=== PATIENT | female | born 1950 | race Caucasian/White ===

== ENCOUNTER → 2018-03-20 08:27 | Outpatient (CLI) | payer MEDICARE, MEDICAID, SELFPAY ==
[2018-03-21 07:36] LABS: Hemoglobin A1C 6.6 % (4.5-6.2)
== END ==
PROVIDERS: PCP Family Medicine; Visit Provider Family Medicine
DX: E11.21 Type 2 diabetes mellitus with diabetic nephropathy (principal)
CPT/HCPCS: 36415; 83036

== ENCOUNTER 2018-04-06 12:31 | Emergency (ER) | payer MEDICARE, MEDICAID, SELFPAY ==
[2018-04-06 12:36] VITALS: PULSE 76; RESP 16; TEMP 37.1; O2SAT 95
--- NOTE | 2018-04-06 12:47 | W.ED.GENAD ---
Discharge Plan Disposition Patient Disposition: HOME Condition: Fair Discharge Details Chief Complaint: Nk/Back Pain Clinical Impression: Sciatica, Low back pain Primary Care Provider: Letty Whittington ED Provider: Yanelis Live Home Meds and New Rx's Prescriptions: Continue blood-glucose meter 1 EACH misc 1 ea Miscellaneous AC Qty: 1 RF: 0 omeprazole 20 MG capsule,delayed release(DR/EC) 40 mg PO DAILY PRNRF: 0 blood sugar diagnostic [FreeStyle Lite Strips] 1 EACH strip 1 ea Miscellaneous DAILY Qty: 90 RF: 12 lancets 1 EACH misc 1 ea Miscellaneous DAILY Qty: 100 RF: 12 rosuvastatin [Crestor] 20 MG tablet 20 mg PO DAILY Qty: 90 RF: 4 Melaleuca 4 cap PO BID RF: 0 losartan 50 MG tablet 1 tab PO DAILY Qty: 90 RF: 12 furosemide [Lasix] 40 MG tablet 2 tab PO DAILY Qty: 180 RF: 4 potassium chloride 20 MEQ tablet,ER particles/crystals 20 meq PO BID Qty: 180 RF: 12 glipizide 2.5 MG tablet extended release 24hr 2.5 mg PO DAILY Qty: 90 RF: 12 metformin 1,000 MG tablet 1,000 mg PO BID Qty: 180 RF: 4 allopurinol 300 MG tablet 300 mg PO DAILY Qty: 90 RF: 4 levothyroxine 112 MCG tablet 112 mcg PO DAILY Qty: 90 RF: 12 Discharge Instructions Instructions: Sciatica (ED), Lower Back Exercises (ED) Additional Instructions: Encourage frequent ambulation and gentle stretching. You may try topical such as Salonpas or Lidoderm patches to the area of maximal discomfort. Aleve once in the morning, once at night. You may take Tylenol 1000 mg every 6 hours as needed for discomfort. If you develop fever/chills, increased pain, sensation changes, change in bladder or bowel habits or other new/worsening symptoms please seek care urgently once again. Please follow-up with primary care in the next 1-2 weeks. Please contact physical therapy to schedule appointment as referred. Stand Alone Forms: Physical Therapy Referral Referrals: Letty Whittington MD, [place] [Primary Care Provider] - Discharge Data Discharge Date/Time-TO BE ENTERED AT DEPARTURE: 04/06/18 13:51 Medical Decision Making MDM Narrative Medical decision making narrative: Patient presents today with chief complaint of acute on chronic lower back pain. Pain is radiating down the right side of the buttock. It spares the leg. No saddle paresthesias or other sensory deficits noted on lower extremity exam. No weakness. She is 5 out of 5 strength of bilateral lower extremities. She denies any incontinence or change in bladder/bowel habits. Denies any recent trauma. Patient does have good range of motion although when the patient goes to sit or stand from the stretcher this does cause increased pain on the right side. Pain is reproducible to palpation on exam. Midline tenderness is negligible, the pain seems to be primarily over the right SI joint. Vital signs are within normal limits. Patient responded well to anti-inflammatories before. Advised to begin her Aleve twice daily once again as this has worked well for her in the past. Advised that she may augment throughout the day with Tylenol. This patient is a diabetic and did not feel that treatment with steroids is appropriate at this time. Referral for physical therapy will be given. Encouraged frequent mobilization and gentle stretching. I advised follow-up with primary care. We discussed topical options that she may use to help with discomfort. We discussed new/worsening symptoms and when to seek care urgently once again. All of her questions and concerns were addressed and she is in agreement with this plan [facility] - General Adult General Date/Time Provider Initiated Documentation: 04/06/18 12:46. Limitations to Documentation: no limitations. Information obtained by: patient and family. HPI Narrative: Patient is a 67-year-old female presenting today with chief complaint of back pain. Patient has chronic lower back pain. 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 Reports that she has had intermittent flares of lower back pain with radiating pain down the right buttock. Reports that she had once this flare approximately 2 weeks ago. Since that time she has had discomfort particularly with walking and when going from sitting to standing position. She denies any fevers or chills. Denies any recent trauma. Denies any change in bowel or bladder habits. No incontinence. Describes pain as radiating across the entirety of the lower back but much worse in the right side than the left. He has not noted rash. States she took Advil today but not taking medication prior to this. Reports that typically Aleve works well for her during her flares. Did contact her primary care but reports that primary care is unable to get her in this week for evaluation. Related Data Home Medications Medication Instructions Recorded Confirmed omeprazole 40 mg PO DAILY PRN tab-cap 11/02/17 04/06/18 Melaleuca 4 cap PO BID 03/22/18 04/06/18 Allergies Allergy/AdvReac Type Severity Reaction Status Date / Time lisinopril AdvReac Intermediate COUGH Unverified 04/06/18 12:40 General Stated Complaint: Nk/Back Pain NOLVIA: 4 Review of Systems Constitutional Reports as per HPI, Denies chills, Denies fatigue, Denies fever(s) and Denies headache(s) ENT Denies headache(s) Cardiovascular Denies chest pain and Denies dyspnea Respiratory Denies cough and Denies dyspnea Gastrointestinal Denies abdominal pain, Denies change in bowel habits, Denies fecal incontinence, Denies diarrhea, Denies nausea and Denies vomiting Genitourinary Denies urinary incontinence Musculoskeletal Reports as per HPI Integumentary/Breasts Reports as per HPI Neurologic Reports as per HPI and Denies headache(s) Endocrine Denies fatigue PFSH Family History Mother Personal history of malignant neoplasm Father Personal history of malignant neoplasm Heart disease Grandfather Cirrhosis of liver Grandfather Narcolepsy Diabetes Grandmother Diabetes Personal history of malignant neoplasm Heart disease Grandmother Personal history of malignant neoplasm Sister No problems noted. Sister Alcohol abuse Personal history of malignant neoplasm Sister Personal history of malignant neoplasm Brother No problems noted. Brother No problems noted. Brother No problems noted. Brother No problems noted. Brother No problems noted. Brother Personal history of malignant neoplasm Son Essential hypertension Son Narcolepsy Diabetes Essential hypertension Hyperlipidemia Medical History Bronchiectasis Chronic insomnia Depression Diabetes Diverticulosis large intestine w/o perforation or abscess w/o bleeding GERD (gastroesophageal reflux disease) Gout Hyperlipidemia Hypertension Hypothyroidism Morbid obesity with BMI of 50.0-59.9, adult Organic sleep apnea Osteoarthritis Vitamin D deficiency Social History Smoking/Tobacco Use Status: Never Surgical History Arthroplasty of knee (02/25/16) Cholecystectomy Colonoscopy - IV Sedation Endometrial Biopsy Ligation of fallopian tube PELVIC U/S Exam Const General: cooperative, healthy appearing, comfortable, no acute distress and well developed Nutritional Appearance: obese and overweight Orientation: alert and awake Eyes General: appearance normal, both eyes and all related structures Neck Neck: normal visual inspection, full ROM and nontender Resp Effort & Inspection: normal respiratory effort, able to speak in complete sentences and no respiratory distress Auscultation: clear to auscultation bilaterally Cardio Rate: regular rate Rhythm: regular rhythm Heart Sounds: S1 normal and S2 normal GI Inspection: normal to inspection and non-distended Palpation: soft, not firm, no guarding, not rigid and nontender Back/Spine/Pelvis Back: no CVA tenderness Thoracic/Lumbar Spine: No thoracic and lumbar spine normal to inspection (patient has discomfort across the entire lower section of her abdomen, worse on the right than the left. Pain worse over the SI joint and gluteus. ), surgical scar(s) present (well healed over area over lumbar spine consistent with history), bend over test abnormal (exacerbates pain on the right), pain with thoraco-lumbar ROM (rotational movements intact, worse wth bending forward or sitting to standing position), paraspinal tenderness and thoraco-lumbar ROM limited Pelvis: no pain with anterior-posterior compression and no pain with lateral compression Sacroiliac joints: on the right Sacrum: no ecchymosis, no erythema, no swelling and tenderness Skin General skin exam: no rashes or lesions noted Lesions: no lesions Rashes: no rashes Trauma: no lacerations or abrasions Wounds: no wounds Neuro General: alert and awake Cognition: normal cognition Speech: speech normal Gait: normal gait (patient ambulating slowly but no change in gait is noted), not shuffling and gait not assisted Motor: muscle tone normal throughout, strength 5/5 throughout (5/5 in lower extremities.), no movement abnormalities noted and normal tone Sensory Exam: no sensory deficits noted (no saddle paresthesias noted) DTR's: Rt Patellar: 1+, Lt Patellar: 1+, Rt Ankle: 1+ and Lt Ankle: 1+ Psych Appearance: grossly normal Mental Status: mental status grossly normal Speech and Movement: speech and movement normal Mood: congruent mood Affect: normal affect Attitude: cooperative Course Vital Signs Temperature 37.1 C 04/06/18 12:36 Pulse 76 04/06/18 12:36 Respiratory Rate 16 04/06/18 12:36 Pulse Oximetry 95 04/06/18 12:36 Temperature 37.1 C 04/06/18 12:36 Pulse 76 04/06/18 12:36 Respiratory Rate 16 04/06/18 12:36 Pulse Oximetry 95 04/06/18 12:36
[2018-04-06] MEDS: Lidocaine 5% Patch 1 PATCH TP (13:40)
[2018-04-06] MEDS: Acetaminophen 500 MG TAB 1000 MG PO (13:45)
== END 2018-04-06 13:51 | disposition home or self-care (01) ==
PROVIDERS: Emergency Provider Physician Assistant; PCP Family Medicine
DX: M54.41 Lumbago with sciatica, right side (principal); M54.5 Low back pain; G89.29 Other chronic pain; E11.9 Type 2 diabetes mellitus without complications; I10 Essential (primary) hypertension; Z79.84 Long term (current) use of oral hypoglycemic drugs
CPT/HCPCS: 99282

== ENCOUNTER 2018-06-21 02:03 | Outpatient (CLI) | payer MEDICARE, MEDICAID, SELFPAY ==
[2018-06-21 11:02] LABS: Mean Corp. HGB Concentration 32.5 g/dL (32.0-36.0); Mean Corpuscular Hemoglobin 29.8 pg (27.0-33.0); Mean Corpuscular Volume 91.7 fL (80-95); Mean Platelet Volume 11.7 fL (8.0-11.0); Platelet Count 137 x1000/uL (130-400); RBC 4.36 m/cumm (4.00-5.20); RBC Distribution Width 13.9 % (11.7-14.6); White Blood Cell Count 8.29 k/cumm (4.4-10.8)
[2018-06-21 12:16] LABS: COMMENT (LAB VIEW ONLY) 224.51 mg/dL; Microalb ug/mg Crea 8.6 ug/mg Cr
[2018-06-21 12:20] LABS: ALT 22 U/L (12-78); AST 15 U/L (15-37); Albumin 3.8 g/dL (3.4-5.0); Alkaline Phosphatase 73 U/L (46-116); Anion Gap 6.1 mmol/L (3-11); BUN 16 mg/dL (7-18); Bilirubin, Total 0.5 mg/dL (0.2-1.0); CO2 32.9 mmol/L (21.0-32.0); Calcium 9.6 mg/dL (8.5-10.1); Chloride 101 mmol/L (98-107); Cholesterol 148 mg/dL (50-200); Glucose 115 mg/dL (70-100); HDL Cholesterol 44 mg/dL (40-60); LDL CHOLESTEROL 79 mg/dL (<100); Potassium 4.2 mmol/L (3.5-5.1); Sodium 140 mmol/L (136-145); TSH (W/Ref FT4) 0.11 uIU/mL (0.358-3.74); Total Protein 6.8 g/dL (6.4-8.2); Triglyceride 170 mg/dL (30-150)
[2018-06-21 13:15] LABS: FREE T4 1.21 ng/dL (0.76-1.46)
[2018-06-21 14:10] LABS: Hemoglobin A1C 6.1 % (4.5-6.2)
== END 2018-06-21 02:23 ==
PROVIDERS: PCP Family Medicine; Visit Provider Family Medicine
DX: E11.9 Type 2 diabetes mellitus without complications (principal); E03.9 Hypothyroidism, unspecified; I10 Essential (primary) hypertension; E11.21 Type 2 diabetes mellitus with diabetic nephropathy; M10.9 Gout, unspecified; E78.5 Hyperlipidemia, unspecified
CPT/HCPCS: 36415; 80053; 80061; 83721; 85027; 82043; 82570; 83036; 84439; 84443

== ENCOUNTER 2018-09-09 13:13 | Emergency (ER) | payer MEDICARE, MEDICAID, SELFPAY ==
[2018-09-09] VITALS (41 sets, daily range): BP systolic 69–148; BP diastolic 48–91; PULSE 66–92; RESP 12–25; TEMP 36.6–36.9; O2SAT 95–100
--- NOTE | 2018-09-09 13:58 | DI.RAD_ITS ---
SYMPTOMS/DIAGNOSIS: REPRODUCIBLE CENTRAL CP PA AND LATERAL CHEST: The heart is normal in size. The lungs are clear. The mediastinal structures and pleura appear intact. CONCLUSION: Normal chest.
[2018-09-09] MEDS: Acetaminophen 500 MG TAB 1000 MG PO (14:12)
[2018-09-09] MEDS: Ketorolac 30 MG/ML VIAL 15 MG IVP (14:13)
[2018-09-09 14:17] LABS: Abs Immature Grans 0.04 k/cumm (0.0-0.09); Absolute Basophil Count 0.02 k/cumm (0.0-0.2); Absolute Eosinophil Count 0.08 k/cumm (0.0-0.7); Absolute Lymphocyte Count 2.72 k/cumm (1.2-3.4); Absolute Monocyte Count 1.04 k/cumm (0.11-0.7); Basophils % 0.2; Eosinophils % 0.8; HCT 44.9 % (36.0-46.0); HGB 14.4 g/dL (12.0-15.5); Immature Grans % 0.4; Lymphocytes % 27.8; Mean Corp. HGB Concentration 32.1 g/dL (32.0-36.0); Mean Corpuscular Hemoglobin 29.4 pg (27.0-33.0); Mean Corpuscular Volume 91.6 fL (80-95); Mean Platelet Volume 11.6 fL (8.0-11.0); Monocytes % 10.6; Neutrophils % 60.2; Platelet Count 165 x1000/uL (130-400); RBC Distribution Width 13.9 % (11.7-14.6)
[2018-09-09 14:37] LABS: ALT 25 U/L (12-78); AST 18 U/L (15-37); Alkaline Phosphatase 95 U/L (46-116); Anion Gap 8.3 mmol/L (3-11); BUN 15 mg/dL (7-18); Bilirubin, Total 0.4 mg/dL (0.2-1.0); CO2 30.7 mmol/L (21.0-32.0); Calcium 9.8 mg/dL (8.5-10.1); Chloride 102 mmol/L (98-107); Estimated GFR 49.69 (mL/min/1.73m2); Glucose 102 mg/dL (70-100); Potassium 3.6 mmol/L (3.5-5.1); Sodium 141 mmol/L (136-145); Total Protein 8.3 g/dL (6.4-8.2)
[2018-09-09 14:45] LABS: Troponin I < 0.02 ng/mL (0.00-0.06)
[2018-09-09 17:16] LABS: Troponin I < 0.02 ng/mL (0.00-0.06)
--- NOTE | 2018-09-09 18:11 | W.ED.GENAD ---
Discharge Plan Disposition Patient Disposition: HOME Condition: Good Discharge Details Chief Complaint: Chest/Rib Clinical Impression: Chest pain, Muscle strain Primary Care Provider: Letty Whittington ED Provider: Jacek Nguyen Home Meds and New Rx's Prescriptions: No Action blood-glucose meter 1 EACH misc 1 ea Miscellaneous AC Qty: 1 RF: 0 omeprazole 20 MG capsule,delayed release(DR/EC) 40 mg PO DAILY PRNRF: 0 blood sugar diagnostic [FreeStyle Lite Strips] 1 EACH strip 1 ea Miscellaneous DAILY Qty: 90 RF: 12 lancets 1 EACH misc 1 ea Miscellaneous DAILY Qty: 100 RF: 12 rosuvastatin [Crestor] 20 MG tablet 20 mg PO DAILY Qty: 90 RF: 4 losartan 50 MG tablet 1 tab PO DAILY Qty: 90 RF: 12 potassium chloride 20 MEQ tablet,ER particles/crystals 20 meq PO BID Qty: 180 RF: 12 glipizide 2.5 MG tablet extended release 24hr 2.5 mg PO DAILY Qty: 90 RF: 12 metformin 1,000 MG tablet 1,000 mg PO BID Qty: 180 RF: 4 allopurinol 300 MG tablet 300 mg PO DAILY Qty: 90 RF: 4 levothyroxine 112 MCG tablet 112 mcg PO DAILY Qty: 90 RF: 12 furosemide [Lasix] 40 MG tablet 1 tab PO DAILY RF: 0 Discharge Instructions Instructions: Chest Pain (ED), Muscle Strain (ED) Additional Instructions: Please take Tylenol and Motrin as needed for pain. If you notice any worsening of your symptoms, or any new symptoms such as vomiting, diarrhea, fever, chills, shortness of breath, chest pain, numbness, weakness, or fainting , please return immediately to the emergency department for reevaluation. Please follow up with your primary care provider as soon as possible for reassessment and reevaluation. As always, it was a pleasure participating in your medical care today. Referrals: Letty Whittington MD, [place] [Primary Care Provider] - Medical Decision Making This is a very pleasant 68-year-old female with a past medical history of diabetes, hypertension, high cholesterol, who presents with 4 days of left axillary left arm pain. It is nonexertional and nonpleuritic. She did have a stress test that was -2 years ago. Physical exam demonstrates notable reproducible tenderness over the left axilla. No signs of deformity. Signs and symptoms appear consistent with musculoskeletal strain. Because of the patient's risk factors, a laboratory workup and a cardiac workup was performed. EKG demonstrates no significant abnormalities. Laboratory workup is benign, serial troponins are negative. Chest x-ray shows no acute process. The patient was given NSAIDs and had near complete resolution of her symptomatology. With negative serial troponins, negative cardiac workup, negative imaging, and pain that is reproducible and completely relieved with NSAIDs I feel she can be safely discharged home with diagnosis of musculoskeletal chest pain. Discussed red flags which return the patient understands. EKG 13: 32 Rate 87, intervals normal, sinus rhythm, no ST elevations or depressions, no significant Q waves except for a questionable Q wave in aVF. No other significant abnormalities Exam(s) a RAD:XR chest 2V PA & lateral SYMPTOMS/DIAGNOSIS: REPRODUCIBLE CENTRAL CP PA AND LATERAL CHEST: The heart is normal in size. The lungs are clear. The mediastinal structures and pleura appear intact. CONCLUSION: Normal chest. HPI General Date/Time Provider Initiated Documentation: 09/09/18 13:58. HPI Narrative: This is a 68-year-old female with past medical history of hypertension, high cholesterol, diabetes, thyroid disease, but no history of cardiac disease, who did have a stress test 2 years ago that was negative, who presents today for evaluation of chest pain. The patient states is been present for the last 3 days, it is not exertional, nonpleuritic. It is present over just past the left breast itself, with slight radiation to the shoulder. It is not worsened with movement but is definitely worsened with palpation. She denies any cough, hemoptysis, or other complaint. She denies any history of cardiac disease. She denies any concerning symptoms of fever, chills, nausea, vomiting, or diarrhea. Patient denies any recent surgeries, IV or illicit drug use or pertinent family history. Denies PE risk factors such as recent long car rides, immobilization, recent surgery, prior history of DVT or PE, family history of PE or DVT, morbid obesity, exogenous estrogen and smoking, hemoptysis, history of cancer. Related Data Home Medications Medication Instructions Recorded Confirmed blood-glucose meter #1 ea 03/04/17 06/30/18 omeprazole 40 mg PO DAILY PRN tab-cap 11/02/17 06/30/18 blood sugar diagnostic [FreeStyle #90 strip 12/28/17 06/30/18 Lite Strips] lancets #100 ea 12/28/17 06/30/18 rosuvastatin [Crestor] 20 mg PO DAILY #90 tab-cap 03/20/18 09/09/18 allopurinol 300 mg PO DAILY #90 tab-cap 03/22/18 09/09/18 glipizide 2.5 mg PO DAILY #90 tab 03/22/18 09/09/18 levothyroxine 112 mcg PO DAILY #90 tab-cap 03/22/18 09/09/18 losartan 1 tab PO DAILY #90 tab-cap 03/22/18 09/09/18 metformin 1,000 mg PO BID #180 tab-cap 03/22/18 09/09/18 potassium chloride 20 meq PO BID #180 tab-cap 03/22/18 09/09/18 furosemide [Lasix] 1 tab PO DAILY 09/09/18 09/09/18 Previous Rx's Medication Instructions Recorded blood sugar diagnostic [FreeStyle #90 strip 12/28/17 Lite Strips] lancets #100 ea 12/28/17 rosuvastatin [Crestor] 20 mg PO DAILY #90 tab-cap 03/20/18 allopurinol 300 mg PO DAILY #90 tab-cap 03/22/18 glipizide 2.5 mg PO DAILY #90 tab 03/22/18 levothyroxine 112 mcg PO DAILY #90 tab-cap 03/22/18 losartan 1 tab PO DAILY #90 tab-cap 03/22/18 metformin 1,000 mg PO BID #180 tab-cap 03/22/18 potassium chloride 20 meq PO BID #180 tab-cap 03/22/18 Allergies Allergy/AdvReac Type Severity Reaction Status Date / Time lisinopril AdvReac Intermediate COUGH Unverified 09/09/18 13:37 General Stated Complaint: Chest/Rib NOLVIA: 3 Review of Systems Review of Systems All systems reviewed & are unremarkable except as noted in HPI and below PFSH Medical History Vitamin D deficiency (Chronic 03/22/12) Pulmonary hypertension (Chronic 11/08/17) Organic sleep apnea, unspecified (Chronic) Left hip pain (Chronic 12/15/16) Knee pain (Chronic 03/12/15) Increased body mass index (Chronic) Hypothyroidism (Chronic 10/11/12) Hyperlipidemia (Chronic 10/11/12) Gout (Chronic 03/14/10) Gastroesophageal reflux disease (Chronic 10/11/12) Family history of colon cancer (Chronic 01/29/15) Essential hypertension (Chronic 05/04/13) Edema (Chronic) Diverticulosis of colon without diverticulitis (Chronic 05/21/09) 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) Depressive disorder (Chronic) Chronic right shoulder pain (Chronic 11/02/17) Bronchiectasis (Chronic) Arthritis of right knee (Chronic 06/07/15) Abdominal hernia (Chronic 07/23/14) Left knee DJD (Chronic) Bronchiectasis Chronic insomnia Depression Diabetes Diverticulosis large intestine w/o perforation or abscess w/o bleeding GERD (gastroesophageal reflux disease) Gout Hyperlipidemia Hypertension Hypothyroidism Morbid obesity with BMI of 50.0-59.9, adult Organic sleep apnea Osteoarthritis Vitamin D deficiency Surgical History Arthroplasty of knee (02/25/16) Cholecystectomy Colonoscopy - IV Sedation Endometrial Biopsy Ligation of fallopian tube PELVIC U/S Family History Mother Personal history of malignant neoplasm Father Personal history of malignant neoplasm Heart disease Grandfather Cirrhosis of liver Grandfather Narcolepsy Diabetes Grandmother Diabetes Personal history of malignant neoplasm Heart disease Grandmother Personal history of malignant neoplasm Sister No problems noted. Sister Alcohol abuse Personal history of malignant neoplasm Sister Personal history of malignant neoplasm Brother No problems noted. Brother No problems noted. Brother No problems noted. Brother No problems noted. Brother No problems noted. Brother Personal history of malignant neoplasm Son Essential hypertension Son Narcolepsy Diabetes Essential hypertension Hyperlipidemia Other Family history of colon cancer Social History household members: spouse highest education level completed: high school graduate current occupational status: retired pets and animals: No frequency: does not exercise Smoking and Tabacco status: Never alcohol intake: current substance use type: does not use shanda/episcopalian: Evangelical special shanda needs: No Exam Narrative Exam Narrative: 1.Const: Well-nourished, Well-developed, appearing stated age 2.Eyes: PERRL, no conjunctival injection, and symmetrical lids. 3.ENT: Atraumatic external nose and ears. Moist MM. Neck: Symmetric, trachea midline, No thyromegaly. 4.CVS: +S1/S2, No murmurs or gallops. Peripheral pulses 2+ and equal in all extremities. Brisk capillary refill in all extremities. 5.RESP: Unlabored respiratory effort. Clear to auscultation bilaterally. No wheezes rales or rhonchi 6.GI: Soft, Nontender/Nondistended, No hepatosplenomegaly. No guarding or rebound. 7.MSK: Normocephalic/Atraumatic, Extremities w/o deformity. No cyanosis or clubbing, Normal movement of all extremities. Patient does have reproducible tenderness over the left axillary region over the axillary component of the breast. No significant reproducible pain in the arm. The pain on palpation of the axillary region is the pain that the patient is complaining of per the patient. No signs of mass or deformity on breast exam. 8.Skin: Warm, Dry. No rashes or lesions. 9.Neuro: health care coordinator II-XII grossly intact. Sensation grossly intact, no focal neurologic deficits. 10.Psych: (AAO) x3. Appropriate mood and affect Course Vital Signs Temperature 36.6 C 09/09/18 13:21 Pulse 92 H 09/09/18 13:21 Respiratory Rate 18 09/09/18 13:21 Blood Pressure 148/81 H 09/09/18 13:21 Pulse Oximetry 95 09/09/18 13:21 Temperature 36.6 C 09/09/18 13:21 Pulse 75 09/09/18 16:31 Pulse 78 09/09/18 16:31 Respiratory Rate 16 09/09/18 16:31 Respiratory Effort 09/09/18 13:36 Respiratory Depth Normal 09/09/18 13:36 Respiratory Pattern Normal 09/09/18 13:36 Blood Pressure 69/58 L 09/09/18 16:31 Blood Pressure Mean 60 09/09/18 16:31 Pulse Oximetry 96 09/09/18 16:31 Oxygen Delivery Method Room Air 09/09/18 13:21 Oxygen Flow Rate 0 09/09/18 13:21 Pain Level 4 09/09/18 14:12 Lab/Test Results Lab/Test Results: Laboratory Tests Range/Units 09/09/18 09/09/18 09/09/18 14:00 14:00 16:50 WBC (4.4-10.8) k/cumm 9.80 RBC (4.00-5.20) m/cumm 4.90 Hgb (12.0-15.5) g/dL 14.4 Hct (36.0-46.0) % 44.9 MCV (80-95) fL 91.6 MCH (27.0-33.0) pg 29.4 MCHC (32.0-36.0) g/dL 32.1 RDW (11.7-14.6) % 13.9 Plt Count (130-400) x1000/uL 165 MPV (8.0-11.0) fL 11.6 H Immature Gran % 0.4 Neutrophils % 60.2 Lymphocytes % 27.8 Monocytes % 10.6 Eosinophils % 0.8 Basophils % 0.2 Absolute Neutrophils (1.2-6.7) k/cumm 5.90 Absolute Lymphocytes (1.2-3.4) k/cumm 2.72 Absolute Monocytes (0.11-0.7) k/cumm 1.04 H Absolute Eosinophils (0.0-0.7) k/cumm 0.08 Absolute Basophils (0.0-0.2) k/cumm 0.02 Sodium (136-145) mmol/L 141 Potassium (3.5-5.1) mmol/L 3.6 Chloride (98-107) mmol/L 102 Carbon Dioxide (21.0-32.0) mmol/L 30.7 Anion Gap (3-11) mmol/L 8.3 BUN (7-18) mg/dL 15 Creatinine (0.55-1.02) mg/dL 1.10 H Estimated GFR/1.73 m2 (mL/min/1.73m2) 49.69 Glucose (70-100) mg/dL 102 H Calcium (8.5-10.1) mg/dL 9.8 Total Bilirubin (0.2-1.0) mg/dL 0.4 AST (15-37) U/L 18 ALT (12-78) U/L 25 Alkaline Phosphatase (46-116) U/L 95 Troponin I (0.00-0.06) ng/mL < 0.02 < 0.02 Total Protein (6.4-8.2) g/dL 8.3 H Albumin (3.4-5.0) g/dL 4.0
== END 2018-09-09 18:35 | disposition home or self-care (01) ==
PROVIDERS: Emergency Provider Student in an Organized Health Care Education/Training Program; PCP Family Medicine
DX: M79.622 Pain in left upper arm (principal); R07.9 Chest pain, unspecified; S29.011A Strain of muscle and tendon of front wall of thorax, initial encounter; X58.XXXA Exposure to other specified factors, initial encounter; E11.9 Type 2 diabetes mellitus without complications; Z79.84 Long term (current) use of oral hypoglycemic drugs; I10 Essential (primary) hypertension
CPT/HCPCS: 36415; 80053; 93005; 96374; 99285; 71046; 84484; 85025; 93010; J1885

== ENCOUNTER 2018-09-17 00:47 | Outpatient (CLI) | payer MEDICARE, MEDICAID, SELFPAY ==
[2018-09-17 10:04] LABS: Hemoglobin A1C 6.3 % (4.5-6.2)
[2018-09-17 10:47] LABS: TSH (W/Ref FT4) 0.15 uIU/mL (0.358-3.74)
[2018-09-17 11:22] LABS: FREE T4 1.15 ng/dL (0.76-1.46)
[2018-09-19 05:59] LABS: Vitamin D 25 Total 17.9 ng/ml (30-100)
== END 2018-09-17 01:07 ==
PROVIDERS: PCP Family Medicine; Visit Provider Family Medicine
DX: E11.21 Type 2 diabetes mellitus with diabetic nephropathy (principal); E55.9 Vitamin D deficiency, unspecified; F32.9 Major depressive disorder, single episode, unspecified; E03.9 Hypothyroidism, unspecified
CPT/HCPCS: 36415; 82306; 83036; 84439; 84443

== ENCOUNTER 2018-11-10 00:25 | Outpatient (CLI) | payer MEDICARE, MEDICAID, SELFPAY ==
--- NOTE | 2018-11-10 11:00 | DI.MAMMO_ITS ---
SYMPTOMS/DIAGNOSIS: SCREENING, Z12.31 MAMMOGRAMS: Mammograms were interpreted according to the usual protocol including computer analysis with CAD system, tomosynthesis and C view imaging. The breasts are of moderate density with fairly symmetrical distribution of fibroglandular tissue. No dominant mass or clumped microcalcification is identified in either breast. Current examination is compared with previous examinations including September 2017 and there has been no gross interval change in appearance in comparison with the previous studies. CONCLUSION: No specific evidence of malignancy at this time. Routine screening examinations are suggested at yearly intervals due to the family history of breast carcinoma. Category 1, breast density category B. MQSA ASSESSMENT OF FINDINGS: Negative. Category 1. Patient will receive a letter notifying them of these results. BI-RADS category B. There are scattered areas of fibroglandular density.
== END 2018-11-10 00:45 ==
PROVIDERS: PCP Family Medicine; Visit Provider Family Medicine
DX: Z12.31 Encounter for screening mammogram for malignant neoplasm of breast (principal); Z80.3 Family history of malignant neoplasm of breast
CPT/HCPCS: 77063; 77067

== ENCOUNTER 2019-01-10 10:09 | Outpatient (CLI) | payer MEDICARE, MEDICAID, SELFPAY ==
[2019-01-10 13:05] LABS: Abs Immature Grans 0.05 k/cumm (0.0-0.09); Absolute Basophil Count 0.01 k/cumm (0.0-0.2); Absolute Eosinophil Count 0.14 k/cumm (0.0-0.7); Absolute Lymphocyte Count 2.22 k/cumm (1.2-3.4); Absolute Monocyte Count 0.67 k/cumm (0.11-0.7); Absolute Neutrophil Count 4.58 k/cumm (1.2-6.7); Basophils % 0.1; Eosinophils % 1.8; HCT 34.2 % (36.0-46.0); Immature Grans % 0.7; Lymphocytes % 28.9; Mean Corp. HGB Concentration 32.2 g/dL (32.0-36.0); Mean Corpuscular Hemoglobin 29.8 pg (27.0-33.0); Mean Corpuscular Volume 92.7 fL (80-95); Mean Platelet Volume 11.7 fL (8.0-11.0); Monocytes % 8.7; Neutrophils % 59.8; Platelet Count 159 x1000/uL (130-400); RBC 3.69 m/cumm (4.00-5.20); RBC Distribution Width 14.2 % (11.7-14.6); White Blood Cell Count 7.67 k/cumm (4.4-10.8)
== END 2019-01-10 10:29 ==
PROVIDERS: PCP Family Medicine; Visit Provider Family Medicine
DX: K92.1 Melena (principal)
CPT/HCPCS: 36415; 85025

== ENCOUNTER 2019-03-11 00:33 | Outpatient (CLI) | payer MEDICARE, MEDICAID, SELFPAY ==
[2019-03-11 10:49] LABS: TSH (W/Ref FT4) 0.11 uIU/mL (0.36-3.74)
[2019-03-12 13:06] LABS: Hemoglobin A1C 5.7 % (4.5-6.2)
== END 2019-03-11 00:53 ==
PROVIDERS: PCP Family Medicine; Visit Provider Family Medicine
DX: E03.9 Hypothyroidism, unspecified (principal); E11.21 Type 2 diabetes mellitus with diabetic nephropathy
CPT/HCPCS: 36415; 83036; 84439; 84443

== ENCOUNTER 2019-06-15 08:08 | Day surgery (SDC) | payer MEDICARE, MEDICAID, SELFPAY ==
[2019-06-15] VITALS (9 sets, daily range): BP systolic 100–156; BP diastolic 47–72; PULSE 62–80; RESP 16–27; TEMP 36.2–36.7; O2SAT 94–100
--- NOTE | 2019-06-15 08:20 | ED.GENADUL_ITS ---
Discharge Plan Disposition Patient Disposition: [facility] INPATIENT Condition: Stable Discharge Details Chief Complaint: Abd Prob Clinical Impression: Incarcerated umbilical hernia Attending Provider: Renetta Freeman Primary Care Provider: Letty Whittington ED Provider: Heide Rowley Medical Decision Making [id number] -- 68-year-old female with a history of obesity, diabetes, hypertension, hyperlipidemia, GERD, hypothyroidism, gout, diverticulosis, cholecystectomy and tubal ligation presents with constant periumbilical and lower abdominal pain and nausea since 2 AM. Afebrile. Patient appears nontoxic. Her abdomen is soft and nondistended. She has periumbilical and lower abdominal tenderness. Differential diagnosis includes appendicitis, diverticulitis, small bowel obstruction, gastroenteritis, UTI. Will place an IV, bolus IV fluids, screening labs and CT abdomen and pelvis. Patient is declining any nausea and pain medication at this time. 1020 --labs and imaging reviewed. Normal white blood cell count, electrolytes. No evidence of infection on urinalysis. CT abdomen and pelvis notes umbilical hernia with fat stranding and fluid with concern for incarcerated hernia. No bowel present. Case discussed with Dr. Freeman who will come to evaluate patient. Patient states her pain is 8/10 and persistent. She is agreeable to a dose of morphine. 1130 --Dr. Freeman evaluated patient at bedside -plan is to take patient to the OR. Medical Records Medical records reviewed: Yes I reviewed the patient's medical records. Imaging Data Radiologic Study: Radiologist's impression: CT ABDOMEN PELVIS W CLINICAL HISTORY: periumbilical/lower abd pain TECHNIQUE: Post IV contrast. COMPARISON: CHEST FOR PULMONARY EMBOLUS from 10/19/2016 FINDINGS: There is a small umbilical hernia containing fat and a small amount of fluid, measuring 2.8 cm transverse. There is a small amount of stranding in the surrounding fat. The bowel is unremarkable. No free air, free fluid or wall thickening is seen. The lung bases are clear. The patient is status post cholecystectomy. There is mild intra and and extrahepatic biliary dilatation. The spleen, pancreas, kidneys and adrenals as well as bladder, uterus and ovaries are unremarkable. IMPRESSION: Mid umbilical hernia containing fat and a small amount of fluid. Lab Data Lab results reviewed: Yes I reviewed the patient's lab results. Labs: Laboratory Tests Range/Units 06/15/19 06/15/19 06/15/19 08:25 08:30 08:30 WBC (4.4-10.8) k/cumm 9.61 RBC (4.00-5.20) m/cumm 4.52 Hgb (12.0-15.5) g/dL 13.2 Hct (36.0-46.0) % 40.9 MCV (80-95) fL 90.5 MCH (27.0-33.0) pg 29.2 MCHC (32.0-36.0) g/dL 32.3 RDW (11.7-14.6) % 15.1 H Plt Count (130-400) x1000/uL 146 MPV (8.0-11.0) fL 11.5 H Immature Gran % 0.4 Neutrophils % 60.5 Lymphocytes % 29.3 Monocytes % 7.9 Eosinophils % 1.7 Basophils % 0.2 Absolute Neutrophils (1.2-6.7) k/cumm 5.81 Absolute Lymphocytes (1.2-3.4) k/cumm 2.82 Absolute Monocytes (0.11-0.7) k/cumm 0.76 H Absolute Eosinophils (0.0-0.7) k/cumm 0.16 Absolute Basophils (0.0-0.2) k/cumm 0.02 Sodium (136-145) mmol/L 142 Potassium (3.5-5.1) mmol/L 4.0 Chloride (98-107) mmol/L 105 Carbon Dioxide (21.0-32.0) mmol/L 29.1 Anion Gap (3-11) mmol/L 7.9 BUN (7-18) mg/dL 18 Creatinine (0.55-1.02) mg/dL 0.90 Estimated GFR/1.73 m2 (mL/min/1.73m2) >= 60.00 Glucose (70-100) mg/dL 133 H Calcium (8.5-10.1) mg/dL 8.9 Magnesium (1.8-2.4) mg/dL 1.9 Total Bilirubin (0.2-1.0) mg/dL 0.4 AST (15-37) U/L 17 ALT (14-59) U/L 29 Alkaline Phosphatase (46-116) U/L 74 Troponin I (0.00-0.06) ng/mL < 0.05 Total Protein (6.4-8.2) g/dL 7.3 Albumin (3.4-5.0) g/dL 3.7 Urine Color (Yellow) Yellow Urine Clarity (Clear) Sl cloudy Urine pH (5-8) 6.0 Ur Specific Rudy (1.005-1.025) 1.025 Urine Protein (Negative) mg/dL 100 H Urine Ketones (Negative) mg/dL Trace H Urine Blood (Negative) Trace-intact H Urine Nitrite (Negative) Negative Urine Bilirubin (Negative) Negative Urine Urobilinogen (Up TO 0.2) EU/dL 1.0 H Ur Leukocyte Esterase (Negative) Negative Urine RBC (0-2) HPF 0-2 Urine WBC (0-5) HPF 0-2 Ur Epithelial Cells (Negative) HPF Many Urine Crystals (Negative) HPF Negative Urine Bacteria (Negative) HPF Moderate Urine Mucus (Negative) Moderate Urine Other (Negative) Ur Culture Indicated? No/sq. contamination Urine Glucose (Negative) mg/dL Negative HPI General Mode of arrival: ambulatory . Date/Time Provider Initiated Documentation: 06/15/19 08:10 . Limitations to Documentation: no limitations . Information obtained by: patient . History of Present Illness described as moderate, with intensity rated at 8. Quality is described as other (Unable to describe.), and is localized to the abdomen. Patient periumbillical. Patient started experiencing this hour(s) (6 hours) and it has been constant. No relieving factors improve symptom(s), Movement worsens symptoms (Walking) . Patient notes nausea/vomiting (Nausea, no vomiting). Patient did receive the following treatments prior to arrival, none HPI Narrative: Denies recent antibiotics, recent nuts or seeds, recent illness. Related Data Home Medications Medication Instructions Recorded Confirmed blood-glucose meter #1 ea 03/04/17 06/15/19 lancets #100 ea 12/28/17 06/15/19 ergocalciferol (vitamin D2) 50,000 50,000 unit PO QWEEK #14 cap 09/19/18 06/15/19 unit capsule furosemide 40 mg tablet 40 mg PO DAILY tab 11/01/18 06/15/19 omeprazole 20 mg capsule,delayed 40 mg PO DAILY PRN #90 tab-cap 11/01/18 06/15/19 release benzonatate 200 mg capsule 200 mg PO TID PRN #30 cap 12/19/18 06/15/19 tramadol 50 mg tablet 50 mg PO Q8H PRN #21 tab 12/19/18 06/15/19 blood sugar diagnostic #100 strip 02/27/19 06/15/19 allopurinol 300 mg tablet 150 mg PO DAILY #90 tab-cap 03/14/19 06/15/19 levothyroxine 100 mcg tablet 100 mcg PO DAILY #90 tab-cap 03/14/19 06/15/19 metformin 1,000 mg tablet 1,000 mg PO BID #180 tab-cap 05/16/19 06/15/19 potassium chloride 20 mEq 20 meq PO BID #180 tab-cap 05/16/19 06/15/19 tablet,extended release(part/cryst) rosuvastatin 20 mg tablet 20 mg PO DAILY #90 tab-cap 05/16/19 06/15/19 losartan 50 mg tablet 50 mg PO DAILY #90 tab 06/12/19 06/15/19 docusate sodium [Colace] 100 mg PO BID #60 cap 06/15/19 hydrocodone-acetaminophen [[place]] 1 tab PO Q6H PRN #20 tab 06/15/19 ibuprofen 600 mg PO Q6H PRN #60 tab 06/15/19 Previous Rx's Medication Instructions Recorded lancets #100 ea 12/28/17 ergocalciferol (vitamin D2) 50,000 50,000 unit PO QWEEK #14 cap 09/19/18 unit capsule omeprazole 20 mg capsule,delayed 40 mg PO DAILY PRN #90 tab-cap 11/01/18 release benzonatate 200 mg capsule 200 mg PO TID PRN #30 cap 12/19/18 tramadol 50 mg tablet 50 mg PO Q8H PRN #21 tab 12/19/18 blood sugar diagnostic #100 strip 02/27/19 allopurinol 300 mg tablet 150 mg PO DAILY #90 tab-cap 03/14/19 levothyroxine 100 mcg tablet 100 mcg PO DAILY #90 tab-cap 03/14/19 metformin 1,000 mg tablet 1,000 mg PO BID #180 tab-cap 05/16/19 potassium chloride 20 mEq 20 meq PO BID #180 tab-cap 05/16/19 tablet,extended release(part/cryst) rosuvastatin 20 mg tablet 20 mg PO DAILY #90 tab-cap 05/16/19 losartan 50 mg tablet 50 mg PO DAILY #90 tab 06/12/19 docusate sodium [Colace] 100 mg PO BID #60 cap 06/15/19 hydrocodone-acetaminophen [[place]] 1 tab PO Q6H PRN #20 tab 06/15/19 ibuprofen 600 mg PO Q6H PRN #60 tab 06/15/19 Allergies Allergy/AdvReac Type Severity Reaction Status Date / Time lisinopril AdvReac Intermediate COUGH Unverified 06/15/19 08:42 General Stated Complaint: Abd Prob NOLVIA: 3 Review of Systems All systems reviewed & are unremarkable except as noted in HPI and below Constitutional Constitutional: Reports as per HPI, Denies chills and Denies fever(s) Eyes Eyes: Denies blurry vision ENT Ears, Nose, Mouth, and Throat: Denies dizziness, Denies sore throat and Denies throat swelling Cardiovascular Cardiovascular: Denies chest pain and Denies dyspnea Respiratory Respiratory: Denies cough and Denies dyspnea Gastrointestinal Gastrointestinal: Reports abdominal pain, Denies diarrhea, Reports nausea and Denies vomiting Genitourinary Genitourinary: Denies hematuria and Denies dysuria Musculoskeletal Musculoskeletal: Denies back pain and Denies numbness Integumentary/Breasts Skin/Breast: Denies lesions and Denies rash Neurologic Neurologic: Denies dizziness, Denies focal weakness and Denies numbness Allergic/Immunologic Allergic/Immunologic: Denies throat swelling [facility] Medical History (Updated 06/15/19 @ 11:50 by Renetta Freeman DO) Abdominal hernia (Chronic 07/23/14) Arthritis of right knee (Chronic 06/07/15) Bronchiectasis Bronchiectasis (Chronic) chronic cough Chronic insomnia Chronic right shoulder pain (Chronic 11/02/17) Depression Depressive disorder (Chronic) Diabetes 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) Diverticulosis large intestine w/o perforation or abscess w/o bleeding Diverticulosis of colon without diverticulitis (Chronic 05/21/09) Edema (Chronic) Essential hypertension (Chronic 05/04/13) Family history of colon cancer (Chronic 01/29/15) Gastroesophageal reflux disease (Chronic 10/11/12) GERD (gastroesophageal reflux disease) Gout Gout (Chronic 03/14/10) Hyperlipidemia Hyperlipidemia (Chronic 10/11/12) Hypertension Hypothyroidism Hypothyroidism (Chronic 10/11/12) Incarcerated incisional hernia (Acute) Increased body mass index (Chronic) Knee pain (Chronic 03/12/15) Left hip pain (Chronic 12/15/16) Left knee DJD (Chronic) Morbid obesity with BMI of 50.0-59.9, adult Organic sleep apnea Organic sleep apnea, unspecified (Chronic) CPAP (NOT USING 11/17) Osteoarthritis Pulmonary hypertension (Chronic 11/08/17) Vitamin D deficiency Vitamin D deficiency (Chronic 03/22/12) Surgical History Arthroplasty of knee (02/25/16) LEFT TOTAL KNEE Cholecystectomy Colonoscopy - IV Sedation Endometrial Biopsy neg Ligation of fallopian tube PELVIC U/S NEG Family History Mother Liver cancer Father Heart disease Stomach cancer Maternal Grandfather Cirrhosis of liver Paternal Grandfather Narcolepsy Diabetes Maternal Grandmother Diabetes Heart disease Breast cancer Paternal Grandmother Breast cancer Sister Alcohol abuse Uterine cancer Sister Cancer Brother Liver cancer Lung cancer Son Essential hypertension Son Narcolepsy Diabetes Essential hypertension Hyperlipidemia Other Family history of colon cancer Social History Smoking/Tobacco Use Status: Never Alcohol Intake: current Alcohol Intake frequency: holidays/special occasions only Alcohol type: wine Drug use: Never Substance use type: does not use Caregiver/Support person: No Household members: spouse Housing: apartment Communication Needs: None Do you need help understanding health information?: Rarely Pets and animals: No Sexually active: No Do you think of yourself as: straight/heterosexual Current gender identity: female What is your relationship status?: How often do you talk on the phone with friends or family?: three or more times per week How often do you get together with friends or relatives?: once per week How often do you attend mormon or buddhist services?: 1-3 times per year Do you belong to any clubs or organized social groups?: yes Panel score (0-1 are the most socially isolated patients): 3 What type of physical activity do you participate in: walking Duration: 15-30 minutes/day Frequency: 5-6 times per week Sejal/Bahai: Congregational Special sejal needs: No Seatbelt use: always Helmet use: No Drive intox or ride w/intox van cdl driver: No Do you feel safe at home: Yes Do you feel safe in your relationship?: Yes Exam Const General: cooperative, healthy appearing and no acute distress HENMT Head: normal to inspection Face and sinus: normal facial exam Eyes General: appearance normal, both eyes and all related structures EOM: EOM intact bilaterally Neck Neck: normal visual inspection and No submandibular swelling Lymphatic: no lymphadenopathy noted Chest Chest: normal inspection of the chest and no tenderness Resp Effort & Inspection: normal respiratory effort and able to speak in complete sentences Auscultation: clear to auscultation bilaterally Cardio Rate: regular rate Rhythm: regular rhythm GI Inspection: normal to inspection Palpation: soft, not firm, not rigid and tender (periumbilical) in the LLQ and in the RLQ Auscultation: hypoactive bowel sounds Skin General skin exam: no rashes or lesions noted Neuro General: alert, awake and oriented x3 Cognition: normal cognition Speech: speech normal Motor: muscle tone normal throughout Sensory Exam: no sensory deficits noted Extrem General: normal to inspection, full ROM, normal capillary refill, no calf tenderness bilaterally and no edema Psych Appearance: grossly normal Mental Status: mental status grossly normal Speech and Movement: speech and movement normal Affect: normal affect Course Vital Signs Vital signs: Vital Signs Temperature 97.5 F L 06/15/19 08:15 Pulse 72 06/15/19 08:15 Respiratory Rate 20 06/15/19 08:15 Blood Pressure 156/66 H 06/15/19 08:15 Pulse Oximetry 100 06/15/19 08:15 Temperature 97.5 F L 06/15/19 08:15 Temperature Source Temporal Artery Scan 06/15/19 08:15 Pulse 72 06/15/19 08:15 Respiratory Rate 20 06/15/19 08:15 Blood Pressure 156/66 H 06/15/19 08:15 Blood Pressure Position Sitting 06/15/19 08:15 Pulse Oximetry 100 06/15/19 08:15 Oxygen Delivery Method Room Air 06/15/19 08:15 Oxygen Flow Rate 0 06/15/19 08:15 Pain Level 8 06/15/19 08:15
[2019-06-15 08:30] LABS: Bilirubin Negative (Negative); Blood Trace-intact (Negative); Clarity Sl Cloudy (Clear); Glucose Negative (Negative); Ketones Trace mg/dL (Negative); Leukocyte Esterase Negative (Negative); Nitrite Negative (Negative); Specific Gravity 1.025 (1.005-1.025)
--- NOTE | 2019-06-15 08:37 | DI.CT_ITS ---
EXAM: CT ABDOMEN PELVIS W CLINICAL HISTORY: periumbilical/lower abd pain TECHNIQUE: Post IV contrast. COMPARISON: CHEST FOR PULMONARY EMBOLUS from 10/19/2016 FINDINGS: There is a small umbilical hernia containing fat and a small amount of fluid, measuring 2.8 cm trans verse. There is a small amount of stranding in the surrounding fat. The bowel is unremarkable. No monty e air, free fluid or wall thickening is seen. The lung bases are clear. The patient is status post ch olecystectomy. There is mild intra and and extrahepatic biliary dilatation. The spleen, pancreas, kid neys and adrenals as well as bladder, uterus and ovaries are unremarkable. IMPRESSION: Mid umbilical hernia containing fat and a small amount of fluid.
[2019-06-15 08:41] LABS: Bacteria Moderate HPF (Negative); Crystals Negative HPF (Negative); Epithelial Cells Many HPF (Negative); Mucus Moderate (Negative); RBC 0-2 HPF (0-2); WBC 0-2 HPF (0-5)
[2019-06-15 08:42] LABS: C & S Indicated? No/Sq. Contamination
[2019-06-15] MEDS: Normal Saline Flush 10 ML SYR IVP (08:45)
[2019-06-15] MEDS: Normal Saline 500 ML IV (08:45)
[2019-06-15 08:58] LABS: Abs Immature Grans 0.04 k/cumm (0.0-0.09); Absolute Basophil Count 0.02 k/cumm (0.0-0.2); Absolute Eosinophil Count 0.16 k/cumm (0.0-0.7); Absolute Lymphocyte Count 2.82 k/cumm (1.2-3.4); Absolute Monocyte Count 0.76 k/cumm (0.11-0.7); Absolute Neutrophil Count 5.81 k/cumm (1.2-6.7); Basophils % 0.2; Eosinophils % 1.7; HCT 40.9 % (36.0-46.0); HGB 13.2 g/dL (12.0-15.5); Immature Grans % 0.4; Lymphocytes % 29.3; Mean Corp. HGB Concentration 32.3 g/dL (32.0-36.0); Mean Corpuscular Hemoglobin 29.2 pg (27.0-33.0); Mean Corpuscular Volume 90.5 fL (80-95); Mean Platelet Volume 11.5 fL (8.0-11.0); Monocytes % 7.9; Neutrophils % 60.5; Platelet Count 146 x1000/uL (130-400); RBC 4.52 m/cumm (4.00-5.20); RBC Distribution Width 15.1 % (11.7-14.6); White Blood Cell Count 9.61 k/cumm (4.4-10.8)
[2019-06-15 09:15] LABS: ALT 29 U/L (14-59); AST 17 U/L (15-37); Albumin 3.7 g/dL (3.4-5.0); Alkaline Phosphatase 74 U/L (46-116); Anion Gap 7.9 mmol/L (3-11); BUN 18 mg/dL (7-18); Bilirubin, Total 0.4 mg/dL (0.2-1.0); CO2 29.1 mmol/L (21.0-32.0); Calcium 8.9 mg/dL (8.5-10.1); Chloride 105 mmol/L (98-107); Glucose 133 mg/dL (70-100); Magnesium 1.9 mg/dL (1.8-2.4); Sodium 142 mmol/L (136-145); Total Protein 7.3 g/dL (6.4-8.2)
[2019-06-15 09:20] LABS: Troponin I < 0.05 ng/mL (0.00-0.06)
[2019-06-15] MEDS: Omnipaque 350 MG/ML 100 ML BTL IJ (09:56)
[2019-06-15] MEDS: Omnipaque 350 MG/ML 50 ML BTL IJ (09:57)
--- NOTE | 2019-06-15 10:50 | W.PM.HP.N ---
Date of service: 06/15/19 Time of Service: 10:50 Assessment and Plan Assessment and plan (1) Renal insufficiency: Status: Chronic (2) Organic sleep apnea, unspecified: Status: Chronic (3) Gastroesophageal reflux disease: Status: Chronic (4) Diabetes mellitus with nephropathy: Status: Chronic (5) Incarcerated incisional hernia: Status: Acute Assessment and plan: Informed consent is obtained for the procedural (explained in simple layman's terms that the pt and/or family could understand) explaining risks vs benefits and alternatives to the procedure and consequences if we do not do the procedure. Risks include but are not limited to:bleeding,infections, pneumonia, blood clots/DVT/PE, anesthesia(aspiration, damage to teeth/airway/[place]/CVA//prolonged mechanical ventilation/PTX/IV infections), damage to bowel, bladder,blood vessels. chronic pain or numbness. Wound infections requiring further surgery. Mesh reaction requiring removal. recurrent hernia. Scarring and disfigurement. History of Present Illness Consults Consult date: 06/15/19 Requesting physician: Heide Rowley Narrative: pt woke w/ abdom pain at 2am. 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 She is very active. She did not know she had a hernia. She has had a lap kim and tubal through the same incision. She continues to have pain and nausea. She did not know she had a hernia. She has not had a repair in the past/no prior mesh I did attempt to reduce in the ED- pt did not tolerate this. CT reviewed. Review of Systems All systems reviewed & are unremarkable except as noted in HPI and below Constitutional Constitutional: Reports as per HPI, Reports system reviewed and no additional complaints, except as docu, Denies anorexia, Denies chills, Denies difficulty sleeping, Denies fatigue, Denies headache(s), Denies lethargy, Denies malaise, Denies poor appetite, Denies weakness, Denies weight gain and Denies weight loss Eyes Eyes: Reports as per HPI, Reports system reviewed and no additional complaints, except as docu and Denies change in vision ENT Ears, Nose, Mouth, and Throat: Reports system reviewed and no additional complaints, except as docu, Reports as per HPI, Denies change in voice, Denies dental pain, Denies dysphagia, Denies dizziness, Denies facial pain, Denies headache(s) and Denies odynophagia Cardiovascular Cardiovascular: Reports as per HPI, Reports system reviewed and no additional complaints, except as docu, Denies chest pain, Denies chest pain with activity, Denies syncope, Denies leg edema and Denies dyspnea Respiratory Respiratory: Reports as per HPI, Reports system reviewed and no additional complaints, except as docu, Denies chest congestion, Denies cough, Denies pain with cough and Denies dyspnea Gastrointestinal Gastrointestinal: Reports as per HPI, Reports system reviewed and no additional complaints, except as docu, Denies abdominal pain, Denies bloating, Denies change in bowel habits, Denies change in stool character, Denies constipation, Denies cramping, Denies dysphagia, Denies early satiety, Denies heartburn, Denies diarrhea, Denies nausea, Denies odynophagia and Denies vomiting Musculoskeletal Musculoskeletal: Reports system reviewed and no additional complaints, except as docu, Reports as per HPI, Denies abnormal gait, Denies arthralgias and Denies muscle weakness Integumentary/Breasts Skin/Breast: Reports system reviewed and no additional complaints, except as docu, Reports as per HPI, Denies changing lesions, Denies new lesions and Denies jaundice Neurologic Neurologic: Reports system reviewed and no additional complaints, except as docu, Reports as per HPI, Denies abnormal speech, Denies abnormal gait, Denies dizziness, Denies syncope, Denies headache(s), Denies memory loss and Denies weakness Psychiatric Psychiatric: Reports system reviewed and no additional complaints, except as docu, Reports as per HPI, Denies change in appetite and Denies memory loss Endocrine Endocrine: Denies fatigue, Denies polydipsia and Denies polyuria Hematologic/Lymphatic Hematologic/Lymphatic: Reports system reviewed and no additional complaints, except as docu, Denies easy bleeding and Denies easy bruising Allergic/Immunologic Allergic/Immunologic: Denies system reviewed and no additional complaints, except as docu, Reports as per HPI and Denies urticaria [facility] Medical History (Updated 06/15/19 @ 11:50 by Renetta Freeman DO) Abdominal hernia (Chronic 07/23/14) Arthritis of right knee (Chronic 06/07/15) Bronchiectasis Bronchiectasis (Chronic) chronic cough Chronic insomnia Chronic right shoulder pain (Chronic 11/02/17) Depression Depressive disorder (Chronic) Diabetes 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) Diverticulosis large intestine w/o perforation or abscess w/o bleeding Diverticulosis of colon without diverticulitis (Chronic 05/21/09) Edema (Chronic) Essential hypertension (Chronic 05/04/13) Family history of colon cancer (Chronic 01/29/15) Gastroesophageal reflux disease (Chronic 10/11/12) GERD (gastroesophageal reflux disease) Gout Gout (Chronic 03/14/10) Hyperlipidemia Hyperlipidemia (Chronic 10/11/12) Hypertension Hypothyroidism Hypothyroidism (Chronic 10/11/12) Incarcerated incisional hernia (Acute) Increased body mass index (Chronic) Knee pain (Chronic 03/12/15) Left hip pain (Chronic 12/15/16) Left knee DJD (Chronic) Morbid obesity with BMI of 50.0-59.9, adult Organic sleep apnea Organic sleep apnea, unspecified (Chronic) CPAP (NOT USING 11/17) Osteoarthritis Pulmonary hypertension (Chronic 11/08/17) Vitamin D deficiency Vitamin D deficiency (Chronic 03/22/12) Surgical History Arthroplasty of knee (02/25/16) LEFT TOTAL KNEE Cholecystectomy Colonoscopy - IV Sedation Endometrial Biopsy neg Ligation of fallopian tube PELVIC U/S NEG Family History Mother Liver cancer Father Heart disease Stomach cancer Maternal Grandfather Cirrhosis of liver Paternal Grandfather Narcolepsy Diabetes Maternal Grandmother Diabetes Heart disease Breast cancer Paternal Grandmother Breast cancer Sister Alcohol abuse Uterine cancer Sister Cancer Brother Liver cancer Lung cancer Son Essential hypertension Son Narcolepsy Diabetes Essential hypertension Hyperlipidemia Other Family history of colon cancer Social History Smoking/Tobacco Use Status: Never Alcohol Intake: current Alcohol Intake frequency: holidays/special occasions only Alcohol type: wine Drug use: Never Substance use type: does not use Caregiver/Support person: No Household members: spouse Housing: apartment Communication Needs: None Do you need help understanding health information?: Rarely Pets and animals: No Sexually active: No Do you think of yourself as: straight/heterosexual Current gender identity: female What is your relationship status?: How often do you talk on the phone with friends or family?: three or more times per week How often do you get together with friends or relatives?: once per week How often do you attend gnosticism or adventism services?: 1-3 times per year Do you belong to any clubs or organized social groups?: yes Panel score (0-1 are the most socially isolated patients): 3 What type of physical activity do you participate in: walking Duration: 15-30 minutes/day Frequency: 5-6 times per week Sejal/Anglican: Caodaism Special sejal needs: No Seatbelt use: always Helmet use: No Drive intox or ride w/intox commercial front load driver: No Do you feel safe at home: Yes Do you feel safe in your relationship?: Yes Meds Home Medications and Allergies Home Medications Medication Instructions Recorded Confirmed Type blood-glucose meter #1 ea 03/04/17 06/15/19 History lancets #100 ea 12/28/17 06/15/19 Rx ergocalciferol (vitamin D2) 50,000 50,000 unit PO QWEEK #14 cap 09/19/18 06/15/19 Rx unit capsule furosemide 40 mg tablet 40 mg PO DAILY tab 11/01/18 06/15/19 History omeprazole 20 mg capsule,delayed 40 mg PO DAILY PRN #90 tab-cap 11/01/18 06/15/19 Rx release benzonatate 200 mg capsule 200 mg PO TID PRN #30 cap 12/19/18 06/15/19 Rx tramadol 50 mg tablet 50 mg PO Q8H PRN #21 tab 12/19/18 06/15/19 Rx blood sugar diagnostic #100 strip 02/27/19 06/15/19 Rx allopurinol 300 mg tablet 150 mg PO DAILY #90 tab-cap 03/14/19 06/15/19 Rx levothyroxine 100 mcg tablet 100 mcg PO DAILY #90 tab-cap 03/14/19 06/15/19 Rx metformin 1,000 mg tablet 1,000 mg PO BID #180 tab-cap 05/16/19 06/15/19 Rx potassium chloride 20 mEq 20 meq PO BID #180 tab-cap 05/16/19 06/15/19 Rx tablet,extended release(part/cryst) rosuvastatin 20 mg tablet 20 mg PO DAILY #90 tab-cap 05/16/19 06/15/19 Rx losartan 50 mg tablet 50 mg PO DAILY #90 tab 06/12/19 06/15/19 Rx Allergies Allergy/AdvReac Type Severity Reaction Status Date / Time lisinopril AdvReac Intermediate COUGH Unverified 06/15/19 08:42 Exam Const General: cooperative, healthy appearing, well developed and well groomed Nutritional Appearance: obese Orientation: alert, awake and oriented x3 Other: pain when she moves HENMT Head: normal to inspection, normocephalic and atraumatic Ears: hearing grossly normal bilaterally and external ears normal General nose exam: external nose normal Face and sinus: normal facial exam and sinuses nontender Mouth: oral mucosae normal, lip normal, tongue normal and moist mucous membranes Teeth and gingiva: dentition normal Eyes General: appearance normal, both eyes and all related structures Conjunctivae: conjunctivae normal Sclera: sclerae normal Pupils: PERRL Neck Neck: normal visual inspection and full ROM Chest Chest: normal inspection of the chest Resp Effort & Inspection: normal respiratory effort, able to speak in complete sentences, no cough, no nasal flaring, not tachypneic and no use of accessory muscles Auscultation: clear to auscultation bilaterally, no rales, no rhonchi and no wheezes Cardio Jugular venous pressure: no JVD Rate: regular rate Rhythm: regular rhythm GI Inspection: large pannus, obesity and scar Palpation: soft Auscultation: normal bowel sounds Other: pain under the old incision site. which is under the skin fold/pannus. pin point tenderness. no pain else where. + BS. not able to reduce. appears to be omentum on CT. Abdomen image: 1. old scar Skin General skin exam: no rashes or lesions noted Trauma: no lacerations or abrasions Neuro General: alert, oriented x3, oriented, gait normal, moves all extremities, no focal motor deficits and CN's II-XI intact bilaterally Cognition: normal cognition Speech: speech normal Extrem General: no clubbing, cyanosis or edema Other: chronic OA in lg joints and back. Psych Appearance: grossly normal and well kempt Mental Status: mental status grossly normal Speech and Movement: speech and movement normal Affect: normal affect Results Labs Result diagrams: 06/15/19 08:30 06/15/19 08:30 Labs: Laboratory Results - last 24 hr 06/15/19 06/15/19 06/15/19 08:25 08:30 08:30 WBC 9.61 RBC 4.52 Hgb 13.2 Hct 40.9 MCV 90.5 MCH 29.2 MCHC 32.3 RDW 15.1 H Plt Count 146 MPV 11.5 H Immature Gran % 0.4 Neutrophils % 60.5 Lymphocytes % 29.3 Monocytes % 7.9 Eosinophils % 1.7 Basophils % 0.2 Absolute Neutrophils 5.81 Absolute Lymphocytes 2.82 Absolute Monocytes 0.76 H Absolute Eosinophils 0.16 Absolute Basophils 0.02 Sodium 142 Potassium 4.0 Chloride 105 Carbon Dioxide 29.1 Anion Gap 7.9 BUN 18 Creatinine 0.90 Estimated GFR/1.73 m2 >= 60.00 Glucose 133 H Calcium 8.9 Magnesium 1.9 Total Bilirubin 0.4 AST 17 ALT 29 Alkaline Phosphatase 74 Troponin I < 0.05 Total Protein 7.3 Albumin 3.7 Urine Color Yellow Urine Clarity Sl cloudy Urine pH 6.0 Ur Specific [place] 1.025 Urine Protein 100 H Urine Ketones Trace H Urine Blood Trace-intact H Urine Nitrite Negative Urine Bilirubin Negative Urine Urobilinogen 1.0 H Ur Leukocyte Esterase Negative Urine RBC 0-2 Urine WBC 0-2 Ur Epithelial Cells Many Urine Crystals Negative Urine Bacteria Moderate Urine Mucus Moderate Urine Other Ur Culture Indicated? No/sq. contamination Urine Glucose Negative Last Vital Signs Temp 36.7 C 06/15/19 10:14 Pulse 70 06/15/19 10:14 Resp 18 06/15/19 10:14 BP 136/67 06/15/19 10:14 Pulse Ox 100 06/15/19 10:14
[2019-06-15] MEDS: Lactated Ringers 1,000 ML 150 ML IV (12:10)
[2019-06-15] MEDS: ceFAZolin 2 GM/50 ML BAG IVPB (12:40)
--- NOTE | 2019-06-15 13:32 | W.PM.OP ---
Date of service: 06/15/19 Time of Service: 13:32 Operative Note Operative Note DATE OF PROCEDURE: 06/15/19 PRE-OP DIAGNOSIS: incarcerated incisional hernia POST-OP DIAGNOSIS: same PROCEDURE: open repair w/ mesh SURGEON: Renetta Freeman ANESTHESIA: GETA and regional ESTIMATED BLOOD LOSS: 5 PATHOLOGY: none sent COMPLICATIONS: None Patient was transported to: PACU
--- NOTE | 2019-06-15 13:36 | W.PM.DSUDISC ---
Discharge Plan Disposition Patient Disposition: HOME Condition: Stable Discharge Details Chief Complaint: Abd Prob Clinical Impression: Incarcerated umbilical hernia Reason For Visit: INCARCERATED HERNIA Attending Provider: Renetta Freeman Primary Care Provider: Letty Whittington ED Provider: Heide Rowley Home Meds and New Rx's Prescriptions: New ibuprofen 600 mg tablet 600 mg PO Q6H PRN (Reason: pain) Qty: 60 RF: 0 docusate sodium [Colace] 100 mg capsule 100 mg PO BID Qty: 60 RF: 0 hydrocodone-acetaminophen [[place]] 5-325 mg tablet 1 tab PO Q6H PRN (Reason: pain (scale score 7-10)) Qty: 20 RF: 0 Continued levothyroxine 100 mcg tablet 100 mcg PO DAILY Qty: 90 RF: 12 allopurinol 300 mg tablet 150 mg PO DAILY Qty: 90 RF: 4 omeprazole 20 mg capsule,delayed release(DR/EC) 40 mg PO DAILY PRN (Reason: GERD) Qty: 90 RF: 4 benzonatate 200 mg capsule 200 mg PO TID PRN (Reason: cough) Qty: 30 RF: 0 tramadol 50 mg tablet 50 mg PO Q8H PRN (Reason: pain) Qty: 21 RF: 0 (DME) blood-glucose meter 1 EACH misc 1 ea Miscellaneous AC Qty: 1 RF: 0 (DME) lancets 1 EACH misc 1 ea Miscellaneous DAILY Qty: 100 RF: 12 ergocalciferol (vitamin D2) 50,000 unit capsule 50,000 unit PO QWEEK Qty: 14 RF: 5 (DME) FreeStyle Lite Strips Strip 1 ea Miscellaneous DAILY Qty: 100 RF: 12 metformin 1,000 mg tablet 1,000 mg PO BID Qty: 180 RF: 4 potassium chloride 20 mEq tablet,ER particles/crystals 20 meq PO BID Qty: 180 RF: 12 rosuvastatin [Crestor] 20 mg tablet 20 mg PO DAILY Qty: 90 RF: 4 losartan 50 mg tablet 50 mg PO DAILY Qty: 90 RF: 4 furosemide [Lasix] 40 mg tablet 40 mg PO DAILY RF: 0 Discharge Instructions Additional Instructions: HERNIA REPAIR ? POSTOPERATIVE INSTRUCTIONS ? The MESH PLUG surgery for hernia repair allows the patient to return to normal activities at an early date. Patients who have this type of surgery can usually be expected to return to work within two weeks and have minimal amounts of discomfort. ? ACTIVITY: The day of surgery should be spent resting. However, you can be up for short periods of time, I.E., going to the bathroom or kitchen. Avoid lifting or straining. On the day following surgery, you can be up and about as desired. ? LIFTING: Restrict your lifting to no more than five (5) pounds for the first week following surgery. ? DIET: There are no dietary restrictions following surgery. However, you may want to start with small amounts of liquids to avoid nausea the day of surgery. ? INCISION CARE: A dressing covers your incision. After 24 hours you may shower and apply a clean dressing over the strips of tape. The dressing may be replaced as necessary. An ice bag may be applied to the incision for 72 hours following surgery. ? SIGNS OF INFECTION: It is not unusual to have some black and blue discoloration of the skin around the incision. It will slowly disappear. If you have any increased redness, drainage, fever (above 100 degrees), please contact your doctor for an examination. ? DISCOMFORT: You may expect to have some mild discomfort at the incision sight. If severe pain develops you should contact your doctor for further instructions. ? URINATION: Patients who have surgery occasionally have problems urinating. If you experience problems and are not able to urinate within 6 hours following your surgery, please call your doctor immediately or go to your nearest Emergency Room for evaluation. ? DRIVING: NO driving for five (5) days after surgery ? MEDICATIONS: You have been given a prescription for pain. If you are taking pain medication, follow the instructions on the label and do not drive. Pain medications can make you very constipated. Make sure you are moving your bowels daily. If not, take Miralax, milk of magnesia or magnesium citrate. ? REPORT: Unusual swelling, severe pain, unresolved nausea, signs of infection, or difficulty in urination to your surgeon. Follow up in clinic with Dr. Freeman in 1-2 weeks. Please call for appointment: [phone] Activity:: see above Remove Dressings/Wound Care:: 24 hours Shower/Bathe:: 24 hours Diet:: Carb Counting Discharge Orders Discharge Orders: Discharge Order (Routine); Ordered 06/15/19 Ordered By: Renetta Freeman DS: Diagnosis Discharge Diagnosis (1) Renal insufficiency: Status: Chronic (2) Organic sleep apnea, unspecified: Status: Chronic (3) Gastroesophageal reflux disease: Status: Chronic (4) Diabetes mellitus with nephropathy: Status: Chronic (5) Incarcerated incisional hernia: Status: Acute
--- NOTE | 2019-06-16 15:32 | ROE_ITS ---
DATE OF PROCEDURE: June 15, 2019 PREOPERATIVE DIAGNOSIS: Incarcerated incisional hernia. POSTOPERATIVE DIAGNOSIS: Same. PROCEDURE: Open herniorrhaphy with mesh. SURGEON: Renetta Freeman D.O. ANESTHESIA: General and block. ESTIMATED BLOOD LOSS: < 5 cc's CONDITION: The patient tolerated the procedure well without complication. INDICATION FOR PROCEDURE: Ms. Wolfe is a 68-year-old female who presented to the Emergency Department today with severe abdominal pain since [address] shows an incarcerated ventral hernia with just omentum. She's had a previous tubal ligation and lap/kim through the same supraumbilical vertical midline incision. The patient did not tolerate attempts at reduction in the Emergency Department. She has no fever, no white count and is not on any blood thinners and is an acceptable candidate for anesthesia. Informed consent was obtained explaining risks and benefits of the procedure including but not limited to bleeding, infection, pneumonia, blood clots, chronic pain, chronic numbness, reaction to mess necessitating removal, recurrence of the hernia, complications of anesthesia and other unforetold complications. The patient was marked in preop. PROCEDURE: She was brought to the operative room suite and placed in the supine position. Anesthesia is then administered per the Department of Anesthesia. Local block was performed with Exparel per the Department of Anesthesia. The patient is prepped and draped in usual sterile fashion using a ChloraPrep scrub solution. A time-out is performed. She did receive Ancef preoperatively. A transverse incision is made over top of the hernia defect. Electrocautery was used to provide hemostasis and dissect down to the fascia. Once the fascia is encountered, the hernia is noted. She does have a small hernia sac and this is excised. It is omentum that is within the hernia. This is taken down and returned to the abdominal cavity. There is no bleeding noted. A large Ventralex hernia patch is then placed into the defect and the defect is then closed with #2-0 Vicryl, including the tab for the Ventralex patch. This is then cut. The wound is irrigated. Deep tissue is approximated with #2-0 Vicryl and the umbilicus is tacked back down to the fascia. The wound is then irrigated and deep tissue is approximated with #2-0 Monocryl and the skin is approximated with christina. Sterile compression dressings are applied. The patient tolerated the procedure well without complication and transferred to the recovery room in stable condition. She will be discharged home later today and will follow-up in the office in two weeks. cc: Letty Whittington M.D.
== END 2019-06-15 15:45 | disposition home or self-care (01) ==
LOC: ER 11:51 → DSU 12:13
PROVIDERS: Emergency Provider Physician Assistant; PCP Family Medicine; Visit Provider Surgery
PROC: (CPT 49568; principal; 2019-06-15 13:30)
DX: K43.0 Incisional hernia with obstruction, without gangrene (principal); E11.22 Type 2 diabetes mellitus with diabetic chronic kidney disease; N18.9 Chronic kidney disease, unspecified; G47.30 Sleep apnea, unspecified; I12.9 Hypertensive chronic kidney disease with stage 1 through stage 4 chronic kidney disease, or unspecified chronic kidney disease; Z79.84 Long term (current) use of oral hypoglycemic drugs; Z90.49 Acquired absence of other specified parts of digestive tract
CPT/HCPCS: 49568; 49561; 36415; 76942; 80053; 96360; 99222; 99285; 74177; 81003; 81015; 83735; 84484; 85025; 99284; C1781; J0690; J1100; J1885; J2250; J2370; J2405; J3490; Q9967

== ENCOUNTER → 2019-06-16 10:52 | Outpatient (BNVA) | payer MEDICARE, MEDICAID, SELFPAY | PROVIDERS: PCP Family Medicine; Referring Provider Family Medicine; Visit Provider Surgery | DX: R69 Illness, unspecified (principal) ==

== ENCOUNTER → 2019-06-23 10:26 | Outpatient (BNVA) | payer MEDICARE, MEDICAID, SELFPAY | PROVIDERS: PCP Family Medicine; Referring Provider Family Medicine; Visit Provider Surgery | DX: Z48.815 Encounter for surgical aftercare following surgery on the digestive system (principal); K43.0 Incisional hernia with obstruction, without gangrene ==

== ENCOUNTER → 2019-06-28 08:53 | Outpatient (BNVA) | payer MEDICARE, MEDICAID, SELFPAY | PROVIDERS: PCP Family Medicine; Referring Provider Family Medicine; Visit Provider Surgery | DX: K43.0 Incisional hernia with obstruction, without gangrene (principal); Z48.815 Encounter for surgical aftercare following surgery on the digestive system; E11.21 Type 2 diabetes mellitus with diabetic nephropathy; I10 Essential (primary) hypertension; Z79.84 Long term (current) use of oral hypoglycemic drugs ==

== ENCOUNTER 2019-07-03 01:11 | Outpatient (CLI) | payer MEDICARE, MEDICAID, SELFPAY ==
[2019-07-03 08:53] LABS: Hemoglobin A1C 6.6 % (4.5-6.2)
[2019-07-03 09:04] LABS: ALT 26 U/L (14-59); AST 18 U/L (15-37); Albumin 3.6 g/dL (3.4-5.0); Alkaline Phosphatase 82 U/L (46-116); Anion Gap 9.3 mmol/L (3-11); BUN 20 mg/dL (7-18); Bilirubin, Total 0.3 mg/dL (0.2-1.0); CO2 28.7 mmol/L (21.0-32.0); CREATININE 0.97 mg/dL (0.55-1.02); Calcium 9.1 mg/dL (8.5-10.1); Chloride 105 mmol/L (98-107); Estimated GFR 57.28 (mL/min/1.73m2); Glucose 147 mg/dL (74-106); Potassium 4.1 mmol/L (3.5-5.1); Sodium 143 mmol/L (136-145); TSH (W/Ref FT4) 0.55 uIU/mL (0.36-3.74); Total Protein 6.7 g/dL (6.4-8.2)
== END 2019-07-03 01:31 ==
PROVIDERS: PCP Family Medicine; Visit Provider Family Medicine
DX: E11.9 Type 2 diabetes mellitus without complications (principal); E03.9 Hypothyroidism, unspecified; I10 Essential (primary) hypertension
CPT/HCPCS: 36415; 80053; 83036; 84443

== ENCOUNTER 2019-10-31 10:55 | Outpatient (CLI) | payer MEDICARE, MEDICAID, SELFPAY ==
[2019-10-31 12:32] LABS: Mean Corp. HGB Concentration 30.9 g/dL (32.0-36.0); Mean Corpuscular Hemoglobin 30.1 pg (27.0-33.0); Mean Corpuscular Volume 97.3 fL (80-95); Mean Platelet Volume 9.5 fL (8.0-11.0); Platelet Count 269 x1000/uL (130-400); RBC 1.83 m/cumm (4.00-5.20); RBC Distribution Width 15.2 % (11.7-14.6); White Blood Cell Count 17.91 k/cumm (4.4-10.8)
[2019-10-31 12:45] LABS: ALT 17 U/L (14-59); AST 13 U/L (15-37); Albumin 3.1 g/dL (3.4-5.0); Alkaline Phosphatase 46 U/L (46-116); Anion Gap 14.8 mmol/L (3-11); BUN 22 mg/dL (7-18); Bilirubin, Total 0.4 mg/dL (0.2-1.0); CO2 22.2 mmol/L (21.0-32.0); Calcium 8.2 mg/dL (8.5-10.1); Chloride 99 mmol/L (98-107); Estimated GFR 49.54 (mL/min/1.73m2); Glucose 162 mg/dL (74-106); HGB 5.5 g/dL (12.0-15.5); Potassium 3.3 mmol/L (3.5-5.1); Sodium 136 mmol/L (136-145); Total Protein 6.1 g/dL (6.4-8.2)
[2019-10-31 12:48] LABS: HCT 17.8 % (36.0-46.0)
[2019-10-31 13:13] LABS: COMMENT (LAB VIEW ONLY) 18.66 mg/dL; Microalb ug/mg Crea 47.7 ug/mg Cr
== END 2019-10-31 11:15 ==
PROVIDERS: PCP Family Medicine; Visit Provider Family Medicine
DX: E11.9 Type 2 diabetes mellitus without complications (principal); K29.70 Gastritis, unspecified, without bleeding; K92.1 Melena; J47.9 Bronchiectasis, uncomplicated
CPT/HCPCS: 36415; 80053; 85027; 82043; 82570; 83036

== ENCOUNTER 2019-10-31 13:15 | Inpatient (IN) | payer MEDICARE, MEDICAID, SELFPAY ==
[2019-10-31] VITALS (33 sets, daily range): BP systolic 92–136; BP diastolic 49–89; PULSE 70–103; RESP 13–43; TEMP 36.2–37.3; O2SAT 95–100
--- NOTE | 2019-10-31 13:43 | W.ED.GENAD ---
Discharge Plan Disposition Patient Disposition: [facility] INPATIENT Condition: Stable Discharge Details Chief Complaint: GI Bleed Clinical Impression: GI (gastrointestinal bleed) Admit Date/Time: 10/31/19 14:33 Admit Provider: Jacque Mcallister Attending Provider: Jacque Mcallister Primary Care Provider: Letty Whittington ED Provider: Mandy Paniagua Discharge Data Discharge Date/Time-TO BE ENTERED AT DEPARTURE: 10/31/19 15:59 Medical Decision Making 69-year-old female presents to the ER after having blood drawn today and having a critically low hemoglobin and hematocrit. Patient was instructed to come to the ER. She states that she has been having dark tarry stools for approximately 7 to 10 days. This is been associated with dizziness. She denies any abdominal pain or vomiting no fever or chills. She states that she has had 3 at home stool test which were all positive for occult blood. She does have a history of a incarcerated hernia repair, gastritis, pulmonary hypertension, hypothyroidism, gout, GERD, diverticulosis, and diabetes. Patient s PCP (Dr. Shrestha) had placed a referral for general surgery for endoscopy and colonoscopy. 1411: Dr. Mcallister with surgery paged. 1425: Spoke with Dr. Mcallister who agrees to admit patient for GI bleed requiring blood transfusion. HPI General Mode of arrival: ambulatory. Date/Time Provider Initiated Documentation: 10/31/19 13:17. Limitations to Documentation: no limitations. Information obtained by: patient. HPI Narrative: 69-year-old female presents to the ER after having blood drawn today and having a critically low hemoglobin and hematocrit. Patient was instructed to come to the ER. She states that she has been having dark tarry stools for approximately 7 to 10 days. This is been associated with dizziness. She denies any abdominal pain or vomiting no fever or chills. She states that she has had 3 at home stool test which were all positive for occult blood. She does have a history of a incarcerated hernia repair, gastritis, pulmonary hypertension, hypothyroidism, gout, GERD, diverticulosis, and diabetes. Related Data Home Medications Medication Instructions Recorded Confirmed blood-glucose meter #1 ea 03/04/17 07/06/19 lancets #100 ea 12/28/17 07/06/19 furosemide 40 mg tablet 40 mg PO DAILY tab 11/01/18 10/31/19 blood sugar diagnostic #100 strip 02/27/19 07/06/19 allopurinol 300 mg tablet 150 mg PO DAILY #90 tab-cap 03/14/19 10/31/19 levothyroxine 100 mcg tablet 100 mcg PO DAILY #90 tab-cap 03/14/19 10/31/19 metformin 1,000 mg tablet 1,000 mg PO BID #180 tab-cap 05/16/19 10/31/19 potassium chloride 20 mEq 20 meq PO BID #180 tab-cap 05/16/19 10/31/19 tablet,extended release(part/cryst) rosuvastatin 20 mg tablet 20 mg PO DAILY #90 tab-cap 05/16/19 10/31/19 losartan 50 mg tablet 50 mg PO DAILY #90 tab 06/12/19 10/31/19 docusate sodium [Colace] 100 mg PO BID #60 cap 06/15/19 10/31/19 ergocalciferol (vitamin D2) 1,250 50,000 unit PO QWEEK #14 cap 10/16/19 10/31/19 mcg (50,000 unit) capsule omeprazole 40 mg capsule,delayed 40 mg PO BID PRN #180 tab-cap 10/30/19 10/31/19 release Previous Rx's Medication Instructions Recorded lancets #100 ea 12/28/17 blood sugar diagnostic #100 strip 02/27/19 allopurinol 300 mg tablet 150 mg PO DAILY #90 tab-cap 03/14/19 levothyroxine 100 mcg tablet 100 mcg PO DAILY #90 tab-cap 03/14/19 metformin 1,000 mg tablet 1,000 mg PO BID #180 tab-cap 05/16/19 potassium chloride 20 mEq 20 meq PO BID #180 tab-cap 05/16/19 tablet,extended release(part/cryst) rosuvastatin 20 mg tablet 20 mg PO DAILY #90 tab-cap 05/16/19 losartan 50 mg tablet 50 mg PO DAILY #90 tab 06/12/19 docusate sodium [Colace] 100 mg PO BID #60 cap 06/15/19 ergocalciferol (vitamin D2) 1,250 50,000 unit PO QWEEK #14 cap 10/16/19 mcg (50,000 unit) capsule omeprazole 40 mg capsule,delayed 40 mg PO BID PRN #180 tab-cap 10/30/19 release Allergies Allergy/AdvReac Type Severity Reaction Status Date / Time lisinopril AdvReac Intermediate COUGH Unverified 10/31/19 15:36 General Stated Complaint: GI Bleed NOLVIA: 2 Review of Systems Narrative: Constitutional: Negative for weight loss, alert and oriented, well groomed, normal body habitus, appears comfortable. HEENT: Denies trauma, headaches, blurry vision, nasal discharge, sore throat, trouble swallowing. Chest: Denies chest pain, palpitations, irregular rhythm, hypertension. Respiratory: Denies Shortness of breath, cough, hemoptysis. GI: Denies abdominal pain, nausea or vomiting. Positive hematochezia and dark tarry stools x7 to 10 days.. : Denies dysuria, hematuria, flank pain, rectal bleeding. Neuro: Denies blurry vision, weakness, syncope, headache or facial numbness. Positive dizziness. Hematologic: Denies easy bruising, intolerance to heat or cold, hair loss. 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) Diverticulosis large intestine w/o perforation or abscess w/o bleeding Diverticulosis of colon without diverticulitis (Chronic 05/21/09) Edema (Chronic) Essential hypertension (Chronic 05/04/13) Family history of colon cancer (Chronic 01/29/15) Gastroesophageal reflux disease (Chronic 10/11/12) GERD (gastroesophageal reflux disease) Gout Gout (Chronic 03/14/10) History of pelvic ultrasound (Inactive) Hyperkalemia (Inactive 10/20/12) Hyperlipidemia Hyperlipidemia (Chronic 10/11/12) Hypertension Hypokalemia (Inactive 05/09/15) Hypothyroidism Hypothyroidism (Chronic 10/11/12) Incarcerated incisional hernia (Acute) Increased body mass index (Chronic) Knee pain (Resolved 03/12/15) Left hip pain (Resolved 12/15/16) Lipoma (Inactive 07/01/05) Morbid obesity with BMI of 50.0-59.9, adult Organic sleep apnea Organic sleep apnea, unspecified (Chronic) CPAP (NOT USING 11/17) Osteoarthritis Pulmonary hypertension (Chronic 11/08/17) Skin tag (Inactive 08/03/17) Sprain of costal cartilage (Inactive 10/22/16) Strain of flexor muscle of left hip (Inactive 09/23/16) Vitamin D deficiency Vitamin D deficiency (Chronic 03/22/12) Surgical History Arthroplasty of knee (02/25/16) LEFT TOTAL KNEE Cholecystectomy Colonoscopy - IV Sedation Endometrial Biopsy neg History of bilateral ligation of fallopian tubes (Inactive) Ligation of fallopian tube PELVIC U/S NEG Status post cholecystectomy (Inactive) Status post total knee replacement (Inactive 02/25/16) Family History Mother Liver cancer Father Heart disease Stomach cancer Maternal Grandfather Cirrhosis of liver Paternal Grandfather Narcolepsy Diabetes Maternal Grandmother Diabetes Heart disease Breast cancer Paternal Grandmother Breast cancer Sister Alcohol abuse Uterine cancer Sister Cancer Brother Liver cancer Lung cancer Son Essential hypertension Son Narcolepsy Diabetes Essential hypertension Hyperlipidemia Other Family history of colon cancer Social History Smoking/Tobacco Use Status: Never Alcohol Intake: current Alcohol Intake frequency: holidays/special occasions only Alcohol type: wine Drug use: Never Substance use type: does not use Caregiver/Support person: No Household members: spouse Housing: apartment Communication Needs: None Do you need help understanding health information?: Rarely Pets and animals: No Sexually active: No Do you think of yourself as: straight/heterosexual Current gender identity: female What is your relationship status?: How often do you talk on the phone with friends or family?: three or more times per week How often do you get together with friends or relatives?: once per week How often do you attend methodist or rastafarian services?: 1-3 times per year Do you belong to any clubs or organized social groups?: yes Panel score (0-1 are the most socially isolated patients): 3 What type of physical activity do you participate in: walking Duration: 15-30 minutes/day Frequency: 5-6 times per week Sejal/Mosque: Presybeterian Special sejal needs: No Seatbelt use: always Helmet use: No Drive intox or ride w/intox local company refrigerated truck driver: No Do you feel safe at home: Yes Do you feel safe in your relationship?: Yes Exam Narrative Exam Narrative: Constitutional: Allert and oriented x3. Appears stated age. Obese body habitus. Head: Normocephalic, no trauma. Eyes: Pupils PERRLA, Red reflex noted, EOM's intact. Eyelids symmetrical withour lesions, discharge, or swelling. ENT: Bilateral TM's WNL, External ear normal to inspection, no mastoid TTP, swelling, or erythema, Nasal turbinates WNL, no nasal discharge. Normal dentition, Posterior pharynx WNL, no exudate. Chest: RRR, Normal S1, S2, distal pulses intact. Resp: Lungs clear to auscultation bilaterally, no wheezes, rales, or rhonchi. Abdomen: Soft, nontender to palpation. Musculoskeletal: Normal gait, 5/5 strength to all four extremities. Skin: No suspicious rashes or lesions. Capillary refill less than 2 sec. Neurologic: Cranial nerves II-XII intact. Alert and oriented x 3. DTR's intact. Hematologic/Lymphatic: No ecchymosis, no lymphadenopathy. Course Vital Signs Vital signs: Vital Signs Temperature 37.0 C 10/31/19 13:29 Pulse 70 10/31/19 13:29 Blood Pressure 114/57 L 10/31/19 13:29 Pulse Oximetry 100 10/31/19 13:29 Temperature 37.0 C 10/31/19 13:29 Temperature Source Oral 10/31/19 13:29 Pulse 70 10/31/19 13:29 Blood Pressure 114/57 L 10/31/19 13:29 Blood Pressure Position Sitting 10/31/19 13:29 Pulse Oximetry 100 10/31/19 13:29 Oxygen Delivery Method Room Air 10/31/19 13:29 Oxygen Flow Rate 0 10/31/19 13:29
[2019-10-31 13:55] LABS: Abs Immature Grans 0.27 k/cumm (0.0-0.09); Absolute Basophil Count 0.02 k/cumm (0.0-0.2); Absolute Eosinophil Count 0.03 k/cumm (0.0-0.7); Basophils % 0.1; Eosinophils % 0.2; Immature Grans % 1.7 %; Lymphocytes % 17.4; Mean Corp. HGB Concentration 31.1 g/dL (32.0-36.0); Mean Corpuscular Hemoglobin 29.9 pg (27.0-33.0); Mean Corpuscular Volume 96.3 fL (80-95); Mean Platelet Volume 9.5 fL (8.0-11.0); Neutrophils % 73.6; Platelet Count 267 x1000/uL (130-400); RBC 1.87 m/cumm (4.00-5.20); White Blood Cell Count 15.77 k/cumm (4.4-10.8)
[2019-10-31 13:58] LABS: Absolute Lymphocyte Count 2.74 k/cumm (1.2-3.4); Absolute Neutrophil Count 11.61 k/cumm (1.2-6.7)
[2019-10-31] MEDS: Ondansetron 4 MG/2 ML VIAL IVP (13:58)
[2019-10-31] MEDS: Pantoprazole 40 MG VIAL 80 MG IVP (14:01)
[2019-10-31 14:05] LABS: HGB 5.6 g/dL (12.0-15.5)
[2019-10-31 14:11] LABS: ALT 17 U/L (14-59); AST 14 U/L (15-37); Albumin 3.2 g/dL (3.4-5.0); Alkaline Phosphatase 47 U/L (46-116); Anion Gap 13.8 mmol/L (3-11); BUN 23 mg/dL (7-18); Bilirubin, Total 0.4 mg/dL (0.2-1.0); CO2 23.2 mmol/L (21.0-32.0); CREATININE 1.09 mg/dL (0.55-1.02); Calcium 8.3 mg/dL (8.5-10.1); Chloride 99 mmol/L (98-107); Estimated GFR 50.07 (mL/min/1.73m2); Glucose 147 mg/dL (74-106); Magnesium 1.8 mg/dL (1.8-2.4); Potassium 3.5 mmol/L (3.5-5.1); Sodium 136 mmol/L (136-145); Total Protein 6.3 g/dL (6.4-8.2)
[2019-10-31 14:19] LABS: Prothrombin Time 10.4 sec (9.3-11.0)
[2019-10-31] MEDS: PANTOPRAZOLE 80 MG in Normal Saline 100 ML 10 MG IV (14:23)
--- NOTE | 2019-10-31 15:09 | NUR.NOTE ---
Nursing Note: transfusion increased to 150ml/hr
--- NOTE | 2019-10-31 20:18 | HPE_ITS ---
Date of service: 10/31/19 Time of Service: 20:18 Assessment and Plan Assessment and plan (1) GI (gastrointestinal bleed): Status: Chronic Assessment and plan: The patient has been given 2 units of PRBC. Labs ordered for the am. Her BUN is not very high but by history the source is likely UGI. She has only been taking an antacid for one day. IV Protonix ordered here. We discussed the pros and cons of an EGD at this time. Currently we are only doing urgent/emergency cases. An EGD will be helpful for diagnosis but will probably not change the plan, which would be antacid therapy with a PPI and carafate. Will check stool for H pylori. We agreed to revisit the issue in the morning and proceed based on labs/symptoms/discussion with anesthesia. (2) Tarry stools: Status: Acute History of Present Illness Narrative: This patient was seen yesterday by her primary care physician for complaints of black tarry stools and some weakness over the past 10 days. She also notes some dizziness with walking. Yesterday she did not have any black stools but today had 3 in the morning. She presented for scheduled labs and was found to have a hemoglobin of 5.5. The patient denies abdominal pain. She has noted some early satiety. She has no reflux or dysphasia. She does report a remote history of an upper endoscopy but has not been previously diagnosed with an ulcer. She has not been using any ibuprofen. She was just started on omeprazole yesterday and had not been taking any antacids previously. The patient's bowel habits have otherwise been normal. She does use a stool softener on a regular basis. Her last colonoscopy was at the end of 2014 and showed diverticulosis. She reports her father of stomach cancer at age 29. Her mother was diagnosed with liver cancer at age 59 which sounds like it may have been metastatic disease from an unknown primary. Review of Systems Constitutional Constitutional: Denies headache(s) Eyes Eyes: Denies change in vision ENT Ears, Nose, Mouth, and Throat: Denies headache(s) and Denies neck mass Cardiovascular Cardiovascular: Denies chest pain, Denies edema, Denies palpitations and Denies dyspnea Respiratory Respiratory: Denies cough, Denies dyspnea and Denies wheezing Gastrointestinal Gastrointestinal: Denies abdominal pain Genitourinary Genitourinary: Denies abnormal vaginal bleeding and Denies dysuria Musculoskeletal Musculoskeletal: Denies joint swelling Integumentary/Breasts Skin/Breast: Denies new lesions and Denies rash Neurologic Neurologic: Denies confusion, Denies headache(s) and Denies localized weakness Psychiatric Psychiatric: Reports system reviewed and no additional complaints, except as documented and Denies confusion Endocrine Endocrine: Denies palpitations Hematologic/Lymphatic Hematologic/Lymphatic: Denies easy bleeding and Denies lymphadenopathy Allergic/Immunologic Allergic/Immunologic: Denies wheezing [facility] Medical History Abdominal pain (Inactive 07/12/12) Abnormal mammography (Inactive 07/01/06) Arthritis of right knee (Inactive 06/07/15) Bronchiectasis Bronchiectasis (Chronic) chronic cough Chest pain (Inactive) Chronic insomnia Chronic right shoulder pain (Chronic 11/02/17) Depression Depressive disorder (Chronic) Diabetes 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) Diverticulosis large intestine w/o perforation or abscess w/o bleeding Diverticulosis of colon without diverticulitis (Chronic 05/21/09) Edema (Chronic) Essential hypertension (Chronic 05/04/13) Family history of colon cancer (Chronic 01/29/15) Gastroesophageal reflux disease (Chronic 10/11/12) GERD (gastroesophageal reflux disease) Gout Gout (Chronic 03/14/10) History of pelvic ultrasound (Inactive) Hyperkalemia (Inactive 10/20/12) Hyperlipidemia Hyperlipidemia (Chronic 10/11/12) Hypertension Hypokalemia (Inactive 05/09/15) Hypothyroidism Hypothyroidism (Chronic 10/11/12) Incarcerated incisional hernia (Acute) Increased body mass index (Chronic) Knee pain (Resolved 03/12/15) Left hip pain (Resolved 12/15/16) Lipoma (Inactive 07/01/05) Morbid obesity with BMI of 50.0-59.9, adult Organic sleep apnea Organic sleep apnea, unspecified (Chronic) CPAP (NOT USING 11/17) Osteoarthritis Pulmonary hypertension (Chronic 11/08/17) Skin tag (Inactive 08/03/17) Sprain of costal cartilage (Inactive 10/22/16) Strain of flexor muscle of left hip (Inactive 09/23/16) Vitamin D deficiency Vitamin D deficiency (Chronic 03/22/12) Surgical History Arthroplasty of knee (02/25/16) LEFT TOTAL KNEE Cholecystectomy Colonoscopy - IV Sedation Endometrial Biopsy neg History of bilateral ligation of fallopian tubes (Inactive) Ligation of fallopian tube PELVIC U/S NEG Status post cholecystectomy (Inactive) Status post total knee replacement (Inactive 02/25/16) Family History Mother Liver cancer Father Heart disease Stomach cancer Maternal Grandfather Cirrhosis of liver Paternal Grandfather Narcolepsy Diabetes Maternal Grandmother Diabetes Heart disease Breast cancer Paternal Grandmother Breast cancer Sister Alcohol abuse Uterine cancer Sister Cancer Brother Liver cancer Lung cancer Son Essential hypertension Son Narcolepsy Diabetes Essential hypertension Hyperlipidemia Other Family history of colon cancer Social History Smoking/Tobacco Use Status: Never Alcohol Intake: current Alcohol Intake frequency: holidays/special occasions only Alcohol type: wine Drug use: Never Substance use type: does not use Caregiver/Support person: No Household members: spouse Housing: apartment Communication Needs: None Do you need help understanding health information?: Rarely Pets and animals: No Sexually active: No Do you think of yourself as: straight/heterosexual Current gender identity: female What is your relationship status?: How often do you talk on the phone with friends or family?: three or more times per week How often do you get together with friends or relatives?: once per week How often do you attend scientologist or methodist services?: 1-3 times per year Do you belong to any clubs or organized social groups?: yes Panel score (0-1 are the most socially isolated patients): 3 What type of physical activity do you participate in: walking Duration: 15-30 minutes/day Frequency: 5-6 times per week Sejal/Alevism: Jainism Special sejal needs: No Seatbelt use: always Helmet use: No Drive intox or 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 Do you feel safe at home: Yes Do you feel safe in your relationship?: Yes Meds Home Medications and Allergies Home Medications Medication Instructions Recorded Confirmed Type blood-glucose meter #1 ea 03/04/17 07/06/19 History lancets #100 ea 12/28/17 07/06/19 Rx furosemide 40 mg tablet 40 mg PO DAILY tab 11/01/18 10/31/19 History blood sugar diagnostic #100 strip 02/27/19 07/06/19 Rx allopurinol 300 mg tablet 150 mg PO DAILY #90 tab-cap 03/14/19 10/31/19 Rx levothyroxine 100 mcg tablet 100 mcg PO DAILY #90 tab-cap 03/14/19 10/31/19 Rx metformin 1,000 mg tablet 1,000 mg PO BID #180 tab-cap 05/16/19 10/31/19 Rx potassium chloride 20 mEq 20 meq PO BID #180 tab-cap 05/16/19 10/31/19 Rx tablet,extended release(part/cryst) rosuvastatin 20 mg tablet 20 mg PO DAILY #90 tab-cap 05/16/19 10/31/19 Rx losartan 50 mg tablet 50 mg PO DAILY #90 tab 06/12/19 10/31/19 Rx docusate sodium [Colace] 100 mg PO BID #60 cap 06/15/19 10/31/19 Rx ergocalciferol (vitamin D2) 1,250 50,000 unit PO QWEEK #14 cap 10/16/19 10/31/19 Rx mcg (50,000 unit) capsule omeprazole 40 mg capsule,delayed 40 mg PO BID PRN #180 tab-cap 10/30/19 10/31/19 Rx release Allergies Allergy/AdvReac Type Severity Reaction Status Date / Time lisinopril AdvReac Intermediate COUGH Unverified 10/31/19 15:36 Exam Const General: not in acute distress Nutritional Appearance: well nourished Orientation: oriented x3 HENMT Head: normal to inspection Eyes Sclera: sclerae normal Pupils: PERRL Neck Neck: no lymphadenopathy Carotids: no bruits Resp Effort & Inspection: normal respiratory effort Auscultation: clear to auscultation bilaterally and no wheezes Cardio Rate: regular rate Rhythm: regular rhythm GI Inspection: non-distended Palpation: soft, no hepatosplenomegaly, no hernias and nontender Skin General skin exam: no rashes or lesions noted Neuro General: patient alert Cognition: normal cognition Extrem General: normal to inspection Psych Affect: normal affect Attitude: cooperative Results Labs Result diagrams: 10/31/19 13:40 10/31/19 13:40 Labs: Laboratory Results - last 24 hr 0310/31/19 10/31/19 13:40 13:40 13:40 WBC 15.77 H RBC 1.87 L Hgb 5.6 L* Hct 18.0 L* MCV 96.3 H MCH 29.9 MCHC 31.1 L RDW 15.0 H Plt Count 267 MPV 9.5 Immature Gran % 1.7 Neutrophils % 73.6 Lymphocytes % 17.4 Monocytes % 7.0 Eosinophils % 0.2 Basophils % 0.1 Absolute Neutrophils 11.61 H Absolute Lymphocytes 2.74 Absolute Monocytes 1.10 H Absolute Eosinophils 0.03 Absolute Basophils 0.02 PT 10.4 INR 1.0 Sodium 136 Potassium 3.5 Chloride 99 Carbon Dioxide 23.2 Anion Gap 13.8 H BUN 23 H Creatinine 1.09 H Estimated GFR/1.73 m2 50.07 Glucose 147 H Calcium 8.3 L Magnesium 1.8 Total Bilirubin 0.4 AST 14 L ALT 17 Alkaline Phosphatase 47 Total Protein 6.3 L Albumin 3.2 L Patient ABO/Rh Antibody Screen Crossmatch 10/31/19 13:40 WBC RBC Hgb Hct MCV MCH MCHC RDW Plt Count MPV Immature Gran % Neutrophils % Lymphocytes % Monocytes % Eosinophils % Basophils % Absolute Neutrophils Absolute Lymphocytes Absolute Monocytes Absolute Eosinophils Absolute Basophils PT INR Sodium Potassium Chloride Carbon Dioxide Anion Gap BUN Creatinine Estimated GFR/1.73 m2 Glucose Calcium Magnesium Total Bilirubin AST ALT Alkaline Phosphatase Total Protein Albumin Patient ABO/Rh O Positive Antibody Screen Negative Crossmatch See Detail Last Vital Signs Temp 97.2 F L 10/31/19 19:40 Pulse 78 10/31/19 19:40 Resp 19 10/31/19 19:40 BP 106/70 10/31/19 19:40 Pulse Ox 100 10/31/19 19:40 COVID-19 Screening Traveled to [place] from one of the affected countries or regions?: No Recent travel in the [place] within the last 8 weeks?: No Recent out of the country travel within the last 8 weeks?: No Exposure or possible exposure to illness during travel?: No Had IN PERSON contact w/suspected or confirmed C-19 person: No Have you had the following symptoms in the past few days?: No Symptoms noted since travel?: No Symptoms
[2019-11-01] VITALS (16 sets, daily range): BP systolic 101–132; BP diastolic 57–78; PULSE 68–98; RESP 16–22; TEMP 35.9–37; O2SAT 94–100
[2019-11-01] MEDS: PANTOPRAZOLE 80 MG in Normal Saline 100 ML 10 MG IV ×3 (00:40→21:39)
[2019-11-01 07:02] LABS: Abs Immature Grans 0.23 k/cumm (0.0-0.09); Absolute Basophil Count 0.01 k/cumm (0.0-0.2); Absolute Eosinophil Count 0.06 k/cumm (0.0-0.7); Absolute Lymphocyte Count 2.47 k/cumm (1.2-3.4); Absolute Monocyte Count 0.91 k/cumm (0.11-0.7); Absolute Neutrophil Count 6.14 k/cumm (1.2-6.7); Basophils % 0.1; Eosinophils % 0.6; Immature Grans % 2.3 %; Lymphocytes % 25.2; Mean Corp. HGB Concentration 33.2 g/dL (32.0-36.0); Mean Corpuscular Hemoglobin 30.4 pg (27.0-33.0); Mean Corpuscular Volume 91.6 fL (80-95); Mean Platelet Volume 10.2 fL (8.0-11.0); Monocytes % 9.3; Neutrophils % 62.5; Platelet Count 156 x1000/uL (130-400); RBC 2.14 m/cumm (4.00-5.20); RBC Distribution Width 14.5 % (11.7-14.6); White Blood Cell Count 9.82 k/cumm (4.4-10.8)
[2019-11-01 07:08] LABS: HGB 6.5 g/dL (12.0-15.5)
[2019-11-01 07:09] LABS: HCT 19.6 % (36.0-46.0)
[2019-11-01 07:13] LABS: Anion Gap 7.3 mmol/L (3-11); BUN 23 mg/dL (7-18); CO2 26.7 mmol/L (21.0-32.0); CREATININE 0.95 mg/dL (0.55-1.02); Calcium 8.2 mg/dL (8.5-10.1); Chloride 102 mmol/L (98-107); Estimated GFR 58.68 (mL/min/1.73m2); Glucose 104 mg/dL (74-106); Potassium 3.7 mmol/L (3.5-5.1); Sodium 136 mmol/L (136-145)
[2019-11-01 07:23] LABS: Anisocytosis 1+; Diff Comment RBC Morph Reviewed; Polychromasia Present
[2019-11-01 07:24] LABS: Poikilocytes 1+
[2019-11-01] MEDS: Normal Saline Flush 10 ML SYR IVP ×2 (08:53→15:17)
[2019-11-01] MEDS: IRON SUCROSE COMPLEX 200 MG in Normal Saline 100 ML 400 MG IVPB (09:08)
--- NOTE | 2019-11-01 09:41 | PDOC.CMIN ---
- If Service Date Differs Date of service: 11/01/19 Time of Service: 09:41 Care Management Initial Assess REASON FOR HOSPITALIZATION:: Acute blood loss anemia PAST MEDICAL HISTORY/PAST SURGICAL HISTORY:: Medical History . Abdominal pain (Inactive 07/12/12). Abnormal mammography (Inactive 07/01/06). Arthritis of right knee (Inactive 06/07/15). Bronchiectasis. Bronchiectasis (Chronic). chronic cough. Chest pain (Inactive). Chronic insomnia. Chronic right shoulder pain (Chronic 11/02/17). Depression. Depressive disorder (Chronic). Diabetes. 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 Diverticulosis large intestine w/o perforation or abscess w/o bleeding. Diverticulosis of colon without diverticulitis (Chronic 05/21/09). Edema (Chronic). Essential hypertension (Chronic 05/04/13). Family history of colon cancer (Chronic 01/29/15). Gastroesophageal reflux disease (Chronic 10/11/12). GERD (gastroesophageal reflux disease). Gout. Gout (Chronic 03/14/10). History of pelvic ultrasound (Inactive). Hyperkalemia (Inactive 10/20/12). Hyperlipidemia. Hyperlipidemia (Chronic 10/11/12). Hypertension. Hypokalemia (Inactive 05/09/15). Hypothyroidism. Hypothyroidism (Chronic 10/11/12). Incarcerated incisional hernia (Acute). Increased body mass index (Chronic). Knee pain (Resolved 03/12/15). Left hip pain (Resolved 12/15/16). Lipoma (Inactive 07/01/05). Morbid obesity with BMI of 50.0-59.9, adult. Organic sleep apnea. Organic sleep apnea, unspecified (Chronic). CPAP (NOT USING 11/17). Osteoarthritis. Pulmonary hypertension (Chronic 11/08/17). Skin tag (Inactive 08/03/17). Sprain of costal cartilage (Inactive 10/22/16). Strain of flexor muscle of left hip (Inactive 09/23/16). Vitamin D deficiency. Vitamin D deficiency (Chronic 03/22/12). Surgical History . Arthroplasty of knee (02/25/16). LEFT TOTAL KNEE. Cholecystectomy. Colonoscopy - IV Sedation. Endometrial Biopsy. neg. History of bilateral ligation of fallopian tubes (Inactive). Ligation of fallopian tube. PELVIC U/S. NEG. Status post cholecystectomy (Inactive). Status post total knee replacement (Inactive 02/25/16) PREVIOUS FUNCTIONAL STATUS/SOCIAL/FAMILY SUPPORTS:: Alejandra lives with her , Julian, in an apartment in [place]. She works at the [employer] in [facility]. She is independent at baseline. CURRENT FUNCTIONAL STATUS:: Alejandra was lying in bed when CM met with her. She stated that she was feeling ok, but was still requiring blood at this time. She continues to be NPO, post surgically. She reported that per MD, she will be here tonight for observation. She is hoping to return home soon, as she prefers to be home. CM will continue to follow. ADVANCE DIRECTIVES:: On file, Julian, , listed as agent. Has patient been provided with information about the portal?: Yes Did the patient sign up for the portal?: Yes (previously ) CODE STATUS:: Full Code INSURANCE COVERAGE / FINANCIAL ISSUES:: [facility] CURRENT HOME/COMMUNITY SERVICES/EQUIPMENT:: Alejandra has a FWW from a previous surgery. PRIMARY CARE PHYSICIAN:: Dr. Whittington POTENTIAL DISCHARGE NEEDS:: Evaluations for further needs, follow up appointments PATIENT/FAMILY EDUCATION NEEDS:: Review discharge instructions regarding activity levels and medications, discussion of self care needs including ask me three ANTICIPATED BARRIERS TO DISCHARGE:: None identified at this time. TRANSPORTATION:: Anticipate Alejandra will be driven home via private vehicle by her . PLAN:: Anticipate Alejandra will return home when medically cleared. She was taken to surgery this morning for an EGD. No anticipated services upon discharge. Her will drive her home when ready. CM will continue to follow.
[2019-11-01] MEDS: Lactated Ringers 1,000 ML 75 ML IV ×2 (09:55→17:51)
--- NOTE | 2019-11-01 10:25 | BOWEL_PTH ---
PATIENT: Alejandra Wolfe LOC: [place] Arce#:[id number] AGE/SX: 69/F ROOM: RE10/31/[address]: Jacque Mcallister MD : [id number] BED: A DIS: 11/03/2019 SPEC #: [id number] RECD: 11/01/19 12:45 STATUS: ESTEPHANIA RERose Marie #: [id number] JAE: 11/01/19 10:[address]: Jacque Mcallister DEPT: Surgical Specimen RECD BY: Tammy Goodrich ENTERED: 11/01/19 12:47 SP TYPE: Bowel OTHR DR: Letty Whittington MD, DC Tissues: 1 - BIOPSY BOWEL Procedures: GROSS AND MICRO LEVEL 4 Comments: [id number]
--- NOTE | 2019-11-01 10:41 | ROE_ITS ---
Date of service: 11/01/19 Time of Service: 10:41 Operative Note Operative Note DATE OF PROCEDURE: 11/01/19 PRE-OP DIAGNOSIS: acute GI blood loss POST-OP DIAGNOSIS: other (posterior duodenal ulcer/swelling vs mass in duodenum. some clot/area oozy/ but no definate site of bleeding found) PROCEDURE: egd and bx SURGEON: Renetta Freeman ANESTHESIA: GETA ESTIMATED BLOOD LOSS: 2 PATHOLOGY: other COMPLICATIONS: None Patient was transported to: PACU Patient's condition: stable Procedure Description: After informed consent was obtained the patient was take to the procedure room and placed in a supine position. Monitors were applied and a time out was done. The patients name, date of , procedure type, allergies to medications and metal in their body was reviewed. A bite block was placed and the patient was sedated. Once sedated and comfortable the gastroscope was advanced through the oropharynx which was grossly normal into the esophagus. The proximal and mid-esophagus were nl. In the distal esophagus there was nl. The scope was advanced into the stomach and through the pylorus into the 3rd portion of the duodenum. The duodenum was noted to be : The duodenal bulb was normal. Papilla, and the posterior duodenal wall, there is an area of diffuse edema versus a mass. There is not discrete mass per se, but it there is definitely loss of domain. But it did not look like normal edema. The whole area was friable there was blood distal to this area. It was just seemed friable and oozy. But no definitive ulcer bed or site of bleeding is noted. There is no visible vessel. There is no active arterial hemorrhage. Biopsy of this area is taken. Did not have the features of the typical cancer. In the second portion of the duodenum just proximal to the biopsies were done. The stomach itself is grossly normal. The scope was retroflexed. The cardia and fundus were noted to be normal. There no a hiatal hernia noted. The scope was retracted back into the esophagus and biopsies were done of the GE junction to rule out Walker's. The Z line was regular. The GE junction was at 38 cm. The scope was removed and the patient was woken up and taken back to [facility] in stable condition. She will be transfused 2 units and kept on PPI drip.
--- NOTE | 2019-11-01 14:01 | CHAPLAIN ---
Alejandra was resting in bed when I visited. She is a member of the [facility] and gave me permission to contact the back gray cloth washer there.She said she is waiting to have a blood infusion and expects to feel better after that. No visitors are allowed in the hospital at this time, so Alejandra is keeping in touch with family by phone. I will continue to visit.
--- NOTE | 2019-11-01 15:03 | PHA.ADMREV ---
Pharmacy Clinical Review - Admission Clinical Review (Last Reviewed 10/31/19 @ 20:21 by Jacque Mcallister MD) Tarry stools (Acute) Acute blood loss; anemia lisinopril Adverse Reaction (Intermediate, Unverified 10/31/19 15:36) COUGH Height 5 ft 1.81 in Weight 116.483 kg - Renal Dosing Renal Dosing: BUN 23 mg/dL (7-18) H 11/01/19 06:35 Creatinine 0.95 mg/dL (0.55-1.02) 11/01/19 06:35 Medications needing adjustments: Reviewed (Crcl ~69.3 mL/min using adjusted body weight. Current meds okay.) - Anticoagulation Anticoagulation: Hgb Cancelled 11/01/19 11:00 Hct Cancelled 11/01/19 11:00 Plt Count 156 x1000/uL (130-400) D 11/01/19 06:35 INR 1.0 (0.9-1.1) 10/31/19 13:40 Creatinine 0.95 mg/dL (0.55-1.02) 11/01/19 06:35 DVT Prohphylaxis: N/A Therapeutic Anticoagulation: N/A - Opiate Usage Evaluate Pain Scale/Pains Meds: N/A - Relevant Labs Sodium 136 mmol/L (136-145) 11/01/19 06:35 Potassium 3.7 mmol/L (3.5-5.1) 11/01/19 06:35 Chloride 102 mmol/L (98-107) 11/01/19 06:35 Magnesium 1.8 mg/dL (1.8-2.4) 10/31/19 13:40 Electrolytes, C-Reactive P, ESR: Reviewed - Antimicrobial Stewardship Antibiotic appropriateness: N/A Surgical Abx d/c within 24 hr: N/A Culture review/Resistance: N/A - DM Control DM Control: Glucose 104 mg/dL (74-106) 11/01/19 06:35 Finger Stick Blood Glucose 135 Finger Stick Blood Glucose 135 Finger Stick Blood Glucose 131 Finger Stick Blood Glucose 131 Insulin Dosing: Reviewed (sliding scale aspart ordered) - Heart Failure/TN EF%, ROSE's, B-Blockers, Diuretics: N/A - BP Control BP Control: Blood Pressure 119/78 Blood Pressure 117/68 Blood Pressure 122/78 Blood Pressure 132/78 Blood Pressure 120/68 If elevated: Reviewed (Home meds not ordered.) - QTc Review If Elevated: Reviewed (QTc 440) - IV to PO Switch IV Medications: N/A - Home Meds Home Med List reviewed: Reviewed Relevent Home Meds Not ordered & why?: allopurinol, docusate, ergocalciferol, furosemide, losartan, metformin, omeprazole(has pantoprazole ordered), potassium chloride, rosuvastatin - Current meds Current Medication Order Review: Intervened (discontinued duplicate orderes) - Comments Comments/Follow Ups: EGD and transfusion today. Iron sucrose given. Pantoprazole drip. Watch H/H, BP, BG
--- NOTE | 2019-11-01 15:04 | PGE_ITS ---
Date of Service Date of service: 11/01/19 Time of Service: 15:04 Assessment and Plan Assessment and plan (1) Duodenal ulcer: Status: Acute Assessment and plan: cont PPI drip carafate transfuse 2 units PRBC d/w pt findings on scope- unsual appearing duodenal ulcer. cont to monitor addendum: I did review her CT from june w/ Dr. Vides there is some mild thickening of the medial/post wall of the duodenum back in june. Her CBD is prominent secondary to remote hx of cholecystectomy. There are no signs of pancreatic masses or anything extrinsic pushing on the du odenum. Bx was taken. I feel this is an atypical presentation of ulcer at this time and will continue to treat as such Subjective Subjective Interval history since last seen: denies any abdominal pain. no n/v. no chest pain or sob. not feel week dizzy. She has received one unit PRBC. She has a hx of H/I and was on PPI for long period of time. She felt better and stopped taking- she says she been under lots of stress lately. She denies ETOH. She denies asa/NSAID use. Exam GI Other: no peritonitis. soft and no pain. no nausea. no distention. good BS Objective Objective Clinical Data: Abnormal lab results 10/31/19 11/01/19 11/01/19 Range/Units 13:40 06:35 06:35 RBC 2.14 L (4.00-5.20) m/cumm Hgb 6.5 L* (12.0-15.5) g/dL Hct 19.6 L* (36.0-46.0) % Absolute Monocytes 0.91 H (0.11-0.7) k/cumm BUN 23 H (7-18) mg/dL Calcium 8.2 L (8.5-10.1) mg/dL Crossmatch See Detail Vital Signs Temperature 35.9 C L 11/01/19 14:24 Temperature Source Tympanic 11/01/19 07:30 Pulse 72 11/01/19 14:24 Pulse Rhythm Regular 11/01/19 12:50 Pulse 85 10/31/19 15:40 Respiratory Rate 18 11/01/19 14:24 Respiratory Effort Non-Labored 11/01/19 12:50 Respiratory Depth Normal 11/01/19 12:50 Respiratory Pattern Normal 11/01/19 12:50 Blood Pressure 119/78 11/01/19 14:24 Blood Pressure Mean 63 10/31/19 15:30 Blood Pressure Position Sitting 10/31/19 13:29 Pulse Oximetry 96 11/01/19 14:24 Oxygen Delivery Method Room Air 11/01/19 14:24 Oxygen Flow Rate 0 11/01/19 14:24 Pain Level 0 11/01/19 11:14 Intake & Output 10/31/19 11/01/19 11/01/19 23:59 11:59 23:59 Intake Total 500 / 500 960 / 1735 775 / 1735 Output Total 500 / 500 1000 / 1000 Balance 0 / 0 -40 / 735 775 / 735 Weight 116.483 kg Intake: IV 960 / 960 Oral 0 / 0 Blood Product 500 / 500 525 / 525 Rbc Leuko Reduced Unit 525 / 525 [id number] Rbc Leuko Reduced Unit 250 / 250 [id number] Rbc Leuko Reduced Unit 250 / 250 [id number] Other 0 / 0 250 / 250 Rbc Leuko Reduced Unit 250 / 250 [id number] Rbc Leuko Reduced Unit 0 / 0 [id number] Output: Urine 500 / 500 1000 / 1000 Other: Urine Color Yellow Yellow Urine Appearance Clear Clear Clear Urine Odor Normal Strong Emesis Description None None Voiding Methods Bedside Commode Toilet Laboratory Results WBC 9.82 k/cumm (4.4-10.8) D 11/01/19 06:35 RBC 2.14 m/cumm (4.00-5.20) L 11/01/19 06:35 Hgb Cancelled 11/01/19 11:00 Hct Cancelled 11/01/19 11:00 MCV 91.6 fL (80-95) D 11/01/19 06:35 MCH 30.4 pg (27.0-33.0) 11/01/19 06:35 MCHC 33.2 g/dL (32.0-36.0) 11/01/19 06:35 RDW 14.5 % (11.7-14.6) 11/01/19 06:35 Plt Count 156 x1000/uL (130-400) D 11/01/19 06:35 MPV 10.2 fL (8.0-11.0) 11/01/19 06:35 Immature Gran % 2.3 % 11/01/19 06:35 Neutrophils % 62.5 11/01/19 06:35 Lymphocytes % 25.2 11/01/19 06:35 Monocytes % 9.3 11/01/19 06:35 Eosinophils % 0.6 11/01/19 06:35 Basophils % 0.1 11/01/19 06:35 Absolute Neutrophils 6.14 k/cumm (1.2-6.7) 11/01/19 06:35 Absolute Lymphocytes 2.47 k/cumm (1.2-3.4) 11/01/19 06:35 Absolute Monocytes 0.91 k/cumm (0.11-0.7) H 11/01/19 06:35 Absolute Eosinophils 0.06 k/cumm (0.0-0.7) 11/01/19 06:35 Absolute Basophils 0.01 k/cumm (0.0-0.2) 11/01/19 06:35 Differential Comment Rbc morph reviewed 11/01/19 06:35 RBC Morphology See below 11/01/19 06:35 Polychromasia Present 11/01/19 06:35 Poikilocytosis 1+ 11/01/19 06:35 Anisocytosis 1+ 11/01/19 06:35 PT 10.4 sec (9.3-11.0) 10/31/19 13:40 INR 1.0 (0.9-1.1) 10/31/19 13:40 Sodium 136 mmol/L (136-145) 11/01/19 06:35 Potassium 3.7 mmol/L (3.5-5.1) 11/01/19 06:35 Chloride 102 mmol/L (98-107) 11/01/19 06:35 Carbon Dioxide 26.7 mmol/L (21.0-32.0) 11/01/19 06:35 Anion Gap 7.3 mmol/L (3-11) 11/01/19 06:35 BUN 23 mg/dL (7-18) H 11/01/19 06:35 Creatinine 0.95 mg/dL (0.55-1.02) 11/01/19 06:35 Estimated GFR/1.73 m2 58.68 (mL/min/1.73m2) 11/01/19 06:35 Glucose 104 mg/dL (74-106) 11/01/19 06:35 Calcium 8.2 mg/dL (8.5-10.1) L 11/01/19 06:35 Magnesium 1.8 mg/dL (1.8-2.4) 10/31/19 13:40 Total Bilirubin 0.4 mg/dL (0.2-1.0) 10/31/19 13:40 AST 14 U/L (15-37) L 10/31/19 13:40 ALT 17 U/L (14-59) 10/31/19 13:40 Alkaline Phosphatase 47 U/L (46-116) 10/31/19 13:40 Total Protein 6.3 g/dL (6.4-8.2) L 10/31/19 13:40 Albumin 3.2 g/dL (3.4-5.0) L 10/31/19 13:40 Patient ABO/Rh O Positive 10/31/19 13:40 Antibody Screen Negative 10/31/19 13:40 Crossmatch See Detail 10/31/19 13:40
[2019-11-01] MEDS: diphenhydrAMINE 50 MG/ML VIAL 25 MG IVP (15:17)
[2019-11-01] MEDS: ACETAMINOPHEN 1,000 MG/100 ML BTL 400 MG IVPB (15:17)
[2019-11-01] MEDS: Sucralfate 1 GM TAB PO ×2 (21:11→22:10)
[2019-11-01 21:19] LABS: HCT 30.5 % (36.0-46.0); HGB 10.5 g/dL (12.0-15.5)
[2019-11-02 00:06] VITALS: BP 102/69; PULSE 68; RESP 16; TEMP 36; O2SAT 95
[2019-11-02 04:00] VITALS: BP 107/68; PULSE 71; RESP 18; TEMP 35.7; O2SAT 97
[2019-11-02 06:57] LABS: Abs Immature Grans 0.23 k/cumm (0.0-0.09); Absolute Basophil Count 0.01 k/cumm (0.0-0.2); Absolute Eosinophil Count 0.11 k/cumm (0.0-0.7); Absolute Lymphocyte Count 2.14 k/cumm (1.2-3.4); Absolute Monocyte Count 0.95 k/cumm (0.11-0.7); Absolute Neutrophil Count 7.24 k/cumm (1.2-6.7); Basophils % 0.1; HGB 8.7 g/dL (12.0-15.5); Immature Grans % 2.2 %; Mean Corp. HGB Concentration 33.5 g/dL (32.0-36.0); Mean Corpuscular Volume 89.7 fL (80-95); Mean Platelet Volume 9.7 fL (8.0-11.0); Monocytes % 8.9; Neutrophils % 67.8; Platelet Count 204 x1000/uL (130-400); RBC Distribution Width 15.5 % (11.7-14.6); White Blood Cell Count 10.68 k/cumm (4.4-10.8)
[2019-11-02] MEDS: Lactated Ringers 1,000 ML 75 ML IV ×2 (07:04→20:49)
[2019-11-02] MEDS: PANTOPRAZOLE 80 MG in Normal Saline 100 ML 10 MG IV ×2 (07:04→16:27)
[2019-11-02] MEDS: Levothyroxine 100 MCG TAB PO (07:05)
[2019-11-02 07:26] VITALS: BP 114/77; PULSE 71; RESP 18; TEMP 37.2; O2SAT 96
[2019-11-02] MEDS: Sucralfate 1 GM TAB PO ×4 (07:46→22:28)
--- NOTE | 2019-11-02 11:06 | CMPROGNOTE_ITS ---
- If Service Date Differs Date of service: 11/02/19 Time of Service: 11:06 Care Management Progress Note S/O: Alejandra is sitting in a chair when CM comes to meet with her. She is pleasant and easily engages in conversation. She remains NPO and talks about the restricted diet she will have to follow when she returns home. She is hoping to be able to return home by Wednesday. CM will continue to follow. A: Alejandra is a 69 year old female admitted to [facility] on 10/31/2019 for acute blood loss anemia. P: Anticipate Alejandra will be discharged home with no new services when medically cleared by provider. Her will drive her home via private vehicle when ready. CM will continue to follow.
--- NOTE | 2019-11-02 13:07 | W.PM.PROGNOT ---
Date of Service Date of service: 11/02/19 Time of Service: 13:07 Assessment and Plan Assessment and plan (1) Duodenal ulcer: Status: Acute Assessment and plan: She has no evidence of ongoing bleeding HgB this am 8.7 after two more units (for a total of 4). Will check labs in am and consider discharge if stable. Subjective Subjective Interval history since last seen: Feeling well. No abdominal pain. Tolerating clear liquids No BM since admission. Exam Narrative Exam Narrative: Appears well Abdomen soft, nontender Objective Objective Clinical Data: Abnormal lab results 10/31/19 11/01/19 11/02/19 Range/Units 13:40 21:10 06:45 RBC 2.90 L (4.00-5.20) m/cumm Hgb 10.5 L D 8.7 L (12.0-15.5) g/dL Hct 30.5 L D 26.0 L (36.0-46.0) % RDW 15.5 H (11.7-14.6) % Absolute Neutrophils 7.24 H (1.2-6.7) k/cumm Absolute Monocytes 0.95 H (0.11-0.7) k/cumm Crossmatch See Detail Vital Signs Temperature 99.0 F 11/02/19 07:26 Temperature Source Temporal Artery Scan 11/02/19 07:26 Pulse 71 11/02/19 07:26 Pulse Rhythm Regular 11/02/19 07:45 Pulse 85 10/31/19 15:40 Respiratory Rate 18 11/02/19 07:26 Respiratory Effort Non-Labored 11/02/19 07:45 Respiratory Depth Normal 11/02/19 07:45 Respiratory Pattern Normal 11/02/19 07:45 Blood Pressure 114/77 11/02/19 07:26 Blood Pressure Mean 63 10/31/19 15:30 Blood Pressure Position Sitting 10/31/19 13:29 Pulse Oximetry 96 11/02/19 07:26 Oxygen Delivery Method Room Air 11/02/19 07:26 Oxygen Flow Rate 0 11/02/19 07:26 Pain Level 0 11/02/19 07:26 Intake & Output 11/01/19 11/02/19 11/02/19 23:59 11:59 23:59 Intake Total 1579 / 2539 1915.417 / 1915.417 Output Total 600 / 1600 500 / 500 Balance 979 / 939 1415.417 / 1415.417 Intake: IV 524 / 1484 1085.417 / 1085.417 Oral 830 / 830 Blood Product 805 / 805 Rbc Leuko Reduced Unit 280 / 280 [id number] Rbc Leuko Reduced Unit 525 / 525 [id number] Other 250 / 250 Rbc Leuko Reduced Unit 250 / 250 [id number] Output: Urine 600 / 1600 500 / 500 Other: Urine Color Yellow Light Prabha Urine Appearance Clear Cloudy Urine Odor Normal Voiding Methods Toilet Toilet Laboratory Results WBC 10.68 k/cumm (4.4-10.8) 11/02/19 06:45 RBC 2.90 m/cumm (4.00-5.20) L 11/02/19 06:45 Hgb 8.7 g/dL (12.0-15.5) L 11/02/19 06:45 Hct 26.0 % (36.0-46.0) L 11/02/19 06:45 MCV 89.7 fL (80-95) 11/02/19 06:45 MCH 30.0 pg (27.0-33.0) 11/02/19 06:45 MCHC 33.5 g/dL (32.0-36.0) 11/02/19 06:45 RDW 15.5 % (11.7-14.6) H 11/02/19 06:45 Plt Count 204 x1000/uL (130-400) 11/02/19 06:45 MPV 9.7 fL (8.0-11.0) 11/02/19 06:45 Immature Gran % 2.2 % 11/02/19 06:45 Neutrophils % 67.8 11/02/19 06:45 Lymphocytes % 20.0 11/02/19 06:45 Monocytes % 8.9 11/02/19 06:45 Eosinophils % 1.0 11/02/19 06:45 Basophils % 0.1 11/02/19 06:45 Absolute Neutrophils 7.24 k/cumm (1.2-6.7) H 11/02/19 06:45 Absolute Lymphocytes 2.14 k/cumm (1.2-3.4) 11/02/19 06:45 Absolute Monocytes 0.95 k/cumm (0.11-0.7) H 11/02/19 06:45 Absolute Eosinophils 0.11 k/cumm (0.0-0.7) 11/02/19 06:45 Absolute Basophils 0.01 k/cumm (0.0-0.2) 11/02/19 06:45 Differential Comment Rbc morph reviewed 11/01/19 06:35 RBC Morphology See below 11/01/19 06:35 Polychromasia Present 11/01/19 06:35 Poikilocytosis 1+ 11/01/19 06:35 Anisocytosis 1+ 11/01/19 06:35 PT 10.4 sec (9.3-11.0) 10/31/19 13:40 INR 1.0 (0.9-1.1) 10/31/19 13:40 Sodium 136 mmol/L (136-145) 11/01/19 06:35 Potassium 3.7 mmol/L (3.5-5.1) 11/01/19 06:35 Chloride 102 mmol/L (98-107) 11/01/19 06:35 Carbon Dioxide 26.7 mmol/L (21.0-32.0) 11/01/19 06:35 Anion Gap 7.3 mmol/L (3-11) 11/01/19 06:35 BUN 23 mg/dL (7-18) H 11/01/19 06:35 Creatinine 0.95 mg/dL (0.55-1.02) 11/01/19 06:35 Estimated GFR/1.73 m2 58.68 (mL/min/1.73m2) 11/01/19 06:35 Glucose 104 mg/dL (74-106) 11/01/19 06:35 Calcium 8.2 mg/dL (8.5-10.1) L 11/01/19 06:35 Magnesium 1.8 mg/dL (1.8-2.4) 10/31/19 13:40 Total Bilirubin 0.4 mg/dL (0.2-1.0) 10/31/19 13:40 AST 14 U/L (15-37) L 10/31/19 13:40 ALT 17 U/L (14-59) 10/31/19 13:40 Alkaline Phosphatase 47 U/L (46-116) 10/31/19 13:40 Total Protein 6.3 g/dL (6.4-8.2) L 10/31/19 13:40 Albumin 3.2 g/dL (3.4-5.0) L 10/31/19 13:40 Patient ABO/Rh O Positive 10/31/19 13:40 Antibody Screen Negative 10/31/19 13:40 Crossmatch See Detail 10/31/19 13:40
--- NOTE | 2019-11-02 14:38 | W.INDIABCONS ---
Date of service: 11/02/19 Time of Service: 13:39 Diabetes Inpatient Consult DESCRIPTION/ASSESSMENT: 69 y/o female with dx DM2, duodenal ulcer, Edema, anemia, HTN, HLD, Gout, Vit D Def. On clear lx diet r/t to ulcer and hx GI bleed. She is tolerating the liquid diet w ~ 100 % intake at meals and reports dislikes of certain acidic lx. These are noted on meal ticket and kitchen is aware. Patient currently has BMI 47 indicating morbid obesity. May be at risk for fluid imbalance r/t edema. INTERVENTION: Reviewed CHO counting, risks and benefits of diet and medication regimen, portion control and monitoring weight. Explained consequences of untreated DM. Provided NCM DM2 education handout with meal tips, label reading, serving sizes, and sample menus for home use. REC: Ensure Clear 237ml TID w/ meals to increase PO intake and facilitate nutrient density. PLAN: Monitor BG, A1c and weight. Refer to CDE prior to discharge. Time Spent in Nutritional Counseling and Treatment: 10 minutes
[2019-11-02 15:15] VITALS: BP 120/76; PULSE 72; RESP 21; TEMP 36.5; O2SAT 97
[2019-11-02] MEDS: Insulin Aspart 300 UNITS/3 ML PEN SC (18:26)
[2019-11-02 19:05] VITALS: BP 155/79; PULSE 68; RESP 20; TEMP 36.3; O2SAT 99
[2019-11-03] MEDS: PANTOPRAZOLE 80 MG in Normal Saline 100 ML 10 MG IV (02:31)
[2019-11-03] MEDS: Levothyroxine 100 MCG TAB PO (06:21)
[2019-11-03 06:51] LABS: Absolute Basophil Count 0.01 k/cumm (0.0-0.2); Absolute Eosinophil Count 0.17 k/cumm (0.0-0.7); Absolute Lymphocyte Count 2.31 k/cumm (1.2-3.4); Absolute Monocyte Count 0.77 k/cumm (0.11-0.7); Absolute Neutrophil Count 5.87 k/cumm (1.2-6.7); Basophils % 0.1; Eosinophils % 1.8; HCT 25.2 % (36.0-46.0); HGB 8.2 g/dL (12.0-15.5); Immature Grans % 2.1 %; Lymphocytes % 24.8; Mean Corp. HGB Concentration 32.5 g/dL (32.0-36.0); Mean Corpuscular Hemoglobin 29.8 pg (27.0-33.0); Mean Corpuscular Volume 91.6 fL (80-95); Mean Platelet Volume 9.8 fL (8.0-11.0); Monocytes % 8.3; Neutrophils % 62.9; Platelet Count 207 x1000/uL (130-400); RBC 2.75 m/cumm (4.00-5.20); RBC Distribution Width 15.7 % (11.7-14.6); White Blood Cell Count 9.33 k/cumm (4.4-10.8)
[2019-11-03 07:21] VITALS: BP 154/64; PULSE 69; RESP 18; TEMP 37.3; O2SAT 98
[2019-11-03] MEDS: Sucralfate 1 GM TAB PO ×2 (07:48→12:19)
[2019-11-03] MEDS: Acetaminophen 325 MG TAB 650 MG PO (07:58)
--- NOTE | 2019-11-03 09:14 | W.PM.PROGNOT ---
Date of Service Date of service: 11/03/19 Time of Service: 09:14 Assessment and Plan Assessment and plan (1) Duodenal ulcer: Status: Acute Assessment and plan: switch to oral meds reg diet HLIV check h/h @ 2pm hopefully d/c home today (2) GI (gastrointestinal bleed): Status: Chronic Subjective Subjective Patient reports: no new complaints Interval history since last seen: Pt is doing well. no headaches. No CP or SOB. no productive cough. no dysuria. no leg pain or swelling. no abdominal. She had a BM that was not bloody or black/tarry. She is tolerating a regular diet. Exam Resp Effort & Inspection: normal respiratory effort and able to speak in complete sentences Auscultation: clear to auscultation bilaterally GI Inspection: normal to inspection Palpation: soft and nontender Auscultation: normal bowel sounds Extrem General: normal to inspection, no clubbing, cyanosis or edema and no calf tenderness Objective Objective Clinical Data: Abnormal lab results 11/03/19 Range/Units 06:10 RBC 2.75 L (4.00-5.20) m/cumm Hgb 8.2 L (12.0-15.5) g/dL Hct 25.2 L (36.0-46.0) % RDW 15.7 H (11.7-14.6) % Absolute Monocytes 0.77 H (0.11-0.7) k/cumm Vital Signs Temperature 37.3 C 11/03/19 07:21 Temperature Source Temporal Artery Scan 11/03/19 07:21 Pulse 69 11/03/19 07:21 Pulse Rhythm Regular 11/02/19 20:30 Pulse 85 10/31/19 15:40 Respiratory Rate 18 11/03/19 07:21 Respiratory Effort Non-Labored 11/02/19 20:30 Respiratory Depth Normal 11/02/19 20:30 Respiratory Pattern Normal 11/02/19 20:30 Blood Pressure 154/64 H 11/03/19 07:21 Blood Pressure Mean 63 10/31/19 15:30 Blood Pressure Position Sitting 10/31/19 13:29 Pulse Oximetry 98 11/03/19 07:21 Oxygen Delivery Method Room Air 11/03/19 07:21 Oxygen Flow Rate 0 11/03/19 07:21 Pain Level 1 11/03/19 07:58 Intake & Output 11/02/19 11/02/19 11/03/19 11:59 23:59 11:59 Intake Total 1915.417 / 3729.250 1813.833 / 3729.250 100 / 100 Output Total 500 / 1300 800 / 1300 Balance 1415.417 / 2429.250 1013.833 / 2429.250 100 / 100 Intake: IV 1085.417 / 2179.250 1093.833 / 2179.250 100 / 100 Oral 830 / 1550 720 / 1550 Output: Urine 500 / 1300 800 / 1300 Other: Urine Color Light Prabha Yellow Urine Appearance Cloudy Clear Urine Odor Normal Stool Size Moderate Stool Characteristics Formed Black Voiding Methods Toilet Laboratory Results WBC 9.33 k/cumm (4.4-10.8) 11/03/19 06:10 RBC 2.75 m/cumm (4.00-5.20) L 11/03/19 06:10 Hgb 8.2 g/dL (12.0-15.5) L 11/03/19 06:10 Hct 25.2 % (36.0-46.0) L 11/03/19 06:10 MCV 91.6 fL (80-95) 11/03/19 06:10 MCH 29.8 pg (27.0-33.0) 11/03/19 06:10 MCHC 32.5 g/dL (32.0-36.0) 11/03/19 06:10 RDW 15.7 % (11.7-14.6) H 11/03/19 06:10 Plt Count 207 x1000/uL (130-400) 11/03/19 06:10 MPV 9.8 fL (8.0-11.0) 11/03/19 06:10 Immature Gran % 2.1 % 11/03/19 06:10 Neutrophils % 62.9 11/03/19 06:10 Lymphocytes % 24.8 11/03/19 06:10 Monocytes % 8.3 11/03/19 06:10 Eosinophils % 1.8 11/03/19 06:10 Basophils % 0.1 11/03/19 06:10 Absolute Neutrophils 5.87 k/cumm (1.2-6.7) 11/03/19 06:10 Absolute Lymphocytes 2.31 k/cumm (1.2-3.4) 11/03/19 06:10 Absolute Monocytes 0.77 k/cumm (0.11-0.7) H 11/03/19 06:10 Absolute Eosinophils 0.17 k/cumm (0.0-0.7) 11/03/19 06:10 Absolute Basophils 0.01 k/cumm (0.0-0.2) 11/03/19 06:10 Differential Comment Rbc morph reviewed 11/01/19 06:35 RBC Morphology See below 11/01/19 06:35 Polychromasia Present 11/01/19 06:35 Poikilocytosis 1+ 11/01/19 06:35 Anisocytosis 1+ 11/01/19 06:35 PT 10.4 sec (9.3-11.0) 10/31/19 13:40 INR 1.0 (0.9-1.1) 10/31/19 13:40 Sodium 136 mmol/L (136-145) 11/01/19 06:35 Potassium 3.7 mmol/L (3.5-5.1) 11/01/19 06:35 Chloride 102 mmol/L (98-107) 11/01/19 06:35 Carbon Dioxide 26.7 mmol/L (21.0-32.0) 11/01/19 06:35 Anion Gap 7.3 mmol/L (3-11) 11/01/19 06:35 BUN 23 mg/dL (7-18) H 11/01/19 06:35 Creatinine 0.95 mg/dL (0.55-1.02) 11/01/19 06:35 Estimated GFR/1.73 m2 58.68 (mL/min/1.73m2) 11/01/19 06:35 Glucose 104 mg/dL (74-106) 11/01/19 06:35 Calcium 8.2 mg/dL (8.5-10.1) L 11/01/19 06:35 Magnesium 1.8 mg/dL (1.8-2.4) 10/31/19 13:40 Total Bilirubin 0.4 mg/dL (0.2-1.0) 10/31/19 13:40 AST 14 U/L (15-37) L 10/31/19 13:40 ALT 17 U/L (14-59) 10/31/19 13:40 Alkaline Phosphatase 47 U/L (46-116) 10/31/19 13:40 Total Protein 6.3 g/dL (6.4-8.2) L 10/31/19 13:40 Albumin 3.2 g/dL (3.4-5.0) L 10/31/19 13:40 Stool H. pylori Ag Cancelled 10/31/19 Unknown Patient ABO/Rh O Positive 10/31/19 13:40 Antibody Screen Negative 10/31/19 13:40 Crossmatch See Detail 10/31/19 13:40
[2019-11-03] MEDS: Losartan 50 MG TAB PO (09:53)
[2019-11-03] MEDS: metFORMIN 500 MG TAB 1000 MG PO (09:53)
[2019-11-03] MEDS: Furosemide 40 MG TAB PO (09:57)
[2019-11-03] MEDS: Normal Saline Flush 10 ML SYR IVP (10:06)
[2019-11-03 11:41] LABS: Helicobacter pylori Ag, Feces Negative (Negative)
[2019-11-03] MEDS: Pantoprazole 40 MG TABCR PO (12:14)
--- NOTE | 2019-11-03 13:10 | W.NUTCONSULT ---
Date of service: 11/03/19 Time of Service: 13:11 Nutritional Consult ASSESSMENT: 69 year old female admitted with duodenal ulcer, GI bleed. Diet advanced to regular diet and tolerating- completed 100% at lunch. BMI indicates morbid obesity. PMH: DM, HTN, hyperlipidemia. Labs indicate adequately controlled blood sugars. Met contreras Roberts today and discussed ideal meal plan for weight and diabetes management, she did not want education materials or additional diet educaiton, stated she was all set. Not at risk for nutritional decline at this time. Will be availabe prn. MONITORING AND EVALUATION: weight, po intake, labs Time Spent in Nutritional Counseling and Treatment: 10 min spent face to face
[2019-11-03 14:38] LABS: HCT 29.2 % (36.0-46.0); HGB 9.4 g/dL (12.0-15.5)
--- NOTE | 2019-11-03 14:47 | W.PM.DS.N ---
Date of service: 11/03/19 Time of Service: 14:47 DS: Diagnosis Discharge Diagnosis (1) Duodenal ulcer: Status: Acute (2) GI (gastrointestinal bleed): Status: Chronic Discharge Plan Disposition Patient Disposition: HOME Condition: Stable Discharge Details Chief Complaint: GI Bleed Clinical Impression: GI (gastrointestinal bleed) Reason For Visit: ACUTE BLOOD LOSS ANEMIA/duodenal ulcer Admit Date/Time: 10/31/19 14:33 Admit Provider: Jacque Mcallister Attending Provider: Jacque Mcallister Primary Care Provider: Letty Whittington ED Provider: Mandy Paniagua Home Meds and New Rx's Prescriptions: New pantoprazole [Protonix] 40 mg tablet,delayed release (DR/EC) 40 mg PO BID Qty: 60 RF: 0 sucralfate [Carafate] 1 gram tablet 1 gm PO QACHS Qty: 120 RF: 12 Discontinued omeprazole 40 mg capsule,delayed release(DR/EC) 40 mg PO BID PRN (Reason: GERD) Qty: 180 RF: 4 No Action levothyroxine 100 mcg tablet 100 mcg PO DAILY Qty: 90 RF: 12 allopurinol 300 mg tablet 150 mg PO DAILY Qty: 90 RF: 4 (DME) blood-glucose meter 1 EACH misc 1 ea Miscellaneous AC Qty: 1 RF: 0 (DME) lancets 1 EACH misc 1 ea Miscellaneous DAILY Qty: 100 RF: 12 (DME) FreeStyle Lite Strips Strip 1 ea Miscellaneous DAILY Qty: 100 RF: 12 metformin 1,000 mg tablet 1,000 mg PO BID Qty: 180 RF: 4 potassium chloride 20 mEq tablet,ER particles/crystals 20 meq PO BID Qty: 180 RF: 12 rosuvastatin [Crestor] 20 mg tablet 20 mg PO DAILY Qty: 90 RF: 4 losartan 50 mg tablet 50 mg PO DAILY Qty: 90 RF: 4 ergocalciferol (vitamin D2) 1,250 mcg (50,000 unit) capsule 50,000 unit PO QWEEK Qty: 14 RF: 5 furosemide [Lasix] 40 mg tablet 40 mg PO DAILY RF: 0 docusate sodium [Colace] 100 mg capsule 100 mg PO BID Qty: 60 RF: 0 Discharge Instructions Instructions: Diet for Stomach Ulcers and Gastritis (GEN) Additional Instructions: Continue with lifestyle modifications: no alcohol, tobacco products, Aspirin or NSAID's (ibuprofen, Motrin, Naprosyn, aleve, etc). Try to avoid: soda pop, any carbonated beverages, caffeine (including tea & chocolate), and acidic foods, (tomatoes, citrus, onions, garlic, peppermints, hot peppers, green peppers) spicy foods- see diet for ulcers handout Do not lie down for 30 minutes after eating, and do not eat 2 hours prior to bedtime. Avoid wearing tight fitting clothing/ belts take protonix BID on an empty stomach 60 mins prior to eating. dont take at the same time as the carafate. take carafate 30 mins to just prior to eating and at bedtime -hgb check on wednesday and F/u w/ Dr. Mcallister in clinic at: Stand Alone Forms: Nursing Discharge Form Referrals: Jacque Mcallister MD [ [facility] STAFF PHYSICIAN] - (Surgical office will call Wednesday with an appointment. ) Activity:: Activity as Tolerated Equipment/Supplies:: No Equipment Needed Diet:: Carb Counting Discharge Orders Discharge Orders: Discharge Order (Routine); Ordered 11/03/19 Ordered By: Renetta Freeman DS: Summary Status at Discharge Functional status at discharge: independent ambulation Overall status at discharge: patient is back to baseline Mental Status: mental status grossly normal Speech and Movement: speech and movement normal Mood: congruent mood Affect: normal affect Exam Psych Mental Status: mental status grossly normal Speech and Movement: speech and movement normal Mood: congruent mood Affect: normal affect DS: Data Vitals/I&O Vitals and I&O: Vital Signs Temperature 37.3 C 11/03/19 07:21 Temperature Source Temporal Artery Scan 11/03/19 07:21 Pulse 69 11/03/19 07:21 Pulse Rhythm Regular 11/03/19 07:40 Pulse 85 10/31/19 15:40 Respiratory Rate 18 11/03/19 07:21 Respiratory Effort 11/03/19 07:40 Respiratory Depth Normal 11/03/19 07:40 Respiratory Pattern Normal 11/03/19 07:40 Blood Pressure 154/64 H 11/03/19 07:21 Blood Pressure Mean 63 10/31/19 15:30 Blood Pressure Position Sitting 10/31/19 13:29 Pulse Oximetry 98 11/03/19 07:21 Oxygen Delivery Method Room Air 11/03/19 07:21 Oxygen Flow Rate 0 11/03/19 07:21 Pain Level 1 11/03/19 07:58 Intake & Output 11/02/19 11/03/19 11/03/19 23:59 11:59 23:59 Intake Total 1813.833 / 3729.250 150 / 150 Output Total 800 / 1300 Balance 1013.833 / 2429.250 150 / 150 Intake: IV 1093.833 / 2179.250 100 / 100 Oral 720 / 1550 50 / 50 Output: Urine 800 / 1300 Other: Urine Color Yellow Yellow Urine Appearance Clear Clear Urine Odor None Stool Size Moderate Stool Characteristics Formed Black Voiding Methods Toilet Data Completed and Pending Labs on day of discharge: Labs from last 24 hours 11/03/19 11/03/19 11/02/19 14:15 06:10 13:40 WBC 9.33 RBC 2.75 L Hgb 9.4 L 8.2 L Hct 29.2 L 25.2 L MCV 91.6 MCH 29.8 MCHC 32.5 RDW 15.7 H Plt Count 207 MPV 9.8 Immature Gran % 2.1 Neutrophils % 62.9 Lymphocytes % 24.8 Monocytes % 8.3 Eosinophils % 1.8 Basophils % 0.1 Absolute Neutrophils 5.87 Absolute Lymphocytes 2.31 Absolute Monocytes 0.77 H Absolute Eosinophils 0.17 Absolute Basophils 0.01 Stool H. 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) Diverticulosis large intestine w/o perforation or abscess w/o bleeding Diverticulosis of colon without diverticulitis (Chronic 05/21/09) Duodenal ulcer (Acute) Edema (Chronic) Essential hypertension (Chronic 05/04/13) Family history of colon cancer (Chronic 01/29/15) Gastroesophageal reflux disease (Chronic 10/11/12) GERD (gastroesophageal reflux disease) Gout Gout (Chronic 03/14/10) History of pelvic ultrasound (Inactive) Hyperkalemia (Inactive 10/20/12) Hyperlipidemia Hyperlipidemia (Chronic 10/11/12) Hypertension Hypokalemia (Inactive 05/09/15) Hypothyroidism Hypothyroidism (Chronic 10/11/12) Incarcerated incisional hernia (Acute) Increased body mass index (Chronic) Knee pain (Resolved 03/12/15) Left hip pain (Resolved 12/15/16) Lipoma (Inactive 07/01/05) Morbid obesity with BMI of 50.0-59.9, adult Organic sleep apnea Organic sleep apnea, unspecified (Chronic) CPAP (NOT USING 11/17) Osteoarthritis Pulmonary hypertension (Chronic 11/08/17) Skin tag (Inactive 08/03/17) Sprain of costal cartilage (Inactive 10/22/16) Strain of flexor muscle of left hip (Inactive 09/23/16) Vitamin D deficiency Vitamin D deficiency (Chronic 03/22/12) Surgical History Arthroplasty of knee (02/25/16) LEFT TOTAL KNEE Cholecystectomy Colonoscopy - IV Sedation Endometrial Biopsy neg History of bilateral ligation of fallopian tubes (Inactive) Ligation of fallopian tube PELVIC U/S NEG Status post cholecystectomy (Inactive) Status post total knee replacement (Inactive 02/25/16) Family History Mother Liver cancer Father Heart disease Stomach cancer Maternal Grandfather Cirrhosis of liver Paternal Grandfather Narcolepsy Diabetes Maternal Grandmother Diabetes Heart disease Breast cancer Paternal Grandmother Breast cancer Sister Alcohol abuse Uterine cancer Sister Cancer Brother Liver cancer Lung cancer Son Essential hypertension Son Narcolepsy Diabetes Essential hypertension Hyperlipidemia Other Family history of colon cancer Social History Smoking/Tobacco Use Status: Never Alcohol Intake: current Alcohol Intake frequency: holidays/special occasions only Alcohol type: wine Drug use: Never Substance use type: does not use Caregiver/Support person: No Household members: spouse Housing: apartment Communication Needs: None Do you need help understanding health information?: Rarely Pets and animals: No Sexually active: No Do you think of yourself as: straight/heterosexual Current gender identity: female What is your relationship status?: How often do you talk on the phone with friends or family?: three or more times per week How often do you get together with friends or relatives?: once per week How often do you attend methodist or quaker services?: 1-3 times per year Do you belong to any clubs or organized social groups?: yes Panel score (0-1 are the most socially isolated patients): 3 What type of physical activity do you participate in: walking Duration: 15-30 minutes/day Frequency: 5-6 times per week Sejal/Yazidism: Rastafarian Special sejal needs: No Seatbelt use: always Helmet use: No Drive intox or ride w/intox yard truck driver: No Do you feel safe at home: Yes Do you feel safe in your relationship?: Yes
--- NOTE | 2019-11-03 14:55 | PDOC.CMDIS ---
- If Service Date Differs Date of service: 11/03/19 Time of Service: 14:58 LACE Index Scoring Tool - Questions: Length of Stay (in days): 4 - 6 Acuity (Admit via E.D.?): Yes Comorbidities: Diabetes w/o Complication E.D. Visits: 2 - Answers: Total Score: 10 Risk of Readmission: High Risk Care Management Discharge Reason for Hospitalization: Acute blood loss anemia Discharge Plan: Alejandra will return home with no additional services at this time. She will follow up with her PCP and post surgically, as recommended. Her will drive her home via private vehicle. She is agreeable to returning home and resting. Patient/Family Education Needs: Review discharge instructions regarding activity levels and medications, discussion of self care needs including ask me three
--- NOTE | 2019-11-03 15:27 | CHAPLAIN ---
Alejandra was dressed in her own clothes when I visited and said she is hoping to be discharged later today. She is feeling better and looking forward to be going home, she said.
== END 2019-11-03 16:46 | disposition home or self-care (01) | DRG 811 ==
LOC: ER 16:03 → MS 16:18
PROVIDERS: Surgery; Admitting Provider Surgery; Emergency Provider Registered Nurse Emergency; PCP Family Medicine; Visit Provider Surgery
PROC: 0DJ68ZZ Inspection of Stomach, Via Natural or Artificial Opening Endoscopic (ICD-10-PCS; CPT 43235; principal; 2019-11-01 09:30)
DX: D62 Acute posthemorrhagic anemia (principal); K26.0 Acute duodenal ulcer with hemorrhage; D13.2 Benign neoplasm of duodenum; E11.21 Type 2 diabetes mellitus with diabetic nephropathy; Z79.84 Long term (current) use of oral hypoglycemic drugs; I10 Essential (primary) hypertension; K21.9 Gastro-esophageal reflux disease without esophagitis
CPT/HCPCS: 36415; 43239; 80048; 80053; 85027; 86850; 86900; 86901; 86920; 87338; 88305; 99222; 99231; 99232; 99233; 99239; 82043; 82570; 83036; 83735; 85014; 85018; 85025; 85610; J0131; J1200; J1756; J2405; P9016

== ENCOUNTER 2019-11-06 02:19 | Outpatient (CLI) | payer MEDICARE, MEDICAID, SELFPAY ==
[2019-11-06 11:50] LABS: HCT 30.2 % (36.0-46.0); HGB 9.7 g/dL (12.0-15.5)
== END 2019-11-06 02:39 ==
PROVIDERS: PCP Family Medicine; Visit Provider Surgery
DX: D62 Acute posthemorrhagic anemia (principal); K92.2 Gastrointestinal hemorrhage, unspecified; E11.9 Type 2 diabetes mellitus without complications; I10 Essential (primary) hypertension
CPT/HCPCS: 36415; 99212; 99213; 85014; 85018

== ENCOUNTER 2019-11-14 01:45 | Outpatient (CLI) | payer MEDICARE, MEDICAID, SELFPAY ==
[2019-11-14 08:28] LABS: HCT 33.5 % (36.0-46.0); HGB 10.9 g/dL (12.0-15.5); Mean Corp. HGB Concentration 32.5 g/dL (32.0-36.0); Mean Corpuscular Hemoglobin 28.3 pg (27.0-33.0); Mean Platelet Volume 10.4 fL (8.0-11.0); Platelet Count 245 x1000/uL (130-400); RBC 3.85 m/cumm (4.00-5.20); RBC Distribution Width 14.8 % (11.7-14.6)
[2019-11-14 08:31] LABS: Hemoglobin A1C 5.6 % (3.8-5.6)
[2019-11-14 09:17] LABS: ALT 21 U/L (14-59); AST 17 U/L (15-37); Albumin 3.2 g/dL (3.4-5.0); Alkaline Phosphatase 71 U/L (46-116); Anion Gap 14.3 mmol/L (3-11); BUN 23 mg/dL (7-18); Bilirubin, Total 0.5 mg/dL (0.2-1.0); CO2 21.7 mmol/L (21.0-32.0); CREATININE 2.11 mg/dL (0.55-1.02); Chloride 102 mmol/L (98-107); Estimated GFR 23.36 (mL/min/1.73m2); Glucose 143 mg/dL (74-106); Potassium 3.5 mmol/L (3.5-5.1); Sodium 138 mmol/L (136-145); TSH (W/Ref FT4) 5.12 uIU/mL (0.36-3.74); Total Protein 6.2 g/dL (6.4-8.2); Uric Acid 7.8 mg/dL (2.6-6.0)
[2019-11-14 09:35] LABS: FREE T4 1.16 ng/dL (0.76-1.46)
== END 2019-11-14 02:05 ==
PROVIDERS: PCP Family Medicine; Visit Provider Surgery
DX: E11.9 Type 2 diabetes mellitus without complications (principal); E03.9 Hypothyroidism, unspecified; E78.5 Hyperlipidemia, unspecified; I10 Essential (primary) hypertension; D62 Acute posthemorrhagic anemia
CPT/HCPCS: 36415; 80053; 85027; 83036; 84439; 84443; 84550; 85018

== ENCOUNTER 2019-11-22 12:13 | Outpatient (REF) | payer MEDICARE, MEDICAID, SELFPAY ==
[2019-11-22 13:35] LABS: HCT 31.3 % (36.0-46.0); HGB 9.8 g/dL (12.0-15.5); Mean Corp. HGB Concentration 31.3 g/dL (32.0-36.0); Mean Corpuscular Hemoglobin 28.2 pg (27.0-33.0); Mean Corpuscular Volume 89.9 fL (80-95); Mean Platelet Volume 11.1 fL (8.0-11.0); Platelet Count 173 x1000/uL (130-400); RBC 3.48 m/cumm (4.00-5.20); RBC Distribution Width 15.3 % (11.7-14.6); White Blood Cell Count 8.24 k/cumm (4.4-10.8)
[2019-11-22 14:17] LABS: ALT 39 U/L (14-59); AST 21 U/L (15-37); Albumin 2.9 g/dL (3.4-5.0); Alkaline Phosphatase 71 U/L (46-116); Anion Gap 6.9 mmol/L (3-11); BUN 10 mg/dL (7-18); Bilirubin, Total 0.3 mg/dL (0.2-1.0); CO2 29.1 mmol/L (21.0-32.0); CREATININE 0.97 mg/dL (0.55-1.02); Calcium 8.7 mg/dL (8.5-10.1); Chloride 105 mmol/L (98-107); Estimated GFR 57.28 (mL/min/1.73m2); Glucose 217 mg/dL (74-106); Potassium 4.4 mmol/L (3.5-5.1); Sodium 141 mmol/L (136-145); Total Protein 5.9 g/dL (6.4-8.2); Uric Acid 3.9 mg/dL (2.6-6.0)
[2019-11-22 14:28] LABS: Hemoglobin A1C 5.8 % (3.8-5.6)
== END 2019-11-22 12:33 ==
LOC: LBN 12:13
PROVIDERS: PCP Family Medicine; Visit Provider Family Medicine
DX: I10 Essential (primary) hypertension (principal); E11.9 Type 2 diabetes mellitus without complications; M10.9 Gout, unspecified; D62 Acute posthemorrhagic anemia; N19 Unspecified kidney failure
CPT/HCPCS: 80053; 85027; 83036; 84550

== ENCOUNTER 2020-02-12 13:09 | Outpatient (REF) | payer MEDICARE, MEDICAID, SELFPAY ==
[2020-02-12 13:27] LABS: HCT 33.5 % (36.0-46.0); HGB 10.1 g/dL (12.0-15.5); Mean Corp. HGB Concentration 30.1 g/dL (32.0-36.0); Mean Corpuscular Hemoglobin 23.5 pg (27.0-33.0); Mean Corpuscular Volume 77.9 fL (80-95); Mean Platelet Volume 11.2 fL (8.0-11.0); Platelet Count 306 x1000/uL (130-400); RBC Distribution Width 18.1 % (11.7-14.6); White Blood Cell Count 13.16 k/cumm (4.4-10.8)
[2020-02-12 13:43] LABS: Hemoglobin A1C 6.4 % (3.8-5.6)
[2020-02-12 13:52] LABS: ALT 16 U/L (14-59); AST 14 U/L (15-37); Albumin 3.3 g/dL (3.4-5.0); Alkaline Phosphatase 79 U/L (46-116); Anion Gap 12.1 mmol/L (3-11); BUN 22 mg/dL (7-18); Bilirubin, Total 0.7 mg/dL (0.2-1.0); CO2 28.9 mmol/L (21.0-32.0); CREATININE 2.57 mg/dL (0.55-1.02); Calcium 8.9 mg/dL (8.5-10.1); Chloride 85 mmol/L (98-107); Estimated GFR 18.61 (mL/min/1.73m2); Glucose 202 mg/dL (74-106); Sodium 126 mmol/L (136-145); TSH (W/Ref FT4) 1.49 uIU/mL (0.36-3.74); Total Protein 6.7 g/dL (6.4-8.2)
[2020-02-12 14:02] LABS: Potassium 2.2 mmol/L (3.5-5.1)
== END 2020-02-12 13:29 ==
LOC: LBN 13:09
PROVIDERS: PCP Family Medicine; Visit Provider Family Medicine
DX: E11.21 Type 2 diabetes mellitus with diabetic nephropathy (principal); I10 Essential (primary) hypertension; K31.84 Gastroparesis; C17.0 Malignant neoplasm of duodenum; N19 Unspecified kidney failure; D62 Acute posthemorrhagic anemia
CPT/HCPCS: 80053; 85027; 83036; 84443

== ENCOUNTER 2020-02-12 16:25 | Emergency (ER) | payer MEDICARE, MEDICAID, SELFPAY ==
[2020-02-12] VITALS (60 sets, daily range): BP systolic 91–131; BP diastolic 30–72; PULSE 50–113; RESP 12–33; TEMP 36.6; O2SAT 95–100
--- NOTE | 2020-02-12 16:30 | RT.EKG_ITS ---
APPROVED REPORT Exam: Resting ECG Patient Location: E HR:75 bpm ECG Measurements Heart Rate 75 AXIS FL 189 P -2 QRSd 109 QRS -18 QT 478 T -25 QTc 534 <Conclusion> Sinus rhythm...normal P axis, V-rate 60- 99 LVH with secondary repolarization abnormality...multi-LVH criteria, abnrm ST-T Inferior infarct, old...Q >35mS, II III aVF Prolonged QT interval...QTc >500mS Less than 1mm ST depression in I and aVL. No acute ST elevation.
--- NOTE | 2020-02-12 16:40 | W.ED.GENAD ---
Discharge Plan Disposition Patient Disposition: HOME Condition: Improving Discharge Details Chief Complaint: GenMedical Clinical Impression: Acute kidney injury, Hypotension, Hypokalemia Primary Care Provider: Letty Whittington ED Provider: Ashlyn Gonzales Home Meds and New Rx's Prescriptions: Continued levothyroxine 100 mcg tablet 100 mcg PO DAILY Qty: 90 RF: 12 allopurinol 300 mg tablet 150 mg PO DAILY Qty: 90 RF: 4 rosuvastatin [Crestor] 20 mg tablet 20 mg PO DAILY Qty: 90 RF: 4 ergocalciferol (vitamin D2) 1,250 mcg (50,000 unit) capsule 50,000 unit PO QWEEK Qty: 14 RF: 5 pantoprazole [Protonix] 40 mg tablet,delayed release (DR/EC) 40 mg PO DAILY Qty: 60 RF: 0 potassium chloride 10 mEq capsule, extended release 10 meq PO BID Qty: 180 RF: 4 (DME) blood sugar diagnostic [FreeStyle Lite Strips] Strip 1 ea Miscellaneous DAILY Qty: 200 RF: 12 (DME) blood-glucose meter Misc 1 ea Miscellaneous AC Qty: 1 RF: 0 (DME) lancets 28 gauge misc 1 ea Miscellaneous DAILY Qty: 200 RF: 12 docusate sodium [Colace] 100 mg capsule 100 mg PO BID Qty: 60 RF: 0 Discontinued metoprolol tartrate 50 mg tablet 50 mg PO DAILY Qty: 90 RF: 5 furosemide 40 mg tablet 40 mg PO DAILY Qty: 90 RF: 4 Discharge Instructions Instructions: Acute Kidney Injury (DC), Hypokalemia (ED), Hypotension (ED) Additional Instructions: Hold Lasix and Metoprolol until instructed by your primary care provider. Drink at least 6 to 8 glasses of water daily to stay well-hydrated You will need blood work in the next day or 2 to recheck your kidney functions and your potassium level. Please call the hospital tomorrow morning at [phone] to schedule your lab appointment. Take 40 meq of potassium tomorrow morning. Referrals: Letty Whittington MD, [place] [Primary Care Provider] - Discharge Orders Other Ambulatory Orders: Basic Metabolic Panel (Routine) Timeframe: 1 Day Location: None Selected Ordered By: Ashlyn Gonzales Medical Decision Making Medical Records Medical records narrative: This is a 69-year-old female who is been in her usual state of health states yesterday did have some hypotension and lightheadedness but no chest pain shortness of breath syncopal episode. She is followed by home health services who evaluated her again today and found her systolic to be 70. She reports she has been eating and drinking and not having any diarrhea or loose stools. They did draw blood today and her potassium was noted to be 2.2 and her creatinine 2.57. She presented to the emergency department essentially asymptomatic she states she feels at her baseline but was referred due to her critical lab values. I will add a magnesium onto her previous draw was which was just a few hours ago. Sample does not appear hemolyzed. I suspect that her creatinine is elevated secondary to her hypotension as her p.o. intake has been good and she has had no GI losses. She reports that she is voiding per her usual but I will check a UA. Her hopes are to have her electrolytes repleted and to be discharged home as she has a follow-up appointment at [facility] tomorrow with oncology. She received 2 L of normal saline and 40 mEq of potassium orally and 40 IV. Her magnesium level was checked and was normal at 2.1. Repeat basic metabolic panel shows potassium improvement to 2.9 and creatinine improvement to 1.74. I did discuss observation admission overnight for ongoing hydration and electrolyte replacement/monitoring but her preference is to be discharged to home. she is taking good oral intake her blood pressures have been improved with IV hydration she will be instructed to hold her Lasix and metoprolol until discussed with her primary care provider. I did ask her to take 40 mEq of potassium tomorrow morning and to have her lab drawn tomorrow afternoon or Wednesday. Home health services will be evaluating her on Wednesday and she will be evaluated by her provider at [facility] tomorrow at her scheduled appointment. I will contact her primary care provider Dr. Letty Whittington tomorrow to update her on discharge plan so she can have close follow-up. Lab Data Lab results reviewed: Yes I reviewed the patient's lab results. Labs: Laboratory Tests Range/Units 02/12/20 02/12/20 02/12/20 16:00 16:38 18:15 Sodium Cancelled Potassium Cancelled Chloride Cancelled Carbon Dioxide Cancelled Anion Gap Cancelled BUN Cancelled Creatinine Cancelled Estimated GFR/1.73 m2 Cancelled Glucose Cancelled Calcium Cancelled Magnesium (1.8-2.4) mg/dL 2.1 Urine Color (Yellow) Yellow Urine Clarity (Clear) Clear Urine pH (5-8) 6.0 Ur Specific Tolstoy (1.005-1.025) <= 1.005 Urine Protein (Negative) mg/dL 30 H Urine Ketones (Negative) mg/dL Negative Urine Blood (Negative) Moderate H Urine Nitrite (Negative) Negative Urine Bilirubin (Negative) Negative Urine Urobilinogen (Up TO 0.2) EU/dL 0.2 Ur Leukocyte Esterase (Negative) Negative Urine RBC (0-2) HPF 3-5 H Urine WBC (0-5) HPF 3-5 Ur Epithelial Cells (Negative) HPF Many Urine Crystals (Negative) HPF Negative Urine Bacteria (Negative) HPF Moderate Urine Mucus (Negative) Negative Urine Other (Negative) Many transitional Ur Culture Indicated? No/sq. contamination Urine Glucose (Negative) mg/dL Negative Range/Units 02/12/20 21:34 Sodium 130 L Potassium 2.9 L* Chloride 93 L Carbon Dioxide 28.5 Anion Gap 8.5 BUN 19 H Creatinine 1.74 H D Estimated GFR/1.73 m2 29.18 Glucose 127 H D Calcium 8.3 L Magnesium (1.8-2.4) mg/dL Urine Color (Yellow) Urine Clarity (Clear) Urine pH (5-8) Ur Specific Tolstoy (1.005-1.025) Urine Protein (Negative) mg/dL Urine Ketones (Negative) mg/dL Urine Blood (Negative) Urine Nitrite (Negative) Urine Bilirubin (Negative) Urine Urobilinogen (Up TO 0.2) EU/dL Ur Leukocyte Esterase (Negative) Urine RBC (0-2) HPF Urine WBC (0-5) HPF Ur Epithelial Cells (Negative) HPF Urine Crystals (Negative) HPF Urine Bacteria (Negative) HPF Urine Mucus (Negative) Urine Other (Negative) Ur Culture Indicated? Urine Glucose (Negative) mg/dL ECG Data Interpretation: EKG was reviewed by Dr. Rowley please see her documentation for interpretation. She has no acute changes and has been in sinus rhythm HPI General Date/Time Provider Initiated Documentation: 02/12/20 16:37. Limitations to Documentation: no limitations. Information obtained by: patient. HPI Narrative: This is a 69-year-old female patient with a past medical history significant for adenomatous polyp of the duodenum followed at [facility] who states she was in her usual health yesterday did feel little weak and dizzy. She denies any chest pain shortness of breath increased edema her blood pressure she states was low yesterday so she was advised to hold her metoprolol. Home health came to assess her again today and they noted that her systolic blood pressure today was 70 so she received blood work which demonstrated a potassium of 2.2 and a creatinine of 2.57 so she was referred to the emergency department for evaluation. Again currently she denies any complaints of dizziness shortness of breath chest pain increased edema. She states she has been eating and drinking and voiding per her baseline with no decreases noted. Related Data Home Medications Medication Instructions Recorded Confirmed allopurinol 300 mg tablet 150 mg PO DAILY #90 tab-cap 03/14/19 02/12/20 levothyroxine 100 mcg tablet 100 mcg PO DAILY #90 tab-cap 03/14/19 02/12/20 rosuvastatin 20 mg tablet 20 mg PO DAILY #90 tab-cap 05/16/19 02/12/20 docusate sodium [Colace] 100 mg PO BID #60 cap 06/15/19 02/12/20 ergocalciferol (vitamin D2) 1,250 50,000 unit PO QWEEK #14 cap 10/16/19 02/12/20 mcg (50,000 unit) capsule pantoprazole 40 mg tablet,delayed 40 mg PO DAILY #60 tab 11/14/19 02/12/20 release potassium chloride 10 mEq 10 meq PO BID #180 cap 01/21/20 02/12/20 capsule,extended release blood sugar diagnostic #200 strip 01/29/20 blood-glucose meter #1 ea 01/29/20 lancets 28 gauge #200 each 01/29/20 Previous Rx's Medication Instructions Recorded allopurinol 300 mg tablet 150 mg PO DAILY #90 tab-cap 03/14/19 levothyroxine 100 mcg tablet 100 mcg PO DAILY #90 tab-cap 03/14/19 rosuvastatin 20 mg tablet 20 mg PO DAILY #90 tab-cap 05/16/19 docusate sodium [Colace] 100 mg PO BID #60 cap 06/15/19 ergocalciferol (vitamin D2) 1,250 50,000 unit PO QWEEK #14 cap 10/16/19 mcg (50,000 unit) capsule pantoprazole 40 mg tablet,delayed 40 mg PO DAILY #60 tab 11/14/19 release potassium chloride 10 mEq 10 meq PO BID #180 cap 01/21/20 capsule,extended release blood sugar diagnostic #200 strip 01/29/20 blood-glucose meter #1 ea 01/29/20 lancets 28 gauge #200 each 01/29/20 Allergies Allergy/AdvReac Type Severity Reaction Status Date / Time lisinopril AdvReac Intermediate COUGH Unverified 02/12/20 16:37 General Stated Complaint: GenMedical NOLVIA: 3 Review of Systems Constitutional Constitutional: Reports fatigue, Denies fever(s), Reports malaise and Denies poor appetite Eyes Eyes: Denies change in vision ENT Ears, Nose, Mouth, and Throat: Denies sore throat Cardiovascular Cardiovascular: Denies chest pain, Denies syncope, Denies leg edema, Reports lightheadedness (Reported brief episode yesterday but that has since resolved) and Denies dyspnea Respiratory Respiratory: Denies cough and Denies dyspnea Gastrointestinal Gastrointestinal: Denies diarrhea, Denies nausea and Denies vomiting Genitourinary Genitourinary: Denies difficulty voiding Musculoskeletal Musculoskeletal: Denies back pain Integumentary/Breasts Skin/Breast: Denies lesions and Denies rash Neurologic Neurologic: Denies syncope Psychiatric Psychiatric: Denies change in appetite Endocrine Endocrine: Reports fatigue Hematologic/Lymphatic Hematologic/Lymphatic: Denies easy bleeding and Denies easy bruising FOR[facility]LY [facility], [facility] Medical History (Updated 02/12/20 @ 21:59 by Ashlyn Gonzales NP) Abdominal pain (Inactive 07/12/12) Abnormal mammography (Inactive 07/01/06) Anemia due to blood loss, acute (Acute) Arthritis of right knee (Inactive 06/07/15) Bronchiectasis Bronchiectasis (Chronic) chronic cough Chest pain (Inactive) Chronic insomnia Chronic right shoulder pain (Chronic 11/02/17) Depression Depressive disorder (Chronic) Diabetes 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) Diverticulosis large intestine w/o perforation or abscess w/o bleeding Diverticulosis of colon without diverticulitis (Chronic 05/21/09) Duodenal ulcer (Acute) Edema (Chronic) Essential hypertension (Chronic 05/04/13) Family history of colon cancer (Chronic 01/29/15) Gastroesophageal reflux disease (Chronic 10/11/12) GERD (gastroesophageal reflux disease) Gout Gout (Chronic 03/14/10) History of pelvic ultrasound (Inactive) Hyperkalemia (Inactive 10/20/12) Hyperlipidemia Hyperlipidemia (Chronic 10/11/12) Hypertension Hypokalemia (Acute 05/09/15) Hypothyroidism Hypothyroidism (Chronic 10/11/12) Incarcerated incisional hernia (Acute) Increased body mass index (Chronic) Knee pain (Resolved 03/12/15) Left hip pain (Resolved 12/15/16) Lipoma (Inactive 07/01/05) Morbid obesity with BMI of 50.0-59.9, adult Organic sleep apnea Organic sleep apnea, unspecified (Chronic) CPAP (NOT USING 11/17) Osteoarthritis Pulmonary hypertension (Chronic 11/08/17) Skin tag (Inactive 08/03/17) Sprain of costal cartilage (Inactive 10/22/16) Strain of flexor muscle of left hip (Inactive 09/23/16) Vitamin D deficiency Vitamin D deficiency (Chronic 03/22/12) Surgical History Arthroplasty of knee (02/25/16) LEFT TOTAL KNEE Cholecystectomy Colonoscopy - IV Sedation Endometrial Biopsy neg History of bilateral ligation of fallopian tubes (Inactive) Ligation of fallopian tube PELVIC U/S NEG Status post cholecystectomy (Inactive) Status post total knee replacement (Inactive 02/25/16) Social History Smoking/Tobacco Use Status: Never Alcohol Intake: current Alcohol Intake frequency: holidays/special occasions only Alcohol type: wine Drug use: Never Substance use type: does not use Caregiver/Support person: No Household members: spouse Housing: apartment Communication Needs: None Do you need help understanding health information?: Rarely Pets and animals: No Sexually active: No Do you think of yourself as: straight/heterosexual Current gender identity: female What is your relationship status?: How often do you talk on the phone with friends or family?: three or more times per week How often do you get together with friends or relatives?: once per week How often do you attend yarsani or presybeterian services?: 1-3 times per year Do you belong to any clubs or organized social groups?: yes Panel score (0-1 are the most socially isolated patients): 3 What type of physical activity do you participate in: walking Duration: 15-30 minutes/day Frequency: 5-6 times per week Sejal/Anabaptism: Caodaism Special sejal needs: No Seatbelt use: always Helmet use: No Drive intox or ride w/intox sales driver: No Do you feel safe at home: Yes Do you feel safe in your relationship?: Yes Exam Const General: cooperative and healthy appearing Nutritional Appearance: overweight Orientation: alert, awake and oriented x3 HENMT Head: normal to inspection, normocephalic and atraumatic Mouth: moist mucous membranes abnormal (slightly dry) Resp Effort & Inspection: normal respiratory effort Auscultation: clear to auscultation bilaterally Cardio Rate: regular rate Rhythm: other (sinus rhythm with frequent PVC,some bigeminy) GI Inspection: normal to inspection and obesity Palpation: soft Auscultation: normal bowel sounds Skin General skin exam: no rashes or lesions noted Neuro General: patient alert, patient awake and patient oriented x3 Extrem General: normal to inspection, full ROM and no pedal edema Course Vital Signs Vital signs: Vital Signs Temperature 36.6 C 02/12/20 16:30 Pulse 79 02/12/20 16:30 Respiratory Rate 18 02/12/20 16:30 Blood Pressure 124/54 L 02/12/20 16:30 Pulse Oximetry 95 02/12/20 16:30 Temperature 36.6 C 02/12/20 16:30 Temperature Source Temporal Artery Scan 02/12/20 16:30 Pulse 79 02/12/20 16:30 Respiratory Rate 18 02/12/20 16:30 Blood Pressure 124/54 L 02/12/20 16:30 Blood Pressure Position Sitting 02/12/20 16:30 Pulse Oximetry 95 02/12/20 16:30 Oxygen Delivery Method Room Air 02/12/20 16:30 Oxygen Flow Rate 0 02/12/20 16:30 Pain Level 0 02/12/20 16:30
[2020-02-12 16:56] LABS: Magnesium 2.1 mg/dL (1.8-2.4)
[2020-02-12] MEDS: Normal Saline 1,000 ML 1000 ML IV (16:57)
[2020-02-12] MEDS: Potassium Chloride 20 MEQ TABCR 40 MEQ PO (16:57)
[2020-02-12] MEDS: POTASSIUM CHLORIDE 20 MEQ/100 ML BAG 50 MEQ IVPB ×2 (16:57→19:04)
[2020-02-12 18:20] LABS: Bilirubin Negative (Negative); Blood Moderate (Negative); Clarity Clear (Clear); Glucose Negative (Negative); Ketones Negative (Negative); Leukocyte Esterase Negative (Negative); Nitrite Negative (Negative); Specific Gravity <= 1.005 (1.005-1.025); Urobilinogen 0.2 EU/dL (Up TO 0.2)
[2020-02-12 18:34] LABS: Bacteria Moderate HPF (Negative); C & S Indicated? No/Sq. Contamination; Crystals Negative HPF (Negative); Epithelial Cells Many HPF (Negative); Mucus Negative (Negative)
--- NOTE | 2020-02-12 19:18 | NUR.NOTE ---
Nursing Note: Standing x 2 minutes
--- NOTE | 2020-02-12 19:19 | NUR.NOTE ---
Nursing Note: Standing Immediately
--- NOTE | 2020-02-12 19:20 | NUR.NOTE ---
Nursing Note: Laying down
[2020-02-12] MEDS: Normal Saline 500 ML IV (20:03)
[2020-02-12 22:01] LABS: Anion Gap 8.5 mmol/L (3-11); BUN 19 mg/dL (7-18); CO2 28.5 mmol/L (21.0-32.0); CREATININE 1.74 mg/dL (0.55-1.02); Calcium 8.3 mg/dL (8.5-10.1); Chloride 93 mmol/L (98-107); Estimated GFR 29.18 (mL/min/1.73m2); Glucose 127 mg/dL (74-106); Sodium 130 mmol/L (136-145)
[2020-02-12 22:15] LABS: Potassium 2.9 mmol/L (3.5-5.1)
== END 2020-02-12 22:40 | disposition home or self-care (01) ==
PROVIDERS: Emergency Provider Nurse Practitioner Acute Care; PCP Family Medicine
DX: I95.89 Other hypotension; N17.8 Other acute kidney failure; E11.21 Type 2 diabetes mellitus with diabetic nephropathy; I10 Essential (primary) hypertension; E87.6 Hypokalemia
CPT/HCPCS: 80048; 93005; 96361; 96365; 96366; 99285; 81003; 81015; 83735; 93010; 99284; J3480

== ENCOUNTER 2020-02-14 13:08 | Outpatient (REF) | payer MEDICARE, MEDICAID, SELFPAY ==
[2020-02-14 15:10] LABS: Anion Gap 8.3 mmol/L (3-11); BUN 15 mg/dL (7-18); CO2 28.7 mmol/L (21.0-32.0); CREATININE 1.24 mg/dL (0.55-1.02); Chloride 96 mmol/L (98-107); Estimated GFR 43.15 (mL/min/1.73m2); Glucose 152 mg/dL (74-106); Potassium 3.4 mmol/L (3.5-5.1); Sodium 133 mmol/L (136-145)
== END 2020-02-14 13:28 ==
LOC: LBN 13:08
PROVIDERS: PCP Family Medicine; Visit Provider Family Medicine
DX: E78.5 Hyperlipidemia, unspecified (principal); K31.84 Gastroparesis; C17.0 Malignant neoplasm of duodenum
CPT/HCPCS: 80048

== ENCOUNTER 2020-03-20 03:04 | Outpatient (CLI) | payer MEDICARE, MEDICAID, SELFPAY ==
[2020-03-20 12:32] LABS: COMMENT (LAB VIEW ONLY) 115.64 mg/dL; Microalb ug/mg Crea 17.1 ug/mg Cr
[2020-03-20 12:39] LABS: ALT 23 U/L (14-59); AST 21 U/L (15-37); Albumin 3.1 g/dL (3.4-5.0); Alkaline Phosphatase 92 U/L (46-116); Anion Gap 10.4 mmol/L (3-11); BUN 12 mg/dL (7-18); Bilirubin, Total 0.2 mg/dL (0.2-1.0); CO2 25.6 mmol/L (21.0-32.0); CREATININE 0.85 mg/dL (0.55-1.02); Calcium 8.7 mg/dL (8.5-10.1); Calculated LDL 64 mg/dL (<100); Chloride 105 mmol/L (98-107); Cholesterol 132 mg/dL (<200); Glucose 145 mg/dL (74-106); HDL Cholesterol 33 mg/dL (40-60); Potassium 4.1 mmol/L (3.5-5.1); Sodium 141 mmol/L (136-145); Total Protein 6.3 g/dL (6.4-8.2); Triglyceride 176 mg/dL (<150)
[2020-03-20 13:06] LABS: Uric Acid 3.5 mg/dL (2.6-6.0)
== END 2020-03-20 03:24 ==
PROVIDERS: PCP Family Medicine; Visit Provider Family Medicine
DX: E03.9 Hypothyroidism, unspecified (principal); I10 Essential (primary) hypertension; E78.5 Hyperlipidemia, unspecified; E11.21 Type 2 diabetes mellitus with diabetic nephropathy; M10.9 Gout, unspecified; D62 Acute posthemorrhagic anemia
CPT/HCPCS: 36415; 80053; 80061; 82043; 82570; 84550

== ENCOUNTER 2020-05-06 00:47 | Outpatient (CLI) | payer MEDICARE, MEDICAID, SELFPAY ==
--- NOTE | 2020-05-06 | DI.CT_ITS ---
EXAM: CT CHEST/ABD/PEL W CLINICAL HISTORY: DUODENAL CA,C17.0,S/P WHIPPLE PROCEDURE,RESTAGING EXAM TECHNIQUE: COMPARISON: CT CT ABDOMEN PELVIS W from 06/15/[address] CHEST ABDOMEN PELVIS W CONTRAST (GENERIC) from 12/08/2019 FINDINGS: CT examination of the chest, abdomen, and pelvis was performed bolus infusion of 100 cc Omnipaque 350 . The lungs are generally clear. No mediastinal or hilar adenopathy. No evidence of pulmonary embolic disease. Thoracic aorta and major branches appear intact. No pleural effusion seen. No axillary o r supraclavicular adenopathy. Prior Whipple procedure noted. No hepatic or splenic abnormality seen. Pancreatic remnant is unrema rkable. No bowel obstruction. No adenopathy in the abdomen or pelvis except for a couple of 1 cm in diameter nodes in the root of the mesentery, nonspecific. Adrenals and kidneys appear normal. No abnormality of abdominal aorta or major branch vessels. [place] n is unremarkable except for presumed mild constipation. Postsurgical changes noted in the abdominal wall at the level of the umbilicus, unchanged from prior study. No bony lesion identified on scanning of the chest abdomen or pelvis. IMPRESSION: Prior Whipple procedure. No evidence of remote metastatic disease. Indeterminate 1 cm lymph nodes i n the root of the mesentery, follow-up scan suggested in 6 months. RADIATION DOSE DELIVERED: 2,502.92mGy.cm Total DLP
[2020-05-06 09:01] LABS: Abs Immature Grans 0.06 10^3/uL (0.0-0.06); Absolute Basophil Count 0.02 10^3/uL (0.0-0.2); Absolute Eosinophil Count 0.09 10^3/uL (0.0-0.7); Absolute Lymphocyte Count 3.09 10^3/uL (1.2-3.4); Absolute Monocyte Count 0.75 10^3/uL (0.1-0.8); Absolute Neutrophil Count 4.28 10^3/uL (1.2-6.7); Basophils % 0.2; Eosinophils % 1.1; HCT 32.9 % (36.0-46.0); HGB 9.8 g/dL (11.2-15.7); Immature Grans % 0.7; Lymphocytes % 37.3; MCH 23.9 pg (27.0-33.0); MCHC 29.8 % (32.0-36.0); MCV 80.2 fL (80-95); MPV 11.5 fL (8.0-11.0); Neutrophils % 51.7; Nucleated RBC 0 %; Platelet Count 167 10^3/uL (130-400); RDW 17.3 % (11.7-14.6); RDW-SD 50.1 fL; WBC 8.29 10^3/uL (4.4-10.8)
[2020-05-06 09:20] LABS: ALT 56 U/L (14-59); AST 40 U/L (15-37); Albumin 3.4 g/dL (3.4-5.0); Alkaline Phosphatase 88 U/L (46-116); Anion Gap 8.3 mmol/L (3-11); BUN 15 mg/dL (7-18); Bilirubin, Total 0.3 mg/dL (0.2-1.0); CO2 27.7 mmol/L (21.0-32.0); CREATININE 0.92 mg/dL (0.55-1.02); Calcium 8.9 mg/dL (8.5-10.1); Chloride 107 mmol/L (98-107); Glucose 146 mg/dL (74-106); Potassium 4.1 mmol/L (3.5-5.1); Sodium 143 mmol/L (136-145); Total Protein 7.2 g/dL (6.4-8.2)
[2020-05-06] MEDS: Omnipaque 350 MG/ML 100 ML BTL IJ (10:13)
[2020-05-06] MEDS: Omnipaque 350 MG/ML 50 ML BTL PO (10:14)
[2020-05-06] MEDS: Normal Saline - Diluent 50 ML VIAL IV (10:15)
[2020-05-06 18:03] LABS: CEA 1.1 ng/mL (See Note)
== END 2020-05-06 01:07 ==
PROVIDERS: PCP Family Medicine; Visit Provider Internal Medicine Hematology & Oncology
DX: C17.0 Malignant neoplasm of duodenum (principal)
CPT/HCPCS: 74177; 80053; 71260; 82378; 85025; J3490; Q9967

== ENCOUNTER 2020-08-27 03:43 | Outpatient (CLI) | payer OTHER, MEDICAID, SELFPAY ==
[2020-08-27 09:44] LABS: Abs Immature Grans 0.04 10^3/uL (0.0-0.06); Absolute Basophil Count 0.02 10^3/uL (0.0-0.2); Absolute Eosinophil Count 0.05 10^3/uL (0.0-0.7); Absolute Monocyte Count 0.71 10^3/uL (0.1-0.8); Absolute Neutrophil Count 4.63 10^3/uL (1.2-6.7); Basophils % 0.3; Eosinophils % 0.6; HCT 32.7 % (36.0-46.0); HGB 9.8 g/dL (11.2-15.7); Immature Grans % 0.5; Lymphocytes % 31.4; MCH 23.1 pg (27.0-33.0); MCV 77.1 fL (80-95); MPV 11.1 fL (8.0-11.0); Monocytes % 8.9; Neutrophils % 58.3; Nucleated RBC 0 %; Platelet Count 161 10^3/uL (130-400); RBC 4.24 10^6/uL (3.93-5.22); RDW 17.4 % (11.7-14.6); RDW-SD 48.7 fL; WBC 7.95 10^3/uL (4.4-10.8)
[2020-08-27 10:01] LABS: Hemoglobin A1C 8.9 % (<5.7)
[2020-08-27 10:33] LABS: ALT 59 U/L (14-59); AST 47 U/L (15-37); Albumin 3.5 g/dL (3.4-5.0); Alkaline Phosphatase 100 U/L (46-116); Anion Gap 7.4 mmol/L (3-11); BUN 20 mg/dL (7-18); Bilirubin, Total 0.5 mg/dL (0.2-1.0); CO2 26.6 mmol/L (21.0-32.0); CREATININE 1.03 mg/dL (0.55-1.02); Calcium 8.9 mg/dL (8.5-10.1); Chloride 100 mmol/L (98-107); Estimated GFR 53.29 (mL/min/1.73m2); Glucose 174 mg/dL (74-106); Potassium 4.2 mmol/L (3.5-5.1); Sodium 134 mmol/L (136-145); Total Protein 6.9 g/dL (6.4-8.2)
[2020-08-27 17:20] LABS: CEA 1.5 ng/mL (See Note)
== END 2020-08-27 04:03 ==
PROVIDERS: Internal Medicine Hematology & Oncology; PCP Family Medicine; Visit Provider Family Medicine
DX: C17.0 Malignant neoplasm of duodenum (principal); D50.8 Other iron deficiency anemias; K86.89 Other specified diseases of pancreas; E03.9 Hypothyroidism, unspecified; E11.9 Type 2 diabetes mellitus without complications; E78.5 Hyperlipidemia, unspecified; I10 Essential (primary) hypertension
CPT/HCPCS: 36415; 80053; 82378; 83036; 85025

== ENCOUNTER 2020-09-05 01:22 | Outpatient (CLI) | payer OTHER, MEDICAID, SELFPAY ==
[2020-09-05] MEDS: Omnipaque 350 MG/ML 50 ML BTL IJ (08:54)
[2020-09-05] MEDS: Breeza Beverage 473 ML BTL PO ×2 (08:54→08:55)
[2020-09-05] MEDS: Normal Saline - Diluent 50 ML VIAL IV (10:04)
[2020-09-05] MEDS: Omnipaque 350 MG/ML 100 ML BTL IJ (10:07)
--- NOTE | 2020-09-05 10:13 | DI.CT_ITS ---
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 Pulmonary parenchyma: No consolidation or dominant measurable mass. Dependent atelectasis or scarring is noted. Visualized thyroid gland: Unremarkable. Mediastinum and Patricia: No dominant adenopathy or fluid collection. There are stable soft tissue masses to the left of the 8th and 9th thoracic vertebral bodies. The underlying bone appears unremarkable. These may reflect lymph nodes. The largest measures 2.5 x 1.7 cm. Pleura: No effusion or pneumothorax. Heart: Mild cardiomegaly. Mild coronary artery calcification. No pericardial effusion. Aorta: Thoracic aorta non-dilated. Mild atherosclerosis. Lymph nodes: Please see above. Soft tissues: Unremarkable. Bones:No suspicious lytic or sclerotic lesions are identified. ABDOMEN: Liver: Fatty infiltration. No measurable mass. Portal, Superior Mesenteric, and Splenic Veins: Unremarkable. Gallbladder and Biliary Tract: Status post cholecystectomy. No biliary ductal dilatation. Pancreas: The patient is status post Whipple procedure. The postsurgical changes are unchanged. The re is mild atrophy of the distal pancreas. No evidence of a pancreatic mass or inflammatory process. Spleen: Normal. Note is made of 2 accessory spleens. Adrenals: No masses seen. Kidneys: Normal size, contour and axis. No radiodense stones or obstructive uropathy. No masses seen. Abdominal Aorta: Abdominal portion non-dilated. Moderate atherosclerosis. Bowel: No obstruction or bowel wall thickening. Appendix is unremarkable. Peritoneal Cavity: No ascites, collection or mesenteric inflammatory response. No free air.Stable me senteric lymph nodes measuring not more than 1 cm. Lymph Nodes: Please see the peritoneal cavity discussion. Bones: There is L5 spondylolysis with grade 1 spondylolisthesis of L5 on S1. No suspicious lytic or sclerotic lesions are present. Soft Tissues: Stable soft tissue in the region of the umbilicus which may be postsurgical. PELVIS: Bladder: Symmetric distention, no gross wall thickening. Reproductive Organs: Unremarkable as visualized. Lymph Nodes: Within normal limits. Bones: No suspicious lytic or sclerotic lesions. IMPRESSION: 1. No evidence of abdominal or pelvic metastatic disease. 2. Stable postsurgical changes in the abdomen and pelvis. 3. Stable mesenteric lymph nodes measuring no more than 1 cm. 4. Stable paraspinal soft tissue masses on the CT scan of the chest which may represent enlarged lymp h nodes. RADIATION DOSE DELIVERED: 2,481.38mGy.cm Total DLP DATA REPOSITORY: All CT scans at this facility are submitted to the National Radiology Data Registry (NRDR) Dose Index Registry (DIR) with the [employer] (ACR). RADIATION OPTIMIZATION: All CT scans at this facility use at least one of these dose optimization te chniques: automated exposure control; mA and/or kV adjustment per patient size (includes targeted exa ms where dose is matched to clinical indication); or iterative reconstruction.
== END 2020-09-05 01:23 | disposition home or self-care (01) ==
LOC: DI 01:24
PROVIDERS: PCP Family Medicine; Visit Provider Internal Medicine Hematology & Oncology
DX: C17.0 Malignant neoplasm of duodenum (principal)
CPT/HCPCS: 74177; 71260; J3490; Q9967

== ENCOUNTER 2020-11-04 04:05 | Outpatient (CLI) | payer OTHER, MEDICAID, SELFPAY ==
[2020-11-04 10:00] LABS: Source Nasal/Nares
[2020-11-04 15:16] LABS: COVID-19 PCR Negative (Negative)
== END 2020-11-04 04:06 | disposition home or self-care (01) ==
LOC: LBO 04:05
PROVIDERS: PCP Family Medicine; Visit Provider Surgery
DX: Z20.822 Contact with and (suspected) exposure to COVID-19 (principal); Z01.818 Encounter for other preprocedural examination
CPT/HCPCS: 87635

== ENCOUNTER 2020-11-05 06:16 | Day surgery (SDC) | payer OTHER, MEDICAID, SELFPAY ==
[2020-11-05 06:43] VITALS: BP 150/71; PULSE 70; RESP 18; TEMP 36.4; O2SAT 100
[2020-11-05] MEDS: Lactated Ringers 1,000 ML 80 ML IV (07:00)
--- NOTE | 2020-11-05 07:56 | BOWEL_PTH ---
PATIENT: Alejandra Wolfe LOC: [facility] U#:[id number] AGE/SX: 70/F ROOM: RE11/05/[address]: Renetta Freeman : 1950 BED: DIS: 11/05/2020 SPEC #: [id number] RECD: 11/05/20 12:36 [facility] #: [id number] JAE: 11/05/20 07:[address]: Renetta Freeman DEPT: Surgical Specimen RECD BY: Tammy Goodrich ENTERED: 11/05/20 12:39 SP TYPE: Bowel OTHR DR: Letty Whittington MD, DC Tissues: 1 - BIOPSY BOWEL 2 - BIOPSY BOWEL 3 - STOMACH BIOPSY 4 - ESOPHAGUS BIOPSY 5 - ESOPHAGUS BIOPSY 6 - BIOPSY BOWEL 7 - BIOPSY BOWEL 8 - BIOPSY BOWEL Procedures: GROSS AND MICRO LEVEL 4 IMMUNOPEROXIDASE STAIN Comments: [id number]
--- NOTE | 2020-11-05 08:41 | ENDO_ITS ---
Date of service: 11/05/20 Time of Service: 08:42 Endoscopy Report DATE OF PROCEDURE: 11/05/20 PRE-OP DIAGNOSIS: refractory iron defn anemia/s/p whipple for doudenal adenoma w/ dysplasis/A POST-OP DIAGNOSIS: other (preOP: A polypc of colon) PROCEDURE: postOP: bile reflux gastritis/polyp in cecum SURGEON: Renetta Freeman ANESTHESIA TYPE: General:No Airway ESTIMATED BLOOD LOSS: 1 PATHOLOGY: other COMPLICATIONS: None DISPOSITION: same day PREP: Miralax/Dulcolax COLONOSCOPY RETRACTION TIME: 10 mins PROCEDURE DESCRIPTION: After informed consent was obtained the patient was take to the procedure room and placed in a supine position. Monitors were applied and a time out was done. The patients name, date of , procedure type, allergies to medications and metal in their body was reviewed. A bite block was placed and the patient was sedated. Once sedated and comfortable the gastroscope was advanced through the oropharynx which was grossly normal into the esophagus. The proximal and mid-esophagus were nl. In the distal esophagus: There are no esophageal erosions, varices, diverticula, or stricture. The patient has had a previous subtotal gastrectomy. The mucosa of the stomach has gastritis radiating from the jejunal anastomosis in a striped fashion throughout the remainder of the body. Multiple pharmaceutical sales representative biopsies are taken. All specimen is retrieved and no bleeding is noted. The anastomosis is widely patent. There is no signs of return recurrent tumor at the anastomosis. There is no marginal ulcer. The pancreatic limb is entered first and this chance ears pink and healthy. Biopsy of this limb is taken. This limb is referred to as A the pathology report. The scope was then retracted and than passed into the second limb of the jejunum. This is the limb that is connected to the bile ducts. Free-flowing bile was noted. Crusher Foreman biopsies taken. Bile is refluxing back into the stomach. This bx is referred to as B limb on the pathology. Both limbs appear pink and healthy. There is no signs of any active ulcers or bleeding. The scope was then withdrawn. Patient tolerated procedure well without complication.
--- NOTE | 2020-11-05 08:46 | W.COLOREPORT ---
Date of service: 11/05/20 Time of Service: 08:47 Colonoscopy Report Date of procedure: 11/05/20 Pre-op diagnosis general: A. polyps Post-op diagnosis procedure note: same Surgeon: Renetta Freeman Anesthesia Type: General LMA/ETT Estimated blood loss (mL): 1 Pathology: other Complications: None Disposition: same day Prep: Miralax/Dulcolax Retraction Time: 8mins Procedure Description: After informed consent was obtained the patient was taken to the procedure room and placed in a left decubitous position. Monitors were applied and a time out was done. The patients name, date of , procedure, allergies to medications and metal in their body was reviewed. The patient was then sedated. Once sedated and comfortable a rectal exam was done. External exam was normal. Internal exam revealed a normal sphincter tone and no palpable masses. The scope was then introduced and retrofelexed. No internal hemorrhoids were identified. The scope was then advanced to the cecum w/out difficulty. The TI and appendiceal orifice were identified. The prep was good. The scope was then slowly retracted over 8 minutes back into the rectum. There is a small flat polyp in the cecum that is less than 5 mm. This is removed with a cold biting forcep. The entirety of the polyp was removed and one bite. All specimen is retrieved and no bleeding is noted. The scope was removed and the patient was woken up and taken back to Same day surgery in stable condition. There are no AVMs or diverticula apparent on the exam today. The patient tolerated the procedure well and there were no immediate complications. Follow up: The patient does not require a repeat colonoscopy, unless they develop changes in bowel habits or other new gastrointestinal complaints.
--- NOTE | 2020-11-05 08:51 | W.PM.DSUDISC ---
Discharge Plan Disposition Patient Disposition: HOME Condition: Good Discharge Details Reason For Visit: EGD/colon scopes Attending Provider: Renetta Freeman Primary Care Provider: Letty Whittington Home Meds and New Rx's Prescriptions: New sucralfate [Carafate] 1 gram tablet 1 g PO QAC Qty: 60 RF: 12 Continued allopurinol 300 mg tablet 150 mg PO DAILY Qty: 90 RF: 4 levothyroxine 100 mcg tablet 100 mcg PO DAILY Qty: 90 RF: 12 rosuvastatin [Crestor] 20 mg tablet 20 mg PO DAILY Qty: 90 RF: 4 potassium chloride 10 mEq capsule, extended release 10 meq PO BID Qty: 180 RF: 4 Creon 24,000-76,000 -120,000 unit capsule,delayed release(DR/EC) 3 cap PO 6XD MDD 12 Qty: 300 RF: 6 metformin 1,000 mg tablet 1,000 mg PO BID Qty: 180 RF: 4 ergocalciferol (vitamin D2) 1,250 mcg (50,000 unit) capsule 50,000 unit PO QWEEK Qty: 14 RF: 5 pantoprazole [Protonix] 40 mg tablet,delayed release (DR/EC) 40 mg PO DAILY Qty: 60 RF: 0 (DME) FreeStyle Lite Strips Strip 1 ea Miscellaneous DAILY Qty: 200 RF: 12 (DME) blood-glucose meter Misc 1 ea Miscellaneous AC Qty: 1 RF: 0 (DME) lancets 28 gauge misc 1 ea Miscellaneous DAILY Qty: 200 RF: 12 acetaminophen 500 mg capsule 1,000 mg PO Q6H PRNRF: 0 ondansetron 4 mg tablet,disintegrating 4 mg PO Q8H RF: 0 losartan 100 mg tablet 100 mg PO DAILY Qty: 90 RF: 12 glipizide 5 mg tablet extended release 24hr 5 mg PO DAILY Qty: 90 RF: 12 sennosides [senna] 8.6 mg Tablet 8.6 mg PO BID PRNRF: 0 Discontinued bisacodyl [Dulcolax (bisacodyl)] 5 mg tablet,delayed release (DR/EC) 5 mg PO ONCE Qty: 4 RF: 0 polyethylene glycol 3350 17 gram powder in packet 255 g PO DAILY Qty: 15 RF: 0 Discharge Instructions Additional Instructions: Findings:bile reflux gastritis New Rx: carafate Follow up:1-2 weeks Please call if you develop: fevers >101.5 Nausea or Vomiting Abdominal pain that is not transient DAY SURGERY UNIT POST COLONOSCOPY INSTRUCTIONS 1. Because there will be medication in your system for the next 24 hours, you may feel a little sleepy. Your coordination will be affected. Therefore: a. Do not drive or operate dangerous equipment for 24 hours. b. Do not drink alcohol beverages for 24 hours (not even beer). c. Plan to go home and rest for the day. 2. Generally there are no restrictions on your activity after a day or so has gone by, but you may feel a bit fatigued for a few days. 3 After you arrive home you may have a light meal and return to a normal diet as you can tolerate it without feeling sick to your stomach. 4. After surgery, you may feel pain or discomfort. This should be only transient, but if it persists please contact your doctor. 5. If there are any questions regarding the findings of your procedure, please feel free to contact your doctor. 6. If you are unable to contact your doctor with a problem, contact the hospital at [phone]. 7. Continue all your regular medications unless directed otherwise. I understand the above instructions and have no questions. Signature of Patient or Responsible Adult Escort Date/Time Name of Responsible Adult Escort Signature of Nurse Date/Time Activity:: No lifting over 20 pounds or strenuous activity x24 hours. Diet:: Small light meals x24 hours. Discharge Orders Discharge Orders: Discharge Order (Routine); Ordered 11/05/20 Ordered By: Renetta Freeman
[2020-11-05] MEDS: IRON SUCROSE COMPLEX 200 MG in Normal Saline 100 ML 400 MG IVPB (08:56)
[2020-11-05 09:00] VITALS: BP 131/61; PULSE 56; RESP 18; TEMP 36.4; O2SAT 100
== END 2020-11-05 09:55 | disposition home or self-care (01) ==
PROVIDERS: PCP Family Medicine; Visit Provider Surgery
PROC: (CPT 45380; principal; 2020-11-05 07:30)
DX: D64.9 Anemia, unspecified (principal); Z85.068 Personal history of other malignant neoplasm of small intestine; Z80.0 Family history of malignant neoplasm of digestive organs; E11.22 Type 2 diabetes mellitus with diabetic chronic kidney disease; K29.50 Unspecified chronic gastritis without bleeding; D12.0 Benign neoplasm of cecum; K63.89 Other specified diseases of intestine
CPT/HCPCS: 45380; 43239; 45350; 88305; 96365; 88361; J1756; J2001; J2704

== ENCOUNTER 2020-11-08 03:03 | Outpatient (CLI) | payer OTHER, MEDICAID, SELFPAY ==
[2020-11-08 09:04] LABS: HGB 12.3 g/dL (11.2-15.7); MCH 27.6 pg (27.0-33.0); MCHC 31.5 % (32.0-36.0); MCV 87.4 fL (80-95); MPV 10.8 fL (8.0-11.0); Platelet Count 114 10^3/uL (130-400); RBC 4.46 10^6/uL (3.93-5.22); RDW 21.1 % (11.7-14.6); RDW-SD 66.5 fL; WBC 6.91 10^3/uL (4.4-10.8)
== END 2020-11-08 03:04 | disposition home or self-care (01) ==
LOC: LBO 03:03
PROVIDERS: PCP Family Medicine; Visit Provider Family Medicine
DX: I10 Essential (primary) hypertension (principal); E78.5 Hyperlipidemia, unspecified; E03.9 Hypothyroidism, unspecified; E11.9 Type 2 diabetes mellitus without complications
CPT/HCPCS: 36415; 85027; 83036

== ENCOUNTER 2020-11-13 17:59 | Day surgery (SDC) | payer OTHER, MEDICAID, SELFPAY | END 2020-11-13 18:00 | disposition home or self-care (01) | LOC: SUR 17:59 | PROVIDERS: PCP Family Medicine; Visit Provider Surgery | DX: Z53.9 Procedure and treatment not carried out, unspecified reason (principal) ==

== ENCOUNTER → 2020-11-21 09:27 | Outpatient (BNVA) | payer OTHER, MEDICAID, SELFPAY | PROVIDERS: PCP Family Medicine; Referring Provider Family Medicine; Visit Provider Surgery | DX: Z48.815 Encounter for surgical aftercare following surgery on the digestive system (principal); K59.09 Other constipation | CPT/HCPCS: 99212; 99213 ==

== ENCOUNTER 2020-12-31 02:59 | Outpatient (CLI) | payer OTHER, MEDICAID, SELFPAY ==
[2020-12-31 09:07] LABS: Abs Immature Grans 0.04 10^3/uL (0.0-0.06); Absolute Basophil Count 0.02 10^3/uL (0.0-0.2); Absolute Eosinophil Count 0.06 10^3/uL (0.0-0.7); Absolute Lymphocyte Count 2.07 10^3/uL (1.2-3.4); Absolute Monocyte Count 0.57 10^3/uL (0.1-0.8); Absolute Neutrophil Count 4.46 10^3/uL (1.2-6.7); Basophils % 0.3; Eosinophils % 0.8; HCT 40.1 % (36.0-46.0); Immature Grans % 0.6; Lymphocytes % 28.7; MCHC 32.4 % (32.0-36.0); MCV 89.5 fL (80-95); MPV 12.2 fL (8.0-11.0); Monocytes % 7.9; Neutrophils % 61.7; Nucleated RBC 0 %; Platelet Count 126 10^3/uL (130-400); RBC 4.48 10^6/uL (3.93-5.22); RDW 15.9 % (11.7-14.6); RDW-SD 52.4 fL; WBC 7.22 10^3/uL (4.4-10.8)
[2020-12-31 10:13] LABS: Iron 70 ug/dL (50-170); Total Iron Binding Capacity 344 ug/dL (250-450); Transferrin Sat 20 % (15-50)
[2020-12-31 10:16] LABS: ALT 33 U/L (14-59); AST 25 U/L (15-37); Albumin 3.8 g/dL (3.4-5.0); Alkaline Phosphatase 81 U/L (46-116); BUN 21 mg/dL (7-18); Bilirubin, Total 0.5 mg/dL (0.2-1.0); Calcium 9.2 mg/dL (8.5-10.1); Chloride 104 mmol/L (98-107); Estimated GFR 55.14 (mL/min/1.73m2); Glucose 148 mg/dL (74-106); Potassium 4.5 mmol/L (3.5-5.1); Sodium 142 mmol/L (136-145)
[2020-12-31 10:19] LABS: Hemoglobin A1C 6.8 % (<5.7)
[2020-12-31 10:26] LABS: Ferritin 130 ng/mL (8-252)
[2020-12-31 17:21] LABS: CEA <2.0 ng/mL (See Note)
[2021-01-02 04:58] LABS: Vitamin D 25 Total 26.6 ng/mL (30-100)
== END 2020-12-31 03:00 | disposition home or self-care (01) ==
LOC: LBO 02:59
PROVIDERS: PCP Family Medicine; Visit Provider Internal Medicine Hematology & Oncology
DX: C17.0 Malignant neoplasm of duodenum (principal); D50.8 Other iron deficiency anemias; E11.9 Type 2 diabetes mellitus without complications; K29.70 Gastritis, unspecified, without bleeding; K92.2 Gastrointestinal hemorrhage, unspecified; N19 Unspecified kidney failure; E55.9 Vitamin D deficiency, unspecified
CPT/HCPCS: 36415; 80053; 82306; 82378; 82728; 83036; 83540; 83550; 85025

== ENCOUNTER 2021-05-14 13:58 | Outpatient (CLI) | payer OTHER, MEDICAID, SELFPAY ==
--- NOTE | 2021-05-14 13:45 | RT.EKG_ITS ---
APPROVED REPORT Exam: Resting ECG Reason for Exam: Chest discomfort Patient Location: O HR:75 bpm ECG Measurements Heart Rate 75 AXIS NC 175 P -26 QRSd 104 QRS -6 QT 379 T 1 QTc 424 Conclusion Sinus rhythm...normal P axis, V-rate 60- 99 Normal Electrocardiogram
== END 2021-05-14 13:59 | disposition home or self-care (01) ==
LOC: DI.CM 13:59
PROVIDERS: PCP Family Medicine; Visit Provider Family Medicine
DX: R07.89 Other chest pain (principal)
CPT/HCPCS: 93010

== ENCOUNTER 2021-05-14 14:30 | Outpatient (REF) | payer MEDICARE, MEDICAID, SELFPAY ==
[2021-05-16 16:24] LABS: COVID-19 RT-PCR UVMMC Result Negative (Negative)
== END 2021-05-14 14:31 | disposition home or self-care (01) ==
LOC: LBN 14:30
PROVIDERS: PCP Family Medicine; Visit Provider Family Medicine
DX: I10 Essential (primary) hypertension (principal); R07.89 Other chest pain; R50.9 Fever, unspecified; Z20.822 Contact with and (suspected) exposure to COVID-19
CPT/HCPCS: U0003

== ENCOUNTER 2021-05-14 15:54 | Outpatient (CLI) | payer MEDICARE, MEDICAID, SELFPAY ==
[2021-05-14 16:39] LABS: Abs Immature Grans 0.11 10^3/uL (0.0-0.06); Absolute Basophil Count 0.01 10^3/uL (0.0-0.2); Absolute Lymphocyte Count 0.61 10^3/uL (1.2-3.4); Absolute Monocyte Count 0.78 10^3/uL (0.1-0.8); Basophils % 0.1; HCT 36.7 % (36.0-46.0); HGB 12.2 g/dL (11.2-15.7); Immature Grans % 0.8; Lymphocytes % 4.2; MCH 30.3 pg (27.0-33.0); MCHC 33.2 % (32.0-36.0); MCV 91.1 fL (80-95); MPV 11.6 fL (8.0-11.0); Monocytes % 5.4; Neutrophils % 89.5; Nucleated RBC 0 %; RBC 4.03 10^6/uL (3.93-5.22); RDW 13.4 % (11.7-14.6); RDW-SD 44.9 fL; WBC 14.51 10^3/uL (4.4-10.8)
[2021-05-14 16:45] LABS: Absolute Neutrophil Count 12.99 10^3/uL (1.2-6.7)
[2021-05-14 17:24] LABS: ALT 901 U/L (14-59); AST 578 U/L (15-37); Albumin 3.3 g/dL (3.4-5.0); Alkaline Phosphatase 245 U/L (46-116); Anion Gap 7.9 mmol/L (3-11); BUN 22 mg/dL (7-18); CO2 27.1 mmol/L (21.0-32.0); CREATININE 1.2 mg/dL (0.55-1.02); Calcium 8.6 mg/dL (8.5-10.1); Chloride 105 mmol/L (98-107); Estimated GFR 44.68 (mL/min/1.73m2); Glucose 161 mg/dL (74-106); Potassium 4.1 mmol/L (3.5-5.1); Sodium 140 mmol/L (136-145); TSH (W/Ref FT4) 0.71 uIU/mL (0.36-3.74); Total Protein 6.4 g/dL (6.4-8.2)
[2021-05-14 21:41] LABS: Platelet Count 98 10^3/uL (130-400)
== END 2021-05-14 15:55 | disposition home or self-care (01) ==
LOC: LBO 15:56
PROVIDERS: PCP Family Medicine; Visit Provider Family Medicine
DX: I10 Essential (primary) hypertension; R07.89 Other chest pain; R50.9 Fever, unspecified
CPT/HCPCS: 36415; 80053; 87040; 87077; 84443; 85025; 87186

== ENCOUNTER 2021-05-14 18:26 | Emergency (ER) | payer OTHER, MEDICAID, SELFPAY ==
[2021-05-14 19:09] VITALS: BP 119/67; PULSE 70; RESP 16; TEMP 36.5; O2SAT 95
--- NOTE | 2021-05-14 19:11 | W.ED.GENAD ---
Discharge Plan Disposition Patient Disposition: HOME Condition: Fair Discharge Details Clinical Impression: Transaminitis Primary Care Provider: Letty Whittington ED Provider: Yanelis Live Home Meds and New Rx's Prescriptions: Continued ondansetron 4 mg tablet,disintegrating 4 mg PO Q8H Qty: 90 RF: 7 Creon 24,000-76,000 -120,000 unit capsule,delayed release(DR/EC) 3 cap PO 6XD MDD 12 Qty: 300 RF: 6 pantoprazole [Protonix] 40 mg tablet,delayed release (DR/EC) 40 mg PO DAILY Qty: 90 RF: 5 potassium chloride 10 mEq capsule, extended release 10 meq PO BID Qty: 180 RF: 4 levothyroxine 100 mcg tablet 100 mcg PO DAILY Qty: 90 RF: 12 losartan 100 mg tablet 100 mg PO DAILY Qty: 90 RF: 12 glipizide 5 mg tablet extended release 24hr 5 mg PO DAILY Qty: 90 RF: 12 ergocalciferol (vitamin D2) 1,250 mcg (50,000 unit) capsule 50,000 unit PO .twice weekly Qty: 28 RF: 5 (DME) lancets 28 gauge misc 1 ea Miscellaneous DAILY Qty: 200 RF: 12 (DME) blood-glucose meter Misc 1 ea Miscellaneous AC Qty: 1 RF: 0 (DME) FreeStyle Lite Strips Strip 1 ea Miscellaneous DAILY Qty: 200 RF: 12 (DME) lancets [OneTouch Delica Lancets] 33 gauge misc See Rx Instructions .ROUTE DAILY Qty: 200 RF: 5 nystatin 100,000 unit/gram powder 1 applic topical BID Qty: 60 RF: 4 sennosides [senna] 8.6 mg Tablet 8.6 mg PO BID PRNRF: 0 sucralfate [Carafate] 1 gram tablet 1 g PO QAC Qty: 60 RF: 12 Discontinued allopurinol 300 mg tablet 150 mg PO DAILY Qty: 90 RF: 4 rosuvastatin [Crestor] 20 mg tablet 20 mg PO DAILY Qty: 90 RF: 4 acetaminophen 500 mg capsule 1,000 mg PO Q6H PRNRF: 0 No Action amoxicillin-pot clavulanate 875-125 mg tablet 1 tab PO BID Qty: 20 RF: 0 Discharge Instructions Additional Instructions: Your imaging is reassuring here today. No evidence of metastatic disease or recurrent cancer on your imaging. As we discussed, your hepatitis panel is pending. Will contact you with any positive results. The elevation in your liver enzymes may be associated with your recent illness. Please encourage hydration. Please avoid medications that will worsen your liver function including your Tylenol, allopurinol and rosuvastatin. Please call Dr. Jones tomorrow to schedule follow-up with him as possible for reevaluation. If you develop fever/chills, abdominal pain, inability stay hydrated, discoloration of your skin or other new/worsening symptoms please seek care urgently once again. Referrals: Letty Whittington MD, [place] [Primary Care Provider] - Discharge Data Discharge Date/Time-TO BE ENTERED AT DEPARTURE: 05/14/21 23:28 Medical Decision Making Patient is a pleasant 70 year old female presenting today with c/c of elevated liver enzymes. She states that she was sick yesterday. She reports that she has a history of cancer, is s/p Whipple. States she has been clear for one year. Reports that she is feeling improved today. States yesterday she had brief episode of CP. No CP today, denies exertional CP. Denies any abdominal pain. Had one episode of vomiting yesterday. Patient was seen by PCP today, labs were drawn and patient was found to have signficantly elevated liver enzymes. Was advised to come here for imaging. Her PCP was concerned for possible obstruction or recurrence of her cancer. On exam, patient appears nontoxic. She has no rash, normal skin color. Lungs are clear, normal cardiac auscultation. Abdomen is benign, no tenderness. No LE edema. Reviewed labs, will add coags and lipase. CBC signficant for WBC of 14. Creatinine is slightly elevated at 1.2 but this appears fairly baseline. AST 578, ALT 540, Alk phos 226. She has cultures pending. FINDINGS: Lungs: Lung bases are clear. Liver: Homogeneous liver parenchyma. Negative for liver mass or cyst. Portal and hepatic veins are patent. Gallbladder and bile ducts: Moderate pneumobilia. Absent gallbladder. Choledocho jejunostomy site is unremarkable. Pancreas: Severely atrophic pancreas. Dilated pancreatic duct. Resection of the pancreatic head and uncinate process noted. Pancreaticojejunostomy site is unremarkable. Negative for fluid collection around the pancreas. Spleen: Normal. No splenomegaly. Adrenal glands: Normal. No mass. Kidneys and ureters: Negative for hydronephrosis. Symmetric enhancement. Ureters are not dilated. No stones observed. Stomach and bowel: Collapsed stomach. Gastrojejunostomy is unremarkable. Small bowel is not dilated. Enteric contrast reaches the descending colon. Negative for inflammatory changes around the colon. Minimal stool. Appendix: Normal appendix. Intraperitoneal space: Unremarkable. No free air. No significant fluid collection. Vasculature: Negative for aneurysm. Moderate vascular calcifications. Lymph nodes: Unremarkable. No enlarged lymph nodes. Urinary bladder: Unremarkable as visualized. Reproductive: Unremarkable as visualized. Bones/joints: Negative for compression fracture. Bilateral pars defects noted at L5. Anterolisthesis noted L5 on S1, 4 mm. Lumbar lordosis is exaggerated. Soft tissues: Complex scar tissue noted in the suprapubic abdominal wall. Negative for hernia or fluid collection. IMPRESSION: Postoperative changes from Whipple. No complications observed. Atrophic pancreas. No evidence of metastatic diseas Discussed with the patient. She continues to be completely asymptomatic. We discussed disposition at length. She would prefer to be d/c to home. this may be associated with her illness yesterday. Will have her hold all medication that may worsen her current transaminitis. Advised that she call her oncology team tomorrow to discuss these findings. Strict return precautions discussed. All of her quesitons and concerns were addressed, she is in agreement with this plan. HPI General Mode of arrival: ambulatory. Date/Time Provider Initiated Documentation: 05/14/21 19:11. Limitations to Documentation: no limitations. Information obtained by: patient, RN/MD (contacted by his PCP prior to arrival) and RN notes reviewed. HPI Narrative: Patient is a 70 year old female presenting today with c/c elevated LFTs. Was sent him by her PCP. Has history of cancer and is s/p whipple x 1 year ago. Her prior obtained labs and was concerned that patient may have recurrence, recommended that she come to ED for imaging. Patient states that yesterday she had fever with t max 102*F. States that she vomited x 1 yesterday. Is feeling better today. States that she had a brief episode of nonexertion CP when she was feeling poorly, states her PCP has looked into this and has not had pain since. Denies abdminal pain. No rash. States that today she has been back to baseline and feeling well. Related Data Home Medications Medication Instructions Recorded Confirmed glipizide 5 mg tablet, extended 5 mg PO DAILY #90 tab 10/22/20 05/15/21 release 24 hr losartan 100 mg tablet 100 mg PO DAILY #90 tab-cap 10/22/20 05/15/21 sennosides [senna] 8.6 mg PO BID PRN 11/04/20 05/15/21 sucralfate [Carafate] 1 g PO QAC #60 tab 11/05/20 05/15/21 [id number] 3 cap PO 6XD #300 cap MDD 12 11/11/20 05/15/21 24,000-76,000-120,000 unit capsule,delayed rel ondansetron 4 mg disintegrating 4 mg PO Q8H #90 tab 11/11/20 05/15/21 tablet pantoprazole 40 mg tablet,delayed 40 mg PO DAILY #90 tab 11/11/20 05/15/21 release potassium chloride 10 mEq 10 meq PO BID #180 cap 11/11/20 05/15/21 capsule,extended release ergocalciferol (vitamin D2) 1,250 50,000 unit PO .twice weekly #28 01/02/21 05/15/21 mcg (50,000 unit) capsule cap lancets 28 gauge #200 each 01/07/21 05/14/21 blood sugar diagnostic #200 strip 01/13/21 05/14/21 blood-glucose meter #1 ea 01/13/21 05/14/21 lancets 33 gauge #200 ea 01/13/21 05/14/21 levothyroxine 100 mcg tablet 100 mcg PO DAILY #90 tab-cap 02/20/21 05/15/21 nystatin 100,000 unit/gram topical 1 applic TOPICAL BID #60 g 03/31/21 05/15/21 powder amoxicillin-pot clavulanate 1 tab PO BID #20 tab 05/17/21 Previous Rx's Medication Instructions Recorded glipizide 5 mg tablet, extended 5 mg PO DAILY #90 tab 10/22/20 release 24 hr losartan 100 mg tablet 100 mg PO DAILY #90 tab-cap 10/22/20 sucralfate [Carafate] 1 g PO QAC #60 tab 11/05/20 [id number] 3 cap PO 6XD #300 cap MDD 12 11/11/20 24,000-76,000-120,000 unit capsule,delayed rel ondansetron 4 mg disintegrating 4 mg PO Q8H #90 tab 11/11/20 tablet pantoprazole 40 mg tablet,delayed 40 mg PO DAILY #90 tab 11/11/20 release potassium chloride 10 mEq 10 meq PO BID #180 cap 11/11/20 capsule,extended release ergocalciferol (vitamin D2) 1,250 50,000 unit PO .twice weekly #28 01/02/21 mcg (50,000 unit) capsule cap lancets 28 gauge #200 each 01/07/21 blood sugar diagnostic #200 strip 01/13/21 blood-glucose meter #1 ea 01/13/21 lancets 33 gauge #200 ea 01/13/21 levothyroxine 100 mcg tablet 100 mcg PO DAILY #90 tab-cap 02/20/21 nystatin 100,000 unit/gram topical 1 applic TOPICAL BID #60 g 03/31/21 powder amoxicillin-pot clavulanate 1 tab PO BID #20 tab 05/17/21 Allergies Allergy/AdvReac Type Severity Reaction Status Date / Time lisinopril AdvReac Intermediate COUGH Unverified 05/15/21 14:37 General NOLVIA: 3 Review of Systems Constitutional Constitutional: Reports as per HPI, Denies chills, Denies fatigue, Reports fever(s) (yesterday) and Denies headache(s) ENT Ears, Nose, Mouth, and Throat: Denies headache(s) Cardiovascular Cardiovascular: Reports as per HPI, Denies chest pain and Denies dyspnea Respiratory Respiratory: Reports as per HPI, Denies cough and Denies dyspnea Gastrointestinal Gastrointestinal: Reports as per HPI, Denies abdominal pain, Denies hematochezia, Denies change in bowel habits, Denies nausea (denies nausea currently) and Reports vomiting (x1 yesterday) Musculoskeletal Musculoskeletal: Reports as per HPI and Denies back pain Integumentary/Breasts Skin/Breast: Reports as per HPI and Denies rash Neurologic Neurologic: Reports as per HPI and Denies headache(s) Endocrine Endocrine: Denies fatigue [facility] Medical History Abdominal pain (07/12/12) Abnormal mammography (07/01/06) Adenomatous polyp of duodenum Anemia due to blood loss, acute Arthritis of right knee (06/07/15) Bronchiectasis Bronchiectasis chronic cough Chest pain Chronic insomnia Chronic right shoulder pain (11/02/17) Depression Depressive disorder Diabetes Diabetes mellitus with nephropathy (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) Diverticulosis large intestine w/o perforation or abscess w/o bleeding Diverticulosis of colon without diverticulitis (05/21/09) Duodenal ulcer Edema Essential hypertension (05/04/13) Family history of colon cancer (01/29/15) Gastroesophageal reflux disease (10/11/12) GERD (gastroesophageal reflux disease) Gout Gout (03/14/10) History of pelvic ultrasound Hyperkalemia (10/20/12) Hyperlipidemia (10/11/12) Hypertension Hypokalemia (05/09/15) Hypothyroidism Hypothyroidism (10/11/12) Incarcerated incisional hernia Increased body mass index Knee pain (03/12/15) Left hip pain (12/15/16) Lipoma (07/01/05) Morbid obesity with BMI of 50.0-59.9, adult Organic sleep apnea Organic sleep apnea, unspecified CPAP (NOT USING 11/17) Osteoarthritis Pulmonary hypertension (11/08/17) Skin tag (08/03/17) Sprain of costal cartilage (10/22/16) Strain of flexor muscle of left hip (09/23/16) Vitamin D deficiency Vitamin D deficiency (03/22/12) Surgical History Arthroplasty of knee (02/25/16) LEFT TOTAL KNEE Cholecystectomy Colonoscopy - IV Sedation Endometrial Biopsy neg History of bilateral ligation of fallopian tubes History of colonoscopy (~11/05/20) History of esophagogastroduodenoscopy (EGD) (~11/05/20) Ligation of fallopian tube PELVIC U/S NEG Status post cholecystectomy Status post total knee replacement (02/25/16) Surgical procedure planned Whipple procedure 01/01/20 Family History Mother Liver cancer Father Heart disease Stomach cancer Maternal Grandfather Cirrhosis of liver Paternal Grandfather Narcolepsy Diabetes Maternal Grandmother Diabetes Heart disease Breast cancer Paternal Grandmother Breast cancer Sister Alcohol abuse Uterine cancer Sister Cancer Brother Liver cancer Lung cancer Son Essential hypertension Son Narcolepsy Diabetes Essential hypertension Hyperlipidemia Other Family history of colon cancer Social History Smoking/Tobacco Use Status: Never Smoking risk assessment performed?: Yes Alcohol Intake: current Alcohol Intake frequency: holidays/special occasions only Alcohol type: wine Drug use: Never Substance use type: does not use Caregiver/Support person: No Household members: spouse Housing: apartment Communication Needs: None Do you need help understanding health information?: Rarely Pets and animals: No Sexually active: No Do you think of yourself as: straight/heterosexual Current gender identity: female What is your relationship status?: How often do you talk on the phone with friends or family?: three or more times per week How often do you get together with friends or relatives?: once per week How often do you attend mosque or mu-ism services?: 1-3 times per year Do you belong to any clubs or organized social groups?: yes Panel score (0-1 are the most socially isolated patients): 3 What type of physical activity do you participate in: walking Duration: 15-30 minutes/day Frequency: 5-6 times per week Sejal/Anglican: Adventism Special sejal needs: No Seatbelt use: always Helmet use: No Drive intox or ride w/intox milk wagon driver: No Do you feel safe at home: Yes Do you feel safe in your relationship?: Yes Exam Const General: cooperative, healthy appearing, comfortable, no acute distress and well developed Nutritional Appearance: well nourished and obese Orientation: alert and awake [facility] Head: normal to inspection Mouth: moist mucous membranes Resp Effort & Inspection: normal respiratory effort, able to speak in complete sentences and no respiratory distress Auscultation: clear to auscultation bilaterally, no rales, no rhonchi and no wheezes Cardio Rate: regular rate Rhythm: regular rhythm Heart Sounds: S1 normal and S2 normal GI Inspection: normal to inspection Palpation: soft, no hepatosplenomegaly, not firm, no guarding, no masses and nontender Percussion: normal to percussion Auscultation: normal bowel sounds Back/Spine/Pelvis Back: no CVA tenderness Skin General skin exam: no rashes or lesions noted Trauma: no lacerations or abrasions Neuro General: patient alert and patient awake Cognition: normal cognition Speech: speech normal Gait: normal gait Psych Appearance: grossly normal and well kempt Mental Status: mental status grossly normal Speech and Movement: speech and movement normal
[2021-05-14 19:17] VITALS: RESP 16
--- NOTE | 2021-05-14 19:45 | DI.CT_ITS ---
Exam(s) CT ABDOMEN PELVIS W EXAM: CT ABDOMEN PELVIS W INDICATION: elevated LFT, hx of duodenal carcinoma. COMPARISON: CT CT CHEST/ABD/PEL W from 09/05/2020 TECHNIQUE: FINDINGS: CT examination of the abdomen and pelvis was performed with a bolus infusion of 100 cc of Omnipaque 3 50. Images obtained through the lung bases are unremarkable. There is reportedly a prior Whipple procedure. There is pneumobilia and cholecystectomy. Multiple v ascular clips in the region of resected pancreatic head. Slight pancreatic ductal dilatation, probab ly unchanged from prior study of September 2020. Slight interval increase in size of retropancreatic nodes,, maximal diameter now about 15 millimeters as compared to 10 millimeters on prior scan. No ad ditional new adenopathy. Spleen is unremarkable in appearance. Adrenals appear normal. The kidneys are unremarkable with no evidence of hydronephrosis, nephrolithiasis, or renal mass.. Ur inary bladder unremarkable. Abdominal aorta is of normal diameter and no major vascular abnormality is seen. No abdominal wall hernia.. Grossly unremarkable appearance of grades 1 through 6 teacher structures for age. Appendix is not specifically visualized but there is no evidence of appendicitis.. No evidence of di verticulitis or bowel obstruction. IMPRESSION: Question mild interval increase size retropancreatic lymph nodes in a patient with prior Whipple proc edure, possibility of early metastatic disease not excluded. Follow-up CT recommended in 6 months. Incidental RADIATION DOSE DELIVERED: 1,548.27mGy.cm Total DLP 1,548.27mGy.cm Total DLP 29.97mGy CTDIvol RADIATION OPTIMIZATION: All CT scans at this facility use at least one of these dose optimization te chniques: automated exposure control; mA and/or kV adjustment per patient size (includes targeted exa ms where dose is matched to clinical indication); or iterative reconstruction.
[2021-05-14 20:25] LABS: INR 1.3 (0.9-1.1); PTT Activated 26.6 sec (21.0-27.5); Prothrombin Time 12.6 sec (9.3-11.0)
[2021-05-14 20:43] LABS: Lipase 24 U/L (73-393)
[2021-05-14] MEDS: Omnipaque 350 MG/ML 100 ML BTL IJ (21:44)
[2021-05-14] MEDS: Normal Saline - Diluent 50 ML VIAL IV (21:44)
[2021-05-14] MEDS: Normal Saline Flush 10 ML SYR IVP (21:47)
--- NOTE | 2021-05-14 22:56 | DI.VRAD_ITS ---
PROCEDURE INFORMATION: Exam: CT Abdomen And Pelvis With Contrast Exam date and time: 05/14/2021 7:48 PM Age: 70 years old Clinical indication: Other: Elevated lft, HX of duodenal carcinoma, h/o whipple TECHNIQUE: Imaging protocol: Computed tomography of the abdomen and pelvis with contrast. COMPARISON: CT CHEST/ABD/PEL W 09/05/2020 9:59 AM FINDINGS: Lungs: Lung bases are clear. Liver: Homogeneous liver parenchyma. Negative for liver mass or cyst. Portal and hepatic veins are patent. Gallbladder and bile ducts: Moderate pneumobilia. Absent gallbladder. Choledocho jejunostomy site is unremarkable. Pancreas: Severely atrophic pancreas. Dilated pancreatic duct. Resection of the pancreatic head and uncinate process noted. Pancreaticojejunostomy site is unremarkable. Negative for fluid collection around the pancreas. Spleen: Normal. No splenomegaly. Adrenal glands: Normal. No mass. Kidneys and ureters: Negative for hydronephrosis. Symmetric enhancement. Ureters are not dilated. No stones observed. Stomach and bowel: Collapsed stomach. Gastrojejunostomy is unremarkable. Small bowel is not dilated. Enteric contrast reaches the descending colon. Negative for inflammatory changes around the colon. Minimal stool. Appendix: Normal appendix. Intraperitoneal space: Unremarkable. No free air. No significant fluid collection. Vasculature: Negative for aneurysm. Moderate vascular calcifications. Lymph nodes: Unremarkable. No enlarged lymph nodes. Urinary bladder: Unremarkable as visualized. Reproductive: Unremarkable as visualized. Bones/joints: Negative for compression fracture. Bilateral pars defects noted at L5. Anterolisthesis noted L5 on S1, 4 mm. Lumbar lordosis is exaggerated. Soft tissues: Complex scar tissue noted in the suprapubic abdominal wall. Negative for hernia or fluid collection. IMPRESSION: Postoperative changes from Whipple. No complications observed. Atrophic pancreas. No evidence of metastatic disease. Dictated and Authenticated by: Benito Law MD. Ordering:JAZIEL Hilario MD
[2021-05-14 23:16] LABS: Acetaminophen 6 ug/mL (10-30)
[2021-05-14 23:27] VITALS: BP 115/45; PULSE 70; RESP 16; TEMP 36.5; O2SAT 100
[2021-05-16 12:13] LABS: Hepatitis A Antibody IgM Negative (Negative); Hepatitis B Core Antibody Negative (Negative); Hepatitis B surface Ag Negative (Negative); Hepatitis C Ab w Rflx HCV PCR Negative (Negative)
== END 2021-05-14 23:28 | disposition home or self-care (01) ==
PROVIDERS: Emergency Provider Physician Assistant; PCP Family Medicine
DX: R74.01 Elevation of levels of liver transaminase levels (principal); R07.9 Chest pain, unspecified; R11.2 Nausea with vomiting, unspecified; E11.9 Type 2 diabetes mellitus without complications; Z79.84 Long term (current) use of oral hypoglycemic drugs; Z79.899 Other long term (current) drug therapy
CPT/HCPCS: 36415; 83690; 86704; 86709; 86803; 87340; 99285; 74177; 80329; 85610; 85730; J3490

== ENCOUNTER 2021-05-14 22:07 | Outpatient (CLI) | payer MEDICARE, MEDICAID, SELFPAY ==
--- NOTE | 2021-05-14 14:30 | DI.RAD_ITS ---
Exam(s) XR CHEST 2V PA LATERAL EXAM: XR CHEST 2V PA LATERAL CLINICAL HISTORY: fever unknown origen , mild congestion, PUI R50.9 FEVER R07.89 CHEST PAIN. TECHNIQUE: 2D digital imaging was performed. COMPARISON: CR XR CHEST 2V PA LATERAL from 09/09/2018 FINDINGS: Heart size is normal. The mediastinum is not widened. Lungs are clear. No infiltrates nor pleural effusions. IMPRESSION: No acute pulmonary findings. DATA REPOSITORY: RADIATION DOSE DELIVERED:
== END 2021-05-14 22:27 ==
PROVIDERS: PCP Family Medicine; Visit Provider Family Medicine
DX: R07.89 Other chest pain (principal); R50.9 Fever, unspecified
CPT/HCPCS: 71046

== ENCOUNTER 2021-05-15 14:27 | Observation (INO) | payer MEDICARE, OTHER, MEDICAID, SELFPAY ==
[2021-05-15] VITALS (26 sets, daily range): BP systolic 122–163; BP diastolic 30–99; PULSE 61–85; RESP 14–31; TEMP 35.6–38.3; O2SAT 96–100
--- NOTE | 2021-05-15 14:48 | W.ED.GENAD ---
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 She was seen in the urgent care yesterday for fatigue and chest pain and had reassuring EKG and referred for outpatient work-up including labs with Covid test pending and a negative chest x-ray. Lab work in the ED yesterday noted significant elevation of LFTs. Blood cultures grew gram-negative rods today. CT abdomen pelvis yesterday noted Question mild interval increase size retropancreatic lymph nodes in a patient with prior Whipple procedure, possibility of early metastatic disease not excluded. Follow-up CT recommended in 6 months. She has no complaints today. Her vitals are within normal limits. She appears nontoxic. Considering patient's history of cancer with complaint of recent fever and brief episode of chest pain yesterday, will repeat labs, repeat blood cultures and obtain a CT chest and repeat CT abdomen and pelvis. 1600 -- Labs reviewed. Patient has improvement in her LFTs. Normal white blood cell count. Downtrending of her platelets. Normal lactate. Case discussed with [facility] considering patient's transaminitis and recent history of Whipple procedure --he reviewed patient's CT from yesterday. As patient has improving LFTs with a normal bilirubin, presentation does not appear consistent with biliary stricture. If patient has elevation in her bilirubin or worsening of her LFTs, can consider possibility of biliary stricture and potential need for HIDA scan or MRCP. Presentation does not acutely appear consistent with cholangitis at this time as patient is nontoxic-appearing without jaundice or right upper quadrant pain, however consider if patient's clinical presentation acutely worsens. 1800 -- CT chest notes: IMPRESSION: 1. No pulmonary embolism identified. 2. Stable 1.9 x 1.4 cm focal region of soft tissue density in the left paraspinal region, could represent an enlarged lymph node versus extramedullary hematopoiesis. 3. Regions of mild basilar subsegmental atelectasis. No evidence for pneumonia. CT abdomen notes: IMPRESSION: 1. New small wedge-shaped region of decreased cortical enhancement of the right kidney can be seen in the setting of early pyelonephritis. Recommend clinical correlation. 2. Prominent subcentimeter abdominal lymph nodes which are stable since prior study. Cannot exclude early metastatic disease. Recommend follow-up CT in 6 months. 3. Possible mild diffuse bladder wall thickening which can be seen in the setting of cystitis. Recommend clinical correlation. 4. No evidence for bowel obstruction or inflammation. 5. Postoperative changes of prior Whipple procedure. 6. Stable focal region of fluid density involving the midline greater omentum, may represent focal fat necrosis. Case discussed with hospitalist who accepts patient for admission for IV antibiotics. Urinalysis pending. Considering CT findings, presentation may be secondary to urinary source. Will start IV Zosyn. 1900 -- Urinalysis reviewed and notes large blood but no obvious infection. Covid negative. Medical Records Medical records reviewed: Yes I reviewed the patient's medical records. Imaging Data Radiologic Study: Radiologist's impression: CTA Chest With Contrast Exam date and time: 05/15/2021 4:03 PM Age: 70 years old Clinical indication: Other: Chest pain, fever, R/O pe, pneumonia / retroperitoneal lymph nodes TECHNIQUE: Imaging protocol: Computed tomographic angiography of the chest with contrast. 3D rendering (Not supervised by radiologist): MIP and/or 3D reconstructed images were created by the technologist. Contrast material: OMNPAQUE 350; Contrast volume: 100 ml; Contrast route: INTRAVENOUS (IV); COMPARISON: CT CHEST/ABD/PEL W 09/05/2020 9:59 AM FINDINGS: Pulmonary arteries: No filling defects within the pulmonary arteries are identified to suggest pulmonary embolism. Aorta: The thoracic aorta is normal in caliber. There is scattered mild atherosclerotic calcification of the thoracic aorta. No thoracic aortic dissection is identified. Lungs: Again noted are regions of subsegmental atelectasis within the lung bases. No acute airspace opacities are identified. The central airways are patent. There is no bronchiectasis or bronchiolectasis. Pleural spaces: There are no pleural effusions present. Heart: Heart size is near the upper limits of normal. There is no pericardial effusion. Lymph nodes: There is no mediastinal, hilar or axillary adenopathy. There is a 1.4 x 1.9 cm focal region of soft tissue density in the left paraspinal region lateral to the lower thoracic spine on image 321, series 7, stable since 09/05/2020. Bones/joints: No suspicious osseous lesions are identified. There is multilevel mild degenerative change of the thoracic spine. No acute fractures are identified. Soft tissues: Unremarkable. IMPRESSION: 1. No pulmonary embolism identified. 2. Stable 1.9 x 1.4 cm focal region of soft tissue density in the left paraspinal region, could represent an enlarged lymph node versus extramedullary hematopoiesis. 3. Regions of mild basilar subsegmental atelectasis. No evidence for pneumonia. CT Angiography Abdomen With Contrast Exam date and time: 05/15/2021 4:03 PM Age: 70 years old Clinical indication: Other: Chest pain, fever, R/O pe, pneumonia / retroperitoneal lymph nodes TECHNIQUE: Imaging protocol: Computed tomographic angiography images of the abdomen with intravenous contrast material. 3D rendering (Not supervised by radiologist): MIP and/or 3D reconstructed images were created by the technologist. Contrast material: OMNPAQUE 350; Contrast volume: 100 ml; Contrast route: INTRAVENOUS (IV); COMPARISON: 05/14/2021. FINDINGS: Aorta: The aorta and iliac arteries demonstrate moderate atherosclerotic calcification without aneurysm formation. Celiac trunk and mesenteric arteries: No occlusion or significant stenosis. Renal arteries: No occlusion or significant stenosis. Liver: Normal. No mass. Gallbladder and bile ducts: There has been a cholecystectomy. Again noted is biliary air, without change from prior study, with mild biliary ductal dilatation to the level of the anastomosis. Pancreas: See Stomach and bowel finding. Spleen: Normal. No splenomegaly. Adrenals: There is diffuse bilateral nonspecific mild adrenal enlargement, suggesting hyperplasia. Kidneys and ureters: There is a focal wedge-shaped region of mildly decreased cortical enhancement involving the anterior aspect of the lower pole of the right kidney on image 445, series 14, which was not clearly present on prior study and can be seen in the setting pyelonephritis. Stomach and bowel: Again noted are postoperative changes of Whipple procedure. There is no evidence for inflammatory change of the pancreatic remnant. There is no evidence of small or large bowel inflammation. There is no evidence for bowel obstruction. Appendix: The appendix is well visualized and appears normal. Lymph nodes: Again noted are prominent subcentimeter periportal and precaval lymph nodes, stable. Intraperitoneal space: There is a tiny amount of free fluid in the pelvis, nonspecific. Bladder: There is contrast opacified urine within the bladder from the CT performed yesterday. There may be mild diffuse bladder wall thickening, as on prior study. Bones/joints: There is bilateral spondylolysis at L5-S1 with grade 1 anterolisthesis and moderate degenerative disc disease at this level. No acute fractures are identified. Soft tissues: Again noted is a small broad-based fat containing midline anterior abdominal wall hernia inferior to the umbilicus, likely postsurgical. There is a focal region of fluid density involving the omental fat at the anterior midline in the region just posterosuperior to the umbilicus, measuring up to 1.4 x 3.8 cm in axial dimensions, as seen on image 601, series 14, unchanged since prior study, which could represent a focal region of postoperative fat necrosis. Other findings: No focal fluid collection to suggest abscess. IMPRESSION: 1. New small wedge-shaped region of decreased cortical enhancement of the right kidney can be seen in the setting of early pyelonephritis. Recommend clinical correlation. 2. Prominent subcentimeter abdominal lymph nodes which are stable since prior study. Cannot exclude early metastatic disease. Recommend follow-up CT in 6 months. 3. Possible mild diffuse bladder wall thickening which can be seen in the setting of cystitis. Recommend clinical correlation. 4. No evidence for bowel obstruction or inflammation. 5. Postoperative changes of prior Whipple procedure. 6. Stable focal region of fluid density involving the midline greater omentum, may represent focal fat necrosis. Lab Data Lab results reviewed: Yes I reviewed the patient's lab results. ECG Data Attestation: I personally reviewed and interpreted this ECG (s) as follows: HPI General Mode of arrival: ambulatory. Date/Time Provider Initiated Documentation: 05/15/21 14:41. Limitations to Documentation: no limitations. Information obtained by: patient. HPI Narrative: Patient is a 70-year-old female with a history of obesity, hypertension, hyperlipidemia, hypothyroidism, gout, GERD, diabetes, sleep apnea, duodenal cancer with a history of Whipple procedure in January 2020 at [facility] who was sent to the ED after found to have bacteremia and blood cultures from the ED yesterday. Patient felt febrile with fatigue yesterday and went to the [facility] urgent care where she was evaluated and referred for labs and outpatient chest x-ray which was negative. She states she had a temperature of 102 in the office which improved with Tylenol. She then came to the emergency department yesterday for further evaluation where she was noted to have elevated liver enzymes and was discharged to home with plan for follow-up with her EP and [facility]. Patient states she was called at home today by Dr. Whittington due to a finding of gram-negative rods in her blood cultures from yesterday. Patient states she had a brief episode of chest pain yesterday but not since then. She does admit to some fatigue and headache but denies any neck pain, chest pain today, shortness of breath, abdominal pain, vomiting, diarrhea or urinary symptoms. Related Data Home Medications Medication Instructions Recorded Confirmed glipizide 5 mg tablet, extended 5 mg PO DAILY #90 tab 10/22/20 05/15/21 release 24 hr losartan 100 mg tablet 100 mg PO DAILY #90 tab-cap 10/22/20 05/15/21 sennosides [senna] 8.6 mg PO BID PRN 11/04/20 05/15/21 sucralfate [Carafate] 1 g PO QAC #60 tab 11/05/20 05/15/21 [id number] 3 cap PO 6XD #300 cap MDD 12 11/11/20 05/15/21 24,000-76,000-120,000 unit capsule,delayed rel ondansetron 4 mg disintegrating 4 mg PO Q8H #90 tab 11/11/20 05/15/21 tablet pantoprazole 40 mg tablet,delayed 40 mg PO DAILY #90 tab 11/11/20 05/15/21 release potassium chloride 10 mEq 10 meq PO BID #180 cap 11/11/20 05/15/21 capsule,extended release ergocalciferol (vitamin D2) 1,250 50,000 unit PO .twice weekly #28 01/02/21 05/15/21 mcg (50,000 unit) capsule cap lancets 28 gauge #200 each 01/07/21 05/14/21 blood sugar diagnostic #200 strip 01/13/21 05/14/21 blood-glucose meter #1 ea 01/13/21 05/14/21 lancets 33 gauge #200 ea 01/13/21 05/14/21 levothyroxine 100 mcg tablet 100 mcg PO DAILY #90 tab-cap 02/20/21 05/15/21 nystatin 100,000 unit/gram topical 1 applic TOPICAL BID #60 g 03/31/21 05/15/21 powder Previous Rx's Medication Instructions Recorded glipizide 5 mg tablet, extended 5 mg PO DAILY #90 tab 10/22/20 release 24 hr losartan 100 mg tablet 100 mg PO DAILY #90 tab-cap 10/22/20 sucralfate [Carafate] 1 g PO QAC #60 tab 11/05/20 [id number] 3 cap PO 6XD #300 cap MDD 12 11/11/20 24,000-76,000-120,000 unit capsule,delayed rel ondansetron 4 mg disintegrating 4 mg PO Q8H #90 tab 11/11/20 tablet pantoprazole 40 mg tablet,delayed 40 mg PO DAILY #90 tab 11/11/20 release potassium chloride 10 mEq 10 meq PO BID #180 cap 11/11/20 capsule,extended release ergocalciferol (vitamin D2) 1,250 50,000 unit PO .twice weekly #28 01/02/21 mcg (50,000 unit) capsule cap lancets 28 gauge #200 each 01/07/21 blood sugar diagnostic #200 strip 01/13/21 blood-glucose meter #1 ea 01/13/21 lancets 33 gauge #200 ea 01/13/21 levothyroxine 100 mcg tablet 100 mcg PO DAILY #90 tab-cap 02/20/21 nystatin 100,000 unit/gram topical 1 applic TOPICAL BID #60 g 03/31/21 powder Allergies Allergy/AdvReac Type Severity Reaction Status Date / Time lisinopril AdvReac Intermediate COUGH Unverified 05/15/21 14:37 General Stated Complaint: [facility] NOLVIA: 3 Review of Systems All systems reviewed & are unremarkable except as noted in HPI and below Constitutional Constitutional: Reports as per HPI, Denies chills, Reports fatigue, Denies fever(s) and Reports headache(s) Eyes Eyes: Denies blurry vision ENT Ears, Nose, Mouth, and Throat: Denies dizziness, Reports headache(s), Denies sore throat and Denies throat swelling Cardiovascular Cardiovascular: Denies chest pain and Denies dyspnea Respiratory Respiratory: Denies cough and Denies dyspnea Gastrointestinal Gastrointestinal: Denies abdominal pain, Denies diarrhea and Denies vomiting Genitourinary Genitourinary: Denies hematuria and Denies dysuria Musculoskeletal Musculoskeletal: Denies back pain and Denies numbness Integumentary/Breasts Skin/Breast: Denies lesions and Denies rash Neurologic Neurologic: Denies dizziness, Reports headache(s), Denies localized weakness and Denies numbness Endocrine Endocrine: Reports fatigue Allergic/Immunologic Allergic/Immunologic: Denies throat swelling [facility] Medical History Abdominal pain (07/12/12) Abnormal mammography (07/01/06) Adenomatous polyp of duodenum Anemia due to blood loss, acute Arthritis of right knee (06/07/15) Bronchiectasis Bronchiectasis chronic cough Chest pain Chronic insomnia Chronic right shoulder pain (11/02/17) Depression Depressive disorder Diabetes Diabetes mellitus with nephropathy (07/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) Diverticulosis large intestine w/o perforation or abscess w/o bleeding Diverticulosis of colon without diverticulitis (05/21/09) Duodenal ulcer Edema Essential hypertension (05/04/13) Family history of colon cancer (01/29/15) Gastroesophageal reflux disease (10/11/12) GERD (gastroesophageal reflux disease) Gout Gout (03/14/10) History of pelvic ultrasound Hyperkalemia (10/20/12) Hyperlipidemia (10/11/12) Hypertension Hypokalemia (05/09/15) Hypothyroidism Hypothyroidism (10/11/12) Incarcerated incisional hernia Increased body mass index Knee pain (03/12/15) Left hip pain (12/15/16) Lipoma (07/01/05) Morbid obesity with BMI of 50.0-59.9, adult Organic sleep apnea Organic sleep apnea, unspecified CPAP (NOT USING 11/17) Osteoarthritis Pulmonary hypertension (11/08/17) Skin tag (08/03/17) Sprain of costal cartilage (10/22/16) Strain of flexor muscle of left hip (09/23/16) Vitamin D deficiency Vitamin D deficiency (08/21/12) Surgical History Arthroplasty of knee (02/25/16) LEFT TOTAL KNEE Cholecystectomy Colonoscopy - IV Sedation Endometrial Biopsy neg History of bilateral ligation of fallopian tubes History of colonoscopy (~11/05/20) History of esophagogastroduodenoscopy (EGD) (~11/05/20) Ligation of fallopian tube PELVIC U/S NEG Status post cholecystectomy Status post total knee replacement (02/25/16) Surgical procedure planned Whipple procedure 01/01/20 Family History Mother Liver cancer Father Heart disease Stomach cancer Maternal Grandfather Cirrhosis of liver Paternal Grandfather Narcolepsy Diabetes Maternal Grandmother Diabetes Heart disease Breast cancer Paternal Grandmother Breast cancer Sister Alcohol abuse Uterine cancer Sister Cancer Brother Liver cancer Lung cancer Son Essential hypertension Son Narcolepsy Diabetes Essential hypertension Hyperlipidemia Other Family history of colon cancer Social History Smoking/Tobacco Use Status: Never Smoking risk assessment performed?: Yes Alcohol Intake: current Alcohol Intake frequency: holidays/special occasions only Alcohol type: wine Drug use: Never Substance use type: does not use Caregiver/Support person: No Household members: spouse Housing: apartment Communication Needs: None Do you need help understanding health information?: Rarely Pets and animals: No Sexually active: No Do you think of yourself as: straight/heterosexual Current gender identity: female What is your relationship status?: How often do you talk on the phone with friends or family?: three or more times per week How often do you get together with friends or relatives?: once per week How often do you attend hoahaoism or uatsdin services?: 1-3 times per year Do you belong to any clubs or organized social groups?: yes Panel score (0-1 are the most socially isolated patients): 3 What type of physical activity do you participate in: walking Duration: 15-30 minutes/day Frequency: 5-6 times per week Sejal/Gnosticism: Zoroastrian Special sejal needs: No Seatbelt use: always Helmet use: No Drive intox or ride w/intox warehouse driver: No Do you feel safe at home: Yes Do you feel safe in your relationship?: Yes Exam Const General: cooperative and no acute distress HENMT Head: normal to inspection Face and sinus: normal facial exam Eyes General: appearance normal, both eyes and all related structures EOM: EOM intact bilaterally Neck Neck: normal visual inspection and No submandibular swelling Lymphatic: no lymphadenopathy noted Chest Chest: normal inspection of the chest and no tenderness Resp Effort & Inspection: normal respiratory effort and able to speak in complete sentences Auscultation: clear to auscultation bilaterally Cardio Rate: regular rate Rhythm: regular rhythm GI Inspection: normal to inspection and obesity Palpation: soft, not firm, not rigid and nontender Auscultation: normal bowel sounds Skin General skin exam: no rashes or lesions noted Neuro General: patient alert, patient awake and patient oriented x3 Cognition: normal cognition Speech: speech normal Motor: muscle tone normal throughout Sensory Exam: no sensory deficits noted Extrem General: normal to inspection, full ROM, capillary refill normal, no calf tenderness bilaterally and no edema Psych Appearance: grossly normal Mental Status: mental status grossly normal Speech and Movement: speech and movement normal Affect: normal affect Course Vital Signs Vital signs: Vital Signs Temperature 98.1 F 05/15/21 14:34 Pulse 74 05/15/21 14:34 Respiratory Rate 14 05/15/21 14:34 Blood Pressure 163/99 H 05/15/21 14:34 Pulse Oximetry 97 05/15/21 14:34 Temperature 98.1 F 05/15/21 14:34 Temperature Source Skin 05/15/21 14:34 Pulse 74 05/15/21 14:34 Respiratory Rate 14 05/15/21 14:34 Respiratory Effort Non-Labored 05/15/21 14:38 Respiratory Depth Normal 05/15/21 14:38 Respiratory Pattern Normal 05/15/21 14:38 Blood Pressure 163/99 H 05/15/21 14:34 Blood Pressure Position Supine 05/15/21 14:34 Pulse Oximetry 97 05/15/21 14:34 Oxygen Delivery Method Room Air 05/15/21 14:34 Oxygen Flow Rate 0 05/15/21 14:34 Pain Level 0 05/15/21 14:34 Lab/Test Results Lab/Test Results: 05/15/21 14:47 Blood Blood Culture - Pending 05/15/21 14:47 Blood Blood Culture - Pending
[2021-05-15 15:09] LABS: Lactate 1.1 mmol/L (0.6-1.4)
[2021-05-15 15:12] LABS: Abs Immature Grans 0.04 10^3/uL (0.0-0.06); Absolute Basophil Count 0.01 10^3/uL (0.0-0.2); Absolute Eosinophil Count 0.02 10^3/uL (0.0-0.7); Absolute Lymphocyte Count 0.91 10^3/uL (1.2-3.4); Absolute Monocyte Count 0.64 10^3/uL (0.1-0.8); Absolute Neutrophil Count 7.02 10^3/uL (1.2-6.7); Basophils % 0.1; Eosinophils % 0.2; HCT 38.2 % (36.0-46.0); HGB 12.2 g/dL (11.2-15.7); Immature Grans % 0.5; Lymphocytes % 10.5; MCH 29.9 pg (27.0-33.0); MCHC 31.9 % (32.0-36.0); MCV 93.6 fL (80-95); MPV 10.7 fL (8.0-11.0); Monocytes % 7.4; Neutrophils % 81.3; Nucleated RBC 0 %; RBC 4.08 10^6/uL (3.93-5.22); RDW 13.2 % (11.7-14.6); RDW-SD 45.8 fL; WBC 8.64 10^3/uL (4.4-10.8)
[2021-05-15 15:14] LABS: Platelet Count 93 10^3/uL (130-400)
[2021-05-15 15:35] LABS: ALT 540 U/L (14-59); AST 166 U/L (15-37); Albumin 3.2 g/dL (3.4-5.0); Alkaline Phosphatase 226 U/L (46-116); BUN 19 mg/dL (7-18); Bilirubin, Total 0.9 mg/dL (0.2-1.0); CREATININE 1.1 mg/dL (0.55-1.02); Calcium 8.9 mg/dL (8.5-10.1); Chloride 103 mmol/L (98-107); Estimated GFR 49.39 (mL/min/1.73m2); Glucose 124 mg/dL (74-106); Potassium 3.9 mmol/L (3.5-5.1); Sodium 138 mmol/L (136-145); Total Protein 7.3 g/dL (6.4-8.2)
--- NOTE | 2021-05-15 16:00 | DI.CT_ITS ---
Exam(s) CT CHEST PE ABD PELVIS W EXAM: CT CHEST PE ABD PELVIS W CLINICAL HISTORY: chest pain, fever, r/o pe, pneumonia. TECHNIQUE: Imaging Protocol: Axial computed tomography images with coronal and sagittal reformatted images were created and reviewed CONTRAST MATERIAL: Intravenous: Omnipaque 350 Contrast volume:100 cc contrast route:IV - Oral:/yes COMPARISON: CT CT ABDOMEN PELVIS W from 05/14/2021 FINDINGS: CHEST: Tracheobronchial tree: Patent where visualized. Mediastinum and Patricia: No dominant adenopathy or fluid collection. Pulmonary parenchyma: No consolidation or dominant measurable mass. No architectural distortion. Min imal atelectasis. Pleura: No effusion or pneumothorax. Aorta: Thoracic portion non-dilated. Pulmonary arteries: No filling defects. ABDOMEN: Liver: Normal density. No measurable mass. Gallbladder and biliary tract: Status post Whipple procedure. Biliary air and mild biliary ductal di latation, stable.. Pancreas: Status post Whipple procedure. Normal density, no abnormal calcifications or inflammatory process. Spleen: Normal. Kidneys: Normal size, contour and axis. No radiodense stones or obstructive uropathy. No masses seen. Adrenal glands: No masses seen Aorta: Abdominal portion non-dilated. Atherosclerotic changes. PELVIS: Bladder: Contrast is now present within the urinary bladder. There is a question of mild bladder wal l thickening. Bowel: No obstruction or bowel wall thickening. Contrast within colon. No significant stool. Peritoneal cavity: No ascites, collection or mesenteric inflammatory response. Appendix normal. Bones: Degenerative changes. Reproductive organs: Within normal limits. Soft tissues: Postsurgical changes in the lower anterior midline abdominal wall. IMPRESSION: No evidence of pulmonary emboli or other acute abnormality in the chest. Status post Whipple procedure. No change in biliary air. Question of bladder wall thickening which could indicate cystitis. RADIATION DOSE DELIVERED: 1,853.03mGy.cm Total DLP DATA REPOSITORY: All CT scans at this facility are submitted to the National Radiology Data Registry (NRDR) Dose Index Registry (DIR) with the [employer] (A[employer]). RADIATION OPTIMIZATION: All CT scans at this facility use at least one of these dose optimization te chniques: automated exposure control; mA and/or kV adjustment per patient size (includes targeted exa ms where dose is matched to clinical indication); or iterative reconstruction.
[2021-05-15] MEDS: Normal Saline - Diluent 50 ML VIAL IV (16:26)
[2021-05-15] MEDS: Omnipaque 350 MG/ML 100 ML BTL IJ (16:29)
[2021-05-15] MEDS: Normal Saline Flush 10 ML SYR IVP (16:29)
[2021-05-15] MEDS: Normal Saline 500 ML IV ×2 (16:43→18:45)
--- NOTE | 2021-05-15 17:40 | DI.VRAD_ITS ---
PROCEDURE INFORMATION: Exam: CTA Chest With Contrast Exam date and time: 05/15/2021 4:03 PM Age: 70 years old Clinical indication: Other: Chest pain, fever, R/O pe, pneumonia / retroperitoneal lymph nodes TECHNIQUE: Imaging protocol: Computed tomographic angiography of the chest with contrast. 3D rendering (Not supervised by radiologist): MIP and/or 3D reconstructed images were created by the technologist. Contrast material: OMNPAQUE 350; Contrast volume: 100 ml; Contrast route: INTRAVENOUS (IV); COMPARISON: CT CHEST/ABD/PEL W 09/05/2020 9:59 AM FINDINGS: Pulmonary arteries: No filling defects within the pulmonary arteries are identified to suggest pulmonary embolism. Aorta: The thoracic aorta is normal in caliber. There is scattered mild atherosclerotic calcification of the thoracic aorta. No thoracic aortic dissection is identified. Lungs: Again noted are regions of subsegmental atelectasis within the lung bases. No acute airspace opacities are identified. The central airways are patent. There is no bronchiectasis or bronchiolectasis. Pleural spaces: There are no pleural effusions present. Heart: Heart size is near the upper limits of normal. There is no pericardial effusion. Lymph nodes: There is no mediastinal, hilar or axillary adenopathy. There is a 1.4 x 1.9 cm focal region of soft tissue density in the left paraspinal region lateral to the lower thoracic spine on image 321, series 7, stable since 09/05/2020. Bones/joints: No suspicious osseous lesions are identified. There is multilevel mild degenerative change of the thoracic spine. No acute fractures are identified. Soft tissues: Unremarkable. IMPRESSION: 1. No pulmonary embolism identified. 2. Stable 1.9 x 1.4 cm focal region of soft tissue density in the left paraspinal region, could represent an enlarged lymph node versus extramedullary hematopoiesis. 3. Regions of mild basilar subsegmental atelectasis. No evidence for pneumonia. PROCEDURE INFORMATION: Exam: CT Angiography Abdomen With Contrast Exam date and time: 05/15/2021 4:03 PM Age: 70 years old Clinical indication: Other: Chest pain, fever, R/O pe, pneumonia / retroperitoneal lymph nodes TECHNIQUE: Imaging protocol: Computed tomographic angiography images of the abdomen with intravenous contrast material. 3D rendering (Not supervised by radiologist): MIP and/or 3D reconstructed images were created by the technologist. Contrast material: OMNPAQUE 350; Contrast volume: 100 ml; Contrast route: INTRAVENOUS (IV); COMPARISON: 05/14/2021. FINDINGS: Aorta: The aorta and iliac arteries demonstrate moderate atherosclerotic calcification without aneurysm formation. Celiac trunk and mesenteric arteries: No occlusion or significant stenosis. Renal arteries: No occlusion or significant stenosis. Liver: Normal. No mass. Gallbladder and bile ducts: There has been a cholecystectomy. Again noted is biliary air, without change from prior study, with mild biliary ductal dilatation to the level of the anastomosis. Pancreas: See Stomach and bowel finding. Spleen: Normal. No splenomegaly. Adrenals: There is diffuse bilateral nonspecific mild adrenal enlargement, suggesting hyperplasia. Kidneys and ureters: There is a focal wedge-shaped region of mildly decreased cortical enhancement involving the anterior aspect of the lower pole of the right kidney on image 445, series 14, which was not clearly present on prior study and can be seen in the setting pyelonephritis. Stomach and bowel: Again noted are postoperative changes of Whipple procedure. There is no evidence for inflammatory change of the pancreatic remnant. There is no evidence of small or large bowel inflammation. There is no evidence for bowel obstruction. Appendix: The appendix is well visualized and appears normal. Lymph nodes: Again noted are prominent subcentimeter periportal and precaval lymph nodes, stable. Intraperitoneal space: There is a tiny amount of free fluid in the pelvis, nonspecific. Bladder: There is contrast opacified urine within the bladder from the CT performed yesterday. There may be mild diffuse bladder wall thickening, as on prior study. Bones/joints: There is bilateral spondylolysis at L5-S1 with grade 1 anterolisthesis and moderate degenerative disc disease at this level. No acute fractures are identified. Soft tissues: Again noted is a small broad-based fat containing midline anterior abdominal wall hernia inferior to the umbilicus, likely postsurgical. There is a focal region of fluid density involving the omental fat at the anterior midline in the region just posterosuperior to the umbilicus, measuring up to 1.4 x 3.8 cm in axial dimensions, as seen on image 601, series 14, unchanged since prior study, which could represent a focal region of postoperative fat necrosis. Other findings: No focal fluid collection to suggest abscess. IMPRESSION: 1. New small wedge-shaped region of decreased cortical enhancement of the right kidney can be seen in the setting of early pyelonephritis. Recommend clinical correlation. 2. Prominent subcentimeter abdominal lymph nodes which are stable since prior study. Cannot exclude early metastatic disease. Recommend follow-up CT in 6 months. 3. Possible mild diffuse bladder wall thickening which can be seen in the setting of cystitis. Recommend clinical correlation. 4. No evidence for bowel obstruction or inflammation. 5. Postoperative changes of prior Whipple procedure. 6. Stable focal region of fluid density involving the midline greater omentum, may represent focal fat necrosis. Dictated and Authenticated by: Anselmo Leigh MD. Ordering:TERELL Jaeger MD
[2021-05-15 18:02] LABS: Bilirubin Negative (Negative); Blood Large (Negative); Clarity Sl Cloudy (Clear); Glucose Negative (Negative); Ketones Negative (Negative); Leukocyte Esterase Negative (Negative); Nitrite Negative (Negative); Urobilinogen >=8.0 EU/dL (Up TO 0.2)
[2021-05-15 18:08] LABS: Bacteria Negative HPF (Negative); Crystals Negative HPF (Negative); Epithelial Cells Few HPF (Negative); Mucus Negative (Negative); RBC >50 HPF (0-2); WBC Negative HPF (0-5)
[2021-05-15] MEDS: PIPERACILLIN/TAZO 3.375 GM in Normal Saline 50 ML IVPB (18:08)
[2021-05-15 18:09] LABS: C & S Indicated? No
[2021-05-15 18:24] LABS: Source Nasal/Nares
[2021-05-15 19:31] LABS: COVID-19 PCR Negative (Negative)
--- NOTE | 2021-05-15 19:40 | HPE_ITS ---
Date of service: 05/15/21 Time of Service: 19:40 Assessment and Plan Assessment and plan (1) Transaminitis: Status: Acute Assessment and plan: Improving LFTs noted today as compared to yesterday. Likely d/t transient bacteremia. Monitor (2) Bacteremia: Status: Acute Assessment and plan: Blood culture from yesterday growing gram negative rods. Repeat blood cultures obtained. Zosyn initiated. Source is unknown. UA unremarkable. CT abd/pelvis did show a focal wedge- shaped region of mildly decreased cortical enhancement involving the anterior aspect of the lower pole of the right kidney on image 445, series 14, which was not clearly present on prior study and can be seen in the setting pyelonephritis. Also noted was bladder wall thickening. She denies any urinary symptoms. Normal WBC count. No GI symptoms; has had cholecystectomy. No respiratory symptoms; normal CXR. (3) Duodenal adenocarcinoma: Status: Acute Assessment and plan: S/P Whipple procedure. Cont pancreatic enzyme replacement, pantoprazole. 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 Cont home glipizide. Random glucose in ED was 124. (5) Hypothyroidism: Status: Chronic Assessment and plan: Cont replacement therapy. History of Present Illness History of Present Illness Chief Complaint: Gram negative bacteremia Narrative: This is a 70 yo female with a PMH of 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 She presented to the ED after blood cultures obtained the prior day at her PCP office grew gram neg bacteremia. She went to her PCP the prior day d/t feeling fatigued; found to have a fever. CXR was negative. Covid testing nega tive. She then presented later to the ED (yesterday evening). W/U showed elevated WBC count and LFTs. Normal bilirubin. D/C'd to home with plan to f/u with her [facility] physician. She again, describes fatigue and also a mild GARCIA. No cough/congestion, abd pain/n/v/diarrhea, dysuria/frequency/flank pain. No SOA/palpitations. She did endorse a brief episode of CP the day prior to this admission. Troponin neg and EKG reassuring. Admitted for treatment of gram neg bacteremia with Zosyn while waiting for final culture and sensitivity results. Review of Systems All systems reviewed & are unremarkable except as noted in HPI and below PFSH Medical History Abdominal pain (07/12/12) Abnormal mammography (07/01/06) Adenomatous polyp of duodenum Anemia due to blood loss, acute Arthritis of right knee (06/07/15) Bronchiectasis Bronchiectasis chronic cough Chest pain Chronic insomnia Chronic right shoulder pain (11/02/17) Depression Depressive disorder Diabetes Diabetes mellitus with nephropathy (07/23/14) Diverticulosis large intestine w/o perforation or abscess w/o bleeding Diverticulosis of colon without diverticulitis (05/21/09) Duodenal ulcer Edema Essential hypertension (05/04/13) Family history of colon cancer (01/29/15) Gastroesophageal reflux disease (10/11/12) GERD (gastroesophageal reflux disease) Gout Gout (03/14/10) History of pelvic ultrasound Hyperkalemia (10/20/12) Hyperlipidemia (10/11/12) Hypertension Hypokalemia (05/09/15) Hypothyroidism Hypothyroidism (10/11/12) Incarcerated incisional hernia Increased body mass index Knee pain (03/12/15) Left hip pain (12/15/16) Lipoma (07/01/05) Morbid obesity with BMI of 50.0-59.9, adult Organic sleep apnea Organic sleep apnea, unspecified CPAP (NOT USING 11/17) Osteoarthritis Pulmonary hypertension (11/08/17) Skin tag (08/03/17) Sprain of costal cartilage (10/22/16) Strain of flexor muscle of left hip (09/23/16) Vitamin D deficiency Vitamin D deficiency (03/22/12) Surgical History Arthroplasty of knee (02/25/16) LEFT TOTAL KNEE Cholecystectomy Colonoscopy - IV Sedation Endometrial Biopsy neg History of bilateral ligation of fallopian tubes History of colonoscopy (~11/05/20) History of esophagogastroduodenoscopy (EGD) (~11/05/20) Ligation of fallopian tube PELVIC U/S NEG Status post cholecystectomy Status post total knee replacement (02/25/16) Surgical procedure planned Whipple procedure 01/01/20 Family History Mother Liver cancer Father Heart disease Stomach cancer Maternal Grandfather Cirrhosis of liver Paternal Grandfather Narcolepsy Diabetes Maternal Grandmother Diabetes Heart disease Breast cancer Paternal Grandmother Breast cancer Sister Alcohol abuse Uterine cancer Sister Cancer Brother Liver cancer Lung cancer Son Essential hypertension Son Narcolepsy Diabetes Essential hypertension Hyperlipidemia Other Family history of colon cancer Social History Smoking/Tobacco Use Status: Never Smoking risk assessment performed?: Yes Alcohol Intake: current Alcohol Intake frequency: holidays/special occasions only Alcohol type: wine Drug use: Never Substance use type: does not use Caregiver/Support person: No Household members: spouse Housing: apartment Communication Needs: None Do you need help understanding health information?: Rarely Pets and animals: No Sexually active: No Do you think of yourself as: straight/heterosexual Current gender identity: female What is your relationship status?: How often do you talk on the phone with friends or family?: three or more times per week How often do you get together with friends or relatives?: once per week How often do you attend christianity or orthodox services?: 1-3 times per year Do you belong to any clubs or organized social groups?: yes Panel score (0-1 are the most socially isolated patients): 3 What type of physical activity do you participate in: walking Duration: 15-30 minutes/day Frequency: 5-6 times per week Sejal/Spiritism: Moravian Special sejal needs: No Seatbelt use: always Helmet use: No Drive intox or ride w/intox semi driver: No Do you feel safe at home: Yes Do you feel safe in your relationship?: Yes Meds Allergies and Home Medications Allergies Allergy/AdvReac Type Severity Reaction Status Date / Time lisinopril AdvReac Intermediate COUGH Unverified 05/15/21 14:37 Home Medications Medication Instructions Recorded Confirmed Type glipizide 5 mg tablet, extended 5 mg PO DAILY #90 tab 10/22/20 05/15/21 Rx release 24 hr losartan 100 mg tablet 100 mg PO DAILY #90 tab-cap 10/22/20 05/15/21 Rx sennosides [senna] 8.6 mg PO BID PRN 11/04/20 05/15/21 History sucralfate [Carafate] 1 g PO QAC #60 tab 11/05/20 05/15/21 Rx fuphtw-uxaohruw-aqkwmkg 3 cap PO 6XD #300 cap MDD 12 11/11/20 05/15/21 Rx 24,000-76,000-120,000 unit capsule,delayed rel ondansetron 4 mg disintegrating 4 mg PO Q8H #90 tab 11/11/20 05/15/21 Rx tablet pantoprazole 40 mg tablet,delayed 40 mg PO DAILY #90 tab 11/11/20 05/15/21 Rx release potassium chloride 10 mEq 10 meq PO BID #180 cap 11/11/20 05/15/21 Rx capsule,extended release ergocalciferol (vitamin D2) 1,250 50,000 unit PO .twice weekly #28 01/02/21 05/15/21 Rx mcg (50,000 unit) capsule cap lancets 28 gauge #200 each 01/07/21 05/14/21 Rx blood sugar diagnostic #200 strip 01/13/21 05/14/21 Rx blood-glucose meter #1 ea 01/13/21 05/14/21 Rx lancets 33 gauge #200 ea 01/13/21 05/14/21 Rx levothyroxine 100 mcg tablet 100 mcg PO DAILY #90 tab-cap 02/20/21 05/15/21 Rx nystatin 100,000 unit/gram topical 1 applic TOPICAL BID #60 g 03/31/21 05/15/21 Rx powder Exam Const General: cooperative and no acute distress Nutritional Appearance: obese Orientation: alert and oriented x3 [facility] Head: normocephalic and atraumatic Eyes General: appearance normal, both eyes and all related structures Sclera: sclerae normal Resp Effort & Inspection: normal respiratory effort Auscultation: clear to auscultation bilaterally Cardio Rate: regular rate Rhythm: regular rhythm Heart Sounds: S1 normal and S2 normal GI Inspection: non-distended and obesity Palpation: soft and nontender Auscultation: normal bowel sounds Skin General skin exam: no rashes or lesions noted Neuro General: moves all extremities Cranial Nerves: facial strength normal Cognition: normal cognition Speech: speech normal Extrem General: no pedal edema and no calf tenderness Psych Speech and Movement: speech and movement normal Mood: congruent mood Affect: normal affect Results Labs Result diagrams: 05/15/21 15:02 05/15/21 15:02 Labs: Laboratory Results - last 24 hr 05/15/21 05/15/21 05/15/21 15:02 15:02 15:02 WBC 8.64 D RBC 4.08 Hgb 12.2 Hct 38.2 MCV 93.6 MCH 29.9 MCHC 31.9 L RDW 13.2 Plt Count 93 L MPV 10.7 Immature Gran % 0.5 Neutrophils % 81.3 Lymphocytes % 10.5 Monocytes % 7.4 Eosinophils % 0.2 Basophils % 0.1 Nucleated RBC % 0 Absolute Neutrophils 7.02 H Absolute Lymphocytes 0.91 L Absolute Monocytes 0.64 Absolute Eosinophils 0.02 Absolute Basophils 0.01 VBG Lactate 1.1 Sodium 138 Potassium 3.9 Chloride 103 Carbon Dioxide 28.0 Anion Gap 7.0 BUN 19 H Creatinine 1.1 H Estimated GFR/1.73 m2 49.39 Glucose 124 H Calcium 8.9 Total Bilirubin 0.9 AST 166 H ALT 540 H Alkaline Phosphatase 226 H Total Protein 7.3 Albumin 3.2 L Urine Color Urine Clarity Urine pH Ur Specific Harold Urine Protein Urine Ketones Urine Blood Urine Nitrite Urine Bilirubin Urine Urobilinogen Ur Leukocyte Esterase Urine RBC Urine WBC Ur Epithelial Cells Urine Crystals Urine Bacteria Urine Mucus Ur Culture Indicated? Urine Glucose COVID-19 Source SARS-CoV-2 (PCR) 05/15/21 05/15/21 17:55 18:20 WBC RBC Hgb Hct MCV MCH MCHC RDW Plt Count MPV Immature Gran % Neutrophils % Lymphocytes % Monocytes % Eosinophils % Basophils % Nucleated RBC % Absolute Neutrophils Absolute Lymphocytes Absolute Monocytes Absolute Eosinophils Absolute Basophils VBG Lactate Sodium Potassium Chloride Carbon Dioxide Anion Gap BUN Creatinine Estimated GFR/1.73 m2 Glucose Calcium Total Bilirubin AST ALT Alkaline Phosphatase Total Protein Albumin Urine Color Yellow Urine Clarity Sl Cloudy Urine pH 6.0 Ur Specific Harold 1.010 Urine Protein 30 H Urine Ketones Negative Urine Blood Large H Urine Nitrite Negative Urine Bilirubin Negative Urine Urobilinogen >=8.0 Ur Leukocyte Esterase Negative Urine RBC >50 H Urine WBC Negative Ur Epithelial Cells Few Urine Crystals Negative Urine Bacteria Negative Urine Mucus Negative Ur Culture Indicated? No Urine Glucose Negative COVID-19 Source Nasal/Nares SARS-CoV-2 (PCR) Negative Last Vital Signs Temp 37.3 C 05/15/21 18:46 Pulse 67 05/15/21 18:46 Resp 22 05/15/21 18:46 BP 133/30 L 05/15/21 18:46 Pulse Ox 98 05/15/21 18:46
[2021-05-15] MEDS: Potassium Chloride 10 MEQ CAPCR PO (20:42)
[2021-05-15] MEDS: Acetaminophen 325 MG TAB 650 MG PO (22:26)
[2021-05-16] MEDS: PIPERACILLIN/TAZO 3.375 GM in Normal Saline 50 ML IVPB ×2 (01:36→06:20)
[2021-05-16] MEDS: Levothyroxine 100 MCG TAB PO (06:23)
[2021-05-16 07:26] VITALS: BP 131/80; PULSE 56; RESP 18; TEMP 37; O2SAT 96
[2021-05-16 07:44] LABS: Abs Immature Grans 0.03 10^3/uL (0.0-0.06); Absolute Basophil Count 0.02 10^3/uL (0.0-0.2); Absolute Eosinophil Count 0.05 10^3/uL (0.0-0.7); Absolute Lymphocyte Count 0.89 10^3/uL (1.2-3.4); Absolute Monocyte Count 0.75 10^3/uL (0.1-0.8); Absolute Neutrophil Count 4.76 10^3/uL (1.2-6.7); Basophils % 0.3; Eosinophils % 0.8; HCT 35.7 % (36.0-46.0); HGB 11.4 g/dL (11.2-15.7); Immature Grans % 0.5; Lymphocytes % 13.7; MCH 30.2 pg (27.0-33.0); MCHC 31.9 % (32.0-36.0); MCV 94.7 fL (80-95); MPV 11.1 fL (8.0-11.0); Monocytes % 11.5; Neutrophils % 73.2; Nucleated RBC 0 %; Platelet Count 79 10^3/uL (130-400); RBC 3.77 10^6/uL (3.93-5.22); RDW 13.3 % (11.7-14.6); RDW-SD 46.6 fL
[2021-05-16 07:58] LABS: Diff Comment Diff Reviewed; RBC Morphology Normal
[2021-05-16 08:04] LABS: ALT 339 U/L (14-59); AST 77 U/L (15-37); Albumin 2.6 g/dL (3.4-5.0); Alkaline Phosphatase 189 U/L (46-116); Anion Gap 6.7 mmol/L (3-11); BUN 15 mg/dL (7-18); Bilirubin, Total 0.6 mg/dL (0.2-1.0); CO2 27.3 mmol/L (21.0-32.0); CREATININE 1.1 mg/dL (0.55-1.02); Calcium 8.4 mg/dL (8.5-10.1); Chloride 107 mmol/L (98-107); Estimated GFR 49.39 (mL/min/1.73m2); Glucose 120 mg/dL (74-106); Magnesium 2.2 mg/dL (1.8-2.4); Potassium 3.6 mmol/L (3.5-5.1); Sodium 141 mmol/L (136-145); Total Protein 6.2 g/dL (6.4-8.2)
[2021-05-16 08:14] LABS: Prothrombin Time 10.1 sec (9.3-11.0)
[2021-05-16] MEDS: Pantoprazole 40 MG TABCR PO (08:38)
[2021-05-16] MEDS: glipiZIDE C.R. 5 MG TABCR PO (08:39)
[2021-05-16] MEDS: Potassium Chloride 10 MEQ CAPCR PO ×2 (08:39→19:39)
[2021-05-16] MEDS: Sucralfate 1 GM TAB PO ×3 (08:39→16:21)
[2021-05-16] MEDS: Losartan 50 MG TAB 100 MG PO (08:39)
[2021-05-16] MEDS: Normal Saline Flush 10 ML SYR IVP (08:40)
--- NOTE | 2021-05-16 10:35 | INITIAL_ITS ---
- If Service Date Differs Date of service: 05/16/21 Time of Service: 10:35 Care Management Initial Assess REASON FOR HOSPITALIZATION:: Bacteremia PAST MEDICAL HISTORY/PAST SURGICAL HISTORY:: Medical History . Abdominal pain (07/12/12). Abnormal mammography (07/01/06). Adenomatous polyp of duodenum. Anemia due to blood loss, acute. Arthritis of right knee (06/07/15). Bronchiectasis. Bronchiectasis. chronic cough. Chest pain. Chronic insomnia. Chronic right shoulder pain (11/02/17). Depression. Depressive disorder. Diabetes. Diabetes mellitus with nephropathy (07/23/14). Diverticulosis large intestine w/o perforation or abscess w/o bleeding. Diverticulosis of colon without diverticulitis (05/21/09). Duodenal ulcer. Edema. Essential hypertension (05/04/13). Family history of colon cancer (01/29/15). Gastroesophageal reflux disease (10/11/12). GERD (gastroesophageal reflux disease). Gout. Gout (03/14/10). History of pelvic ultrasound. Hyperkalemia (10/20/12). Hyperlipidemia (10/11/12). Hypertension. Hypokalemia (05/09/15). Hypothyroidism. Hypothyroidism (10/11/12). Incarcerated incisional hernia. Increased body mass index. Knee pain (03/12/15). Left hip pain (12/15/16). Lipoma (07/01/05). Morbid obesity with BMI of 50.0-59.9, adult. Organic sleep apnea. Organic sleep apnea, unspecified. CPAP (NOT USING 11/17). Osteoarthritis. Pulmonary hypertension (11/08/17). Skin tag (08/03/17). Sprain of costal cartilage (10/22/16). Strain of flexor muscle of left hip (09/23/16). Vitamin D deficiency. Vitamin D deficiency (03/22/12). Surgical History . Arthroplasty of knee (02/25/16). LEFT TOTAL KNEE. Cholecystectomy. Colonoscopy - IV Sedation. Endometrial Biopsy. neg. History of bilateral ligation of fallopian tubes. History of colonoscopy (~11/05/20). History of esophagogastroduodenoscopy (EGD) (~11/05/20). Ligation of fallopian tube. PELVIC U/S. NEG. Status post cholecystectomy. Status post total knee replacement (02/25/16). Surgical procedure planned. Whipple procedure 01/01/20 PREVIOUS FUNCTIONAL STATUS/SOCIAL/FAMILY SUPPORTS:: Alejandra lives in [place] with her Francesco. She has 2 sons, Johnson and Sean who live locally and are very supportive. She also has 5 grandchildren and 12 great granddaughter. Alejandra is retired but has worked at many jobs. 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 Alejandra is independent at baseline. CURRENT FUNCTIONAL STATUS:: Alejandra was sitting up in a chair when CM met with her. She was pleasant in interaction and readily engaged with CM. Alejandra shared that she has taken care of many family members over the years and that many have of cancer, including 2 younger brothers and her mother. Her father also of cancer at age 29 and she has lost an aunt and an uncle as well. She reported that this concerns her as she also had cancer (duodenal) last year. ADVANCE DIRECTIVES:: On file. Julian Wolfe [facility] Has patient been provided with info about the portal/API?: Yes Did the patient sign up for the portal?: Yes (previously) CODE STATUS:: Full Code INSURANCE COVERAGE / FINANCIAL ISSUES:: [facility] MCR replacement. Medicaid CURRENT HOME/COMMUNITY SERVICES/EQUIPMENT:: none PRIMARY CARE PHYSICIAN:: Letty Whittington POTENTIAL DISCHARGE NEEDS:: follow up with PCP and plan of care PATIENT/FAMILY EDUCATION NEEDS:: Review of discharge instructions,medications, activity, limitations, follow up plan, Ask Me Three TRANSPORTATION:: via private vehicle with family PLAN:: Alejandra will likley be dicharged home with no new services unless she requires home IV antibiotics for her bacteremia. She will follow up with her PCP and plan of care and transport with family. CM will continue to support Alejandra and her discharge needs.
--- NOTE | 2021-05-16 10:47 | SCONE_ITS ---
Date of service: 05/16/21 Time of Service: 10:47 Assessment and Plan Assessment and plan (1) Bacteremia: Status: Acute Assessment and plan: -Do not believe it is due to cholangitis at this time -No signs or symptoms of cholangitis other than transaminitis which is improving -Keep follow up for EGD/Colonoscopy -Defer need for lymph node biopsy to surgical oncology -Continue to treat e.coli bacteremia with IV antibiotics until sensitivities result (2) Family history of colon cancer: Status: Chronic (3) History of Whipple procedure: Status: Acute (4) Transaminitis: Status: Acute History of Present Illness Narrative: 70 year old female who was referred to the hospital by her PCP after reporting malaise and fever. She had also developed a significant transaminitis and e.coli bacteremia resulting in her current admission I was asked to see the patient to evaluate her for ascending cholangitis. She underwent multiple imaging studies of her abdomen including CT scan. CTA and MRI.. 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 Although it is possible to develop cholangitis after cholecystectomy she does not have any signs or symptoms of afferent loop syndrome that would cause such. She understands the reason she needs to be in the hospital at this time but remains somewhat frustrated because she feels fine. Consults Consult date: 05/16/21 Requesting physician: Eileen Leiva Review of Systems Constitutional Constitutional: Reports fever(s), Denies headache(s), Reports lethargy, Reports malaise, Denies night sweats, Denies poor appetite and Denies weakness ENT Ears, Nose, Mouth, and Throat: Denies vertigo, Denies dizziness and Denies headache(s) Cardiovascular Cardiovascular: Denies chest pain, Denies syncope and Denies dyspnea Respiratory Respiratory: Denies dyspnea Gastrointestinal Gastrointestinal: Denies abdominal pain, Denies change in stool character, Denies early satiety, Denies dyspepsia, Denies nausea and Denies vomiting Neurologic Neurologic: Denies vertigo, Denies dizziness, Denies syncope, Denies headache(s) and Denies weakness [facility] Medical History Abdominal pain (07/12/12) Abnormal mammography (07/01/06) Adenomatous polyp of duodenum Anemia due to blood loss, acute Arthritis of right knee (06/07/15) Bronchiectasis Bronchiectasis chronic cough Chest pain Chronic insomnia Chronic right shoulder pain (11/02/17) Depression Depressive disorder Diabetes Diabetes mellitus with nephropathy (07/23/14) Diverticulosis large intestine w/o perforation or abscess w/o bleeding Diverticulosis of colon without diverticulitis (05/21/09) Duodenal ulcer Edema Essential hypertension (05/04/13) Family history of colon cancer (01/29/15) Gastroesophageal reflux disease (10/11/12) GERD (gastroesophageal reflux disease) Gout Gout (03/14/10) History of pelvic ultrasound Hyperkalemia (10/20/12) Hyperlipidemia (10/11/12) Hypertension Hypokalemia (05/09/15) Hypothyroidism Hypothyroidism (10/11/12) Incarcerated incisional hernia Increased body mass index Knee pain (03/12/15) Left hip pain (12/15/16) Lipoma (07/01/05) Morbid obesity with BMI of 50.0-59.9, adult Organic sleep apnea Organic sleep apnea, unspecified CPAP (NOT USING 11/17) Osteoarthritis Pulmonary hypertension (11/08/17) Skin tag (08/03/17) Sprain of costal cartilage (10/22/16) Strain of flexor muscle of left hip (09/23/16) Vitamin D deficiency Vitamin D deficiency (03/22/12) Surgical History Arthroplasty of knee (02/25/16) LEFT TOTAL KNEE Cholecystectomy Colonoscopy - IV Sedation Endometrial Biopsy neg History of bilateral ligation of fallopian tubes History of colonoscopy (~11/05/20) History of esophagogastroduodenoscopy (EGD) (~11/05/20) Ligation of fallopian tube PELVIC U/S NEG Status post cholecystectomy Status post total knee replacement (02/25/16) Surgical procedure planned Whipple procedure 01/01/20 Family History Mother Liver cancer Father Heart disease Stomach cancer Maternal Grandfather Cirrhosis of liver Paternal Grandfather Narcolepsy Diabetes Maternal Grandmother Diabetes Heart disease Breast cancer Paternal Grandmother Breast cancer Sister Alcohol abuse Uterine cancer Sister Cancer Brother Liver cancer Lung cancer Son Essential hypertension Son Narcolepsy Diabetes Essential hypertension Hyperlipidemia Other Family history of colon cancer Social History Smoking/Tobacco Use Status: Never Smoking risk assessment performed?: Yes Alcohol Intake: current Alcohol Intake frequency: holidays/special occasions only Alcohol type: wine Drug use: Never Substance use type: does not use Caregiver/Support person: No Household members: spouse Housing: apartment Communication Needs: None Do you need help understanding health information?: Rarely Pets and animals: No Sexually active: No Do you think of yourself as: straight/heterosexual Current gender identity: female What is your relationship status?: How often do you talk on the phone with friends or family?: three or more times per week How often do you get together with friends or relatives?: once per week How often do you attend mormonism or oriental orthodox services?: 1-3 times per year Do you belong to any clubs or organized social groups?: yes Panel score (0-1 are the most socially isolated patients): 3 What type of physical activity do you participate in: walking Duration: 15-30 minutes/day Frequency: 5-6 times per week Sejal/Buddhism: [employer] Special sejal needs: No Seatbelt use: always Helmet use: No Drive intox or ride w/intox delivery truck driver heavy: No Do you feel safe at home: Yes Do you feel safe in your relationship?: Yes Exam Const General: cooperative, healthy appearing, comfortable and no acute distress Resp Effort & Inspection: normal respiratory effort, no audible wheezes, no cough and no respiratory distress Cardio Rate: regular rate Rhythm: regular rhythm GI Palpation: soft, no guarding and nontender Percussion: normal to percussion Neuro General: patient alert, patient awake and patient oriented x3 Results Last Vital Signs Temp 98.6 F 05/16/21 07:26 Pulse 56 L 05/16/21 07:26 Resp 18 05/16/21 07:26 BP 131/80 05/16/21 07:26 Pulse Ox 96 05/16/21 07:26 Labs Result diagrams: 05/16/21 06:55 05/16/21 06:55 Labs: Laboratory Results - last 24 hr 05/15/21 05/15/21 05/15/21 15:02 15:02 15:02 WBC 8.64 D RBC 4.08 Hgb 12.2 Hct 38.2 MCV 93.6 MCH 29.9 MCHC 31.9 L RDW 13.2 Plt Count 93 L MPV 10.7 Immature Gran % 0.5 Neutrophils % 81.3 Lymphocytes % 10.5 Monocytes % 7.4 Eosinophils % 0.2 Basophils % 0.1 Nucleated RBC % 0 Absolute Neutrophils 7.02 H Absolute Lymphocytes 0.91 L Absolute Monocytes 0.64 Absolute Eosinophils 0.02 Absolute Basophils 0.01 RBC Morphology PT INR VBG Lactate 1.1 Sodium 138 Potassium 3.9 Chloride 103 Carbon Dioxide 28.0 Anion Gap 7.0 BUN 19 H Creatinine 1.1 H Estimated GFR/1.73 m2 49.39 Glucose 124 H Calcium 8.9 Magnesium Total Bilirubin 0.9 AST 166 H ALT 540 H Alkaline Phosphatase 226 H Total Protein 7.3 Albumin 3.2 L Urine Color Urine Clarity Urine pH Ur Specific Porter Urine Protein Urine Ketones Urine Blood Urine Nitrite Urine Bilirubin Urine Urobilinogen Ur Leukocyte Esterase Urine RBC Urine WBC Ur Epithelial Cells Urine Crystals Urine Bacteria Urine Mucus Ur Culture Indicated? Urine Glucose COVID-19 Source SARS-CoV-2 (PCR) 05/15/21 05/15/21 05/16/21 17:55 18:20 06:55 WBC RBC Hgb Hct MCV MCH MCHC RDW Plt Count MPV Immature Gran % Neutrophils % Lymphocytes % Monocytes % Eosinophils % Basophils % Nucleated RBC % Absolute Neutrophils Absolute Lymphocytes Absolute Monocytes Absolute Eosinophils Absolute Basophils RBC Morphology PT INR VBG Lactate Sodium 141 Potassium 3.6 Chloride 107 Carbon Dioxide 27.3 Anion Gap 6.7 BUN 15 Creatinine 1.1 H Estimated GFR/1.73 m2 49.39 Glucose 120 H Calcium 8.4 L Magnesium 2.2 Total Bilirubin 0.6 AST 77 H ALT 339 H Alkaline Phosphatase 189 H Total Protein 6.2 L Albumin 2.6 L Urine Color Yellow Urine Clarity Sl Cloudy Urine pH 6.0 Ur Specific Porter 1.010 Urine Protein 30 H Urine Ketones Negative Urine Blood Large H Urine Nitrite Negative Urine Bilirubin Negative Urine Urobilinogen >=8.0 Ur Leukocyte Esterase Negative Urine RBC >50 H Urine WBC Negative Ur Epithelial Cells Few Urine Crystals Negative Urine Bacteria Negative Urine Mucus Negative Ur Culture Indicated? No Urine Glucose Negative COVID-19 Source Nasal/Nares SARS-CoV-2 (PCR) Negative 05/16/21 05/16/21 06:55 06:55 WBC 6.50 RBC 3.77 L Hgb 11.4 Hct 35.7 L MCV 94.7 MCH 30.2 MCHC 31.9 L RDW 13.3 Plt Count 79 L MPV 11.1 H Immature Gran % 0.5 Neutrophils % 73.2 Lymphocytes % 13.7 Monocytes % 11.5 Eosinophils % 0.8 Basophils % 0.3 Nucleated RBC % 0 Absolute Neutrophils 4.76 Absolute Lymphocytes 0.89 L Absolute Monocytes 0.75 Absolute Eosinophils 0.05 Absolute Basophils 0.02 RBC Morphology Normal PT 10.1 INR 1.0 VBG Lactate Sodium Potassium Chloride Carbon Dioxide Anion Gap BUN Creatinine Estimated GFR/1.73 m2 Glucose Calcium Magnesium Total Bilirubin AST ALT Alkaline Phosphatase Total Protein Albumin Urine Color Urine Clarity Urine pH Ur Specific Porter Urine Protein Urine Ketones Urine Blood Urine Nitrite Urine Bilirubin Urine Urobilinogen Ur Leukocyte Esterase Urine RBC Urine WBC Ur Epithelial Cells Urine Crystals Urine Bacteria Urine Mucus Ur Culture Indicated? Urine Glucose COVID-19 Source SARS-CoV-2 (PCR)
--- NOTE | 2021-05-16 12:15 | DI.MRI_ITS ---
Exam(s) MR ABDOMEN WO EXAM: MR ABDOMEN WO CLINICAL HISTORY: bacteremia, LFTS, concern for cholangitis TECHNIQUE: Multiplanar multisequence MRI of the Abdomen was performed. The MRCP sequences also performed. COMPARISON: CT CT CHEST/ABD/PEL W from 09/05/[address] ABDOMEN PELVIS W from 05/14/[address] ABDOMEN PELVIS W from 05/14/[address] CHEST PE ABD PELVIS W from 05/15/[address] CHEST PE ABD PELVIS W from 05/15/2021 FINDINGS: Liver: Unremarkable. Pancreas: Somewhat atrophic mild pancreatic ductal dilatation.. Gallbladderand Bile Ducts: Status post cholecystectomy and Whipple procedure. Biliary air. Mild oz iary ductal dilatation. No specific findings for cholangitis. Adrenals: Unremarkable. Kidneys: Unremarkable. Spleen: Unremarkable. Aorta: Unremarkable. Soft Tissues: Unremarkable. Bone: Unremarkable. IMPRESSION: The area and mild biliary ductal dilatation. No findings specific for cholangitis. DATA REPOSITORY:
[2021-05-16 15:45] VITALS: BP 138/83; PULSE 58; RESP 17; TEMP 36.8; O2SAT 98
--- NOTE | 2021-05-16 18:06 | W.PM.PROGNOT ---
Date of Service Date of service: 05/16/21 Time of Service: 18:07 Assessment and Plan Assessment and plan (1) E coli bacteremia: Status: Acute Assessment and plan: On blood cultures from 05/14/21 (1 bottle/4). Continue zosyn while awaiting sensitivties and results of blood cultures from 05/15/21. MRCP reviewed: no evidence of cholangitis or choledocholithiasis. Appreciate surgical consult. I suspect she could be discharged home on oral medications once blood cultures are negative. (2) Transaminitis: Status: Acute Assessment and plan: No evidence of cholangitis per MRCP. Continue to trend LFTs, though they do not appear to represent a primary surgical issue. Hepatitis panel negative on 05/14/21. (3) Duodenal adenocarcinoma: Status: Resolved Assessment and plan: History of duodenal carcinoma. S/P Whipple procedure. Continue pancreatic enzyme replacement, pantoprazole. (4) Diabetes mellitus with nephropathy: Status: Chronic Assessment and plan: Add accuchecks AC/HS and SSI. Continue home glipizide while monitoring kidney function. (5) Hypothyroidism: Status: Chronic Assessment and plan: Continue levothyroxine (6) DVT prophylaxis: Status: Acute Assessment and plan: SCDs. Hold chemical DVT ppx due to h/o GI bleeding (7) Discharge planning issues: Status: Acute Assessment and plan: Full code Admit to inpatient status. Subjective Subjective Interval history since last seen: Ms Wolfe states that she is feeling great. She has no complaints whatsoever. Denies pain, dizziness, chest discomfort, shortness of breath, nausea, abdominal pain, dysuria. Exam Narrative Exam Narrative: General: Very pleasant Obese female, A&Ox3, sitting comfortably in a chair HEENT: EOMI, MMM Heart: RRR, no m/r/g Lungs: CTAB Abdomen: soft, nontender, nondistended Extremities: trace edema BLE's Objective Last Vital Signs Temp 36.8 C 05/16/21 15:45 Pulse 58 L 05/16/21 15:45 Resp 17 05/16/21 15:45 BP 138/83 05/16/21 15:45 Pulse Ox 98 05/16/21 15:45 Laboratory Results - last 24 hr 05/15/21 05/15/21 05/16/21 17:55 18:20 06:55 WBC RBC Hgb Hct MCV MCH MCHC RDW Plt Count MPV Immature Gran % Neutrophils % Lymphocytes % Monocytes % Eosinophils % Basophils % Nucleated RBC % Absolute Neutrophils Absolute Lymphocytes Absolute Monocytes Absolute Eosinophils Absolute Basophils RBC Morphology PT INR Sodium 141 Potassium 3.6 Chloride 107 Carbon Dioxide 27.3 Anion Gap 6.7 BUN 15 Creatinine 1.1 H Estimated GFR/1.73 m2 49.39 Glucose 120 H Calcium 8.4 L Magnesium 2.2 Total Bilirubin 0.6 AST 77 H ALT 339 H Alkaline Phosphatase 189 H Total Protein 6.2 L Albumin 2.6 L Urine RBC >50 H Urine WBC Negative Ur Epithelial Cells Few Urine Crystals Negative Urine Bacteria Negative Urine Mucus Negative Ur Culture Indicated? No COVID-19 Source Nasal/Nares SARS-CoV-2 (PCR) Negative 05/16/21 05/16/21 06:55 06:55 WBC 6.50 RBC 3.77 L Hgb 11.4 Hct 35.7 L MCV 94.7 MCH 30.2 MCHC 31.9 L RDW 13.3 Plt Count 79 L MPV 11.1 H Immature Gran % 0.5 Neutrophils % 73.2 Lymphocytes % 13.7 Monocytes % 11.5 Eosinophils % 0.8 Basophils % 0.3 Nucleated RBC % 0 Absolute Neutrophils 4.76 Absolute Lymphocytes 0.89 L Absolute Monocytes 0.75 Absolute Eosinophils 0.05 Absolute Basophils 0.02 RBC Morphology Normal PT 10.1 INR 1.0 Sodium Potassium Chloride Carbon Dioxide Anion Gap BUN Creatinine Estimated GFR/1.73 m2 Glucose Calcium Magnesium Total Bilirubin AST ALT Alkaline Phosphatase Total Protein Albumin Urine RBC Urine WBC Ur Epithelial Cells Urine Crystals Urine Bacteria Urine Mucus Ur Culture Indicated? COVID-19 Source SARS-CoV-2 (PCR)
[2021-05-16] MEDS: Insulin Aspart 300 UNITS/3 ML PEN SC (21:35)
[2021-05-16 23:23] VITALS: BP 134/83; PULSE 58; RESP 18; TEMP 36.5; O2SAT 98
[2021-05-17] MEDS: Normal Saline Flush 10 ML SYR IVP (06:44)
[2021-05-17] MEDS: Levothyroxine 100 MCG TAB PO (06:44)
[2021-05-17 07:05] LABS: Anion Gap 9.6 mmol/L (3-11); BUN 16 mg/dL (7-18); CO2 25.4 mmol/L (21.0-32.0); CREATININE 1.1 mg/dL (0.55-1.02); Calcium 8.9 mg/dL (8.5-10.1); Chloride 106 mmol/L (98-107); Estimated GFR 49.39 (mL/min/1.73m2); Glucose 124 mg/dL (74-106); Magnesium 2.3 mg/dL (1.8-2.4); Potassium 4.1 mmol/L (3.5-5.1); Sodium 141 mmol/L (136-145)
[2021-05-17 07:06] LABS: Abs Immature Grans 0.07 10^3/uL (0.0-0.06); Absolute Basophil Count 0.01 10^3/uL (0.0-0.2); Absolute Eosinophil Count 0.11 10^3/uL (0.0-0.7); Absolute Lymphocyte Count 1.48 10^3/uL (1.2-3.4); Absolute Monocyte Count 0.78 10^3/uL (0.1-0.8); Absolute Neutrophil Count 3.23 10^3/uL (1.2-6.7); Basophils % 0.2; Eosinophils % 1.9; HGB 11.3 g/dL (11.2-15.7); Immature Grans % 1.2; Lymphocytes % 26.1; MCH 30.6 pg (27.0-33.0); MCHC 33.2 % (32.0-36.0); MCV 92.1 fL (80-95); MPV 11.4 fL (8.0-11.0); Monocytes % 13.7; Neutrophils % 56.9; Nucleated RBC 0 %; RBC 3.69 10^6/uL (3.93-5.22); RDW 13.2 % (11.7-14.6); WBC 5.68 10^3/uL (4.4-10.8)
[2021-05-17 07:11] LABS: ALT 224 U/L (14-59); AST 36 U/L (15-37); Albumin 2.6 g/dL (3.4-5.0); Alkaline Phosphatase 179 U/L (46-116); Bilirubin, Direct 0.1 mg/dL (0.0-0.2); Bilirubin, Total 0.4 mg/dL (0.2-1.0); Total Protein 6.3 g/dL (6.4-8.2)
[2021-05-17 07:28] LABS: Diff Comment Diff Reviewed; Platelet Count 92 10^3/uL (130-400); RBC Morphology Normal
[2021-05-17] MEDS: Insulin Aspart 300 UNITS/3 ML PEN SC (07:46)
[2021-05-17] MEDS: glipiZIDE C.R. 5 MG TABCR PO (07:47)
[2021-05-17] MEDS: Potassium Chloride 10 MEQ CAPCR PO (07:47)
[2021-05-17] MEDS: Sucralfate 1 GM TAB PO ×2 (07:47→11:56)
[2021-05-17] MEDS: Pantoprazole 40 MG TABCR PO (07:47)
[2021-05-17] MEDS: Losartan 50 MG TAB 100 MG PO (07:47)
[2021-05-17 07:52] VITALS: BP 140/82; PULSE 52; RESP 17; TEMP 36.2; O2SAT 96
--- NOTE | 2021-05-17 11:34 | DSE_ITS ---
Date of service: 05/17/21 Time of Service: 11:34 DS: Diagnosis Discharge Diagnosis (1) E coli bacteremia: Status: Acute (2) Transaminitis: Status: Acute (3) Duodenal adenocarcinoma: Status: Resolved (4) Diabetes mellitus with nephropathy: Status: Chronic (5) Hypothyroidism: Status: Chronic (6) DVT prophylaxis: Status: Acute (7) Discharge planning issues: Status: Acute Discharge Plan Disposition Patient Disposition: HOME Condition: Good Discharge Details Reason For Visit: Bactremia, Transaminitis Admit Date/Time: 05/15/21 17:59 Admit Provider: Sean Maharaj Attending Provider: Sean Maharaj Primary Care Provider: Letty Whittington [facility] Course Hospital Course: This is a 70 yo female with a PMH of 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 She presented to the ED after blood cultures obtained the prior day at her PCP office grew gram neg bacteremia. She went to her PCP the prior day d/t feeling fatigued; found to have a fever. CXR was negative. Covid testing negative. She then presented later to the ED (yesterday evening). W/U showed elevated WBC count and LFTs. Normal bilirubin. D/C'd to home with plan to f/u with her [facility] GI physician. She again, describes fatigue and also a mild GARCIA. No cough/congestion, abd pain/n/v/diarrhea, dysuria/frequency/flank pain. No SOA/palpitations. She did endorse a brief episode of CP the day prior to this admission. Troponin neg and EKG reassuring. Admitted for treatment of gram neg bacteremia with Zosyn while waiting for final culture and sensitivity results. She remained stable throughout this stay with a Tmax of 39.2 on 05/14, then 38.3 on 05/15 and afebrile thereafter. General surgery consulted in event the bacteremia was d/t cholangitis. There was no specific source of the bacteremia found. She will d/c to home on Augmentin 875mg BID for 10 days. F/U with PCP in 1-2 weeks. Home Meds and New Rx's Prescriptions: New amoxicillin-pot clavulanate 875-125 mg tablet 1 tab PO BID Qty: 20 RF: 0 Continued ondansetron 4 mg tablet,disintegrating 4 mg PO Q8H Qty: 90 RF: 7 Creon 24,000-76,000 -120,000 unit capsule,delayed release(DR/EC) 3 cap PO 6XD MDD 12 Qty: 300 RF: 6 pantoprazole [Protonix] 40 mg tablet,delayed release (DR/EC) 40 mg PO DAILY Qty: 90 RF: 5 potassium chloride 10 mEq capsule, extended release 10 meq PO BID Qty: 180 RF: 4 levothyroxine 100 mcg tablet 100 mcg PO DAILY Qty: 90 RF: 12 losartan 100 mg tablet 100 mg PO DAILY Qty: 90 RF: 12 glipizide 5 mg tablet extended release 24hr 5 mg PO DAILY Qty: 90 RF: 12 ergocalciferol (vitamin D2) 1,250 mcg (50,000 unit) capsule 50,000 unit PO .twice weekly Qty: 28 RF: 5 nystatin 100,000 unit/gram powder 1 applic topical BID Qty: 60 RF: 4 sennosides [senna] 8.6 mg Tablet 8.6 mg PO BID PRNRF: 0 sucralfate [Carafate] 1 gram tablet 1 g PO QAC Qty: 60 RF: 12 No Action (DME) lancets 28 gauge misc 1 ea Miscellaneous DAILY Qty: 200 RF: 12 (DME) blood-glucose meter Misc 1 ea Miscellaneous AC Qty: 1 RF: 0 (DME) FreeStyle Lite Strips Strip 1 ea Miscellaneous DAILY Qty: 200 RF: 12 (DME) lancets [OneTouch Delica Lancets] 33 gauge misc See Rx Instructions .ROUTE DAILY Qty: 200 RF: 5 Discharge Instructions Instructions: Bacteremia (DC) Stand Alone Forms: Nursing Discharge Form Referrals: Letty Whittington [place], [place] [Primary Care Provider] - (Please call on Wednesday to make a follow up appointment) Activity:: Activity as Tolerated Equipment/Supplies:: No Equipment Needed Diet:: Carb Counting Discharge Orders Discharge Orders: Discharge Order (Routine); Ordered 05/17/21 Ordered By: Sean Maharaj Discharge Data Discharge Date/Time-TO BE ENTERED AT DEPARTURE: 05/17/21 13:26 DS: Summary Time Spent with Patient providing and/or coordinating discharge services: Greater than 30 minutes Status at Discharge Functional status at discharge: independent ambulation Overall status at discharge: patient is back to baseline Mental Status: mental status grossly normal Speech and Movement: speech and movement normal Mood: congruent mood Affect: normal affect Exam Const General: cooperative and no acute distress Nutritional Appearance: obese Orientation: alert and oriented x3 HENMT Head: normocephalic and atraumatic Eyes General: appearance normal, both eyes and all related structures Sclera: sclerae normal Resp Effort & Inspection: normal respiratory effort Auscultation: clear to auscultation bilaterally Cardio Rate: regular rate Rhythm: regular rhythm Heart Sounds: S1 normal and S2 normal GI Inspection: non-distended and obesity Palpation: soft and nontender Auscultation: normal bowel sounds Skin General skin exam: no rashes or lesions noted Neuro General: moves all extremities Cranial Nerves: facial strength normal Cognition: normal cognition Speech: speech normal Extrem General: no pedal edema and no calf tenderness Psych Mental Status: mental status grossly normal Speech and Movement: speech and movement normal Mood: congruent mood Affect: normal affect DS: Data Vitals/I&O Vitals and I&O: Vital Signs Temperature 36.2 C L 05/17/21 07:52 Temperature Source Tympanic 05/17/21 07:52 Pulse 52 L 05/17/21 07:52 Pulse Rhythm Regular 05/17/21 09:57 Pulse 68 05/15/21 18:46 Respiratory Rate 17 05/17/21 07:52 Respiratory Effort Non-Labored 05/17/21 09:57 Respiratory Depth Normal 05/17/21 09:57 Respiratory Pattern Normal 05/17/21 09:57 Blood Pressure 140/82 05/17/21 07:52 Blood Pressure Mean 58 05/15/21 18:46 Blood Pressure Position Supine 05/15/21 14:34 Pulse Oximetry 96 05/17/21 07:52 Oxygen Delivery Method Room Air 05/17/21 07:52 Oxygen Flow Rate 0 05/17/21 07:52 Pain Level 0 05/17/21 07:52 Comment 05/15/21 19:20 Intake & Output 05/16/21 05/16/21 05/17/21 11:59 23:59 11:59 Intake Total 50 / 950 900 / 950 60 / 60 Output Total 1000 / 1700 700 / 1700 500 / 500 Balance -950 / -750 200 / -750 -440 / -440 Weight 105.5 kg 105.823 kg Intake: IV 50 / 150 100 / 150 60 / 60 Oral 800 / 800 Output: Urine 1000 / 1700 700 / 1700 500 / 500 Other: Urine Color Light Prabha Light Prabha Yellow Urine Appearance Clear Cloudy Clear Urine Odor Normal None Normal Stool Size Small Small Stool Characteristics Formed Soft Formed Voiding Methods Toilet Toilet Toilet Data Completed and Pending Labs on day of discharge: Labs from last 24 hours 05/17/21 05/17/21 05/17/21 06:41 06:41 06:41 WBC 5.68 RBC 3.69 L Hgb 11.3 Hct 34.0 L MCV 92.1 MCH 30.6 MCHC 33.2 RDW 13.2 Plt Count 92 L MPV 11.4 H Immature Gran % 1.2 Neutrophils % 56.9 Lymphocytes % 26.1 Monocytes % 13.7 Eosinophils % 1.9 Basophils % 0.2 Nucleated RBC % 0 Absolute Neutrophils 3.23 Absolute Lymphocytes 1.48 Absolute Monocytes 0.78 Absolute Eosinophils 0.11 Absolute Basophils 0.01 RBC Morphology Normal Sodium 141 Potassium 4.1 Chloride 106 Carbon Dioxide 25.4 Anion Gap 9.6 BUN 16 Creatinine 1.1 H Estimated GFR/1.73 m2 49.39 Glucose 124 H Calcium 8.9 Magnesium 2.3 Total Bilirubin 0.4 Conjugated Bilirubin 0.1 AST 36 ALT 224 H Alkaline Phosphatase 179 H Total Protein 6.3 L Albumin 2.6 L Preliminary micro results at discharge 05/15/21 15:25 Blood Culture - Preliminary Blood NO GROWTH 24 HOURS 05/15/21 15:02 Blood Culture - Preliminary Blood NO GROWTH 24 HOURS [facility] Medical History Abdominal pain (07/12/12) Abnormal mammography (07/01/06) Adenomatous polyp of duodenum Anemia due to blood loss, acute Arthritis of right knee (06/07/15) Bronchiectasis Bronchiectasis chronic cough Chest pain Chronic insomnia Chronic right shoulder pain (11/02/17) Depression Depressive disorder Diabetes Diabetes mellitus with nephropathy (07/23/14) Diverticulosis large intestine w/o perforation or abscess w/o bleeding Diverticulosis of colon without diverticulitis (05/21/09) Duodenal ulcer Edema Essential hypertension (05/04/13) Family history of colon cancer (01/29/15) Gastroesophageal reflux disease (10/11/12) GERD (gastroesophageal reflux disease) Gout Gout (03/14/10) History of pelvic ultrasound Hyperkalemia (10/20/12) Hyperlipidemia (10/11/12) Hypertension Hypokalemia (05/09/15) Hypothyroidism Hypothyroidism (10/11/12) Incarcerated incisional hernia Increased body mass index Knee pain (03/12/15) Left hip pain (12/15/16) Lipoma (07/01/05) Morbid obesity with BMI of 50.0-59.9, adult Organic sleep apnea Organic sleep apnea, unspecified CPAP (NOT USING 11/17) Osteoarthritis Pulmonary hypertension (11/08/17) Skin tag (08/03/17) Sprain of costal cartilage (10/22/16) Strain of flexor muscle of left hip (09/23/16) Vitamin D deficiency Vitamin D deficiency (03/22/12) Surgical History Arthroplasty of knee (02/25/16) LEFT TOTAL KNEE Cholecystectomy Colonoscopy - IV Sedation Endometrial Biopsy neg History of bilateral ligation of fallopian tubes History of colonoscopy (~11/05/20) History of esophagogastroduodenoscopy (EGD) (~11/05/20) Ligation of fallopian tube PELVIC U/S NEG Status post cholecystectomy Status post total knee replacement (02/25/16) Surgical procedure planned Whipple procedure 01/01/20 Family History Mother Liver cancer Father Heart disease Stomach cancer Maternal Grandfather Cirrhosis of liver Paternal Grandfather Narcolepsy Diabetes Maternal Grandmother Diabetes Heart disease Breast cancer Paternal Grandmother Breast cancer Sister Alcohol abuse Uterine cancer Sister Cancer Brother Liver cancer Lung cancer Son Essential hypertension Son Narcolepsy Diabetes Essential hypertension Hyperlipidemia Other Family history of colon cancer Social History Smoking/Tobacco Use Status: Never Smoking risk assessment performed?: Yes Alcohol Intake: current Alcohol Intake frequency: holidays/special occasions only Alcohol type: wine Drug use: Never Substance use type: does not use Caregiver/Support person: No Household members: spouse Housing: apartment Communication Needs: None Do you need help understanding health information?: Rarely Pets and animals: No Sexually active: No Do you think of yourself as: straight/heterosexual Current gender identity: female What is your relationship status?: How often do you talk on the phone with friends or family?: three or more times per week How often do you get together with friends or relatives?: once per week How often do you attend sikh or spiritism services?: 1-3 times per year Do you belong to any clubs or organized social groups?: yes Panel score (0-1 are the most socially isolated patients): 3 What type of physical activity do you participate in: walking Duration: 15-30 minutes/day Frequency: 5-6 times per week Sejal/Hinduism: Christian Special sejal needs: No Seatbelt use: always Helmet use: No Drive intox or ride w/intox 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
--- NOTE | 2021-05-17 14:07 | PDOC.CMDIS ---
- If Service Date Differs Date of service: 05/17/21 Time of Service: 14:07 LACE Index Scoring Tool - Questions: Length of Stay (in days): 2 Acuity (Admit via E.D.?): Yes Comorbidities: Diabetes w/o Complication E.D. Visits: 2 - Answers: Total Score: 8 Risk of Readmission: Low Risk Care Management Discharge Reason for Hospitalization: Bacteremia Discharge Plan: Alejandra will return home with no new services at this time. Her drove her home via private vehicle. She will follow up with her PCP and discharge plan of care. Patient/Family Education Needs: Review discharge instructions regarding activity levels and medications, discussion of self care needs including ask me three.
== END 2021-05-17 13:26 | disposition home or self-care (01) ==
LOC: ER 14:41 → MS 19:05
PROVIDERS: Internal Medicine; Admitting Provider Family Medicine; Emergency Provider Physician Assistant; PCP Family Medicine; Visit Provider Family Medicine
DX: R78.81 Bacteremia (principal); R74.01 Elevation of levels of liver transaminase levels; E11.21 Type 2 diabetes mellitus with diabetic nephropathy; Z80.0 Family history of malignant neoplasm of digestive organs; E03.9 Hypothyroidism, unspecified; Z79.899 Other long term (current) drug therapy; Z79.84 Long term (current) use of oral hypoglycemic drugs; I10 Essential (primary) hypertension; E78.5 Hyperlipidemia, unspecified; M10.9 Gout, unspecified; Z68.41 Body mass index [BMI] 40.0-44.9, adult; Z20.822 Contact with and (suspected) exposure to COVID-19; J47.9 Bronchiectasis, uncomplicated; F32.A Depression, unspecified; K57.30 Diverticulosis of large intestine without perforation or abscess without bleeding; K21.9 Gastro-esophageal reflux disease without esophagitis; E66.01 Morbid (severe) obesity due to excess calories; I27.20 Pulmonary hypertension, unspecified; G47.39 Other sleep apnea; E55.9 Vitamin D deficiency, unspecified; Z85.068 Personal history of other malignant neoplasm of small intestine; B96.20 Unspecified Escherichia coli [E. coli] as the cause of diseases classified elsewhere
CPT/HCPCS: 36415; 71275; 74177; 80048; 80053; 80076; 87040; 87635; 90662; 96361; 96365; 99212; 99285; 74181; 81003; 81015; 83605; 83735; 85025; 85610; 99220; 99233; 99239; G0378; J2543; J3490

== ENCOUNTER 2021-05-27 01:41 | Outpatient (CLI) | payer MEDICARE, MEDICAID, SELFPAY ==
[2021-05-27 12:33] LABS: HCT 40.4 % (36.0-46.0); HGB 12.9 g/dL (11.2-15.7); MCH 30.2 pg (27.0-33.0); MCHC 31.9 % (32.0-36.0); MCV 94.6 fL (80-95); MPV 11.3 fL (8.0-11.0); Platelet Count 169 10^3/uL (130-400); RBC 4.27 10^6/uL (3.93-5.22); RDW 13.2 % (11.7-14.6); WBC 7.62 10^3/uL (4.4-10.8)
[2021-05-27 12:50] LABS: TSH (W/Ref FT4) 5.07 uIU/mL (0.36-3.74); Uric Acid 4.7 mg/dL (2.6-6.0)
[2021-05-27 12:59] LABS: ALT 40 U/L (14-59); AST 18 U/L (15-37); Albumin 3.6 g/dL (3.4-5.0); Alkaline Phosphatase 106 U/L (46-116); Anion Gap 8.3 mmol/L (3-11); BUN 24 mg/dL (7-18); Bilirubin, Total 0.3 mg/dL (0.2-1.0); CO2 28.7 mmol/L (21.0-32.0); Calcium 9.2 mg/dL (8.5-10.1); Chloride 104 mmol/L (98-107); Estimated GFR 55.14 (mL/min/1.73m2); Glucose 103 mg/dL (74-106); Potassium 4.3 mmol/L (3.5-5.1); Sodium 141 mmol/L (136-145); TSH (W/Ref FT4) 4.98 uIU/mL (0.36-3.74); Total Protein 6.9 g/dL (6.4-8.2)
[2021-05-27 13:04] LABS: Hemoglobin A1C 6.3 % (<5.7)
[2021-05-27 13:12] LABS: FREE T4 0.85 ng/dL (0.76-1.46)
[2021-05-27 13:21] LABS: Bilirubin Negative (Negative); Blood Moderate (Negative); Clarity Clear (Clear); Glucose Negative (Negative); Ketones Negative (Negative); Leukocyte Esterase Negative (Negative); Nitrite Negative (Negative); Specific Gravity >= 1.030 (1.005-1.025); Urobilinogen 0.2 EU/dL (Up TO 0.2); pH 5.5 (5-8)
[2021-05-27 13:32] LABS: COMMENT (LAB VIEW ONLY) 79.05 mg/dL; Microalb ug/mg Crea 20.7 ug/mg Cr
[2021-05-27 13:47] LABS: Bacteria Moderate HPF (Negative); C & S Indicated? C&S Done As Ordered; Casts Negative LPF (Negative); Crystals Negative HPF (Negative); Epithelial Cells Many HPF (Negative); Mucus Negative (Negative); RBC 20-50 HPF (0-2)
[2021-05-27 15:14] LABS: FREE T4 0.85 ng/dL (0.76-1.46)
== END 2021-05-27 01:42 | disposition home or self-care (01) ==
LOC: LOS 01:41
PROVIDERS: PCP Family Medicine; Visit Provider Family Medicine
DX: E11.9 Type 2 diabetes mellitus without complications (principal); I10 Essential (primary) hypertension; R78.81 Bacteremia; M10.9 Gout, unspecified; E03.9 Hypothyroidism, unspecified; R74.01 Elevation of levels of liver transaminase levels; E55.9 Vitamin D deficiency, unspecified; N19 Unspecified kidney failure; E87.6 Hypokalemia; I27.20 Pulmonary hypertension, unspecified
CPT/HCPCS: 36415; 80053; 85027; 81003; 81015; 82043; 82570; 83036; 84439; 84443; 84550; 87086

== ENCOUNTER 2021-08-04 00:57 | Outpatient (CLI) | payer MEDICARE, MEDICAID, SELFPAY ==
[2021-08-04 08:48] LABS: Abs Immature Grans 0.08 10^3/uL (0.0-0.06); Absolute Basophil Count 0.03 10^3/uL (0.0-0.2); Absolute Lymphocyte Count 2.41 10^3/uL (1.2-3.4); Absolute Monocyte Count 0.62 10^3/uL (0.1-0.8); Basophils % 0.4; Eosinophils % 1.2; HCT 42.7 % (36.0-46.0); HGB 13.7 g/dL (11.2-15.7); MCH 30.5 pg (27.0-33.0); MCHC 32.1 % (32.0-36.0); MCV 95.1 fL (80-95); MPV 10.7 fL (8.0-11.0); Monocytes % 7.7; Neutrophils % 59.7; Nucleated RBC 0 %; Platelet Count 157 10^3/uL (130-400); RBC 4.49 10^6/uL (3.93-5.22); RDW 13.3 % (11.7-14.6); RDW-SD 46.5 fL; WBC 8.04 10^3/uL (4.4-10.8)
[2021-08-04 09:02] LABS: ALT 21 U/L (14-59); AST 12 U/L (15-37); Albumin 3.9 g/dL (3.4-5.0); Alkaline Phosphatase 76 U/L (46-116); Anion Gap 6.4 mmol/L (3-11); BUN 31 mg/dL (7-18); Bilirubin, Total 0.4 mg/dL (0.2-1.0); CO2 29.6 mmol/L (21.0-32.0); CREATININE 1.2 mg/dL (0.55-1.02); Chloride 103 mmol/L (98-107); Estimated GFR 44.54 (mL/min/1.73m2); Glucose 136 mg/dL (74-106); Potassium 4.2 mmol/L (3.5-5.1); Sodium 139 mmol/L (136-145); Total Protein 7.9 g/dL (6.4-8.2)
[2021-08-04] MEDS: Breeza Beverage 473 ML BTL PO (10:10)
[2021-08-04] MEDS: Omnipaque 350 MG/ML 50 ML BTL IJ (10:12)
[2021-08-04] MEDS: Omnipaque 350 MG/ML 100 ML BTL IJ (10:23)
--- NOTE | 2021-08-04 10:23 | DI.CT_ITS ---
Exam(s) CT ABDOMEN PELVIS W EXAM: CT ABDOMEN PELVIS W CLINICAL HISTORY: H/O DUODENAL CA WITH WHIPPLE PROCEDURE. TECHNIQUE: Imaging Protocol: Axial computed tomography images with coronal and sagittal reformatted images were created and reviewed CONTRAST MATERIAL: Intravenous: Omnipaque 350 Contrast volume:100 ml Oral: no COMPARISON: CT CT CHEST PE ABD PELVIS W from 05/15/2021 FINDINGS: ABDOMEN: Lung Bases: Normal where visualized. Liver: Normal density. No measurable mass. Gallbladder and biliary tract: Status post cholecystectomy. mild biliary air appears decreased when compared with previous exam.. No radiodense calculus or dilation. Pancreas: Status post Whipple procedure. Surgical clips in the region of the head of the pancreas. No recurrence mass. No adenopathy. Atrophic body and tail., No abnormal calcifications or inflammat ory process. Spleen: Normal. Kidneys: Normal size, contour and axis. No radiodense stones or obstructive uropathy. No masses seen. Adrenal glands: No masses seen. Abdominal Aorta: Abdominal portion non-dilated. Atherosclerotic changes. Stomach and bowel: Status post Whipple procedure. No visible recurrence mass. No abnormal distensio n. PELVIS: Bladder: No gross wall thickening. No calculi.No focal mass. Bowel: Large quantity of stool in descending colon through rectum. No obstruction or bowel wall thic kening. Appendix normal. Peritoneal cavity: No ascites, collection or mesenteric inflammatory response. Bones: L5 spondylolysis and mild L5-S1 spondylolisthesis. Degenerative disc changes at L5-S1. Reproductive organs: Within normal limits. Lymph nodes: Unremarkable. Impression: Status post Whipple procedure. No evidence of adenopathy, metastatic disease or recurrence mass. RADIATION DOSE DELIVERED: 1,914.02mGy.cm Total DLP DATA REPOSITORY: All CT scans at this facility are submitted to the National Radiology Data Registry (NRDR) Dose Index Registry (DIR) with the [employer] (ACR). RADIATION OPTIMIZATION: All CT scans at this facility use at least one of these dose optimization te chniques: automated exposure control; mA and/or kV adjustment per patient size (includes targeted exa ms where dose is matched to clinical indication); or iterative reconstruction.
[2021-08-04 12:00] LABS: Hemoglobin A1C 6.3 % (<5.7)
[2021-08-04 18:34] LABS: CEA 1.5 ng/mL (See Note)
== END 2021-08-04 01:17 ==
PROVIDERS: Family Medicine; PCP Family Medicine; Visit Provider Internal Medicine Hematology & Oncology
DX: C17.0 Malignant neoplasm of duodenum (principal); E03.9 Hypothyroidism, unspecified; E11.21 Type 2 diabetes mellitus with diabetic nephropathy; R74.01 Elevation of levels of liver transaminase levels; Z90.49 Acquired absence of other specified parts of digestive tract
CPT/HCPCS: 80053; 74177; 82378; 83036; 85025; J3490; Q9967

== ENCOUNTER 2021-11-06 02:06 | Outpatient (CLI) | payer MEDICARE, MEDICAID, SELFPAY ==
[2021-11-06 13:32] LABS: Abs Immature Grans 0.08 10^3/uL (0.0-0.06); Absolute Basophil Count 0.02 10^3/uL (0.0-0.2); Absolute Eosinophil Count 0.08 10^3/uL (0.0-0.7); Absolute Lymphocyte Count 1.98 10^3/uL (1.2-3.4); Absolute Monocyte Count 0.59 10^3/uL (0.1-0.8); Absolute Neutrophil Count 5.33 10^3/uL (1.2-6.7); Basophils % 0.2; HCT 41.5 % (36.0-46.0); HGB 13.4 g/dL (11.2-15.7); Lymphocytes % 24.5; MCH 30.3 pg (27.0-33.0); MCHC 32.3 % (32.0-36.0); MCV 93.9 fL (80-95); Monocytes % 7.3; Nucleated RBC 0 %; Platelet Count 147 10^3/uL (130-400); RBC 4.42 10^6/uL (3.93-5.22); RDW 12.8 % (11.7-14.6); RDW-SD 43.8 fL; WBC 8.08 10^3/uL (4.4-10.8)
[2021-11-06 14:08] LABS: ALT 48 U/L (14-59); AST 26 U/L (15-37); Alkaline Phosphatase 82 U/L (46-116); Anion Gap 6.8 mmol/L (3-11); BUN 23 mg/dL (7-18); Bilirubin, Total 0.4 mg/dL (0.2-1.0); CO2 28.2 mmol/L (21.0-32.0); Calcium 9.2 mg/dL (8.5-10.1); Chloride 105 mmol/L (98-107); Estimated GFR 54.97 (mL/min/1.73m2); Glucose 129 mg/dL (74-106); Potassium 4.4 mmol/L (3.5-5.1); Sodium 140 mmol/L (136-145)
[2021-11-06 22:41] LABS: CEA 1.9 ng/mL (See Note)
== END 2021-11-06 02:07 | disposition home or self-care (01) ==
LOC: LBO 02:06
PROVIDERS: PCP Family Medicine; Visit Provider Internal Medicine Hematology & Oncology
DX: C17.0 Malignant neoplasm of duodenum (principal)
CPT/HCPCS: 36415; 80053; 82378; 85025

== ENCOUNTER → 2021-11-27 10:52 | Outpatient (BNVA) | payer MEDICARE, MEDICAID, SELFPAY | PROVIDERS: PCP Family Medicine; Referring Provider Family Medicine; Visit Provider Surgery | DX: C17.0 Malignant neoplasm of duodenum (principal); K29.70 Gastritis, unspecified, without bleeding; K57.30 Diverticulosis of large intestine without perforation or abscess without bleeding; K21.9 Gastro-esophageal reflux disease without esophagitis; K59.09 Other constipation; I10 Essential (primary) hypertension; D36.9 Benign neoplasm, unspecified site; Z90.410 Acquired total absence of pancreas; Z90.49 Acquired absence of other specified parts of digestive tract | CPT/HCPCS: 99214; 99243 ==

== ENCOUNTER 2021-12-22 11:45 | Outpatient (CLI) | payer MEDICARE, MEDICAID, SELFPAY ==
[2021-12-22 14:31] LABS: CREATININE 1.1 mg/dL (0.55-1.02); Estimated GFR 49.25 (mL/min/1.73m2)
== END 2021-12-22 11:46 | disposition home or self-care (01) ==
LOC: LBO 11:48
PROVIDERS: PCP Family Medicine; Visit Provider Physician Assistant
DX: U07.1 COVID-19 (principal)
CPT/HCPCS: 36415; 82565

== ENCOUNTER → 2022-02-24 03:01 | Outpatient (CLI) | payer MEDICARE, MEDICAID, SELFPAY ==
[2022-02-24 08:59] LABS: Abs Immature Grans 0.04 10^3/uL (0.0-0.06); Absolute Basophil Count 0.02 10^3/uL (0.0-0.2); Absolute Lymphocyte Count 2.06 10^3/uL (1.2-3.4); Absolute Monocyte Count 0.57 10^3/uL (0.1-0.8); Absolute Neutrophil Count 3.36 10^3/uL (1.2-6.7); Basophils % 0.3; Eosinophils % 1.6; HCT 39.3 % (36.0-46.0); HGB 12.9 g/dL (11.2-15.7); Immature Grans % 0.7; Lymphocytes % 33.5; MCH 31.2 pg (27.0-33.0); MCHC 32.8 % (32.0-36.0); MCV 95 fL (80-95); MPV 11.3 fL (8.0-11.0); Monocytes % 9.3; Neutrophils % 54.6; Platelet Count 110 10^3/uL (130-400); RBC 4.13 10^6/uL (3.93-5.22); RDW-SD 45.1 fL; WBC 6.15 10^3/uL (4.4-10.8)
[2022-02-24 09:11] LABS: ALT 50 U/L (14-59); AST 27 U/L (15-37); Albumin 3.5 g/dL (3.4-5.0); Alkaline Phosphatase 73 U/L (46-116); Anion Gap 9.1 mmol/L (3-11); BUN 19 mg/dL (7-18); Bilirubin, Total 0.4 mg/dL (0.2-1.0); CO2 24.9 mmol/L (21.0-32.0); CREATININE 0.9 mg/dL (0.55-1.02); Calcium 8.2 mg/dL (8.5-10.1); Chloride 107 mmol/L (98-107); Glucose 135 mg/dL (74-106); Sodium 141 mmol/L (136-145); Total Protein 6.9 g/dL (6.4-8.2)
[2022-02-24 09:23] LABS: Hemoglobin A1C 6.8 % (<5.7)
--- NOTE | 2022-02-24 10:00 | DI.CT_ITS ---
Exam(s) CT CHEST/ABD/PEL W EXAM: CT CHEST/ABD/PEL W CLINICAL HISTORY: DUODENAL ADENOCARCINOMA, C17.0, S/P WHIPPLE, RESTAGING TECHNIQUE: Imaging Protocol: Axial computed tomography images with coronal and sagittal reformatted images were created and reviewed CONTRAST MATERIAL: Intravenous: Omnipaque 350 contrast volume:100 mL Oral: Yes COMPARISON: CT CT CHEST/ABD/PEL W from 05/06/[address] CHEST PE ABD PELVIS W from 05/15/[address] ABDOMEN PELVIS W from 08/04/2021 FINDINGS: CHEST: Tracheobronchial tree: Patent where visualized. Pulmonary parenchyma: No consolidation or dominant measurable mass. No architectural distortion. Visualized thyroid gland: Unremarkable. Mediastinum and Patricia: No dominant adenopathy or fluid collection. The esophagus is unremarkable. Pleura: No effusion or pneumothorax. Heart: The heart is not dilated. Coronary artery calcifications are present. No pericardial effusion . Pulmonary arteries: No pulmonary emboli are identified. Aorta: Thoracic aorta non-dilated. Atherosclerosis is present. Lymph nodes: Within normal limits. Soft tissues: Unremarkable. Bones:Within normal limits for the patient's age. No aggressive osseous lesions are identified. ABDOMEN: Liver: Normal density. No measurable mass. Portal, Superior Mesenteric, and Splenic Veins: Unremarkable. Gallbladder and Biliary Tract: Status post cholecystectomy. No biliary ductal dilatation. Pancreas: Status post Whipple's. There is atrophy of the distal body and tail of the pancreas. No p ancreatic mass is identified. Spleen: Normal. Adrenals: No masses seen. Kidneys: Normal size, contour and axis. No radiodense stones or obstructive uropathy. No masses seen. Abdominal Aorta: Abdominal portion non-dilated. Atherosclerosis is present. Bowel: No obstruction or bowel wall thickening. There is a normal retrocecal appendix. Peritoneal Cavity: No ascites, collection or mesenteric inflammatory response. No free air. Lymph Nodes: Within normal limits. Bones: Within normal limits for the patient's age. There is L5 spondylolysis and grade 1 spondylolis thesis of L5 on S1. No aggressive osseous lesions are present. Soft Tissues: Stable soft tissue in the anterior abdomen just deep to the wall at the level of the um bilicus likely reflecting scar tissue. PELVIS: Bladder: Symmetric distention, no gross wall thickening. Reproductive Organs: Unremarkable as visualized. Lymph Nodes: Within normal limits. Bones: Within normal limits. IMPRESSION: 1. Stable appearance of the chest, abdomen and pelvis. 2. No evidence of metastatic disease. RADIATION DOSE DELIVERED: 2,627.27mGy.cm Total DLP DATA REPOSITORY: All CT scans at this facility are submitted to the National Radiology Data Registry (NRDR) Dose Index Registry (DIR) with the [employer] (ACR). RADIATION OPTIMIZATION: All CT scans at this facility use at least one of these dose optimization te chniques: automated exposure control; mA and/or kV adjustment per patient size (includes targeted exa ms where dose is matched to clinical indication); or iterative reconstruction.
[2022-02-24 10:32] LABS: Calculated LDL 177 mg/dL (<100); Cholesterol 255 mg/dL (<200); HDL Cholesterol 45 mg/dL (40-60); Triglyceride 166 mg/dL (<150)
[2022-02-24] MEDS: Barium Sulfate 2% W/V-Berry Smoothie 450 ML BTL PO (10:43)
[2022-02-24] MEDS: Omnipaque 350 MG/ML 100 ML BTL IJ (10:44)
[2022-02-24 11:52] LABS: COMMENT (LAB VIEW ONLY) 67.26 mg/dL; Microalb ug/mg Crea 47.4 ug/mg Cr
[2022-02-24 18:35] LABS: CEA 1.4 ng/mL (See Note)
[2022-02-24 19:36] LABS: Vitamin D 25 Total 28.1 ng/mL (30-100)
== END ==
PROVIDERS: PCP Family Medicine; Visit Provider Internal Medicine Hematology & Oncology
DX: C17.0 Malignant neoplasm of duodenum; Z90.49 Acquired absence of other specified parts of digestive tract
CPT/HCPCS: 74177; 80053; 80061; 82306; 71260; 82043; 82378; 82570; 83036; 84439; 84443; 85025; J3490

== ENCOUNTER → 2022-03-20 00:02 | Outpatient (CLI) | payer MEDICARE, MEDICAID, SELFPAY ==
--- NOTE | 2022-03-20 08:00 | DI.DEXA_ITS ---
Exam(s) XR DEXA BONE DENSITY W/WO DONOVAN EXAM: XR DEXA BONE DENSITY W/WO DONOVAN CLINICAL HISTORY: osteoporosis,M81.0 TECHNIQUE: [employer] C densitometer analysis of left hip, lumbar spine and left forearm. COMPARISON: DEXA scan 2008 FINDINGS: Lateral view of the thoracic and lumbar spine shows no evidence of compression fractures. Bone mineral density measurements of the lumbar spine correspond to a total T-score of -0.3, in the n ormal range. This is not significantly changed from the prior exam. Bone mineral density measurements of the left hip correspond to a total T-score of 0.7 . The femoral neck T-score is 0.5, in the normal range. The total bone density of the hip has decreased 7.3 perc ent since 2009.. The left forearm bone mineral density measurements correspond to a T-score of the distal 3rd of -1.5, in the osteopenic range. The forearm was not analyzed in 2009. . IMPRESSION: Normal bone mineral density of lumbar spine and left hip. Osteopenia of the left forearm.
--- NOTE | 2022-03-20 08:00 | DI.MAMMO_ITS ---
Exam(s) MAMMO SCREENING EXAM: MAMMO SCREENING CLINICAL HISTORY: screening,Z12.39 TECHNIQUE: Mammograms were interpreted according to the usual protocol including computer analysis w [employer] CAD system, tomosynthesis and C-view imaging. COMPARISON: 2012 through 2018 FINDINGS: The breasts are composed of mainly fatty density , Breast Density category A. No suspicious masses or suspicious microcalcifications are seen. There is mild scarring related to b ilateral breast reduction. No skin thickening or abnormal axillary lymph nodes are seen. Skin moles are noted. There has been no significant change from prior exams. IMPRESSION: BI-RADS Category 1, Negative mammogram Yearly screening mammography is recommended. Breast Density - Category A, fatty density. A negative radiographic report should not delay biopsy if a dominant or clinically suspicious mass is present. Up to ten percent of cancers are not identified on mammography. A negative report may reinforce clinical impression. Adenosis and dense breasts may obscure an underlying neoplasm. False positive reports average 6 to 10%. Patient will receive a letter notifying them of these results.
== END ==
PROVIDERS: PCP Family Medicine; Visit Provider Family Medicine
DX: D50.9 Iron deficiency anemia, unspecified (principal); E03.9 Hypothyroidism, unspecified; E55.9 Vitamin D deficiency, unspecified; E78.5 Hyperlipidemia, unspecified; E87.6 Hypokalemia; M85.88 Other specified disorders of bone density and structure, other site; Z12.31 Encounter for screening mammogram for malignant neoplasm of breast; Z13.820 Encounter for screening for osteoporosis
CPT/HCPCS: 77063; 77067; 77080

== ENCOUNTER 2022-07-16 02:50 | Outpatient (CLI) | payer MEDICARE, MEDICAID, SELFPAY ==
[2022-07-16 10:28] LABS: Abs Immature Grans 0.13 10^3/uL (0.0-0.06); Absolute Eosinophil Count 0.16 10^3/uL (0.0-0.7); Absolute Monocyte Count 1.02 10^3/uL (0.1-0.8); Absolute Neutrophil Count 8.01 10^3/uL (1.2-6.7); Basophils % 0.3; Eosinophils % 1.4; HCT 38.6 % (36.0-46.0); HGB 12.3 g/dL (11.2-15.7); Immature Grans % 1.1; Lymphocytes % 19.9; MCH 29.9 pg (27.0-33.0); MCHC 31.9 % (32.0-36.0); MCV 94 fL (80-95); MPV 10.2 fL (8.0-11.0); Monocytes % 8.7; Neutrophils % 68.6; Platelet Count 153 10^3/uL (130-400); RBC 4.11 10^6/uL (3.93-5.22); RDW 12.5 % (11.7-14.6); RDW-SD 43.4 fL; WBC 11.68 10^3/uL (4.4-10.8)
[2022-07-16 10:30] LABS: Absolute Basophil Count 0.04 10^3/uL (0.0-0.2); Absolute Lymphocyte Count 2.32 10^3/uL (1.2-3.4)
[2022-07-16 10:38] LABS: ALT 25 U/L (14-59); AST 26 U/L (15-37); Albumin 3.5 g/dL (3.4-5.0); Alkaline Phosphatase 100 U/L (46-116); Anion Gap 8.2 mmol/L (3-11); BUN 17 mg/dL (7-18); Bilirubin, Total 0.4 mg/dL (0.2-1.0); CO2 27.8 mmol/L (21.0-32.0); CREATININE 1.1 mg/dL (0.55-1.02); Calcium 9.1 mg/dL (8.5-10.1); Chloride 101 mmol/L (98-107); Estimated GFR 54.06 (mL/min/1.73m2); Glucose 180 mg/dL (74-106); Potassium 4.1 mmol/L (3.5-5.1); Sodium 137 mmol/L (136-145); Total Protein 7.7 g/dL (6.4-8.2)
[2022-07-16 19:48] LABS: CEA 1.6 ng/mL (See Note)
== END 2022-07-16 02:51 | disposition home or self-care (01) ==
LOC: LBO 02:50
PROVIDERS: PCP Family Medicine; Visit Provider Internal Medicine Hematology & Oncology
DX: C17.0 Malignant neoplasm of duodenum (principal)
CPT/HCPCS: 36415; 80053; 82378; 85025

== ENCOUNTER 2022-09-11 00:29 | Outpatient (CLI) | payer MEDICARE, MEDICAID, SELFPAY ==
--- NOTE | 2022-09-11 13:00 | DI.RAD_ITS ---
Exam(s) XR CHEST 2V PA LATERAL EXAM: XR CHEST 2V PA LATERAL CLINICAL HISTORY: evaluate pathology,COUGH,R05.9 TECHNIQUE: 2D digital imaging was performed of the chest. Two images were obtained. PA and lateral views were obtained. COMPARISON: CR XR CHEST 2V PA LATERAL from 05/14/2021 FINDINGS: MEDIASTINUM: Normal. HEART: Normal. PULMONARY VASCULATURE: Normal. LUNGS: Clear. PLEURAL SPACE: No pleural effusion or pneumothorax. BONE:Within normal limits for the patient's age. OTHER FINDINGS:Normal. IMPRESSION: No acute pulmonary findings. DATA REPOSITORY: RADIATION DOSE DELIVERED:
== END 2022-09-11 00:49 ==
LOC: DI 00:30
PROVIDERS: PCP Family Medicine; Visit Provider Nurse Practitioner Family
DX: R05.8 Other specified cough (principal)
CPT/HCPCS: 71046

== ENCOUNTER 2022-10-12 11:56 | Outpatient (CLI) | payer MEDICARE, MEDICAID, SELFPAY ==
--- NOTE | 2022-10-12 10:45 | DI.RAD_ITS ---
Exam(s) XR WRIST RT COMPLETE EXAM: XR WRIST RT COMPLETE CLINICAL HISTORY: eval ulnar sided rightwrist pain. TECHNIQUE: 2D digital imaging was performed of the right wrist. Three views were obtained. PA, lat eral and oblique views were obtained. COMPARISON: No exams were available for comparison FINDINGS: BONES: No acute fracture is present. No bony destructive lesion is seen. JOINTS: The carpal bones are normally aligned. SOFT TISSUE: Normal. IMPRESSION: Unremarkable radiographs of the right wrist. DATA REPOSITORY: RADIATION DOSE DELIVERED:
--- NOTE | 2022-10-12 10:45 | DI.RAD_ITS ---
Exam(s) XR HIP LT COMPLETE AP PELVIS EXAM: XR HIP LT COMPLETE AP PELVIS CLINICAL HISTORY: L hip pain. TECHNIQUE: 2D digital imaging was performed of the left hip. Two views were obtained. AP pelvis an d lateral left hip views were obtained. FINDINGS: BONES: No acute fracture is present. No bony destructive lesion is seen. There is again seen a bone i sland in the left acetabulum. JOINTS: No dislocation present. SOFT TISSUE: Normal. IMPRESSION: Unremarkable radiographs of the left hip. DATA REPOSITORY: RADIATION DOSE DELIVERED:
== END 2022-10-12 11:57 | disposition home or self-care (01) ==
LOC: DIORS 11:56
PROVIDERS: PCP Family Medicine; Referring Provider Family Medicine; Visit Provider Student in an Organized Health Care Education/Training Program
DX: M77.8 Other enthesopathies, not elsewhere classified (principal); M70.62 Trochanteric bursitis, left hip
CPT/HCPCS: 99213; 73110; 73502

== ENCOUNTER 2022-11-03 15:00 | Outpatient (CLI) | payer MEDICARE, MEDICAID, SELFPAY ==
[2022-11-03 09:51] LABS: Abs Immature Grans 0.03 10^3/uL (0.0-0.06); Absolute Basophil Count 0.01 10^3/uL (0.0-0.2); Absolute Eosinophil Count 0.06 10^3/uL (0.0-0.7); Absolute Lymphocyte Count 2.03 10^3/uL (1.2-3.4); Absolute Monocyte Count 0.49 10^3/uL (0.1-0.8); Absolute Neutrophil Count 4.07 10^3/uL (1.2-6.7); Basophils % 0.1; Eosinophils % 0.9; HCT 37.7 % (36.0-46.0); HGB 12.3 g/dL (11.2-15.7); Immature Grans % 0.4; Lymphocytes % 30.3; MCH 30.2 pg (27.0-33.0); MCHC 32.6 % (32.0-36.0); MCV 93 fL (80-95); MPV 11.7 fL (8.0-11.0); Monocytes % 7.3; Platelet Count 102 10^3/uL (130-400); RBC 4.07 10^6/uL (3.93-5.22); RDW 13.2 % (11.7-14.6); RDW-SD 45.4 fL; WBC 6.69 10^3/uL (4.4-10.8)
[2022-11-03 10:04] LABS: Hemoglobin A1C 6.6 % (<5.7)
[2022-11-03 10:14] LABS: ALT 28 U/L (14-59); AST 17 U/L (15-37); Albumin 3.7 g/dL (3.4-5.0); Alkaline Phosphatase 71 U/L (46-116); Anion Gap 7.8 mmol/L (3-11); BUN 15 mg/dL (7-18); Bilirubin, Total 0.5 mg/dL (0.2-1.0); CO2 27.2 mmol/L (21.0-32.0); Calcium 9.5 mg/dL (8.5-10.1); Chloride 106 mmol/L (98-107); Estimated GFR 60.61 (mL/min/1.73m2); Glucose 131 mg/dL (74-106); Potassium 4.5 mmol/L (3.5-5.1); Sodium 141 mmol/L (136-145); TSH (W/Ref FT4) 0.67 uIU/mL (0.36-3.74); Total Protein 7.3 g/dL (6.4-8.2)
[2022-11-03 10:46] LABS: Vitamin D 25 Total 43.3 ng/mL (30-100)
[2022-11-03 18:48] LABS: CEA 1.1 ng/mL (See Note)
== END 2022-11-03 15:01 | disposition home or self-care (01) ==
LOC: LBO 15:01
PROVIDERS: PCP Family Medicine; Visit Provider Nurse Practitioner Family
DX: E03.9 Hypothyroidism, unspecified (principal); E78.5 Hyperlipidemia, unspecified; E87.6 Hypokalemia; I10 Essential (primary) hypertension; E11.9 Type 2 diabetes mellitus without complications; E55.9 Vitamin D deficiency, unspecified; C17.0 Malignant neoplasm of duodenum
CPT/HCPCS: 36415; 80053; 82306; 82378; 83036; 83615; 84443; 85025

== ENCOUNTER → 2022-11-23 08:50 | Outpatient (BNVA) | payer MEDICARE, MEDICAID, SELFPAY | PROVIDERS: PCP Family Medicine; Referring Provider Family Medicine; Visit Provider Surgery | DX: K21.9 Gastro-esophageal reflux disease without esophagitis (principal); K57.30 Diverticulosis of large intestine without perforation or abscess without bleeding; K59.09 Other constipation; C17.0 Malignant neoplasm of duodenum; Z68.41 Body mass index [BMI] 40.0-44.9, adult | CPT/HCPCS: 99213 ==

== ENCOUNTER → 2022-11-30 10:04 | Outpatient (BNVA) | payer MEDICARE, MEDICAID, SELFPAY | PROVIDERS: PCP Family Medicine; Referring Provider Family Medicine; Visit Provider Student in an Organized Health Care Education/Training Program | DX: M77.8 Other enthesopathies, not elsewhere classified (principal); M70.62 Trochanteric bursitis, left hip | CPT/HCPCS: 99213 ==

== ENCOUNTER 2022-12-29 08:43 | Day surgery (SDC) | payer MEDICARE, MEDICAID, SELFPAY ==
--- NOTE | 2022-12-28 18:43 | W.PM.HP.N ---
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 and/or family could understand) explaining risks vs benefits and alternatives to the procedure and consequences if we do not do the procedure and need/rational for the procedure. Risks include but are not limited to: bleeding, infection, perforation of esophagus, stomach, colon, small intestines, bronchus or trachea, or PTX. This would necessitate emergency surgery to repair the damage w/ possible ostomy; and other associated complications w/ the required surgery. Also complications of anesthesia including aspiration, NV/CVA/. (6) Gastritis: (7) Pulmonary hypertension: Status: Chronic (8) Organic sleep apnea, unspecified: Status: Chronic (9) Hyperlipidemia: Status: Chronic (10) Gastroesophageal reflux disease: Status: Chronic (11) Essential hypertension: Status: Chronic (12) Diverticulosis of colon without diverticulitis: Status: Chronic (13) Diabetes mellitus with nephropathy: Status: Chronic History of Present Illness Narrative: Today: Patient is here today for f/u egd ? They not having any chest pain or shortness of breath, currently.? They are not experiencing any fever or chills.? They deny any productive cough or upper respiratory tract infection signs or symptoms.? They are not having abdominal pain, or nausea and vomiting.? They have not had any changes in medications, past medical history or past surgical history since previously being seen in the office. They have not had any accidents or have been in the ER since the clinic pre-operative evaluation. ??I reviewed the procedure with the patient today, including risks and benefits of the procedure, and what they could expect at home for recovery.? All questions are answered to the patient?s satisfaction today, and they are stable to proceed with the proposed procedure. Clinic visit 11/23/22 Pt is well known to surgical services.? She presented w/ a GI bleed in 11/19.? She was found to have adenocarcinoma and underwent a Whipple in01/2020. She has done exceedingly well post surgery.? She takes protonix in am, and? carafate before supper.? non smoker.? If she eats something spicy or greasy- than she will have reflux s/s.? She is not due for another CE.? She actually has problems w/ constipation.? We d/w the importance of avoiding straining.? I recommend she use fiber therapy and Miralax for rescue therapy.? She does have diverticula. For the most part, she has No burning or regurgitation, and her symptoms are well controlled. ? non smoker.? The patient has had an EGD previously. ? There is no family history of any esophageal/gastric cancer.? Patient has? had any weight loss- but she is actively trying to lose wt. .? Their appetite is good.? The patient has been eating: Stomach medications: Swallowing:no problems Reflux/Wet Burps:none Nausea/vomiting:none Epigastric pain:none Chest pain/burning: none Melena/blood in stools/anemia: Constipation or diarrhea: more constipation.? Dental issues: edentuous Nocturnal problems: no Prior head/neck/esophageal surgery or radiation.? s/p Whipple Coffee:no Soda/Tea: ASA/NSAID?s:no Tobacco:no THC:no ETOH:no They deny any problems with anesthesia in the past. Anesthesia: general (without airway) Previous surgical intolerances: No Previous surgical complications: No Pulmonary risk factors: Planned procedure: Yes Sleep apnea risks: No COPD/Asthma/Smoker:? CATHY/pulm htn Can climb one flight of stairs (12-13 steps) in less than 30 seconds without stopping and without symptoms: Yes The surgery proposed for this patient is: low risk Active cardiac conditions: none Active risk factors: none ASA (acetylsalicylic acid): not used Beta blockers: not used Kidneys: no concerns DM:yes obesity/GERD/edentulous ?Patient needs to be Natural airway general because of:? Medical conditions/airway control/ ?Pain control? Meds/NKDA/PMHx/PSHx: see [employer] Review of Systems Constitutional Constitutional: Reports as per HPI PFSH All Active Problems (Updated 12/28/22 @ 18:48 by Renetta Freeman DO) BMI 40.0-44.9, adult (Acute) Right wrist tendonitis (Acute) Trochanteric bursitis of left hip (Acute) COVID-19 (Acute) 12/22/21 Vaccinated, booster 07/09/21 Chronic constipation (Acute) Adenomatous polyps (Acute) repeat CE in 2023 Chronic GERD (Acute) Lumbar radiculopathy (Acute 02/06/13) Knee pain (Acute 03/12/15) Insomnia (Acute) Renal failure (Chronic) Hypokalemia (Acute 05/09/15) Vitamin D deficiency (Chronic 03/22/12) Pulmonary hypertension (Chronic 11/08/17) Organic sleep apnea, unspecified (Chronic) CPAP (NOT USING 11/17) Increased body mass index (Chronic) Hypothyroidism (Chronic 10/11/12) Hyperlipidemia (Chronic 10/11/12) Gout (Chronic 03/14/10) Gastroesophageal reflux disease (Chronic 10/11/12) Family history of colon cancer (Chronic 01/29/15) Essential hypertension (Chronic 05/04/13) Edema (Chronic) Diverticulosis of colon without diverticulitis (Chronic 05/21/09) 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) Depressive disorder (Chronic) Chronic right shoulder pain (Chronic 11/02/17) Bronchiectasis (Chronic) chronic cough Medical History (Updated 12/28/22 @ 18:48 by Renetta Freeman DO) Abdominal pain (07/12/12) Abnormal mammography (07/01/06) Adenomatous polyp of duodenum Anemia due to blood loss, acute Arthritis of right knee (06/07/15) Bronchiectasis Chest pain Chronic insomnia Depression Diabetes Diverticulosis large intestine w/o perforation or abscess w/o bleeding Duodenal adenocarcinoma T3,pN0,M0, Stage II Duodenal ulcer E coli bacteremia [id number] at [facility] H Gastritis GERD (gastroesophageal reflux disease) GI (gastrointestinal bleed) Gout History of pelvic ultrasound Hyperkalemia (10/20/12) Hypertension Hypothyroidism Incarcerated incisional hernia Iron deficiency anemia Knee pain (03/12/15) Left hip pain (12/15/16) Lipoma (07/01/05) Morbid obesity with BMI of 50.0-59.9, adult Organic sleep apnea Osteoarthritis Skin tag (08/03/17) Sprain of costal cartilage (10/22/16) Strain of flexor muscle of left hip (09/23/16) Thrombocytopathia 2020 Transaminitis [id number] assoc with bacteremia Vitamin D deficiency Surgical History (Updated 12/28/22 @ 18:48 by Renetta Freeman DO) Arthroplasty of knee (02/25/16) LEFT TOTAL KNEE Cholecystectomy Colonoscopy - IV Sedation Endometrial Biopsy neg History of bilateral ligation of fallopian tubes History of colonoscopy (~11/05/20) History of esophagogastroduodenoscopy (EGD) (~11/05/20) History of Whipple procedure Ligation of fallopian tube PELVIC U/S NEG Status post cholecystectomy Status post total knee replacement (02/25/16) Surgical procedure planned Whipple procedure 01/01/20 Family History Mother Liver cancer Father Heart disease Stomach cancer Maternal Grandfather Cirrhosis of liver Paternal Grandfather Narcolepsy Diabetes Maternal Grandmother Diabetes Heart disease Breast cancer Paternal Grandmother Breast cancer Sister Alcohol abuse Uterine cancer Sister Cancer Brother , 66 Liver cancer Lung cancer Son Essential hypertension Son Narcolepsy Diabetes Essential hypertension Hyperlipidemia Other Family history of colon cancer Social History Smoking/Tobacco Use Status: Never Second Hand Exposure: Yes Smoking risk assessment performed?: Yes Alcohol Intake: former Drug use: Never Substance use type: does not use Caregiver/Support person: No Household members: spouse Housing: house Communication Needs: None Do you need help understanding health information?: Rarely Pets and animals: Yes Pets and animals: cat(s) Sexually active: No Do you think of yourself as: straight/heterosexual Current gender identity: female What is your relationship status?: How often do you talk on the phone with friends or family?: three or more times per week How often do you get together with friends or relatives?: once per week How often do you attend mormonism or zoroastrianism services?: 1-3 times per year Do you belong to any clubs or organized social groups?: yes Panel score (0-1 are the most socially isolated patients): 3 What type of physical activity do you participate in: walking and other Details: Gardening,Housework Duration: 15-30 minutes/day Frequency: daily Sejal/Voodoo: L[employer] Day Special sejal needs: No Seatbelt use: always Helmet use: No Drive intox or ride w/intox utility worker driver: No Do you feel safe at home: Yes Do you feel safe in your relationship?: Yes Meds Allergies and Home Medications Allergies Allergy/AdvReac Type Severity Reaction Status Date / Time lisinopril AdvReac Intermediate COUGH Unverified 12/25/22 11:34 Home Medications Medication Instructions Recorded Confirmed Type sennosides 8.6 mg tablet (senna) 8.6 mg PO BID PRN 11/04/20 12/25/22 History blood-glucose meter #1 ea 01/13/21 12/25/22 Rx nystatin 100,000 unit/gram topical 1 applic topical BID #60 grams 10/02/21 12/25/22 Rx powder potassium chloride 10 mEq 10 meq PO BID #180 caps 10/02/21 12/25/22 Rx capsule,extended release sucralfate 1 gram tablet (Carafate) 1 g PO QAC #180 tabs 10/02/21 12/25/22 Rx multivitamin with minerals-folic 1 tab PO DAILY 11/27/21 12/25/22 History acid 120 mcg chewable tablet (Centrum Adult 50 Plus Fresh-Fruity) ezumtd-igdwjfhu-veasehy 3 cap PO .e6svfbs daily #540 caps 12/24/21 12/25/22 Rx 24,000-76,000-120,000 unit capsule,delayed rel (Creon) rosuvastatin 20 mg tablet (Crestor) 20 mg PO DAILY #90 tab-caps 02/24/22 12/25/22 Rx ergocalciferol (vitamin D2) 1,250 50,000 unit PO .twice weekly #28 02/25/22 12/25/22 Rx mcg (50,000 unit) capsule caps albuterol sulfate 90 mcg/actuation 2 puff inhalation 6XD PRN 04/29/22 12/25/22 Rx aerosol inhaler shortness of breath or wheezing #8.5 grams fluticasone propionate 50 1 spray intranasal BID #16 grams 09/28/22 05/26/23 Rx mcg/actuation nasal spray,suspension (Flonase Allergy Relief) inhalational spacing device #1 ea 04/29/22 12/25/22 Rx (Aerochamber MV spacer) budesonide-formoterol HFA 80 2 puff inhalation BID #10.2 grams 05/04/22 12/25/22 Rx mcg-4.5 mcg/actuation aerosol inhaler (Symbicort) blood sugar diagnostic (GT ChannelTouch #200 ea 05/05/22 12/25/22 Rx Ultra Test strips) lancets 33 gauge (OneTouch Delica #200 ea 05/05/22 12/25/22 Rx Lancets) gabapentin 600 mg tablet 600 mg PO QHS #90 tabs 09/18/22 12/25/22 Rx glipizide 5 mg tablet, extended 5 mg PO DAILY #90 tabs 10/05/22 12/25/22 Rx release 24 hr pantoprazole 40 mg tablet,delayed 40 mg PO DAILY bleeding duodenal 10/05/22 12/25/22 Rx release (Protonix) ulcer #90 tabs levothyroxine 100 mcg tablet 100 mcg PO DAILY #90 tab-caps 12/15/22 12/25/22 Rx losartan 100 mg tablet 100 mg PO DAILY #90 tab-caps 12/15/22 12/25/22 Rx Exam Const General: cooperative, healthy appearing, comfortable and no acute distress Nutritional Appearance: obese Orientation: alert, awake and oriented x3 Other: PHYSICAL EXAM GENERAL APPEARANCE: Alert, healthy appearance, oriented, x 3,? in no acute distress HYDRATION: Well hydrated HEAD, EYES, EARS, NECK, THROAT: Head is normocephalic, pupils equal, round, reactive to light and accommodation, ocular movement intact, sclera clear and no jaundice. ? NECK: ? Trachea midline.? ? No JVD LUNGS: normal respiration/normal chest excursion. ?Clear to auscultation bilaterally. ?No wheeze. ?HEART: Regular rate and rhythm. no murmurs EXTREMITY: No edema or cyanosis.? no leg pain, redness, swelling.? ABDOMEN: obese soft and non-tender to palpation.? Normal bowel sounds.?
--- NOTE | 2022-12-28 18:50 | PDOC.DSDIS_ITS ---
Discharge Plan Disposition Patient Disposition: Home Condition: Good Discharge Details Attending Provider: Renetta Freeman Primary Care Provider: Letty Whittington Home Meds and New Rx's Prescriptions: No Action Centrum Adult 50 Fresh-Fruity 120 mcg tablet,chewable 1 tab PO DAILY albuterol sulfate 90 mcg/actuation HFA aerosol inhaler 2 puff inhalation 6XD PRN (Reason: shortness of breath or wheezing) Qty: 8.5 0RF (DME) Aerochamber MV Spacer See Rx Instructions .Route Qty: 1 0RF Rx Instructions: As directed fluticasone propionate [Flonase Allergy Relief] 50 mcg/actuation spray,suspension 1 spray intranasal BID Qty: 16 0RF Rx Instructions: administer into each nostril BID (DME) blood-glucose meter Misc 1 ea Miscellaneous AC Qty: 1 0RF Rx Instructions: METER TYPE One touch meter DIAGNOSIS CODE E11.9 nystatin 100,000 unit/gram powder 1 applic topical BID Qty: 60 4RF potassium chloride 10 mEq capsule, extended release 10 meq PO BID Qty: 180 4RF sucralfate [Carafate] 1 gram tablet 1 g PO QAC Qty: 180 12RF Creon 24,000-76,000 -120,000 unit capsule,delayed release(DR/EC) 3 cap PO .[id number] daily MDD 18 Qty: 540 6RF Rx Instructions: administer with meals and/or snacks rosuvastatin [Crestor] 20 mg tablet 20 mg PO DAILY Qty: 90 4RF ergocalciferol (vitamin D2) 1,250 mcg (50,000 unit) capsule 50,000 unit PO .twice weekly Qty: 28 5RF budesonide-formoterol [Symbicort] 80-4.5 mcg/actuation HFA aerosol inhaler 2 puff inhalation BID Qty: 10.2 5RF (DME) OneTouch Ultra Test Strip See Rx Instructions .Route Qty: 200 12RF Rx Instructions: As directed (DME) lancets [OneTouch Delica Lancets] 33 gauge misc See Rx Instructions .ROUTE DAILY Qty: 200 5RF Rx Instructions: 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 One touch delica gabapentin 600 mg tablet 600 mg PO QHS Qty: 90 4RF glipizide 5 mg tablet extended release 24hr 5 mg PO DAILY Qty: 90 12RF pantoprazole [Protonix] 40 mg tablet,delayed release (DR/EC) 40 mg PO DAILY Qty: 90 5RF losartan 100 mg tablet 100 mg PO DAILY Qty: 90 12RF levothyroxine 100 mcg tablet 100 mcg PO DAILY Qty: 90 12RF sennosides [senna] 8.6 mg Tablet 8.6 mg PO BID PRN Discharge Instructions Additional Instructions: Post EGD Instruction ?You had anesthesia for your EGD/stomach scope today.? For your safety, please do the following for the next twenty-four (24) hours: Do Not operate a motor vehicle (car, truck, motorcycle, etc.) Do Not drink alcoholic beverages or use any recreational drugs for the first 24 hours or while taking pain medications. The medications in your body may have a reaction that can be dangerous. Do Not make any important decisions or sign any important papers You have just had a gastroscopy (EGD) or upper GI tract examination. It is important for your smooth recovery that you carefully follow the recommendations below. Do not hesitate to call if any questions should arise about your anesthesia, condition, or care. -Symptoms you may experience during the next 24 hours: ?1. Mild abdominal pain or excessive gas or a bloated feeling which improves with rest, liquids, eating? slightly, and walking as tolerated. 2. Drowsiness and/or forgetfulness because of the medications you were given. ?3. Throat numbness for about 1 hour. 4. A sore throat which you can treat with throat lozenges or by gargling with salt water 4-5 times a day. 5. Redness at the site of your IV which you can treat with warm compresses. SPECIAL INSTRUCTIONS: 1. You may resume your previous diet in one hour. We recommend a light meal to start, then progress as tolerated. 2. Restart regular medications in one hour. 3. No aspirin or non-steroidal containing medication for three days. 4. No lifting over 20 pounds or strenuous activity for the first 24 hours after your procedure. After 24 hours there are no restrictions on your activity, but you may feel fatigued for a few days. Findings: Treatment: -Medications: -Continue to follow lifestyle modifications: No alcohol, tobacco products, Aspirin or NSAID's (ibuprofen, Motrin, Naprosyn, aleve, etc).? Try to limit/avoid:? soda pop/any carbonated beverages, caffeine (including tea & chocolate), and acidic foods, (tomatoes, citrus, onions, peppermints) spicy or fried/fatty foods. Do not lie down for 30 minutes after eating, and do not eat 2 hours prior to bedtime. Avoid wearing tight fitting clothing/ belts. Follow up: -My office will send a letter with the results of your biopsy?s in 2-3wks time. Call the office at [phone] (Office) or [phone] (Hospital), or go to the ER right away if you notice any of the followin. Vomiting blood and /or ?coffee ground? material. ?2. Worsening of abdominal pain or cramping. ?3. Trouble with breathing, cough, and/or fever (temperature above 101.5 F). 4. Increasing pain with swallowing. ?5. Chest pain. 6. Any new symptoms. 7. Worsening of the redness at the IV site Activity:: see above Diet:: see above DS: Diagnosis Discharge Diagnosis (1) BMI 40.0-44.9, adult: Status: Acute (2) Chronic constipation: Status: Acute (3) Adenomatous polyps: Status: Acute (4) Chronic GERD: Status: Acute (5) Duodenal adenocarcinoma: Asessment and Plan: Patient is seen and examined after they are endoscopy.? Patient has minimal sore throat.? They have been able to tolerate liquids.? They do not have any nausea vomiting.? They are not having any chest pain or shortness of breath.? They have been able to pass gas and are not having any abdominal pain or distention.? They have not vomited any blood.? The vital signs have been stable-see nursing notes. We discussed findings on their endoscopy. We reviewed the importance of lifestyle modification-see discharge instructions We reviewed any new medications that the patient may be prescribed-see discharge instructions Patient will either be sent a letter with the biopsy results or follow-up in the office-see discharge instructions. Patient was given explicit instructions to follow-up regarding post endoscopy- refer to discharge Patient verbalized understanding and discharged in stable and satisfactory condition.? See nursing notes. (6) Gastritis: (7) Pulmonary hypertension: Status: Chronic (8) Organic sleep apnea, unspecified: Status: Chronic (9) Hyperlipidemia: Status: Chronic (10) Gastroesophageal reflux disease: Status: Chronic (11) Essential hypertension: Status: Chronic (12) Diverticulosis of colon without diverticulitis: Status: Chronic (13) Diabetes mellitus with nephropathy: Status: Chronic
--- NOTE | 2022-12-28 18:54 | W.PM.ENDDOP ---
Endoscopy Report PRE-OP DIAGNOSIS: doudenal adenoCa. s/p WHIPPLE POST-OP DIAGNOSIS: same SURGEON: Renetta Freeman ANESTHESIA TYPE: General:No Airway ESTIMATED BLOOD LOSS: 1 PATHOLOGY: other COMPLICATIONS: None DISPOSITION: same day PROCEDURE DESCRIPTION: After informed consent was obtained the patient was take to the procedure room and placed in a supine position. Monitors were applied and a time out was done. The patients name, date of , procedure type, allergies to medications and metal in their body was reviewed. A bite block was placed and the patient was sedated. Once sedated and comfortable the gastroscope was advanced through the oropharynx which was grossly normal into the esophagus. The proximal and mid-esophagus were []. In the distal esophagus there was [] noted. The scope was advanced into the stomach and through the pylorus into the 3rd portion of the duodenum. The duodenum was noted to be []. Biopsies were done []. The scope was retracted back into the stomach and biopsies were done to rule out H. pylori. There were [] ulcers. The scope was retroflexed. The cardia and fundus were noted to be normal. There [] a hiatal hernia noted. The scope was retracted back into the esophagus and biopsies were done of the GE junction to rule out Walker's. The Z line was regular. The GE junction was at [] cm. The scope was removed and the patient was woken up and taken back to [facility] in stable condition. Follow up:
--- NOTE | 2022-12-29 07:24 | HPE_ITS ---
Assessment and Plan Assessment and plan (1) Chronic GERD: Status: Acute Assessment and plan: Mrs Wolfe is a pleasant 72-year-old female who comes in today for an EGD. I saw her in same-day surgery. We went over the procedure, risks, benefits and complications. I had her release signed the consent which was signed by Dr. Freeman originally. She did not have any questions or concerns about the procedure. Risks, benefits and complications have been reviewed. Complications include but are not limited to bleeding, pain, perforation, sore throat, aspiration, and adverse reaction to the medications. Questions were entertained and answered to their satisfaction and they wished to proceed. No guarantees were given or implied. Proceed with EGD under sedation. 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 Freeman in the office for a repeat upper endoscopy. 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 She underwent a Whipple. They removed 20% of her stomach, 30% of her pancreas the entire duodenum and almost the entire common bile duct. She also has a history of GERD and is being treated with pantoprazole 40 mg daily and Carafate 1 g before meals. She is asymptomatic at this time. She is otherwise doing well. She denies any chest pain or shortness of breath. She denies a cough. Review of Systems All systems reviewed & are unremarkable except as noted in HPI and below PFSH All Active Problems BMI 40.0-44.9, adult (Acute) Right wrist tendonitis (Acute) Trochanteric bursitis of left hip (Acute) COVID-19 (Acute) 12/22/21 Vaccinated, booster 07/09/21 Chronic constipation (Acute) Adenomatous polyps (Acute) repeat CE in 2023 Chronic GERD (Acute) Lumbar radiculopathy (Acute 02/06/13) Knee pain (Acute 03/12/15) Insomnia (Acute) Renal failure (Chronic) Hypokalemia (Acute 05/09/15) Vitamin D deficiency (Chronic 03/22/12) Pulmonary hypertension (Chronic 11/08/17) Organic sleep apnea, unspecified (Chronic) CPAP (NOT USING 11/17) Increased body mass index (Chronic) Hypothyroidism (Chronic 10/11/12) Hyperlipidemia (Chronic 10/11/12) Gout (Chronic 03/14/10) Gastroesophageal reflux disease (Chronic 10/11/12) Family history of colon cancer (Chronic 01/29/15) Essential hypertension (Chronic 05/04/13) Edema (Chronic) Diverticulosis of colon without diverticulitis (Chronic 05/21/09) 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) Depressive disorder (Chronic) Chronic right shoulder pain (Chronic 11/02/17) Bronchiectasis (Chronic) chronic cough Medical History Abdominal pain (07/12/12) Abnormal mammography (07/01/06) Adenomatous polyp of duodenum Anemia due to blood loss, acute Arthritis of right knee (06/07/15) Bronchiectasis Chest pain Chronic insomnia Depression Diabetes Diverticulosis large intestine w/o perforation or abscess w/o bleeding Duodenal adenocarcinoma T3,pN0,M0, Stage II Duodenal ulcer E coli bacteremia [id number]-[id number] at [facility] Gastritis GERD (gastroesophageal reflux disease) GI (gastrointestinal bleed) Gout History of pelvic ultrasound Hyperkalemia (10/20/12) Hypertension Hypothyroidism Incarcerated incisional hernia Iron deficiency anemia Knee pain (03/12/15) Left hip pain (12/15/16) Lipoma (07/01/05) Morbid obesity with BMI of 50.0-59.9, adult Organic sleep apnea Osteoarthritis Skin tag (08/03/17) Sprain of costal cartilage (10/22/16) Strain of flexor muscle of left hip (09/23/16) Thrombocytopathia 2020 Transaminitis [id number]- assoc with bacteremia Vitamin D deficiency Surgical History Arthroplasty of knee (02/25/16) LEFT TOTAL KNEE Cholecystectomy Colonoscopy - IV Sedation Endometrial Biopsy neg History of bilateral ligation of fallopian tubes History of colonoscopy (~11/05/20) History of esophagogastroduodenoscopy (EGD) (~11/05/20) History of Whipple procedure Ligation of fallopian tube PELVIC U/S NEG Status post cholecystectomy Status post total knee replacement (02/25/16) Surgical procedure planned Whipple procedure 01/01/20 Family History Mother Liver cancer Father Heart disease Stomach cancer Maternal Grandfather Cirrhosis of liver Paternal Grandfather Narcolepsy Diabetes Maternal Grandmother Diabetes Heart disease Breast cancer Paternal Grandmother Breast cancer Sister Alcohol abuse Uterine cancer Sister Cancer Brother , 66 Liver cancer Lung cancer Son Essential hypertension Son Narcolepsy Diabetes Essential hypertension Hyperlipidemia Other Family history of colon cancer Social History Smoking/Tobacco Use Status: Never Second Hand Exposure: Yes Smoking risk assessment performed?: Yes Alcohol Intake: former Drug use: Never Substance use type: does not use Caregiver/Support person: No Household members: spouse Housing: house Communication Needs: None Do you need help understanding health information?: Rarely Pets and animals: Yes Pets and animals: cat(s) Sexually active: No Do you think of yourself as: straight/heterosexual Current gender identity: female What is your relationship status?: How often do you talk on the phone with friends or family?: three or more times per week How often do you get together with friends or relatives?: once per week How often do you attend mormonism or sikh services?: 1-3 times per year Do you belong to any clubs or organized social groups?: yes Panel score (0-1 are the most socially isolated patients): 3 What type of physical activity do you participate in: walking and other Details: Gardening,Housework Duration: 15-30 minutes/day Frequency: daily Sejal/Gnosticism: Zoroastrian Special sejal needs: No Seatbelt use: always Helmet use: No Drive intox or ride w/intox 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 Meds Allergies and Home Medications Allergies Allergy/AdvReac Type Severity Reaction Status Date / Time lisinopril AdvReac Intermediate COUGH Unverified 12/29/22 09:00 Home Medications Medication Instructions Recorded Confirmed Type sennosides 8.6 mg tablet (senna) 8.6 mg PO BID PRN 11/04/20 12/29/22 History blood-glucose meter #1 ea 01/13/21 12/25/22 Rx nystatin 100,000 unit/gram topical 1 applic topical BID #60 grams 10/02/21 12/25/22 Rx powder potassium chloride 10 mEq 10 meq PO BID #180 caps 10/02/21 12/29/22 Rx capsule,extended release sucralfate 1 gram tablet (Carafate) 1 g PO QAC #180 tabs 10/02/21 12/29/22 Rx multivitamin with minerals-folic 1 tab PO DAILY 11/27/21 12/29/22 History acid 120 mcg chewable tablet (Centrum Adult 50 Plus Fresh-Fruity) lxpjex-wwcuusfo-phjkwbh 3 cap PO .l1jduos daily #540 caps 12/24/21 12/29/22 Rx 24,000-76,000-120,000 unit capsule,delayed rel (Creon) rosuvastatin 20 mg tablet (Crestor) 20 mg PO DAILY #90 tab-caps 02/24/22 12/29/22 Rx ergocalciferol (vitamin D2) 1,250 50,000 unit PO .twice weekly #28 02/25/22 12/29/22 Rx mcg (50,000 unit) capsule caps albuterol sulfate 90 mcg/actuation 2 puff inhalation 6XD PRN 04/29/22 12/25/22 Rx aerosol inhaler shortness of breath or wheezing #8.5 grams fluticasone propionate 50 1 spray intranasal BID #16 grams 04/29/22 12/25/22 Rx mcg/actuation nasal spray,suspension (Flonase Allergy Relief) inhalational spacing device #1 ea 04/29/22 12/25/22 Rx (Aerochamber MV spacer) budesonide-formoterol HFA 80 2 puff inhalation BID #10.2 grams 05/04/22 12/25/22 Rx mcg-4.5 mcg/actuation aerosol inhaler (Symbicort) blood sugar diagnostic (AnyWare GroupTouch #200 ea 05/05/22 12/25/22 Rx Ultra Test strips) lancets 33 gauge (OneTouch Delica #200 ea 05/05/22 12/25/22 Rx Lancets) gabapentin 600 mg tablet 600 mg PO QHS #90 tabs 09/18/22 12/29/22 Rx glipizide 5 mg tablet, extended 5 mg PO DAILY #90 tabs 10/05/22 12/29/22 Rx release 24 hr pantoprazole 40 mg tablet,delayed 40 mg PO DAILY bleeding duodenal 10/05/22 12/29/22 Rx release (Protonix) ulcer #90 tabs levothyroxine 100 mcg tablet 100 mcg PO DAILY #90 tab-caps 12/15/22 12/29/22 Rx losartan 100 mg tablet 100 mg PO DAILY #90 tab-caps 12/15/22 12/29/22 Rx Exam Const General: comfortable and no acute distress Nutritional Appearance: overweight Orientation: alert and oriented x3 HENMT Head: normocephalic and atraumatic Resp Effort & Inspection: normal respiratory effort Auscultation: clear to auscultation bilaterally Cardio Rate: regular rate Rhythm: regular rhythm Heart Sounds: no gallops, no murmurs and no rubs GI Palpation: soft, no hepatosplenomegaly and nontender
--- NOTE | 2022-12-29 08:02 | ANES.PREOP_ITS ---
General Info Date of Service Date Performed: 12/29/22 Height: 5 ft 2 in Weight: 104.78 kg Body Mass Index (BMI): 42.2 Surgical Procedure: Operation Date: 12/29/22 09:05 Proposed Procedure Side Surgeon p Gastroscopy w/Biopsy Lucita Riojas MD Meds Allergies and Home Medications Allergies Allergy/AdvReac Type Severity Reaction Status Date / Time lisinopril AdvReac Intermediate COUGH Unverified 12/29/22 09:00 Home Medication Medication Instructions Recorded sennosides 8.6 mg tablet (senna) 8.6 mg PO BID PRN 11/04/20 blood-glucose meter #1 ea 01/13/21 nystatin 100,000 unit/gram topical 1 applic topical BID #60 grams 10/02/21 powder potassium chloride 10 mEq 10 meq PO BID #180 caps 10/02/21 capsule,extended release sucralfate 1 gram tablet (Carafate) 1 g PO QAC #180 tabs 10/02/21 multivitamin with minerals-folic 1 tab PO DAILY 11/27/21 acid 120 mcg chewable tablet (Centrum Adult 50 Plus Fresh-Fruity) obdfgr-qaofzadl-sryokgg 3 cap PO .g5ypqnz daily #540 caps 12/24/21 24,000-76,000-120,000 unit capsule,delayed rel (Creon) rosuvastatin 20 mg tablet (Crestor) 20 mg PO DAILY #90 tab-caps 02/24/22 ergocalciferol (vitamin D2) 1,250 50,000 unit PO .twice weekly #28 02/25/22 mcg (50,000 unit) capsule caps albuterol sulfate 90 mcg/actuation 2 puff inhalation 6XD PRN 04/29/22 aerosol inhaler shortness of breath or wheezing #8.5 grams fluticasone propionate 50 1 spray intranasal BID #16 grams 04/29/22 mcg/actuation nasal spray,suspension (Flonase Allergy Relief) inhalational spacing device #1 ea 04/29/22 (Aerochamber MV spacer) budesonide-formoterol HFA 80 2 puff inhalation BID #10.2 grams 05/04/22 mcg-4.5 mcg/actuation aerosol inhaler (Symbicort) blood sugar diagnostic (SigmascreeningTouch #200 ea 05/05/22 Ultra Test strips) lancets 33 gauge (OneTouch Delmaru #200 ea 05/05/22 Lancets) gabapentin 600 mg tablet 600 mg PO QHS #90 tabs 09/18/22 glipizide 5 mg tablet, extended 5 mg PO DAILY #90 tabs 10/05/22 release 24 hr pantoprazole 40 mg tablet,delayed 40 mg PO DAILY bleeding duodenal 10/05/22 release (Protonix) ulcer #90 tabs levothyroxine 100 mcg tablet 100 mcg PO DAILY #90 tab-caps 12/15/22 losartan 100 mg tablet 100 mg PO DAILY #90 tab-caps 12/15/22 Current Visit Medications: Current Medications Generic Name Dose Route Start Last Admin Trade Name Freq PRN Reason Stop Dose Admin Ringer's Solution 1,000 mls @ 80 mls/hr 12/29/22 06:00 IV 01/24/23 23:59 INFUSION RODRIGUE IV Miscellaneous Supplies 1 each 12/29/22 06:00 Iv Access IV 01/24/23 23:59 DIRECTED RODRIGUE Sodium Chloride 0 ml 12/29/22 06:00 Normal Saline Flush 10 Ml Syr IV 01/24/23 23:59 PRN PRN Sodium Chloride 0 ml 12/29/22 06:00 Normal Saline 10 Ml Vial IJ 01/24/23 23:59 DIRECTED PRN Sterile Water 0 ml 12/29/22 06:00 Water,Injection,Sterile 10 Ml Vial IJ 01/24/23 23:59 DIRECTED PRN PFSH Active Problems Active Problems: Problem Status Onset Code BMI 40.0-44.9, adult Z68.41 Right wrist tendonitis M77.8 Trochanteric bursitis of left hip M70.62 COVID-19 U07.1 Chronic constipation K59.09 Adenomatous polyps D36.9 Chronic GERD K21.9 Lumbar radiculopathy 02/06/13 M54.16 Knee pain 03/12/15 M25.569 Insomnia G47.00 Renal failure N19 Hypokalemia 05/09/15 E87.6 Vitamin D deficiency 03/22/12 E55.9 Pulmonary hypertension 11/08/17 I27.20 Organic sleep apnea, 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 Increased body mass index R63.8 Hypothyroidism 10/11/12 E03.9 Hyperlipidemia 10/11/12 E78.5 Gout 08/13/10 M10.9 Gastroesophageal reflux disease 10/11/12 K21.9 Family history of colon cancer 01/29/15 Z80.0 Essential hypertension 05/04/13 I10 Edema R60.9 Diverticulosis of colon without diverticulitis 05/21/09 K57.30 Diabetes mellitus with nephropathy 07/23/14 E11.21 Depressive disorder F32.9 Chronic right shoulder pain 11/02/17 M25.511, G89.29 Bronchiectasis J47.9 Medical History Medical History Abdominal pain (07/12/12) Abnormal mammography (07/01/06) Adenomatous polyp of duodenum Anemia due to blood loss, acute Arthritis of right knee (06/07/15) Bronchiectasis Chest pain Chronic insomnia Depression Diabetes Diverticulosis large intestine w/o perforation or abscess w/o bleeding Duodenal adenocarcinoma T3,pN0,M0, Stage II Duodenal ulcer E coli bacteremia [id number]-nhtieuztkoin at [facility] H Gastritis GERD (gastroesophageal reflux disease) GI (gastrointestinal bleed) Gout History of pelvic ultrasound Hyperkalemia (10/20/12) Hypertension Hypothyroidism Incarcerated incisional hernia Iron deficiency anemia Knee pain (03/12/15) Left hip pain (12/15/16) Lipoma (07/01/05) Morbid obesity with BMI of 50.0-59.9, adult Organic sleep apnea Osteoarthritis Skin tag (08/03/17) Sprain of costal cartilage (10/22/16) Strain of flexor muscle of left hip (09/23/16) Thrombocytopathia 2020 Transaminitis [id number]- assoc with bacteremia Vitamin D deficiency Surgical History Surgical History Arthroplasty of knee (02/25/16) LEFT TOTAL KNEE Cholecystectomy Colonoscopy - IV Sedation Endometrial Biopsy neg History of bilateral ligation of fallopian tubes History of colonoscopy (~11/05/20) History of esophagogastroduodenoscopy (EGD) (~11/05/20) History of Whipple procedure Ligation of fallopian tube PELVIC U/S NEG Status post cholecystectomy Status post total knee replacement (02/25/16) Surgical procedure planned Whipple procedure 01/01/20 Tobacco Smoking/Tobacco Use Status: Never Passive smoking exposure: Yes Second hand exposure: Yes Alcohol Alcohol Intake: former Substance Use Substance use: Never Substance use type: does not use Vital Signs and Lab Results Lab Results Blood Type / Crossmatch: No Data to Display Complete Blood Count: No Data to Display Complete Metabolic Panel: No Data to Display Liver Function Panel: No Data to Display Coagulation Panel: No Data to Display Cardiac Panel: No Data to Display Arterial Blood Gas: No Data to Display Venous Blood Gas: No Data to Display Pancreas Panel: No Data to Display Thyroid Panel: No Data to Display Infectious Disease: No Data to Display Blood Cultures: No Data to Display Toxicology Panel: No Data to Display Imaging and Studies Imaging and Studies Study information below may be from another EMR and interpreted by another provider. Please see original notes in EMR for more complete details. EKG Summary: EKG PATIENT NAME: Alejandra Mccoy #: [id number] ORDERING PROVIDER: Kayden Manzo M.D. PRIMARY CARE PROVIDER:DEEPTHI WHITTINGTON MD, DC DATE/TIME OF SERVICE: 05/14/21 1405 : 2PERFORMING LOCATION: . APPROVED REPORT Exam: Resting ECG Reason for Exam: Chest discomfort Patient Location: O HR:75 bpm ECG Measurements Heart Rate 75 AXIS MA 175 P -26 QRSd 104 QRS -6 QT 379 T1 QTc 424 Conclusion Sinus rhythm...normal P axis, V-rate 60- 99 Normal Electrocardiogram <Electronically signed by FARA MORELAND MD in OV> E-Sign Date: 05/15/21 E-Sign Time: 0921 Echocardiogram Summary: Patient Name: ALEJANDRA MCCOY #: [id number]: [id number] Ordering Provider: Deepthi Whittington M.D., DCAccount #: [id number]: REG CLI Primary Care Provider: Deepthi Whittington M.D., DCDate of Exam: 10/13/17ex: Poppy : 1950ge: 67 Exam(s) [id number] US:Echocardiogram Heart *[facility]* *[facility]* [address] [place] [address] Date of study: 10/13/2017 Transthoracic Echocardiography M-mode, complete 2D, complete spectral Doppler, and color Doppler *STUDY CONCLUSIONS* Impressions: Frequent ectopy was noted on this study, making this study technically difficult for the assessment of cardiac function. Summary: 1. Left ventricle: The cavity size was normal. Wall thickness was at the upper limits of normal. Systolic function was mildly reduced. The estimated ejection fraction was 45-50%. Wall motion was normal; there were no regional wall motion abnormalities. Some parameters suggest diastolic dysfunction. 2. Ascending aorta: The ascending aorta was mildly dilated. 3.8 cm. 3. Left atrium: The atrium was mildly dilated. 4. Right ventricle: The cavity size was normal. Wall thickness was normal. Systolic function was normal. 5. Pulmonary arteries: Pulmonary systolic pressure was mildly increased, in the range of 35mm Hg to 40mm Hg. Recommendations: Holter monitor should be performed to assess PVC burden. *PATIENT PRESENTATION* Height: 157.5cm ((62in) ) S/D Pressure: 116 / 65 Weight: 129.3kg ((284.4lb) ) BSA: 2.46m^2 Test start time: 02:40 PM. Test stop time: 04:00 PM. ORDERING Deepthi Whittington REFERRING Deepthi Whittington PERFORMING Unknown PERFORMING [facility] BENCH MECHANIC RT OZ Cole (R)) RDCS *PROCEDURE DATA* Procedure information: The patient was identified by two identifiers. This study was interpreted by [facility]. Pertinent images and digital data are archived for permanent storage and are available for subsequent review. Comparison was made to the study of 06/28/2007. Study status: Routine. Transthoracic echocardiography. M-mode, complete 2D, complete spectral Doppler, and color Doppler. A Transthoracic Echocardiogram was performed. Scanning was performed from the parasternal, apical, subcostal, and suprasternal notch acoustic windows. Images were obtained using an [id number] cardiac ultrasound machine. Image quality was adequate. Study completion: The patient tolerated the procedure well. There were no complications. History: PMH: SOB R06.02. *CARDIAC ANATOMY* Left ventricle: The cavity size was normal. Wall thickness was at the upper limits of normal. Systolic function was mildly reduced. The estimated ejection fraction was 45-50%. Wall motion was normal; there were no regional wall motion abnormalities. Some parameters suggest diastolic dysfunction. Aortic valve: Trileaflet; normal thickness leaflets. Mobility was not restricted. Doppler: Transvalvular velocity was within the normal range. There was no stenosis. There was no significant regurgitation. VTI ratio of LVOT to aortic valve: 0.63. Valve area (VTI): 2cm^2. Indexed valve area (VTI): 0.8cm^2/m^2. Mean velocity ratio of LVOT to aortic valve: 0.56. Valve area (Vmean): 1.8cm^2. Indexed valve area (Vmean): 0.7cm^2/m^2. Mean gradient (S): 7.7mm Hg. Aorta: Aortic root: The aortic root was normal in size. Ascending aorta: The ascending aorta was mildly dilated. 3.8 cm. Mitral valve: Mildly calcified annulus. Mobility was not restricted. Doppler: Transvalvular velocity was within the normal range. There was no evidence for stenosis. There was trivial regurgitation. Valve area by pressure half-time: 3.8cm^2. Indexed valve area by pressure half-time: 1.5cm^2/m^2. Left atrium: The atrium was mildly dilated. Atrial septum: The interatrial septum was hypermobile. Right ventricle: The cavity size was normal. Wall thickness was normal. Systolic function was normal. Pulmonic valve: Structurally normal valve. Doppler: Transvalvular velocity was within the normal range. There was no evidence for stenosis. There was no significant regurgitation. Peak gradient (S): 4.6mm Hg. Tricuspid valve: Structurally normal valve. Doppler: Transvalvular velocity was within the normal range. There was no evidence for stenosis. There was mild regurgitation. Pulmonary artery: Pulmonary systolic pressure was mildly increased, in the range of 35mm Hg to 40mm Hg. Right atrium: The atrium was normal in size. Pericardium: There was no pericardial effusion. Systemic veins: Inferior vena cava: Poorly visualized. The vessel was normal in size. The respirophasic diameter changes were in the normal range (greater than or equal to 50%). Baseline ECG: Normal sinus rhythm. Measurements Left ventricle Value Reference LV ID, ED, PLAX 4.6 cm 3.5 - 6.0 LV ID, ES, PLAX 3.9 cm 2.1 - 4.0 LV PW thickness, ED, PLAX 1.1 cm LV end-diastolic volume, 1-p A2C 72 ml LV ejection fraction, 1-p A2C 49 % LV end-diastolic volume, 1-p A4C 86 ml LV ejection fraction, 1-p A4C 48 % LV e', lateral 0.128 m/sec LV E/e', lateral 5 LV e', medial 0.072 m/sec LV E/e', medial 10 LV e', average 0.1 m/sec LV E/e', average 7 Ventricular septum Value Reference IVS thickness, ED, PLAX 1.2 cm LVOT Value Reference LVOT ID, A-P 2.0 cm LVOT area 3.1 cm^2 LVOT peak velocity, S 1.21 m/sec LVOT mean velocity, S 0.75 m/sec LVOT VTI, S 25.6 cm LVOT peak gradient, S 5.9 mm Hg LVOT mean gradient, S 2.7 mm Hg Stroke volume (SV), LVOT DP 80 ml Stroke index (SV/bsa), LVOT DP 32 ml/m^2 Aortic valve Value Reference Aortic valve mean velocity, S 1.33 m/sec Aortic valve VTI, S 40.5 cm Aortic mean gradient, S 7.7 mm Hg VTI ratio, LVOT/AV 0.63 Aortic valve area, VTI 2 cm^2 Velocity ratio, mean, LVOT/AV 0.56 Aortic valve area, mean velocity 1.8 cm^2 Aortic valve area/bsa, mean velocity 0.7 cm^2/m^2 Aorta Value Reference Aortic root ID, ED 3.1 cm Ascending aorta ID, A-P, S 3.8 cm RVOT Value Reference RVOT VTI, S 16.4 cm Anesthesia Assessment and Plan Anesthesia History Personal History: No History of Anesthesia Complications Family History: No Family History of Anesthesia Complications Exercise Tolerance Exercise Tolerance: Metabolic Equivalents>4 Pertinent Negatives Pertinent Negatives: No Symptoms of GERD, No Major Cardiovascular Symptoms or Complaints, No Major Pulmonary Symptoms or Complaints and No History of CVA/TIA Cardiac & Pulmonary Exam Cardiac Exam: Normal S1/S2 Heart Sounds Pulmonary Exam: Clear Bilateral Breath Sounds Implantable Cardiac Device Does patient have a Pacemaker or an ICD?: No Airway Exam Known Difficult Airway: No Mallampati Class: 2 Mouth Opening: Normal (> 3cm) Thyromental Distance: Greater than 3 cm Neck Range of Motion: Full ROM Neck Circumference: Normal Teeth Condition: Normal Dentition ASA Classification ASA Score: ASA 3 Emergency Case?: No NPO Status NPO Status: NPO Clears >2 hours, Solids >8 hours Anesthesia Plan Resuscitation Status: Full Code Anesthesia Technique: General Anesthesia Airway Planned: Natural Airway Monitors Used: Standard Monitors
[2022-12-29 08:04] VITALS: BMI 42.2
[2022-12-29 08:45] VITALS: BP 151/68; PULSE 57; RESP 16; TEMP 36.3; O2SAT 98
[2022-12-29] MEDS: Lactated Ringers 1,000 ML 80 ML IV (09:46)
--- NOTE | 2022-12-29 10:12 | BOWEL_PTH ---
PATIENT: Alejandra Wolfe LOC: [facility] U#:[id number] AGE/SX: 72/F ROOM: RE12/29/[address]: Lucita Riojas MD : 1950 BED: DIS: 12/29/2022 SPEC #: [id number] RECD: 12/29/22 12:20 STATUS: ESTEPHANIA MONTE #: [id number] JAE: 12/29/22 10:[address]: Lucita Riojsa DEPT: Surgical Specimen RECD BY: Tammy Goodrich ENTERED: 12/29/22 12:21 SP TYPE: Bowel OTHR DR: Letty Whittington MD, DC Tissues: 1 - BIOPSY BOWEL 2 - STOMACH BIOPSY 3 - ESOPHAGUS BIOPSY Procedures: GROSS AND MICRO LEVEL 4 Comments: [id number]
[2022-12-29 10:20] VITALS: BP 107/85; PULSE 61; RESP 16; TEMP 36.4; O2SAT 99
--- NOTE | 2022-12-29 10:22 | ENDO_ITS ---
Date of service: 12/29/22 Time of Service: 10: Endoscopy Report DATE OF PROCEDURE: 12/29/22 PRE-OP DIAGNOSIS: Hx of duodenal Cancer, GERD POST-OP DIAGNOSIS: same (bile gastritis and reflux) PROCEDURE: EGD and biopsies SURGEON: Lucita Riojas ANESTHESIA TYPE: General:No Airway ESTIMATED BLOOD LOSS: 3 PATHOLOGY: other (Bx of stomach and esophagus) COMPLICATIONS: None DISPOSITION: same day INDICATIONS: Mrs Wolfe is a pleasant 72-year-old female who comes in today for an EGD.? I saw her in same-day surgery.? We went over the procedure, risks, benefits and complications.? I had her release signed the consent which was signed by Dr. Freeman originally.? She did not have any questions or concerns about the procedure.? Risks, benefits and complications have been reviewed. Complications include but are not limited to bleeding, pain, perforation, sore throat, aspiration, and adverse reaction to the medications.? Questions were entertained and answered to their satisfaction and they wished to proceed. No guarantees were given or implied. Proceed with EGD under sedation. PROCEDURE DESCRIPTION: After informed consent was obtained the patient was take to the procedure room and placed in a supine position. Monitors were applied and a time out was done. The patients name, date of , procedure type, allergies to medications and metal in their body was reviewed. A bite block was placed and the patient was sedated. Once sedated and comfortable the gastroscope was advanced through the oropharynx which was grossly normal into the esophagus. The proximal and mid- esophagus were normal. In the distal esophagus there was inflammation noted and evidence of reflux noted. The scope was advanced into the stomach and into the small intestine at the anastamosis. There was bile noted in the stomach. The scope was retracted back into the stomach and biopsies were done to rule out H. pylori. There were no ulcers. The scope was retroflexed. The cardia and fundus were noted to be normal. There was no hiatal hernia noted. The scope was retracted back into the esophagus and biopsies were done of the GE junction to rule out Walker's. The Z line was regular. The GE junction was at 32 cm. The scope was removed and the patient was woken up and taken back to [facility] in stable condition. Follow up: 2 weeks
--- NOTE | 2022-12-29 10:24 | W.PM.DSUDISC ---
Date of service: 12/29/22 Time of Service: 10:43 Discharge Plan Disposition Patient Disposition: Home Condition: Stable Discharge Details Reason For Visit: hx of duodenal ulcer and GERD Attending Provider: Lucita Riojas Primary Care Provider: Letty Whittington Home Meds and New Rx's Prescriptions: Continued Centrum Adult 50 Fresh-Fruity 120 mcg tablet,chewable 1 tab PO DAILY albuterol sulfate 90 mcg/actuation HFA aerosol inhaler 2 puff inhalation 6XD PRN (Reason: shortness of breath or wheezing) Qty: 8.5 0RF (DME) Aerochamber MV Spacer See Rx Instructions .Route Qty: 1 0RF Rx Instructions: As directed fluticasone propionate [Flonase Allergy Relief] 50 mcg/actuation spray,suspension 1 spray intranasal BID Qty: 16 0RF Rx Instructions: administer into each nostril BID (DME) blood-glucose meter Misc 1 ea Miscellaneous AC Qty: 1 0RF Rx Instructions: METER TYPE One touch meter DIAGNOSIS CODE E11.9 nystatin 100,000 unit/gram powder 1 applic topical BID Qty: 60 4RF potassium chloride 10 mEq capsule, extended release 10 meq PO BID Qty: 180 4RF sucralfate [Carafate] 1 gram tablet 1 g PO QAC Qty: 180 12RF Creon 24,000-76,000 -120,000 unit capsule,delayed release(DR/EC) 3 cap PO .[id number] daily MDD 18 Qty: 540 6RF Rx Instructions: administer with meals and/or snacks rosuvastatin [Crestor] 20 mg tablet 20 mg PO DAILY Qty: 90 4RF ergocalciferol (vitamin D2) 1,250 mcg (50,000 unit) capsule 50,000 unit PO .twice weekly Qty: 28 5RF budesonide-formoterol [Symbicort] 80-4.5 mcg/actuation HFA aerosol inhaler 2 puff inhalation BID Qty: 10.2 5RF (DME) OneTouch Ultra Test Strip See Rx Instructions .Route Qty: 200 12RF Rx Instructions: As directed (DME) lancets [OneTouch Delica Lancets] 33 gauge misc See Rx Instructions .ROUTE DAILY Qty: 200 5RF Rx Instructions: 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 One touch delica gabapentin 600 mg tablet 600 mg PO QHS Qty: 90 4RF glipizide 5 mg tablet extended release 24hr 5 mg PO DAILY Qty: 90 12RF pantoprazole [Protonix] 40 mg tablet,delayed release (DR/EC) 40 mg PO DAILY Qty: 90 5RF losartan 100 mg tablet 100 mg PO DAILY Qty: 90 12RF levothyroxine 100 mcg tablet 100 mcg PO DAILY Qty: 90 12RF sennosides [senna] 8.6 mg Tablet 8.6 mg PO BID PRN Discharge Instructions Instructions: Gastritis (DC) Additional Instructions: Post EGD Instruction ?You had anesthesia for your EGD/stomach scope today.? For your safety, please do the following for the next twenty-four (24) hours: Do Not operate a motor vehicle (car, truck, motorcycle, etc.) Do Not drink alcoholic beverages or use any recreational drugs for the first 24 hours or while taking pain medications. The medications in your body may have a reaction that can be dangerous. Do Not make any important decisions or sign any important papers You have just had a gastroscopy (EGD) or upper GI tract examination. It is important for your smooth recovery that you carefully follow the recommendations below. Do not hesitate to call if any questions should arise about your anesthesia, condition, or care. -Symptoms you may experience during the next 24 hours: ?1. Mild abdominal pain or excessive gas or a bloated feeling which improves with rest, liquids, eating? slightly, and walking as tolerated. 2. Drowsiness and/or forgetfulness because of the medications you were given. ?3. Throat numbness for about 1 hour. 4. A sore throat which you can treat with throat lozenges or by gargling with salt water 4-5 times a day. 5. Redness at the site of your IV which you can treat with warm compresses. SPECIAL INSTRUCTIONS: 1. You may resume your previous diet in one hour. We recommend a light meal to start, then progress as tolerated. 2. Restart regular medications in one hour. 3. No aspirin or non-steroidal containing medication for three days. 4. No lifting over 20 pounds or strenuous activity for the first 24 hours after your procedure. After 24 hours there are no restrictions on your activity, but you may feel fatigued for a few days. Findings: Inflammation of the anastamosis between the small intestine and stomach Evidence of reflux Treatment: -Medications: continue with current medications. You may try decreasing the Carafate to 2 x a day -Continue to follow lifestyle modifications: No alcohol, tobacco products, Aspirin or NSAID's (ibuprofen, Motrin, Naprosyn, aleve, etc).? Try to limit/avoid:? soda pop/any carbonated beverages, caffeine (including tea & chocolate), and acidic foods, (tomatoes, citrus, onions, peppermints) spicy or fried/fatty foods. Do not lie down for 30 minutes after eating, and do not eat 2 hours prior to bedtime. Avoid wearing tight fitting clothing/ belts. Follow up: -My office will send a letter with the results of your biopsy?s in 2-3wks time. Call the office at [phone] (Office) or [phone] (Hospital), or go to the ER right away if you notice any of the followin. Vomiting blood and /or ?coffee ground? material. ?2. Worsening of abdominal pain or cramping. ?3. Trouble with breathing, cough, and/or fever (temperature above 101.5 F). 4. Increasing pain with swallowing. ?5. Chest pain. 6. Any new symptoms. 7. Worsening of the redness at the IV site Activity:: see above Diet:: see above Discharge Orders Discharge Orders: Discharge Order (Routine); Ordered 12/29/22 Ordered By: Lucita Riojas DS: Diagnosis Discharge Diagnosis (1) Chronic GERD: Status: Acute Asessment and Plan: Patient is seen and examined after their endoscopy. Patient has minimal sore throat. They have been able to tolerate liquids. They do not have any Nausea or Vomiting. They are not having any chest pain or shortness of breath. They have been able to pass gas and are not having any abdominal pain or distention. they have not vomited any blood. The vital signs have been stable-see nursing notes. We discussed findings on their endoscopy We reviewed the importance of lifestyle modifications- see diet recommendations We reviewed any new medications that the patient may be prescribed- see medicine reconciliation. Patient will either be sent a letter with the biopsy results or follow up in the office- see discharge instructions Patient was given explicit instructions for emergency follow up post endoscopy- see discharge instructions Patient verbalized understanding and was discharged in stable and satisfactory condition. See nursing notes. (2) Duodenal adenocarcinoma:
[2022-12-29 10:50] VITALS: BP 136/63; PULSE 53; RESP 18; TEMP 36.4; O2SAT 99
--- NOTE | 2022-12-29 11:20 | W.ANESPOSTOP ---
Postoperative Evaluation Date, Time and Location Date Performed: 12/29/22 Time Performed: 11:20 Patient Location: Day Surgery Unit Vital Signs Most Recent Imported Vital Signs: Most Recent Vital Signs Temp Pulse Resp BP Pulse Ox 36.4 C L 53 L 18 136/63 99 12/29/22 10:50 12/29/22 10:50 12/29/22 10:50 12/29/22 10:50 12/29/22 10:50 Pain Score Most Recent Pain Score: Most Recent Pain Score Pain Level 0 12/29/22 10:50 Assessment Mental Status: Awake (Alert & Oriented to Patient Baseline) Airway and Respiratory Function: Patent airway with normal (patient baseline) respiratory exam Cardiovascular Function: Hemodynamically Stable Hydration Status: Adequately Hydrated Nausea & Vomiting: No Nausea or Vomiting Pain: Pt. Denies Any Pain Peripheral Nerve Block: Patient did not receive a nerve block Postoperative Comments:: Seen earlier and doing well. Patient denied questions.
== END 2022-12-29 11:23 | disposition home or self-care (01) ==
PROVIDERS: PCP Family Medicine; Visit Provider Surgery
PROC: 0DJ68ZZ Inspection of Stomach, Via Natural or Artificial Opening Endoscopic (ICD-10-PCS; CPT 43235; principal; 2022-12-29 09:00)
DX: K21.9 Gastro-esophageal reflux disease without esophagitis (principal); Z85.068 Personal history of other malignant neoplasm of small intestine; Z90.3 Acquired absence of stomach [part of]; Z90.411 Acquired partial absence of pancreas; E11.22 Type 2 diabetes mellitus with diabetic chronic kidney disease; I12.9 Hypertensive chronic kidney disease with stage 1 through stage 4 chronic kidney disease, or unspecified chronic kidney disease; K31.7 Polyp of stomach and duodenum; K22.89 Other specified disease of esophagus
CPT/HCPCS: 43239; 88305; 84443; J2001

== ENCOUNTER → 2023-01-11 08:41 | Outpatient (BNVA) | payer MEDICARE, MEDICAID, SELFPAY | PROVIDERS: PCP Family Medicine; Referring Provider Family Medicine; Visit Provider Surgery | DX: K22.70 Barrett's esophagus without dysplasia (principal); K29.70 Gastritis, unspecified, without bleeding | CPT/HCPCS: 99215 ==

== ENCOUNTER 2023-01-27 15:10 | Outpatient (CLI) | payer MEDICARE, MEDICAID, SELFPAY ==
--- NOTE | 2023-01-27 15:00 | RT.EKG_ITS ---
APPROVED REPORT Exam: Resting ECG Reason for Exam: chest discomfort Patient Location: O HR:57 bpm ECG Measurements Heart Rate 57 AXIS LA 197 P -28 QRSd 124 QRS -4 QT 443 T 16 QTc 432 Conclusion Sinus rhythm...normal P axis, V-rate 50- 99 Normal Electrocardiogram
== END 2023-01-27 15:11 | disposition home or self-care (01) ==
LOC: DI.CM 15:11
PROVIDERS: PCP Family Medicine; Visit Provider Nurse Practitioner Family
DX: R07.89 Other chest pain (principal)
CPT/HCPCS: 93010

== ENCOUNTER 2023-01-27 15:56 | Emergency (ER) | payer MEDICARE, MEDICAID, SELFPAY ==
--- NOTE | 2023-01-27 15:45 | RT.EKG_ITS ---
APPROVED REPORT Exam: Resting ECG Reason for Exam: cHEST PAIN Patient Location: E HR:59 bpm ECG Measurements Heart Rate 59 AXIS MN 224 P 31 QRSd 119 QRS -1 QT 422 T 17 QTc 419 Conclusion Sinus bradycardia...rate< 60 Prolonged MN interval...MN >220, V-rate 50- 90 Nonspecific intraventricular conduction delay...QRSd >115mS, not LBBB/RBBB
[2023-01-27 16:00] VITALS: BP 156/75; PULSE 61; RESP 18; TEMP 36.3; O2SAT 98
[2023-01-27 16:06] VITALS: BP 156/75; PULSE 57; RESP 20; O2SAT 99
--- NOTE | 2023-01-27 16:09 | ED.GENADUL_ITS ---
Discharge Plan Disposition Patient Disposition: Home Condition: Stable Discharge Details Clinical Impression: Chest pain Primary Care Provider: Letty Whittington ED Provider: Mandy Paniagua Home Meds and New Rx's Prescriptions: Continued Centrum Adult 50 Fresh-Fruity 120 mcg tablet,chewable 1 tab PO DAILY albuterol sulfate 90 mcg/actuation HFA aerosol inhaler 2 puff inhalation 6XD PRN (Reason: shortness of breath or wheezing) Qty: 8.5 0RF (DME) Aerochamber MV Spacer See Rx Instructions .Route Qty: 1 0RF Rx Instructions: As directed fluticasone propionate [Flonase Allergy Relief] 50 mcg/actuation spray,suspension 1 spray intranasal BID Qty: 16 0RF Rx Instructions: administer into each nostril BID sucralfate [Carafate] 1 gram tablet 1 g PO QHS (DME) blood-glucose meter Misc 1 ea Miscellaneous AC Qty: 1 0RF Rx Instructions: METER TYPE One touch meter DIAGNOSIS CODE E11.9 nystatin 100,000 unit/gram powder 1 applic topical BID Qty: 60 4RF budesonide-formoterol [Symbicort] 80-4.5 mcg/actuation HFA aerosol inhaler 2 puff inhalation BID Qty: 10.2 5RF (DME) OneTouch Ultra Test Strip See Rx Instructions .Route Qty: 200 12RF Rx Instructions: As directed (DME) lancets [OneTouch Delica Lancets] 33 gauge misc See Rx Instructions .ROUTE DAILY Qty: 200 5RF Rx Instructions: 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 One touch delica gabapentin 600 mg tablet 600 mg PO QHS Qty: 90 4RF glipizide 5 mg tablet extended release 24hr 5 mg PO DAILY Qty: 90 12RF pantoprazole [Protonix] 40 mg tablet,delayed release (DR/EC) 40 mg PO DAILY Qty: 90 5RF Patient Comments: increased to BID for one month - started taking BID on 01/12/23 losartan 100 mg tablet 100 mg PO DAILY Qty: 90 12RF levothyroxine 100 mcg tablet 100 mcg PO DAILY Qty: 90 12RF Creon 24,000-76,000 -120,000 unit capsule,delayed release(DR/EC) 3 cap PO .r0dmnuw daily MDD 18 Qty: 540 6RF Rx Instructions: administer with meals and/or snacks ergocalciferol (vitamin D2) 1,250 mcg (50,000 unit) capsule 50,000 unit PO .twice weekly Qty: 28 5RF potassium chloride 10 mEq capsule, extended release 10 meq PO BID Qty: 180 4RF rosuvastatin [Crestor] 20 mg tablet 20 mg PO DAILY Qty: 90 4RF sennosides [senna] 8.6 mg Tablet 8.6 mg PO BID PRN Discharge Instructions Instructions: Chest Pain (ED) Additional Instructions: The troponin levels are downtrending which means they are going down. I feel it is safe for you to be discharged home as you have not had a return in the chest pain. Please take 81 mg chewable aspirin daily. Please follow-up with your primary care provider in the next 1 to 2 days to discuss outpatient stress testing and echocardiogram. Follow up with primary care provider in 1-2 days. Return to ED sooner if any worsening or concerns. Increase oral fluids. Referrals: Letty Whittington MD, [place] [Primary Care Provider] - 3 days Medical Decision Making 80-year-old female presents to the ER with a chief complaint of 3 days of right upper quadrant abdominal pain/chest pain which is intermittent. She reports that she has short episodes of sharp pain that radiates into her back. Denies any nausea vomiting diarrhea no fever or chills. 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 Other past medical history include obesity, GERD, renal failure hypokalemia hyperlipidemia hypothyroidism diverticulosis, diabetes mellitus, depression. EKG done by staff internist office based only in triage, cardiac work-up ordered including serial troponins, lipase and urinalysis. Differential diagnosis includes but not limited to CAD, choledocholithiasis, kidney stone. CBC shows no leukocytosis, lipase 11 which is low urinalysis shows trace blood negative for leukocytes or nitrites there is squamous contamination culture not indicated at this time. Initial troponin came back positive at 96. Chest CT rule out PE abdomen pelvis ordered. 1743: Patient has remained chest pain-free discussed labs and repeat troponin which patient verbalized understanding is in agreement with plan of care. 1924: Repeat Trop 90 which is downtrending, will plan to DC patient with close follow up with PCP for outpatient stress test and further eval. This text was generated using HyperQuestation system, please disregard any oddities of phrase or misspellings. Medical Records Medical records reviewed: Yes I reviewed the patient's medical records. Imaging Data Radiologic Study: Imaging: CT Scan Radiologist's impression: IMPRESSION: 1. No acute findings. 2. Incidental findings as described Lab Data Lab results reviewed: Yes I reviewed the patient's lab results. Labs: Laboratory Tests Range/Units 01/27/23 01/27/23 01/27/23 16:17 16:17 16:17 WBC (4.4-10.8) 10^3/uL 6.67 RBC (3.93-5.22) 10^6/uL 4.22 Hgb (11.2-15.7) g/dL 12.9 Hct (36.0-46.0) % 39.3 MCV (80-95) fL 93 MCH (27.0-33.0) pg 30.6 MCHC (32.0-36.0) % 32.8 RDW (11.7-14.6) % 13.0 Plt Count (130-400) 10^3/uL 97 L MPV (8.0-11.0) fL 11.0 Immature Gran % 0.3 Neutrophils % 61.2 Lymphocytes % 28.3 Monocytes % 9.4 Eosinophils % 0.7 Basophils % 0.1 Nucleated RBC % (0.0-0.3) % 0.0 Absolute Neutrophils (1.2-6.7) 10^3/uL 4.07 Absolute Lymphocytes (1.2-3.4) 10^3/uL 1.89 Absolute Monocytes (0.1-0.8) 10^3/uL 0.63 Absolute Eosinophils (0.0-0.7) 10^3/uL 0.05 Absolute Basophils (0.0-0.2) 10^3/uL 0.01 Sodium (136-145) mmol/L 143 Potassium (3.5-5.1) mmol/L 3.9 Chloride (98-107) mmol/L 106 Carbon Dioxide (21.0-32.0) mmol/L 30.0 Anion Gap (3-11) mmol/L 7.0 BUN (7-18) mg/dL 22 H Creatinine (0.55-1.02) mg/dL 1.2 H Est GFR (CKD-EPI 2020) (mL/min/1.73m2) 48.70 Glucose (74-106) mg/dL 99 Calcium (8.5-10.1) mg/dL 9.3 Magnesium (1.8-2.4) mg/dL 2.0 Total Bilirubin (0.2-1.0) mg/dL 0.4 AST (15-37) U/L 18 ALT (14-59) U/L 27 Alkaline Phosphatase (46-116) U/L 78 Troponin I (<or=60) ng/L 96 H* Total Protein (6.4-8.2) g/dL 7.5 Albumin (3.4-5.0) g/dL 3.7 Lipase (16-77) U/L 11 L Urine Color (Yellow) Urine Clarity (Clear) Urine pH (5-8) Ur Specific Ripley (1.005-1.025) Urine Protein (Negative) mg/dL Urine Ketones (Negative) mg/dL Urine Blood (Negative) Urine Nitrite (Negative) Urine Bilirubin (Negative) Urine Urobilinogen (Up to 0.2) mg/dL Ur Leukocyte Esterase (Negative) Urine RBC (0-2) HPF Urine WBC (0-5) HPF Ur Epithelial Cells (Negative) HPF Urine Crystals (Negative) HPF Urine Bacteria (Negative) HPF Urine Casts (Negative) LPF Urine Mucus (Negative) Ur Culture Indicated? Urine Glucose (Negative) mg/dL Range/Units 01/27/23 01/27/23 16:26 18:52 WBC (4.4-10.8) 10^3/uL RBC (3.93-5.22) 10^6/uL Hgb (11.2-15.7) g/dL Hct (36.0-46.0) % MCV (80-95) fL MCH (27.0-33.0) pg MCHC (32.0-36.0) % RDW (11.7-14.6) % Plt Count (130-400) 10^3/uL MPV (8.0-11.0) fL Immature Gran % Neutrophils % Lymphocytes % Monocytes % Eosinophils % Basophils % Nucleated RBC % (0.0-0.3) % Absolute Neutrophils (1.2-6.7) 10^3/uL Absolute Lymphocytes (1.2-3.4) 10^3/uL Absolute Monocytes (0.1-0.8) 10^3/uL Absolute Eosinophils (0.0-0.7) 10^3/uL Absolute Basophils (0.0-0.2) 10^3/uL Sodium (136-145) mmol/L Potassium (3.5-5.1) mmol/L Chloride (98-107) mmol/L Carbon Dioxide (21.0-32.0) mmol/L Anion Gap (3-11) mmol/L BUN (7-18) mg/dL Creatinine (0.55-1.02) mg/dL Est GFR (CKD-EPI 2020) (mL/min/1.73m2) Glucose (74-106) mg/dL Calcium (8.5-10.1) mg/dL Magnesium (1.8-2.4) mg/dL Total Bilirubin (0.2-1.0) mg/dL AST (15-37) U/L ALT (14-59) U/L Alkaline Phosphatase (46-116) U/L Troponin I (<or=60) ng/L 90 H* Total Protein (6.4-8.2) g/dL Albumin (3.4-5.0) g/dL Lipase (16-77) U/L Urine Color (Yellow) Yellow Urine Clarity (Clear) Clear Urine pH (5-8) 5.5 Ur Specific Ripley (1.005-1.025) 1.025 Urine Protein (Negative) mg/dL Negative Urine Ketones (Negative) mg/dL Negative Urine Blood (Negative) Trace-intact H Urine Nitrite (Negative) Negative Urine Bilirubin (Negative) Negative Urine Urobilinogen (Up to 0.2) mg/dL 0.2 Ur Leukocyte Esterase (Negative) Negative Urine RBC (0-2) HPF 0-2 Urine WBC (0-5) HPF 3-5 Ur Epithelial Cells (Negative) HPF Many Urine Crystals (Negative) HPF Negative Urine Bacteria (Negative) HPF Few Urine Casts (Negative) LPF Negative Urine Mucus (Negative) Trace Ur Culture Indicated? No/Sq. Contamination Urine Glucose (Negative) mg/dL Negative HPI General Mode of arrival: ambulatory . Date/Time Provider Initiated Documentation: 01/27/23 15:58 . Limitations to Documentation: no limitations . Information obtained by: patient, RN notes reviewed and old records reviewed . HPI Narrative: 80-year-old female presents to the ER with a chief complaint of 3 days of right upper quadrant abdominal pain/chest pain which is intermittent. She reports that she has short episodes of sharp pain that radiates into her back. Denies any nausea vomiting diarrhea no fever or chills. 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 Other past medical history include obesity, GERD, renal failure hypokalemia hyperlipidemia hypothyroidism diverticulosis, diabetes mellitus, depression. Related Data Home Medications Medication Instructions Recorded Confirmed sennosides 8.6 mg tablet (senna) 8.6 mg PO BID PRN 11/04/20 01/27/23 blood-glucose meter #1 ea 01/13/21 01/27/23 nystatin 100,000 unit/gram topical 1 applic topical BID #60 grams 10/02/21 01/27/23 powder multivitamin with minerals-folic 1 tab PO DAILY 11/27/21 01/27/23 acid 120 mcg chewable tablet (Centrum Adult 50 Plus Fresh-Fruity) albuterol sulfate 90 mcg/actuation 2 puff inhalation 6XD PRN 04/29/22 01/27/23 aerosol inhaler shortness of breath or wheezing #8.5 grams fluticasone propionate 50 1 spray intranasal BID #16 grams 04/29/22 01/27/23 mcg/actuation nasal spray,suspension (Flonase Allergy Relief) inhalational spacing device #1 ea 04/29/22 01/27/23 (Aerochamber MV spacer) budesonide-formoterol HFA 80 2 puff inhalation BID #10.2 grams 05/04/22 01/27/23 mcg-4.5 mcg/actuation aerosol inhaler (Symbicort) blood sugar diagnostic (YolaTouch #200 ea 05/05/22 01/27/23 Ultra Test strips) lancets 33 gauge (OneTouch Delica #200 ea 05/05/22 01/27/23 Lancets) gabapentin 600 mg tablet 600 mg PO QHS #90 tabs 09/18/22 01/27/23 glipizide 5 mg tablet, extended 5 mg PO DAILY #90 tabs 10/05/22 01/27/23 release 24 hr pantoprazole 40 mg tablet,delayed 40 mg PO DAILY bleeding duodenal 10/05/22 01/27/23 release (Protonix) ulcer #90 tabs levothyroxine 100 mcg tablet 100 mcg PO DAILY #90 tab-caps 12/15/22 01/27/23 losartan 100 mg tablet 100 mg PO DAILY #90 tab-caps 12/15/22 01/27/23 ergocalciferol (vitamin D2) 1,250 50,000 unit PO .twice weekly #28 01/04/23 01/27/23 mcg (50,000 unit) capsule caps [id number] 3 cap PO .c5fgtiy daily #540 caps 01/04/23 01/27/23 24,000-76,000-120,000 unit capsule,delayed rel (Creon) potassium chloride 10 mEq 10 meq PO BID #180 caps 01/04/23 01/27/23 capsule,extended release rosuvastatin 20 mg tablet (Crestor) 20 mg PO DAILY #90 tab-caps 01/04/23 01/27/23 sucralfate 1 gram tablet (Carafate) 1 g PO QHS 01/11/23 01/27/23 Previous Rx's Medication Instructions Recorded blood-glucose meter #1 ea 01/13/21 nystatin 100,000 unit/gram topical 1 applic topical BID #60 grams 10/02/21 powder albuterol sulfate 90 mcg/actuation 2 puff inhalation 6XD PRN 04/29/22 aerosol inhaler shortness of breath or wheezing #8.5 grams fluticasone propionate 50 1 spray intranasal BID #16 grams 04/29/22 mcg/actuation nasal spray,suspension (Flonase Allergy Relief) inhalational spacing device #1 ea 04/29/22 (Aerochamber MV spacer) budesonide-formoterol HFA 80 2 puff inhalation BID #10.2 grams 05/04/22 mcg-4.5 mcg/actuation aerosol inhaler (Symbicort) blood sugar diagnostic (YolaTouch #200 ea 05/05/22 Ultra Test strips) lancets 33 gauge (YolaTouch Delica #200 ea 05/05/22 Lancets) gabapentin 600 mg tablet 600 mg PO QHS #90 tabs 09/18/22 glipizide 5 mg tablet, extended 5 mg PO DAILY #90 tabs 10/05/22 release 24 hr pantoprazole 40 mg tablet,delayed 40 mg PO DAILY bleeding duodenal 10/05/22 release (Protonix) ulcer #90 tabs levothyroxine 100 mcg tablet 100 mcg PO DAILY #90 tab-caps 12/15/22 losartan 100 mg tablet 100 mg PO DAILY #90 tab-caps 12/15/22 ergocalciferol (vitamin D2) 1,250 50,000 unit PO .twice weekly #28 01/04/23 mcg (50,000 unit) capsule caps [id number]-hmyxxpyj-iuscxkn 3 cap PO .y7bqnfx daily #540 caps 01/04/23 24,000-76,000-120,000 unit capsule,delayed rel (Creon) potassium chloride 10 mEq 10 meq PO BID #180 caps 01/04/23 capsule,extended release rosuvastatin 20 mg tablet (Crestor) 20 mg PO DAILY #90 tab-caps 01/04/23 Allergies Allergy/AdvReac Type Severity Reaction Status Date / Time lisinopril AdvReac Intermediate COUGH Unverified 01/27/23 18:24 General Stated Complaint: Chest Pain NOLVIA: 3 Review of Systems All systems reviewed & are unremarkable except as noted in HPI and below Cardiovascular Cardiovascular: Reports chest pain, Reports chest pain at rest, Denies syncope, Denies palpitations and Denies dyspnea Respiratory Respiratory: Denies cough and Denies dyspnea Gastrointestinal Gastrointestinal: Reports as per HPI and Reports abdominal pain Neurologic Neurologic: Denies syncope Endocrine Endocrine: Denies palpitations PFSH All Active Problems (Updated 01/27/23 @ 19:37 by Mandy Paniagua NP) Chest pain (Acute) 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 (Acute) BMI 40.0-44.9, adult (Acute) Right wrist tendonitis (Acute) Trochanteric bursitis of left hip (Acute) COVID-19 (Acute) 12/22/21 Vaccinated, booster 07/09/21 Chronic constipation (Acute) Adenomatous polyps (Acute) repeat CE in 2023 Chronic GERD (Acute) Lumbar radiculopathy (Acute 02/06/13) Knee pain (Acute 03/12/15) Insomnia (Acute) Renal failure (Chronic) Hypokalemia (Acute 05/09/15) Vitamin D deficiency (Chronic 03/22/12) Pulmonary hypertension (Chronic 11/08/17) Organic sleep apnea, unspecified (Chronic) CPAP (NOT USING 11/17) Increased body mass index (Chronic) Hypothyroidism (Chronic 10/11/12) Hyperlipidemia (Chronic 10/11/12) Gout (Chronic 03/14/10) Gastroesophageal reflux disease (Chronic 10/11/12) Family history of colon cancer (Chronic 01/29/15) Essential hypertension (Chronic 05/04/13) Edema (Chronic) Diverticulosis of colon without diverticulitis (Chronic 05/21/09) 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) Depressive disorder (Chronic) Chronic right shoulder pain (Chronic 11/02/17) Bronchiectasis (Chronic) chronic cough Medical History Abdominal pain (07/12/12) Abnormal mammography (07/01/06) Adenomatous polyp of duodenum Anemia due to blood loss, acute Arthritis of right knee (06/07/15) Bronchiectasis Chest pain Chronic insomnia Depression Diabetes Diverticulosis large intestine w/o perforation or abscess w/o bleeding Duodenal adenocarcinoma T3,pN0,M0, Stage II Duodenal ulcer E coli bacteremia [id number]-[id number] at [facility] H Gastritis GERD (gastroesophageal reflux disease) GI (gastrointestinal bleed) Gout History of pelvic ultrasound Hyperkalemia (10/20/12) Hypertension Hypothyroidism Incarcerated incisional hernia Iron deficiency anemia Knee pain (03/12/15) Left hip pain (12/15/16) Lipoma (07/01/05) Morbid obesity with BMI of 50.0-59.9, adult Organic sleep apnea Osteoarthritis Skin tag (08/03/17) Sprain of costal cartilage (10/22/16) Strain of flexor muscle of left hip (09/23/16) Thrombocytopathia 2020 Transaminitis [id number]- assoc with bacteremia Vitamin D deficiency Surgical History Arthroplasty of knee (02/25/16) LEFT TOTAL KNEE Cholecystectomy Colonoscopy - IV Sedation Endometrial Biopsy neg History of bilateral ligation of fallopian tubes History of colonoscopy (~11/05/20) History of esophagogastroduodenoscopy (EGD) (~11/05/20) History of Whipple procedure Ligation of fallopian tube PELVIC U/S NEG Status post cholecystectomy Status post total knee replacement (02/25/16) Surgical procedure planned Whipple procedure 01/01/20 Family History Mother Liver cancer Father Heart disease Stomach cancer Maternal Grandfather Cirrhosis of liver Paternal Grandfather Narcolepsy Diabetes Maternal Grandmother Diabetes Heart disease Breast cancer Paternal Grandmother Breast cancer Sister Alcohol abuse Uterine cancer Sister Cancer Brother , 66 Liver cancer Lung cancer Son Essential hypertension Son Narcolepsy Diabetes Essential hypertension Hyperlipidemia Other Family history of colon cancer Social History Smoking/Tobacco Use Status: Never Second Hand Exposure: Yes Smoking risk assessment performed?: Yes Alcohol Intake: former Drug use: Never Substance use type: does not use Caregiver/Support person: No Household members: spouse Housing: house Communication Needs: None Do you need help understanding health information?: Rarely Pets and animals: Yes Pets and animals: cat(s) Sexually active: No Do you think of yourself as: straight/heterosexual Current gender identity: female What is your relationship status?: How often do you talk on the phone with friends or family?: three or more times per week How often do you get together with friends or relatives?: once per week How often do you attend judaism or gnosticism services?: 1-3 times per year Do you belong to any clubs or organized social groups?: yes Panel score (0-1 are the most socially isolated patients): 3 What type of physical activity do you participate in: walking and other Details: Gardening,Housework Duration: 15-30 minutes/day Frequency: daily Sejal/Samaritan: Mu-Ism Special sejal needs: No Seatbelt use: always Helmet use: No Drive intox or ride w/intox route cdl driver: No Do you feel safe at home: Yes Do you feel safe in your relationship?: Yes Exam Narrative Exam Narrative: Constitutional: Alert and oriented x3. Appears stated age. Obese body habitus. Head: Normocephalic, no trauma. Eyes: Pupils PERRL, Red reflex noted, EOM's intact. Eyelids symmetrical without lesions, discharge, or swelling. ENT: Bilateral TM's WNL, External ear normal to inspection, no mastoid TTP, swelling, or erythema, Nasal turbinates WNL, no nasal discharge. Normal dentition, Posterior pharynx WNL, no exudate. Chest: RRR, Normal S1, S2, distal pulses intact. Resp: Lungs clear to auscultation bilaterally, no wheezes, rales, or rhonchi. Abdomen: Soft, non-distended, Normoactive bowel sounds all 4 quads. Slightly tender with palpation right upper quadrant. Musculoskeletal: Normal gait, 5/5 strength to all four extremities. Skin: No suspicious rashes or lesions. Capillary refill less than 2 sec. Neurologic: Cranial nerves II-XII intact. Alert and oriented x 3. Motor: No deficits noted. Sensory: Intact bilaterally all 4 extremities. Reflexes: DTR's intact bilaterally.. Hematologic/Lymphatic: No ecchymosis, no lymphadenopathy. Course Vital Signs Vital signs: Vital Signs Temperature 36.3 C L 01/27/23 16:00 Pulse 61 01/27/23 16:00 Respiratory Rate 18 01/27/23 16:00 Blood Pressure 156/75 H 01/27/23 16:00 Pulse Oximetry 98 01/27/23 16:00 Temperature 36.3 C L 01/27/23 16:00 Temperature Source Skin 01/27/23 16:00 Pulse 61 01/27/23 16:00 Respiratory Rate 18 01/27/23 16:00 Blood Pressure 156/75 H 01/27/23 16:00 Blood Pressure Position Supine 01/27/23 16:00 Pulse Oximetry 98 01/27/23 16:00 Oxygen Delivery Method Room Air 01/27/23 16:00 Oxygen Flow Rate 0 01/27/23 16:00 Pain Level 0 01/27/23 16:00
[2023-01-27 16:13] VITALS: RESP 20
[2023-01-27] MEDS: Aspirin 81 MG CHEW 324 MG CH (16:18)
[2023-01-27 16:28] LABS: Abs Immature Grans 0.02 10^3/uL (0.0-0.06); Absolute Basophil Count 0.01 10^3/uL (0.0-0.2); Absolute Eosinophil Count 0.05 10^3/uL (0.0-0.7); Absolute Lymphocyte Count 1.89 10^3/uL (1.2-3.4); Absolute Monocyte Count 0.63 10^3/uL (0.1-0.8); Absolute Neutrophil Count 4.07 10^3/uL (1.2-6.7); Basophils % 0.1; Eosinophils % 0.7; HCT 39.3 % (36.0-46.0); HGB 12.9 g/dL (11.2-15.7); Immature Grans % 0.3; Lymphocytes % 28.3; MCH 30.6 pg (27.0-33.0); MCHC 32.8 % (32.0-36.0); MCV 93 fL (80-95); Monocytes % 9.4; Neutrophils % 61.2; Platelet Count 97 10^3/uL (130-400); RBC 4.22 10^6/uL (3.93-5.22); RDW-SD 44.3 fL; WBC 6.67 10^3/uL (4.4-10.8)
[2023-01-27 16:35] LABS: Bilirubin Negative (Negative); Blood Trace-intact (Negative); Clarity Clear (Clear); Glucose Negative (Negative); Ketones Negative (Negative); Leukocyte Esterase Negative (Negative); Nitrite Negative (Negative); Specific Gravity 1.025 (1.005-1.025); Urobilinogen 0.2 mg/dL (Up to 0.2); pH 5.5 (5-8)
[2023-01-27 16:42] LABS: Lipase 11 U/L (16-77)
[2023-01-27 16:42] LABS: Bacteria Few HPF (Negative); C & S Indicated? No/Sq. Contamination; Casts Negative LPF (Negative); Crystals Negative HPF (Negative); Epithelial Cells Many HPF (Negative); Mucus Trace (Negative); RBC 0-2 HPF (0-2)
--- NOTE | 2023-01-27 16:45 | DI.CT_ITS ---
Exam(s) CT CHEST PE ABD PELVIS W EXAM: CT CHEST PE ABD PELVIS W CLINICAL HISTORY: Chest Pain, RUQ abd pain. TECHNIQUE: Imaging Protocol: Axial CT angiography was performed with multi-slice acquisition and mu lti-planar and/or 3D reconstructions. CONTRAST MATERIAL: Intravenous: Omnipaque 350 Contrast volume:100 ml COMPARISON: CT CT CHEST/ABD/PEL W from 02/24/2022 CR XR CHEST 2V PA LATERAL from 09/11/2022 FINDINGS: CHEST: Pulmonary Arteries: No evidence of filling defect to suggest pulmonary emboli. Tracheobronchial tree: Patent where visualized. Mediastinum and Patricia: No dominant adenopathy or fluid collection. Pulmonary parenchyma: Respiratory motion and expiratory changes. No consolidation or dominant measur able mass. Pleura: No effusion or pneumothorax. Heart: The heart is mildly dilated. Mild moderate coronary artery calcifications are seen. Aorta: Thoracic aorta non-dilated. Bones: Normal. Tubes, Catheters, and Lines: ABDOMEN: Liver: Normal density. No measurable mass. Portal, Superior Mesenteric, and Splenic Veins: Unremarkable. Gallbladder and Biliary Tract: Status post cholecystectomy. Stable pneumobilia. Pancreas: Atrophic. No abnormal calcifications or inflammatory process. Spleen: Normal. Adrenals: No masses seen. Kidneys: Normal size, contour and axis. No radiodense stones or obstructive uropathy. No masses seen. Abdominal Aorta: Abdominal portion non-dilated. Atherosclerotic changes. Bowel: Gastric anastomosis.No obstruction or bowel wall thickening. Minimal diverticulosis. Appendi x is unremarkable. Peritoneal Cavity: The surgical clips in upper mesentery. No ascites, collection or mesenteric infla mmatory response. Lymph Nodes: Within normal limits. Bones: L5 pars defects. Stable mild spondylolisthesis. Soft Tissues: Unremarkable. PELVIS: Bladder: Mildly distended. Moderate wall thickening. Gross wall thickening. Reproductive Organs: Unremarkable as visualized. Lymph Nodes: Within normal limits. Bones: Within normal limits. IMPRESSION: 1. No evidence of pulmonary embolism. . No acute abnormality in the chest. 2. Stable findings of pneumobilia, postsurgical. 3. Bladder wall thickening of the secondary to underdistention could represent cystitis.. Clinical c orrelation recommended. RADIATION DOSE DELIVERED: 1,736.47mGy.cm Total DLP DATA REPOSITORY: All CT scans at this facility are submitted to the National Radiology Data Registry (NRDR) Dose Index Registry (DIR) with the [employer] (ACR). RADIATION OPTIMIZATION: All CT scans at this facility use at least one of these dose optimization te chniques: automated exposure control; mA and/or kV adjustment per patient size (includes targeted exa ms where dose is matched to clinical indication); or iterative reconstruction.
[2023-01-27 16:48] LABS: ALT 27 U/L (14-59); AST 18 U/L (15-37); Albumin 3.7 g/dL (3.4-5.0); Alkaline Phosphatase 78 U/L (46-116); BUN 22 mg/dL (7-18); Bilirubin, Total 0.4 mg/dL (0.2-1.0); CREATININE 1.2 mg/dL (0.55-1.02); Calcium 9.3 mg/dL (8.5-10.1); Chloride 106 mmol/L (98-107); Glucose 99 mg/dL (74-106); Potassium 3.9 mmol/L (3.5-5.1); Sodium 143 mmol/L (136-145); Total Protein 7.5 g/dL (6.4-8.2)
[2023-01-27 16:49] LABS: Troponin I 96 ng/L (<or=60)
[2023-01-27] MEDS: Normal Saline 1,000 ML 200 ML IV (16:59)
[2023-01-27] MEDS: Normal Saline - Diluent 50 ML VIAL IJ (17:42)
[2023-01-27] MEDS: Omnipaque 350 MG/ML 100 ML BTL IJ (17:43)
[2023-01-27] MEDS: Normal Saline Flush 10 ML SYR IVP (17:43)
--- NOTE | 2023-01-27 18:37 | DI.VRAD_ITS ---
PROCEDURE INFORMATION: Exam: CTA Chest With Contrast CTA Abdomen With Contrast Exam date and time: 01/27/2023 17:36 Age: 72 years old Clinical indication: Other: Chest pain; Other: Right upper quad pain TECHNIQUE: Imaging protocol: Computed tomographic angiography of the chest with contrast. Exam focused on the arteries. Computed tomographic angiography of the abdomen with contrast. Exam focused on the arteries. 3D rendering (Not supervised by radiologist): MIP and/or 3D reconstructed images were created by the technologist. Contrast material: 350; Contrast volume: 100 ml; Contrast route: INTRAVENOUS (IV); COMPARISON: CT CHEST PE ABD PELVIS W 05/15/2021 16:26 FINDINGS: VASCULATURE: Pulmonary arteries: Dilated central pulmonary arteries suggest PA hypertension and this is similar to prior. No filling defects are seen allowing for some motion artifact distally. Aorta: No aortic aneurysm. No aortic dissection. Celiac trunk and mesenteric arteries: No occlusion or significant stenosis. Renal arteries: No occlusion or significant stenosis. CHEST: Lungs: Scattered microatelectasis. No airspace consolidation. Pleural spaces: Unremarkable. No pneumothorax. No pleural effusion. Heart: Moderate cardiomegaly similar to prior. ABDOMEN AND PELVIS: Liver: No hepatic masses. Gallbladder and bile ducts: Pneumobilia similar to prior suggests sphincterotomy. Alternatively this can be seen in the setting of a choledochal jejunal anastomosis. Cholecystectomy. No gross biliary dilation. Pancreas: Atrophic pancreas without mass lesion or acute inflammation. Spleen: Unremarkable. No splenomegaly. Adrenal glands: Unremarkable. No mass. Kidneys and ureters: Unremarkable. No solid mass. No hydronephrosis. Stomach and bowel: See Gallbladder and bile ducts finding. Intraperitoneal space: Unremarkable. No free air. No significant fluid collection. Urinary bladder: No definite bladder wall thickening for the degree of distension which is minimal. Lymph nodes: Unremarkable. No enlarged lymph nodes. Bones/joints: Grade one anterolisthesis of L5 over S1 in the setting of pars defects. Degenerative changes in the spine. No acute fracture or subluxation. Soft tissues: Unremarkable. IMPRESSION: 1. No acute findings. 2. Incidental findings as described. Dictated and Authenticated by: Shanita Doyle MD. Ordering:SINDI Galvan MD
--- NOTE | 2023-01-27 18:45 | RT.EKG_ITS ---
APPROVED REPORT Exam: Resting ECG Reason for Exam: Repeat EKG Patient Location: E HR:57 bpm ECG Measurements Heart Rate 57 AXIS NV 232 P 8 QRSd 107 QRS -6 QT 454 T -6 QTc 444 Conclusion Sinus bradycardia...rate< 60 Prolonged NV interval...NV >220, V-rate 50- 90 Low voltage, precordial leads...precordial leads <1.0mV Probable left ventricular hypertrophy...multiple LVH criteria Borderline T abnormalities, diffuse leads...T flat/neg
--- NOTE | 2023-01-27 18:59 | NUR.NOTE ---
Nursing Note:2nd EKG and trop drawn pt requesting not to be admitted to the hospital if her labs are abnromal
[2023-01-27 19:23] LABS: Troponin I 90 ng/L (<or=60)
[2023-01-27 20:00] VITALS: BP 144/53; PULSE 54; RESP 15; O2SAT 100
== END 2023-01-27 20:02 | disposition home or self-care (01) ==
PROVIDERS: Emergency Provider Registered Nurse Emergency; PCP Family Medicine
DX: R07.9 Chest pain, unspecified (principal)
CPT/HCPCS: 71275; 74177; 80053; 83690; 93005; 96360; 96361; 99285; 81003; 81015; 83735; 84484; 85025; 93010; 99284; J3490

== ENCOUNTER 2023-02-01 00:55 | Outpatient (CLI) | payer MEDICARE, MEDICAID, SELFPAY ==
--- NOTE | 2023-02-01 07:15 | DI.NM_ITS ---
APPROVED REPORT Exam: Pharmacologic Patient Location: Out-Patient Room/Bed: Stress Nurse: Sherri Wolf RN Ordering Provider:DEEPTHI ARCEO, Contact Number: BMI: 40.41 Baseline Rhythm: Sinus Rhythm, PVC's Indications: Barrets Esophagus, Chest pain. Medical History Medical History: Bradycardia, Chest Pain, Barrets Esophagus, GERD, Pulmonary HTN, Hypothyroid, HLD, H TM, DMII, Cardiac Medications: Albuterol MDI, Losartin, Levothyroxine, Rasuvastatin, Potassium ER.Stress test Allergies: Lisinopril Cardiac Risk Factors: Obesity, HTN, Hyperlipidemia, DM Previous Cardiac Procedures: Stress tests Pretest Chest Pain Characteristics: No chest pain Exercise History: Sedentary Physical Disabilities: None Lung Sounds: Clear to auscultation Heart Sounds: Regular, Bradycardia. Stress Test Details Test: Pharmacologic stress testing performed using 0.4 mg of regadenoson per 5 mL given IV over 10 s econds. Reason for pharmacologic stress test: physical limitation, Baseline bradycardia, Artifact during wa lkinbg on treadmill.. Nuclear Acquisition: Rest Tc-99m/Stress Tc-99m 1 day Rest Isotope: Tc-99m Sestamibi. Dose: 11.8 Date: 02/01/2023 Injection Time: 0845 Stress Isotope: Tc-99m Sestamibi. Dose: 37 Date: 02/01/2023 Injection Time: 1020 HR Resting HR Supine: 61 bpm Max Heart Rate (APMHR): 150.722414 bpm Resting HR Standin bpm Target HR (85% APMHR): 127.728294 bpm Max HR Achieved: 100 bpm % of APMHR: 66.67 Recovery HR: 77 bpm BP Resting BP Supine: 144/92 mmHg Resting BP Standin/92 mmHg Max BP: 152/92 mmHg Recovery BP: 154/60 mmHg ECG Resting ECG: Sinus Bradycardia Ectopy: PVC's Stress ECG: Sinus Rhythm ST Change: No significant ST segment changes noted Arrhythmia: PVC's, PAC's Recovery ECG: Sinus Rhythm Recovery ST Change: No significant ST segment changes noted Comment: PVC's, PAC. Clinical Stress Symptoms: None Rate Pressure Product: [id number] Stress ECG Conclusion 1. Resting electrocardiogram was within normal limits 2. Patient underwent testing using pharmacologic stress with regadenoson. Peak heart rate achieved w as 67% of predicted for age 3. The electrocardiographic portion of the test was nondiagnostic 4. See MPI report Stress Test Summary STAGE HR BP SpO2 Symptoms NOTES Supine 61 144/92 99 None Standing 64 152/92 None 1 min post Lexiscan injection 94 140/54 None 3 min post Lexiscan injection 83 148/50 None 6 min post Lexiscan injection 77 154/60 None MPI Conclusion Myocardial perfusion is normal. There is no ischemia or evidence of prior infarction EF is 59%, normal wall motion Radiologist Interpretation Radiologist agrees with Blower Mechanic's Interpretation. Radiologist Interpretation by: Luz Marina Lange MD Interpretation Date/Time: 02/04/2023 15:56:13
== END 2023-02-01 01:15 ==
LOC: DI 00:55
PROVIDERS: PCP Family Medicine; Visit Provider Family Medicine
DX: K22.70 Barrett's esophagus without dysplasia (principal); R07.9 Chest pain, unspecified
CPT/HCPCS: 78452; 93016; 93018; 93017

== ENCOUNTER 2023-02-04 09:56 | Outpatient (RCR) | payer MEDICARE, MEDICAID, SELFPAY ==
--- NOTE | 2023-02-04 09:45 | HOLTER_ITS ---
APPROVED REPORT Conclusion This is a 48-hour Holter monitor Rhythm throughout is sinus with an average heart rate of 59. Minimum was 48, maximum 84 There were occasional ventricular ectopic beats, rare couplets, no ventricular tachycardia There were very rare atrial premature beats There was no atrial fibrillation, no high-grade AV block, no pauses greater than 3 seconds
== END 2023-03-01 23:59 | disposition home or self-care (01) ==
LOC: CARDOPNVT 09:56
PROVIDERS: PCP Family Medicine; Visit Provider Family Medicine
DX: R00.1 Bradycardia, unspecified (principal)
CPT/HCPCS: 93227; 93225; 93226

== ENCOUNTER 2023-02-09 02:33 | Outpatient (CLI) | payer MEDICARE, MEDICAID, SELFPAY ==
--- NOTE | 2023-02-09 14:45 | DI.US_ITS ---
APPROVED REPORT EXAM: Comprehensive 2D, Doppler, and color-flow Echocardiogram Patient Location: Out-Patient [facility] Worker: Davion Williamson RDMS, CHAUNCEY Indications: chest pain, at risk for CAD Other Information Study Quality: Adequate Conclusion Normal left ventricular wall thickness and chamber size. Ejection fraction is 60%. Wall motion is n ormal Normal right ventricular size and systolic function Both atria are normal in size There is no structural or hemodynamically significant valvular disease Estimated right ventricular systolic pressure is 22 mmHg Mildly dilated ascending aorta 3.6 cm Wall motion Left Ventricle The left ventricle is normal size. The left ventricular systolic function is normal. The left ventric ular ejection fraction is within the normal range. There is normal left ventricular wall thickness. T here is normal LV segmental wall motion. There is no ventricular septal defect visualized. LVEF is 60 %. Right Ventricle The right ventricle is normal size. The right ventricular systolic function is normal. The RVSP is 22 .1 mmHg. Atria The left atrium size is normal. The right atrium size is normal. The interatrial septum is intact wit h no evidence for an atrial septal defect. Aortic Valve The aortic valve is normal in structure. Aortic valve is trileaflet. There is no aortic valvular sten osis. No aortic regurgitation is present. Mitral Valve The mitral valve is normal in structure. No evidence of mitral valve stenosis. Trace mitral regurgita tion. Tricuspid Valve The tricuspid valve is normal in structure. There is no tricuspid valve stenosis. Trace tricuspid reg urgitation. Pulmonic Valve The pulmonary valve is normal in structure. There is no pulmonic valvular stenosis. There is no pulmo cj valvular regurgitation. Great Vessels The aortic root is normal in size. The pulmonary artery is normal. The ascending aorta is mildly dila hossein. Aortic arch is normal in caliber. IVC is normal in size and collapses >50% with inspiration. Pericardium There is no pericardial effusion. 2D Dimensions IVSD d PLAX 0.53 cm F: 0.6-1.0 LV Vol A2C d MOD 137.8 mL LVPW d PLAX 0.55 cm F: 0.6 - 1.0 LV Vol A4C d MOD 136.0 mL LVID d PLAX 4.38 cm F: 3.8 - 5.2 LV EF A4C MOD 59.0 % LVDs 2.85 cm F: 2.2 - 3.5 LV EF A2C MOD 58.4 % Ao Root d 3.03 cm F: 2.7 - 3.3 LV EF Biplane MOD 60.8 % Ao Asc Diam d 3.60 cm F: 2.3 - 3.1 SV 87.48 mL LV EF Teichholz 63.1 % SV Index 44.03 mL/m2 LVEF (Angel's) 60.82 % F: 54 - 74 LV Volume 108.11 mL F: 46 - 106 LV Volume Index 54.32 mL/m2 F: 29 - 61 LV Vol Biplane MOD 143.8 mL FS 33.90 % M-Mode TAPSE 2.12 cm (M/F) >1.7 LV Diastology MV E' medial 0.089 (>0.07 m/s) E/A Ratio 0.8 LV E/e MED 8.20 (<14) MV E Vmax 0.73 (0.4-1.3 m/s) MV E' lateral 0.097 (>0.1 m/s) MV A Vmax 0.95 (0.4-1.3 m/s) LV E/e LAT 7.50 (<14) MV E/A Ratio 0.75 MV E/E' medial 8.21 MV E/E' lateral 7.54 Aortic Valve LVOT Area 3.27 cm2 AoV Area Vmax 2.86 cm2 LVOT Vmax 1.06 m/s AoV Area/ BSA (Vmax) 1.44 cm2/m2 LVOT Mean Mason. 0.68 m/s DENITA Mean Mason. 2.62 cm2 LVOT Peak Grad 4.5 mmHg DENITA Mean Mason. Index 1.32 cm2/m2 LVOT Mean Grad 2.2 mmHg LVOT VTI 0.281 m LVOT Diam s 2.00 cm AoV Vmax 1.21 m/s Velocity Ratio 0.88 AoV Mean Mason. 0.84 m/s AoV Peak Grad 5.8 mmHg LVOT SV 91.76 mL AoV Mean Grad 3.2 mmHg AoV VTI 0.298 m AoV Area VTI 3.08 cm2 AoV Area/ BSA (VTI) 1.55 cm/m2 Mitral Valve MV DT 272 (160-240 msec) MV PHT 79 msec MV Area PHT 2.79 cm2 MV VTI 0.311 m MV Area VTI 2.95 (4.0-6.0 cm2) Pulmonary Valve PV Vmax 1.11 (0.5-1.5 m/s) RVOT Peak Gr. 2.15 mmHg PV Peak Grad 5.0 mmHg RVOT Mean Gr. 1.10 mmHg PV Mean Grad 2.5 mmHg RVOT VTI 0.171 m PV VTI 0.255 m RVOT Vmax 0.73 m/s Tricuspid Valve TR Peak Grad 19.1 mmHg TR Vmax 2.19 m/s RA Pressure 3.00 mmHg RVSP (TR) 22.1 mmHg
== END 2023-02-09 02:53 ==
LOC: DI 02:33
PROVIDERS: PCP Family Medicine; Visit Provider Family Medicine
DX: R07.9 Chest pain, unspecified (principal)
CPT/HCPCS: 93306

== ENCOUNTER 2023-02-11 02:16 | Outpatient (CLI) | payer MEDICARE, MEDICAID, SELFPAY ==
--- NOTE | 2023-02-11 | DI.CT_ITS ---
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 TECHNIQUE: Imaging Protocol: Axial computed tomography images with coronal and sagittal reformatted images were created and reviewed CONTRAST MATERIAL: Intravenous: Omnipaque 350 Contrast volume:100 ml Oral: Yes. Oral contrast was administered for bowel opacification COMPARISON: CT CT CHEST PE ABD PELVIS W from 01/27/2023 CT,NM,TMT NM MPI REST STRESS GRP from 02/01/2023 FINDINGS: CHEST: LUNGS: No infiltrates nor pleural effusions. No ominous pulmonary nodules.. MEDIASTINUM: There is no hilar nor mediastinal adenopathy. CARDIAC: Heart size is normal. There is no pericardial effusion.Caliber of the thoracic aorta is wit hin normal limits. OSSEOUS: No significant osseous lesions.. ABDOMEN: There is no ascites. GI: Again noted is evidence of distal gastrectomy, cholecystectomy, biliary enterostomy, and resectio n of the pancreatic head-neck. There is no new abnormal tissue in this region to suggest neoplastic disease. There is no regional l ymphadenopathy. No vascular encasement. LIVER: Pneumobilia again noted (as expected). There are no new significant lesions in the liver. No dilated intrahepatic ducts. No thrombosis of intrahepatic veins. GALLBLADDER/BILIARY: Gallbladder surgically absent. PANCREAS: Unchanged appearance. Pancreatic body and tail appear unremarkable. SPLEEN: Spleen is not enlarged. There are no intrasplenic lesions. Splenic and portal veins are silvestre nt. No abnormal tissue in the region the portal vein confluence and superior mesenteric vessels nor around the celiac. ADRENALS: There are no significant adrenal masses. KIDNEYS: No calculi nor hydronephrosis. No solid renal masses. No cysts evident. ABDOMINAL AORTA: Calcified but not enlarged. LYMPH NODES: There is no retroperitoneal nor paraaortic adenopathy. ABDOMINAL WALL: No evidence of significant anterior abdominal wall nor inguinal hernia. GI: There is no evidence of bowel obstruction. PELVIS: LYMPH NODES: There is no intrapelvic nor inguinal adenopathy. GI: No evidence of appendicitis.No evidence of sigmoid diverticulitis. URINARY BLADDER: There is relatively uniform thickening of the urinary bladder wall again noted, unch anged. Probably related to chronic cystitis. There is no air-gas in the wall of the urinary bladder . No obvious asymmetric mass in the bladder and no radiopaque calculi evident bladder. Pelvic urete rs are not dilated. REPRODUCTIVE: Uterus and adnexal regions appear unremarkable. No free fluid. OSSEOUS: No significant osseous lesions. No fractures. Anterolisthesis L5 upon S1 noted due to pars defects at L5. Also advanced disc space narrowing at L5-S1 level again noted. IMPRESSION: 1. Continued stable appearance with no evidence of metastatic disease in the chest, abdomen and pelvi s. No new infiltrates nor pleural effusions. No new adenopathy. 2. Postsurgical changes of distal gastrectomy, duodenum ectomy, cholecystectomy, biliary enterostomy, and partial pancreatic resection remain stable with no evidence of abnormal tissue nor lymphadenopat hy in the surgical bed region. Also no vascular encasement. 3. Uniform bladder wall thickening again noted which is most probably related to chronic cystitis. T here is no air-gas in the bladder wall. RADIATION DOSE DELIVERED: 2,382.72mGy.cm Total DLP DATA REPOSITORY: All CT scans at this facility are submitted to the National Radiology Data Registry (NRDR) Dose Index Registry (DIR) with the [employer] [place] [employer] ([employer]). RADIATION OPTIMIZATION: All CT scans at this facility use at least one of these dose optimization te chniques: automated exposure control; mA and/or kV adjustment per patient size (includes targeted exa ms where dose is matched to clinical indication); or iterative reconstruction.
[2023-02-11] MEDS: Barium Sulfate 2% W/V-Berry Smoothie 450 ML BTL PO ×2 (08:23→08:24)
[2023-02-11 08:24] LABS: Abs Immature Grans 0.03 10^3/uL (0.0-0.06); Absolute Basophil Count 0.02 10^3/uL (0.0-0.2); Absolute Eosinophil Count 0.08 10^3/uL (0.0-0.7); Absolute Lymphocyte Count 2.19 10^3/uL (1.2-3.4); Absolute Monocyte Count 0.58 10^3/uL (0.1-0.8); Absolute Neutrophil Count 4.88 10^3/uL (1.2-6.7); Basophils % 0.3; HCT 39.4 % (36.0-46.0); HGB 12.9 g/dL (11.2-15.7); Immature Grans % 0.4; Lymphocytes % 28.1; MCH 30.4 pg (27.0-33.0); MCHC 32.7 % (32.0-36.0); MCV 93 fL (80-95); MPV 11.4 fL (8.0-11.0); Monocytes % 7.5; Neutrophils % 62.7; Platelet Count 106 10^3/uL (130-400); RBC 4.24 10^6/uL (3.93-5.22); RDW 13.1 % (11.7-14.6); RDW-SD 44.3 fL; WBC 7.78 10^3/uL (4.4-10.8)
[2023-02-11 08:41] LABS: ALT 25 U/L (14-59); AST 21 U/L (15-37); Albumin 3.8 g/dL (3.4-5.0); Alkaline Phosphatase 74 U/L (46-116); Anion Gap 8.7 mmol/L (3-11); BUN 24 mg/dL (7-18); Bilirubin, Total 0.5 mg/dL (0.2-1.0); CO2 29.3 mmol/L (21.0-32.0); CREATININE 1.2 mg/dL (0.55-1.02); Calcium 9.6 mg/dL (8.5-10.1); Chloride 105 mmol/L (98-107); Glucose 118 mg/dL (74-106); Potassium 4.4 mmol/L (3.5-5.1); Sodium 143 mmol/L (136-145); Total Protein 7.4 g/dL (6.4-8.2)
[2023-02-11 08:52] LABS: Calculated LDL 93 mg/dL (<100); Cholesterol 170 mg/dL (<200); HDL Cholesterol 51 mg/dL (40-60); TSH (W/Ref FT4) 0.46 uIU/mL (0.36-3.74); Triglyceride 133 mg/dL (<150)
[2023-02-11] MEDS: Normal Saline Flush 10 ML SYR IJ (10:14)
[2023-02-11] MEDS: Normal Saline - Diluent 50 ML VIAL IJ (10:15)
[2023-02-11] MEDS: Omnipaque 350 MG/ML 500 ML BTL-Imaging package 100 ML IJ (10:18)
[2023-02-11 21:54] LABS: CEA 1.4 ng/mL (See Note)
== END 2023-02-11 02:36 ==
LOC: DI 02:16
PROVIDERS: PCP Family Medicine; Visit Provider Nurse Practitioner Family
DX: C17.0 Malignant neoplasm of duodenum (principal); N32.89 Other specified disorders of bladder; D69.1 Qualitative platelet defects; E11.9 Type 2 diabetes mellitus without complications; R74.01 Elevation of levels of liver transaminase levels; Z90.410 Acquired total absence of pancreas; Z90.49 Acquired absence of other specified parts of digestive tract; E03.9 Hypothyroidism, unspecified; E78.5 Hyperlipidemia, unspecified
CPT/HCPCS: 74177; 80053; 80061; 71260; 82378; 84443; 85025

== ENCOUNTER 2023-03-02 15:38 | Outpatient (REF) | payer MEDICARE, MEDICAID, SELFPAY ==
[2023-03-02 14:55] LABS: COMMENT (LAB VIEW ONLY) 22.73 mg/dL
== END 2023-03-02 15:39 | disposition home or self-care (01) ==
LOC: LBN 15:38
PROVIDERS: PCP Family Medicine; Visit Provider Family Medicine
DX: E11.9 Type 2 diabetes mellitus without complications (principal)
CPT/HCPCS: 82043; 82570

== ENCOUNTER → 2023-03-16 07:50 | Outpatient (BNVA) | payer MEDICARE, MEDICAID, SELFPAY | PROVIDERS: PCP Family Medicine; Referring Provider Family Medicine; Visit Provider Surgery | DX: Z48.815 Encounter for surgical aftercare following surgery on the digestive system (principal) | CPT/HCPCS: 99212 ==

== ENCOUNTER → 2023-03-23 03:26 | Outpatient (CLI) | payer MEDICARE, MEDICAID, SELFPAY ==
--- NOTE | 2023-03-23 08:00 | DI.MAMMO_ITS ---
Exam(s) MAMMO SCREENING EXAM: MAMMO SCREENING CLINICAL HISTORY: screening,z12.39. TECHNIQUE: Bilateral full field digital CC and MLO mammographic images were obtained with 3D tomosyn thesis and utilizing computer aided detection (CAD). COMPARISON: Prior mammograms were reviewed. FINDINGS: There has been no significant change in the appearance and distribution of the fibroglandular tissue. Medially located left breast skin moles are noted. There are no new spiculated masses nor malignant appearing microcalcification groups. There is no significant architectural distortion nor skin thickening-retraction. IMPRESSION: No radiographic evidence of malignancy. BI-RADS Category 2 - Benign Findings Breast Density - Category B - Scattered areas of fibroglandular density Breast density Category C or D implies that the patient has dense breast tissue. Dense breast tissue can make it harder to find cancer on a mammogram. Dense breast tissue is also associated with an incr eased risk of breast cancer. This information about the result of the mammogram report was provided to the patient to raise their awareness. Use this report when you speak with the patient about their risks for breast cancer, which includes their family history. At that time, you may recommend additional screening tests (Ultrasoun d or MRI) as these tests may add significant information. A negative radiographic report should not delay biopsy if a dominant or clinically suspicious mass is present. Up to ten percent of cancers are not identified on mammography. A negative report may reinforce clinical impression. Adenosis and dense breasts may obscure an underlying neoplasm. False positive reports average 6 to 10%. Patient will receive a letter notifying them of these results.
== END ==
PROVIDERS: PCP Family Medicine; Visit Provider Family Medicine
DX: Z12.31 Encounter for screening mammogram for malignant neoplasm of breast (principal)
CPT/HCPCS: 77063; 77067

== ENCOUNTER 2023-05-29 11:00 | Emergency (ER) | payer MEDICARE, MEDICAID, SELFPAY ==
[2023-05-29 11:06] VITALS: BP 168/55; PULSE 60; RESP 18; TEMP 36.8; O2SAT 98
--- NOTE | 2023-05-29 11:15 | DI.RAD_ITS ---
Exam(s) XR SHOULDER RT COMPLETE 2+V EXAM: XR SHOULDER RT COMPLETE 2+V CLINICAL HISTORY: right shoulder pain, repetitive motion. TECHNIQUE: 2D digital imaging was performed. Five views. COMPARISON: CR RIGHT SHOULDER COMPLETE from 09/04/2011 FINDINGS: BONES: No acute fracture is present. No bony destructive lesion is seen. JOINTS: No dislocation present. Mild degenerative changes at the AC joint. Some spurring at the gre ater tuberosity. SOFT TISSUE: Normal. IMPRESSION: No acute abnormality. DATA REPOSITORY: RADIATION DOSE DELIVERED:
--- NOTE | 2023-05-29 11:25 | ED.GENADUL_ITS ---
Discharge Plan Disposition Patient Disposition: Home Discharge Details Clinical Impression: Biceps tendinitis of shoulder Primary Care Provider: Letty Whittington ED Provider: Tammy Hwang Home Meds and New Rx's Prescriptions: New diclofenac sodium [Voltaren Arthritis Pain] 1 % gel 4 g topical QID Qty: 100 0RF Rx Instructions: apply to single knee, ankle, foot; for foot includes sole/toes/top of foot Continued multivit with min-folic acid [Centrum Adult 50 Fresh-Fruity] 120 mcg tablet,chewable 1 tab PO DAILY aspirin 81 mg tablet,delayed release (DR/EC) 81 mg PO DAILY mupirocin 2 % ointment 1 applic topical BID Qty: 30 0RF (DME) Aerochamber MV Spacer See Rx Instructions .Route Qty: 1 0RF Rx Instructions: As directed fluticasone propionate [Flonase Allergy Relief] 50 mcg/actuation spray,suspension 1 spray intranasal BID Qty: 16 0RF Rx Instructions: administer into each nostril BID (DME) blood-glucose meter Mis 1 ea Miscellaneous AC Qty: 1 0RF Rx Instructions: METER TYPE One touch meter DIAGNOSIS CODE E11.9 nystatin 100,000 unit/gram powder 1 applic topical BID Qty: 60 4RF (DME) OneTouch Ultra Test Strip See Rx Instructions .Route Qty: 200 12RF Rx Instructions: As directed (DME) lancets [OneTouch Delica Lancets] 33 gauge [facility] [place] See Rx Instructions .ROUTE DAILY Qty: 200 5RF Rx Instructions: 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 One touch delica gabapentin 600 mg tablet 600 mg PO QHS Qty: 90 4RF glipizide 5 mg tablet extended release 24hr 5 mg PO DAILY Qty: 90 12RF pantoprazole [Protonix] 40 mg tablet,delayed release (DR/EC) 40 mg PO DAILY Qty: 90 5RF Patient Comments: increased to BID for one month - started taking BID on 01/12/23 losartan 100 mg tablet 100 mg PO DAILY Qty: 90 12RF levothyroxine 100 mcg tablet 100 mcg PO DAILY Qty: 90 12RF Creon 24,000-76,000 -120,000 unit capsule,delayed release(DR/EC) 3 cap PO .[id number] daily MDD 18 Qty: 540 6RF Rx Instructions: administer with meals and/or snacks ergocalciferol (vitamin D2) 1,250 mcg (50,000 unit) capsule 50,000 unit PO .twice weekly Qty: 28 5RF potassium chloride 10 mEq capsule, extended release 10 meq PO BID Qty: 180 4RF rosuvastatin [Crestor] 20 mg tablet 20 mg PO DAILY Qty: 90 4RF sucralfate [Carafate] 1 gram tablet 1 g PO QHS Qty: 90 5RF albuterol sulfate 90 mcg/actuation HFA aerosol inhaler 2 puff inhalation 6XD PRN (Reason: shortness of breath or wheezing) Qty: 8.5 0RF budesonide-formoterol [Symbicort] 80-4.5 mcg/actuation HFA aerosol inhaler 2 puff inhalation BID Qty: 10.2 5RF sennosides [senna] 8.6 mg Tablet 8.6 mg PO BID PRN Discharge Instructions Instructions: Tendinitis (ED) Additional Instructions: Use sling during day when up and about, please try to rest your shoulder but do continue to range it so you do not develop something called frozen shoulder Take Tylenol every 4-6 hours as needed for pain I am giving a referral to physical therapy should you have persistent symptoms Your x-ray does not show evidence of acute abnormality, I recommend taking a few weeks off from repetitive motion or lifting with your right arm Stand Alone Forms: Physical Therapy Referral Referrals: Letty Whittington MD, [place] [Primary Care Provider] - Medical Decision Making 72-year-old female, alert and oriented, no acute distress, reproducible tenderness with abduction and external rotation of right shoulder, held in right arm abduction and internal rotation Distal pulses intact, no cervical spine tenderness, no weakness appreciated, lungs clear to auscultation, cardiac rate rhythm regular, low suspicion for cardiac etiology of patient's complaints X-ray of right shoulder was ordered for further evaluation, does not show evidence of acute abnormality Referred to physical therapy Tylenol and diclofenac gel initiated Return precautions reviewed and patient expressed understanding HPI General Date/Time Provider Initiated Documentation: 05/29/23 11:03 . HPI Narrative: This 72-year-old female past medical history of diabetes, pulmonary hypertension, renal failure, GERD, Walker's esophagus, duodenal carcinoma presents with report of right arm pain which started approximately week ago. 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 Denies any chest pain or shortness of breath, denies any fever or chills. Denies any skin discoloration or known trauma. Related Data Home Medications Medication Instructions Recorded Confirmed sennosides 8.6 mg tablet (senna) 8.6 mg PO BID PRN 11/04/20 05/29/23 blood-glucose meter #1 ea 01/13/21 05/29/23 nystatin 100,000 unit/gram topical 1 applic topical BID #60 grams 10/02/21 05/29/23 powder multivitamin with minerals-folic 1 tab PO DAILY 11/27/21 05/29/23 acid 120 mcg chewable tablet (Centrum Adult 50 Plus Fresh-Fruity) fluticasone propionate 50 1 spray intranasal BID #16 grams 04/29/22 05/29/23 mcg/actuation nasal spray,suspension (Flonase Allergy Relief) inhalational spacing device #1 ea 04/29/22 05/29/23 (Aerochamber MV spacer) blood sugar diagnostic (OneTouch #200 ea 05/05/22 05/29/23 Ultra Test strips) lancets 33 gauge (OneTouch Delica #200 ea 05/05/22 05/29/23 Lancets) gabapentin 600 mg tablet 600 mg PO QHS #90 tabs 09/18/22 05/29/23 glipizide 5 mg tablet, extended 5 mg PO DAILY #90 tabs 10/05/22 05/29/23 release 24 hr pantoprazole 40 mg tablet,delayed 40 mg PO DAILY bleeding duodenal 10/05/22 05/29/23 release (Protonix) ulcer #90 tabs levothyroxine 100 mcg tablet 100 mcg PO DAILY #90 tab-caps 12/15/22 05/29/23 losartan 100 mg tablet 100 mg PO DAILY #90 tab-caps 12/15/22 05/29/23 ergocalciferol (vitamin D2) 1,250 50,000 unit PO .twice weekly #28 01/04/23 05/29/23 mcg (50,000 unit) capsule caps dmulgv-spwlqjvs-uiwsjob 3 cap PO .d0ueexi daily #540 caps 01/04/23 05/29/23 24,000-76,000-120,000 unit capsule,delayed rel (Creon) potassium chloride 10 mEq 10 meq PO BID #180 caps 01/04/23 05/29/23 capsule,extended release rosuvastatin 20 mg tablet (Crestor) 20 mg PO DAILY #90 tab-caps 01/04/23 05/29/23 aspirin 81 mg tablet,delayed 81 mg PO DAILY 02/04/23 05/29/23 release mupirocin 2 % topical ointment 1 applic topical BID #30 grams 02/04/23 05/29/23 sucralfate 1 gram tablet (Carafate) 1 g PO QHS #90 tabs 03/25/23 05/29/23 albuterol sulfate 90 mcg/actuation 2 puff inhalation 6XD PRN 05/05/23 05/29/23 aerosol inhaler shortness of breath or wheezing #8.5 grams budesonide-formoterol HFA 80 2 puff inhalation BID #10.2 grams 05/05/23 05/29/23 mcg-4.5 mcg/actuation aerosol inhaler (Symbicort) diclofenac sodium 1 % topical gel 4 g topical QID #100 grams 05/29/23 (Voltaren Arthritis Pain) Previous Rx's Medication Instructions Recorded blood-glucose meter #1 ea 01/13/21 nystatin 100,000 unit/gram topical 1 applic topical BID #60 grams 10/02/21 powder fluticasone propionate 50 1 spray intranasal BID #16 grams 04/29/22 mcg/actuation nasal spray,suspension (Flonase Allergy Relief) inhalational spacing device #1 ea 04/29/22 (Aerochamber MV spacer) blood sugar diagnostic (OneTouch #200 ea 05/05/22 Ultra Test strips) lancets 33 gauge (OneTouch Delica #200 ea 05/05/22 Lancets) gabapentin 600 mg tablet 600 mg PO QHS #90 tabs 09/18/22 glipizide 5 mg tablet, extended 5 mg PO DAILY #90 tabs 10/05/22 release 24 hr pantoprazole 40 mg tablet,delayed 40 mg PO DAILY bleeding duodenal 10/05/22 release (Protonix) ulcer #90 tabs levothyroxine 100 mcg tablet 100 mcg PO DAILY #90 tab-caps 12/15/22 losartan 100 mg tablet 100 mg PO DAILY #90 tab-caps 12/15/22 ergocalciferol (vitamin D2) 1,250 50,000 unit PO .twice weekly #28 01/04/23 mcg (50,000 unit) capsule caps tyeanm-rjfhvaqs-aozkxnq 3 cap PO .s0tsrou daily #540 caps 01/04/23 24,000-76,000-120,000 unit capsule,delayed rel (Creon) potassium chloride 10 mEq 10 meq PO BID #180 caps 01/04/23 capsule,extended release rosuvastatin 20 mg tablet (Crestor) 20 mg PO DAILY #90 tab-caps 01/04/23 mupirocin 2 % topical ointment 1 applic topical BID #30 grams 02/04/23 sucralfate 1 gram tablet (Carafate) 1 g PO QHS #90 tabs 03/25/23 albuterol sulfate 90 mcg/actuation 2 puff inhalation 6XD PRN 05/05/23 aerosol inhaler shortness of breath or wheezing #8.5 grams budesonide-formoterol HFA 80 2 puff inhalation BID #10.2 grams 05/05/23 mcg-4.5 mcg/actuation aerosol inhaler (Symbicort) diclofenac sodium 1 % topical gel 4 g topical QID #100 grams 05/29/23 (Voltaren Arthritis Pain) Allergies Allergy/AdvReac Type Severity Reaction Status Date / Time lisinopril AdvReac Intermediate COUGH Unverified 04/21/23 14:03 General Stated Complaint: Orthopedic NOLVIA: 4 PFSH All Active Problems (Updated 05/29/23 @ 12:03 by PAT Cook) Biceps tendinitis of shoulder (Acute) Hearing decreased (Acute) Buttock wound (Acute) Bradycardia (Acute) 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 (Acute) BMI 40.0-44.9, adult (Acute) Right wrist tendonitis (Acute) Trochanteric bursitis of left hip (Acute) COVID-19 (Acute) 12/22/21 Vaccinated, booster 07/09/21 Chronic constipation (Acute) Adenomatous polyps (Acute) repeat CE in 2023 Chronic GERD (Acute) Lumbar radiculopathy (Acute 02/06/13) Knee pain (Acute 03/12/15) Insomnia (Acute) Renal failure (Chronic) Hypokalemia (Acute 05/09/15) Vitamin D deficiency (Chronic 03/22/12) Pulmonary hypertension (Chronic 11/08/17) Organic sleep apnea, unspecified (Chronic) CPAP (NOT USING 11/17) Increased body mass index (Chronic) Hypothyroidism (Chronic 10/11/12) Hyperlipidemia (Chronic 10/11/12) Gout (Chronic 03/14/10) Gastroesophageal reflux disease (Chronic 10/11/12) Family history of colon cancer (Chronic 01/29/15) Essential hypertension (Chronic 05/04/13) Edema (Chronic) Diverticulosis of colon without diverticulitis (Chronic 05/21/09) 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) Depressive disorder (Chronic) Chronic right shoulder pain (Chronic 11/02/17) Bronchiectasis (Chronic) chronic cough Medical History Abdominal pain (07/12/12) Abnormal mammography (07/01/06) Adenomatous polyp of duodenum Anemia due to blood loss, acute Arthritis of right knee (06/07/15) Bronchiectasis Chest pain Chronic insomnia Depression Diabetes Diverticulosis large intestine w/o perforation or abscess w/o bleeding Duodenal adenocarcinoma T3,pN0,M0, Stage II Duodenal ulcer E coli bacteremia [id number] at [facility] Gastritis GERD (gastroesophageal reflux disease) GI (gastrointestinal bleed) Gout History of pelvic ultrasound Hyperkalemia (10/20/12) Hypertension Hypothyroidism Incarcerated incisional hernia Iron deficiency anemia Knee pain (03/12/15) Left hip pain (12/15/16) Lipoma (07/01/05) Morbid obesity with BMI of 50.0-59.9, adult Organic sleep apnea Osteoarthritis Skin tag (08/03/17) Sprain of costal cartilage (10/22/16) Strain of flexor muscle of left hip (09/23/16) Thrombocytopathia 2020 Transaminitis [id number]- assoc with bacteremia Vitamin D deficiency Surgical History Arthroplasty of knee (02/25/16) LEFT TOTAL KNEE Cholecystectomy Colonoscopy - IV Sedation Endometrial Biopsy neg History of bilateral ligation of fallopian tubes History of colonoscopy (~11/05/20) History of esophagogastroduodenoscopy (EGD) (~11/05/20) History of Whipple procedure Ligation of fallopian tube PELVIC U/S NEG Status post cholecystectomy Status post total knee replacement (02/25/16) Surgical procedure planned Whipple procedure 01/01/20 Family History Mother Liver cancer Father Heart disease Stomach cancer Maternal Grandfather Cirrhosis of liver Paternal Grandfather Narcolepsy Diabetes Maternal Grandmother Diabetes Heart disease Breast cancer Paternal Grandmother Breast cancer Sister Alcohol abuse Uterine cancer Sister Cancer Brother , 66 Liver cancer Lung cancer Son Essential hypertension Son Narcolepsy Diabetes Essential hypertension Hyperlipidemia Other Family history of colon cancer Social History Smoking/Tobacco Use Status: Never Second Hand Exposure: Yes Smoking risk assessment performed?: Yes Alcohol Intake: former Drug use: Never Substance use type: does not use Caregiver/Support person: No Household members: spouse Housing: house Communication Needs: None Do you need help understanding health information?: Rarely Pets and animals: Yes Pets and animals: cat(s) Sexually active: No Do you think of yourself as: straight/heterosexual Current gender identity: female What is your relationship status?: How often do you talk on the phone with friends or family?: three or more times per week How often do you get together with friends or relatives?: once per week How often do you attend zoroastrianism or rastafarian services?: 1-3 times per year Do you belong to any clubs or organized social groups?: yes Panel score (0-1 are the most socially isolated patients): 3 What type of physical activity do you participate in: walking and other Details: Gardening,Housework Duration: 15-30 minutes/day Frequency: daily Sejal/Sabianist: Confucianism Special sejal needs: No Seatbelt use: always Helmet use: No Drive intox or ride w/intox delivery driver assistant: No Do you feel safe at home: Yes Do you feel safe in your relationship?: Yes Course Vital Signs Vital signs: Vital Signs Temperature 36.8 C 05/29/23 11:06 Pulse 60 05/29/23 11:06 Respiratory Rate 18 05/29/23 11:06 Blood Pressure 168/55 H 05/29/23 11:06 Pulse Oximetry 98 05/29/23 11:06 Temperature 36.8 C 05/29/23 11:06 Pulse 60 05/29/23 11:06 Respiratory Rate 18 05/29/23 11:06 Blood Pressure 168/55 H 05/29/23 11:06 Blood Pressure Position Supine 05/29/23 11:06 Pulse Oximetry 98 05/29/23 11:06 Pain Level 4 05/29/23 11:06
--- NOTE | 2023-05-29 11:58 | DI.VRAD_ITS ---
PROCEDURE INFORMATION: Exam: XR Right Shoulder Exam date and time: 05/29/2023 11:33 AM Age: 72 years old Clinical indication: Other: Right shoulder pain, repetitive motion TECHNIQUE: Imaging protocol: Radiologic exam of the right shoulder. Views: 2 or more views. COMPARISON: CR RIGHT SHOULDER COMPLETE 11/02/2017 1:12 PM FINDINGS: Bones/joints: No acute fracture or dislocation. Minimal osteoarthritic changes at the acromioclavicular joint. Soft tissues: Normal. IMPRESSION: No acute findings. Dictated and Authenticated by: Rossi Rock MD. Ordering:DARREN Munoz MD
== END 2023-05-29 12:13 | disposition home or self-care (01) ==
PROVIDERS: Emergency Provider Physician Assistant; PCP Family Medicine
DX: M25.211 Flail joint, right shoulder (principal)
CPT/HCPCS: 99282; 73030; 99283

== ENCOUNTER → 2023-06-02 18:33 | Outpatient (CLI) | payer MEDICARE, MEDICAID, SELFPAY ==
--- NOTE | 2023-06-02 16:28 | DI.RAD_ITS ---
Exam(s) XR FOOT LT COMPLETE EXAM: XR FOOT LT COMPLETE CLINICAL HISTORY: evaluate pathology, lt foot pain, heel pain, M79.672. TECHNIQUE: 2D digital imaging was performed of the left foot. Three images were obtained. AP, obli que and lateral views were obtained. COMPARISON: CR LEFT FOOT COMPLETE from 02/26/2010 FINDINGS: BONES: No acute fracture is present. No bony destructive lesion is seen. There is an enthesophyte at the posterior calcaneus. There is spurring at the anterior talus. JOINTS: No dislocation present. SOFT TISSUE: Normal. IMPRESSION: Enthesophyte at the posterior calcaneus. DATA REPOSITORY: RADIATION DOSE DELIVERED:
--- NOTE | 2023-06-02 17:08 | DI.VRAD_ITS ---
PROCEDURE INFORMATION: Exam: XR Left Foot Exam date and time: 06/02/2023 4:49 PM Age: 72 years old Clinical indication: Other: Lt foot pain TECHNIQUE: Imaging protocol: Radiologic exam of the left foot. Views: 3 or more views. COMPARISON: CR LEFT KNEE LIMITED 1 OR 2 VIEWS 03/01/2017 3:10 PM FINDINGS: Bones/joints: Minimal calcaneal spur. No acute fracture or dislocation Soft tissues: Normal. IMPRESSION: No acute findings. Dictated and Authenticated by: Hernán Dover MD. Ordering:BERTHA Graham MD
== END ==
PROVIDERS: PCP Family Medicine; Visit Provider Nurse Practitioner Family
DX: M77.32 Calcaneal spur, left foot (principal); M79.672 Pain in left foot
CPT/HCPCS: 73630

== ENCOUNTER → 2023-06-30 09:21 | Outpatient (BNVA) | payer MEDICARE, MEDICAID, SELFPAY | PROVIDERS: PCP Family Medicine; Referring Provider Family Medicine; Visit Provider Podiatrist | DX: M72.2 Plantar fascial fibromatosis (principal); R26.89 Other abnormalities of gait and mobility; R29.6 Repeated falls; E11.43 Type 2 diabetes mellitus with diabetic autonomic (poly)neuropathy; I73.9 Peripheral vascular disease, unspecified | CPT/HCPCS: 99214 ==

== ENCOUNTER → 2023-07-22 10:07 | Outpatient (BNVA) | payer MEDICARE, MEDICAID, SELFPAY | PROVIDERS: PCP Family Medicine; Referring Provider Family Medicine; Visit Provider Podiatrist | DX: I73.9 Peripheral vascular disease, unspecified (principal); E11.43 Type 2 diabetes mellitus with diabetic autonomic (poly)neuropathy; M72.2 Plantar fascial fibromatosis | CPT/HCPCS: 99213 ==

== ENCOUNTER → 2023-08-09 14:25 | Outpatient (BNVA) | payer MEDICARE, MEDICAID, SELFPAY | PROVIDERS: PCP Family Medicine; Referring Provider Podiatrist; Visit Provider Physical Therapy Assistant ==

== ENCOUNTER 2023-08-18 02:43 | Outpatient (CLI) | payer MEDICARE, MEDICAID, SELFPAY ==
[2023-08-18 11:45] LABS: Abs Immature Grans 0.02 10^3/uL (0.0-0.06); Absolute Basophil Count 0.02 10^3/uL (0.0-0.2); Absolute Eosinophil Count 0.08 10^3/uL (0.0-0.7); Absolute Lymphocyte Count 1.79 10^3/uL (1.2-3.4); Absolute Monocyte Count 0.43 10^3/uL (0.1-0.8); Absolute Neutrophil Count 3.75 10^3/uL (1.2-6.7); Basophils % 0.3; Eosinophils % 1.3; HCT 36.8 % (36.0-46.0); Immature Grans % 0.3; Lymphocytes % 29.4; MCH 30.1 pg (27.0-33.0); MCHC 32.6 % (32.0-36.0); MCV 92 fL (80-95); MPV 11.1 fL (8.0-11.0); Monocytes % 7.1; Neutrophils % 61.6; Platelet Count 115 10^3/uL (130-400); RBC 3.99 10^6/uL (3.93-5.22); RDW 13.2 % (11.7-14.6); RDW-SD 44.6 fL; WBC 6.09 10^3/uL (4.4-10.8)
[2023-08-18 12:02] LABS: ALT 28 U/L (14-59); AST 20 U/L (15-37); Albumin 3.2 g/dL (3.4-5.0); Alkaline Phosphatase 74 U/L (46-116); Anion Gap 4.7 mmol/L (3-11); BUN 19 mg/dL (7-18); Bilirubin, Total 0.4 mg/dL (0.2-1.0); CO2 29.3 mmol/L (21.0-32.0); Calcium 9.4 mg/dL (8.5-10.1); Chloride 105 mmol/L (98-107); Estimated GFR 60.23 (mL/min/1.73m2); Glucose 169 mg/dL (74-106); Potassium 4.5 mmol/L (3.5-5.1); Sodium 139 mmol/L (136-145); Total Protein 7.1 g/dL (6.4-8.2)
[2023-08-18 19:56] LABS: CEA 2.1 ng/mL (See Note)
== END 2023-08-18 02:44 | disposition home or self-care (01) ==
LOC: LBO 02:43
PROVIDERS: PCP Family Medicine; Visit Provider Internal Medicine Hematology & Oncology
DX: C17.0 Malignant neoplasm of duodenum (principal)
CPT/HCPCS: 36415; 80053; 82378; 85025

== ENCOUNTER → 2023-08-23 13:00 | Outpatient (BNVA) | payer MEDICARE, MEDICAID, SELFPAY | PROVIDERS: PCP Family Medicine; Referring Provider Podiatrist; Visit Provider Physical Therapy Assistant | DX: I73.9 Peripheral vascular disease, unspecified (principal) | CPT/HCPCS: 93922 ==

== ENCOUNTER → 2023-09-16 14:49 | Outpatient (BNVA) | payer MEDICARE, MEDICAID, SELFPAY | PROVIDERS: PCP Family Medicine; Referring Provider Family Medicine; Visit Provider Podiatrist | DX: M72.2 Plantar fascial fibromatosis; R26.89 Other abnormalities of gait and mobility; R29.6 Repeated falls; E11.43 Type 2 diabetes mellitus with diabetic autonomic (poly)neuropathy; I73.9 Peripheral vascular disease, unspecified | CPT/HCPCS: 99214 ==

== ENCOUNTER → 2023-09-22 14:06 | Outpatient (BNVA) | payer MEDICARE, MEDICAID, SELFPAY | PROVIDERS: PCP Physician Assistant; Referring Provider Physician Assistant; Visit Provider Student in an Organized Health Care Education/Training Program | DX: S46.211A Strain of muscle, fascia and tendon of other parts of biceps, right arm, initial encounter (principal); X58.XXXA Exposure to other specified factors, initial encounter | CPT/HCPCS: 99213 ==

== ENCOUNTER → 2023-09-27 13:20 | Outpatient (BNVA) | payer MEDICARE, MEDICAID, SELFPAY | PROVIDERS: PCP Physician Assistant; Referring Provider Family Medicine; Visit Provider Surgery | DX: K21.9 Gastro-esophageal reflux disease without esophagitis (principal); C17.0 Malignant neoplasm of duodenum; D36.9 Benign neoplasm, unspecified site; K22.70 Barrett's esophagus without dysplasia | CPT/HCPCS: 99214 ==

== ENCOUNTER → 2023-10-06 04:25 | Outpatient (CLI) | payer MEDICARE, MEDICAID, SELFPAY ==
--- NOTE | 2023-10-06 13:00 | DI.MRI_ITS ---
Exam(s) MR UPPER JOINT RT WO EXAM: MR UPPER JOINT RT WO CLINICAL HISTORY: R SHOULDER ARM/PAIN, ? RUPTURE PROX BICEPS,[id number]. TECHNIQUE: Multiplanar multisequence MRI was performed. COMPARISON: Plain films May 24 FINDINGS: Exam is somewhat limited due to large body coil used to obtain larger field of view. BONES: There is no fracture or contusion pattern. Degenerative subchondral cysts are noted in the h umeral head. JOINTS:The acromioclavicular joint is shows mild degenerative changes and fluid. The glenohumeral bogdan int is normal. TENDONS: Supraspinatus: Unremarkable. Infraspinatus: Unremarkable. Subscapularis: Unremarkable. Teres Minor: Unremarkable. Biceps and [place]: The long head of the biceps tendon is not visualized proximally. It is visualized adjacent to the proximal humeral shaft. The short head of the biceps tendon appears intact. MUSCLES: Unremarkable. GLENOID LABRUM: Unremarkable on this noncontrast examination. SOFT TISSUES: Unremarkable. OTHER: Subacromial and subdeltoid bursae shows a small amount of fluid. Fluid also noted in subcora coid bursa.. IMPRESSION: Rupture of the proximal biceps tendon. DATA REPOSITORY:
== END ==
PROVIDERS: PCP Physician Assistant; Visit Provider Student in an Organized Health Care Education/Training Program
DX: S46.211A Strain of muscle, fascia and tendon of other parts of biceps, right arm, initial encounter (principal); X58.XXXA Exposure to other specified factors, initial encounter
CPT/HCPCS: 73221

== ENCOUNTER → 2023-10-19 08:15 | Outpatient (BNVA) | payer MEDICARE, MEDICAID, SELFPAY | PROVIDERS: PCP Physician Assistant; Referring Provider Physician Assistant; Visit Provider Student in an Organized Health Care Education/Training Program | DX: M75.101 Unspecified rotator cuff tear or rupture of right shoulder, not specified as traumatic (principal); S46.211D Strain of muscle, fascia and tendon of other parts of biceps, right arm, subsequent encounter; X58.XXXD Exposure to other specified factors, subsequent encounter | CPT/HCPCS: 20610; J1030 ==

== ENCOUNTER 2023-11-09 07:22 | Day surgery (SDC) | payer MEDICARE, MEDICAID, SELFPAY ==
--- NOTE | 2023-11-08 21:26 | HPE_ITS ---
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 and/or family could understand) explaining risks vs benefits and alternatives to the procedure and consequences if we do not do the procedure and need/rational for the procedure. Risks include but are not limited to: bleeding, infection, perforation of esophagus, stomach, colon, small intestines, bronchus or trachea, or PTX. This would necessitate emergency surgery to repair the damage w/ possible ostomy; and other associated complications w/ the required surgery. Also complications of anesthesia including aspiration, SD/CVA/. pelvic rectocele. (17) Organic sleep apnea, unspecified: Status: Chronic History of Present Illness Narrative: Patient is here today for egd/olonoscopy for adenocarcinoma of duodenum- see below.??? They completed a bowel prep with just a clear yellow residual effluent.? They not having any chest pain or shortness of breath, currently.? T hey are not experiencing any fever or chills.? They deny any productive cough or upper respiratory tract infection signs or symptoms.? They are not having abdominal pain, or nausea and vomiting.? They have not had any changes in medications, past medical history or past surgical history since previously being seen in the office. They have not had any accidents or have been in the ER since the clinic pre-operative evaluation. ??I reviewed the procedure with the patient today, including risks and benefits of the procedure, and what they could expect at home for recovery.? All questions are answered to the patient?s satisfaction today, and they are stable to proceed with the proposed procedure. Also pelvic exam for rectocele. Clinic Note 09/27/23 The patient has had an EGD previously. ? There is no family history of any esophageal/gastric cancer.? Patient has not had any weight loss.? Their appetite is good.? The patient has been eating: Pt notes stools are soft. She has to push to get stool out. Patient reports is not that her stools are hard or painful. They just will not come out. The way she describes this, could indicate a enterocele. Will plan on doing a pelvic exam prior to anesthesia. no blood. wt is stable to gain. sometimes will have urinary incont. no hormones or hormone cream. no problems anesthesia. Stomach medications: protonix and carafate -Patient had a robotic Whipple in 2020 for adenocarcinoma of the duodenum. This lesion was discovered when she came in with massive bleeding. She has done well since the Whipple. She has had no blood in her stools. And her hemoglobin has been stable. Dr. Jones recommended she have another repeat colonoscopy because of the history of cancerous adenomas. Will plan on surveillance EGD and colonoscopy Swallowing: no Reflux/Wet Burps: Nausea/vomiting:no Epigastric pain: Chest pain/burning: + Melena/blood in stools/anemia: nope Constipation or diarrhea: see above Dental issues: Nocturnal problems: Prior head/neck/esophageal surgery or radiation. Coffee: occ Soda/Tea: ASA/NSAID?s: ASA Tobacco: no THC: No ETOH: No They deny any problems with anesthesia in the past. Anesthesia: general (without airway) Previous surgical intolerances: No Previous surgical complications: No Pulmonary risk factors: Planned procedure: Yes Sleep apnea risks: +CPAP COPD/Asthma/Smoker: no Can climb one flight of stairs (12-13 steps) in less than 30 seconds without stopping and without symptoms: Yes The surgery proposed for this patient is: low risk Active cardiac conditions: none Active risk factors: none ASA (acetylsalicylic acid): asa+ Beta blockers: no Kidneys: CKD 3 DM: Yes Review of Systems All systems reviewed & are unremarkable except as noted in HPI and below PFSH All Active Problems Rotator cuff tear, right (Acute) Duodenal cancer (Acute) Adenocarcinoma. 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 (Acute) BMI 40.0-44.9, adult (Acute) Right wrist tendonitis (Acute) Trochanteric bursitis of left hip (Acute) COVID-19 (Acute) 12/22/21 Vaccinated, booster 07/09/21 Chronic constipation (Acute) Adenomatous polyps (Acute) repeat CE in 2023 Chronic GERD (Acute) Renal failure (Chronic) Hypokalemia (Acute 05/09/15) Insomnia (Acute) Knee pain (Acute 03/12/15) Lumbar radiculopathy (Acute 02/06/13) Vitamin D deficiency (Chronic 03/22/12) Pulmonary hypertension (Chronic 11/08/17) Organic sleep apnea, unspecified (Chronic) CPAP (NOT USING 11/17) Increased body mass index (Chronic) Hypothyroidism (Chronic 10/11/12) Hyperlipidemia (Chronic 10/11/12) Gout (Chronic 03/14/10) Gastroesophageal reflux disease (Chronic 10/11/12) Family history of colon cancer (Chronic 01/29/15) Essential hypertension (Chronic 05/04/13) Edema (Chronic) Diverticulosis of colon without diverticulitis (Chronic 05/21/09) 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) Depressive disorder (Chronic) Chronic right shoulder pain (Chronic 11/02/17) Bronchiectasis (Chronic) chronic cough Medical History Thrombocytopathia 2020 E coli bacteremia [id number] at [facility] Transaminitis [id number]- assoc with bacteremia Iron deficiency anemia Duodenal adenocarcinoma T3,pN0,M0, Stage II Adenomatous polyp of duodenum Anemia due to blood loss, acute Duodenal ulcer GI (gastrointestinal bleed) Incarcerated incisional hernia Abdominal pain (07/12/12) Chest pain Pt. stated it was stress related, states she had it worked up which was WNL per pt/ Gastritis History of pelvic ultrasound Hyperkalemia (10/20/12) Lipoma (07/01/05) Abnormal mammography (07/01/06) Skin tag (08/03/17) Sprain of costal cartilage (10/22/16) Strain of flexor muscle of left hip (09/23/16) Left hip pain (12/15/16) Knee pain (03/12/15) Arthritis of right knee (06/07/15) Vitamin D deficiency Hypertension Bronchiectasis GERD (gastroesophageal reflux disease) Organic sleep apnea Osteoarthritis Hypothyroidism Depression Chronic insomnia Gout Diabetes Morbid obesity with BMI of 50.0-59.9, adult Diverticulosis large intestine w/o perforation or abscess w/o bleeding Surgical History History of back surgery Hx of breast reduction, elective History of Whipple procedure History of esophagogastroduodenoscopy (EGD) (~11/05/20) History of colonoscopy (~11/05/20) Surgical procedure planned Whipple procedure 01/01/20 History of bilateral ligation of fallopian tubes Status post cholecystectomy Status post total knee replacement (02/25/16) Ligation of fallopian tube PELVIC U/S NEG Endometrial Biopsy neg Colonoscopy - IV Sedation Cholecystectomy Arthroplasty of knee (02/25/16) LEFT TOTAL KNEE Family History Mother Liver cancer Father Heart disease Stomach cancer Maternal Grandfather Cirrhosis of liver Paternal Grandfather Narcolepsy Diabetes Maternal Grandmother Diabetes Heart disease Breast cancer Paternal Grandmother Breast cancer Sister Alcohol abuse Uterine cancer Sister Cancer Brother , 66 Liver cancer Lung cancer Son Essential hypertension Son Narcolepsy Diabetes Essential hypertension Hyperlipidemia Other Family history of colon cancer Social History Smoking/Tobacco Use Status: Never Second Hand Exposure: Yes Smoking risk assessment performed?: Yes Alcohol Intake: former Drug use: Never Substance use type: does not use Caregiver/Support person: No Household members: spouse Housing: house Communication Needs: None Do you need help understanding health information?: Rarely Pets and animals: Yes Pets and animals: cat(s) Sexually active: No Do you think of yourself as: straight/heterosexual Current gender identity: female What is your relationship status?: How often do you talk on the phone with friends or family?: three or more times per week How often do you get together with friends or relatives?: once per week How often do you attend cheondoism or yarsani services?: 1-3 times per year Do you belong to any clubs or organized social groups?: yes Panel score (0-1 are the most socially isolated patients): 3 What type of physical activity do you participate in: walking and other Details: Gardening,Housework Duration: 15-30 minutes/day Frequency: daily Sejal/Yazidism: Taoism Special sejal needs: No Seatbelt use: always Helmet use: No Drive intox or ride w/intox bobcat driver/labor: No Do you feel safe at home: Yes Do you feel safe in your relationship?: Yes Meds Allergies and Home Medications Allergies Allergy/AdvReac Type Severity Reaction Status Date / Time lisinopril AdvReac Intermediate COUGH Verified 11/09/23 07:53 Home Medications Medication Instructions Recorded Confirmed Type sennosides 8.6 mg tablet (senna) 8.6 mg PO BID PRN 11/04/20 11/09/23 History blood-glucose meter #1 ea 01/13/21 10/19/23 Rx nystatin 100,000 unit/gram topical 1 applic topical BID #60 grams 10/02/21 11/09/23 Rx powder multivitamin with minerals-folic 1 tab PO DAILY 11/27/21 11/09/23 History acid 120 mcg chewable tablet (Centrum Adult 50 Plus Fresh-Fruity) fluticasone propionate 50 1 spray intranasal BID #16 grams 04/29/22 11/09/23 Rx mcg/actuation nasal spray,suspension (Flonase Allergy Relief) inhalational spacing device #1 ea 04/29/22 10/19/23 Rx (Aerochamber MV spacer) gabapentin 600 mg tablet 600 mg PO QHS #90 tabs 09/18/22 11/09/23 Rx glipizide 5 mg tablet, extended 5 mg PO DAILY #90 tabs 10/05/22 11/09/23 Rx release 24 hr pantoprazole 40 mg tablet,delayed 40 mg PO DAILY bleeding duodenal 10/05/22 11/09/23 Rx release (Protonix) ulcer #90 tabs levothyroxine 100 mcg tablet 100 mcg PO DAILY #90 tab-caps 12/15/22 11/09/23 Rx losartan 100 mg tablet 100 mg PO DAILY #90 tab-caps 12/15/22 11/09/23 Rx ergocalciferol (vitamin D2) 1,250 50,000 unit PO .twice weekly #28 01/04/23 11/05/23 Rx mcg (50,000 unit) capsule caps [id number] 3 cap PO .[id number] daily #540 caps 01/04/23 11/09/23 Rx 24,000-76,000-120,000 unit capsule,delayed rel (Creon) potassium chloride 10 mEq 10 meq PO BID #180 caps 01/04/23 11/09/23 Rx capsule,extended release rosuvastatin 20 mg tablet (Crestor) 20 mg PO DAILY #90 tab-caps 01/04/23 11/09/23 Rx aspirin 81 mg tablet,delayed 81 mg PO DAILY 02/04/23 11/05/23 History release sucralfate 1 gram tablet (Carafate) 1 g PO QHS #90 tabs 03/25/23 11/09/23 Rx albuterol sulfate 90 mcg/actuation 2 puff inhalation 6XD PRN 05/05/23 11/09/23 Rx aerosol inhaler shortness of breath or wheezing #8.5 grams budesonide-formoterol HFA 80 2 puff inhalation BID #10.2 grams 05/05/23 11/09/23 Rx mcg-4.5 mcg/actuation aerosol inhaler (Symbicort) diclofenac sodium 1 % topical gel 4 g topical QID #100 grams 05/29/23 11/09/23 Rx (Voltaren Arthritis Pain) blood sugar diagnostic (OneTouch #200 ea 06/14/23 10/19/23 Rx Ultra Test strips) lancets 33 gauge #200 ea 06/14/23 10/19/23 Rx Exam Const Other: PHYSICAL EXAM GENERAL APPEARANCE: Alert, healthy appearance, oriented, x 3,? in no acute distress HYDRATION: Well hydrated HEAD, EYES, EARS, NECK, THROAT: Head is normocephalic, pupils equal, round, reactive to light and accommodation, ocular movement intact, sclera clear and no jaundice. ?Dentition intact. LUNGS: normal respiration/normal chest excursion. ?Clear to auscultation bilaterally. ?No wheeze. ?HEART: Regular rate and rhythm. no murmurs ABDOMEN: obese, soft and non-tender to palpation.? Normal bowel sounds.? No hernias.? Time Spent Time spent with Patient: <40 minutes Time was spent: preparing to see the patient(eg.review tests), obtaining and/or reviewing separately otained hiistory, ordering medications,tests, procedures, referring, communicating with other health urgent care nurse practitioner, indepentently interpreting results, counseling the patient and care coordination
--- NOTE | 2023-11-08 21:30 | PDOC.DSDIS_ITS ---
Date of service: 11/09/23 Time of Service: 10:43 Discharge Plan Disposition Patient Disposition: Home Condition: Good Discharge Details Reason For Visit: egd/colon scope Attending Provider: Renetta Freeman Primary Care Provider: Saqib Stapleton Home Meds and New Rx's Prescriptions: Continued multivit with min-folic acid [Centrum Adult 50 Fresh-Fruity] 120 mcg tablet,chewable 1 tab PO DAILY aspirin 81 mg tablet,delayed release (DR/EC) 81 mg PO DAILY (DME) Aerochamber MV Spacer See Rx Instructions .Route Qty: 1 0RF Rx Instructions: As directed fluticasone propionate [Flonase Allergy Relief] 50 mcg/actuation spray,suspension 1 spray intranasal BID Qty: 16 0RF Rx Instructions: administer into each nostril BID (DME) blood-glucose meter Misc 1 ea Miscellaneous AC Qty: 1 0RF Rx Instructions: METER TYPE One touch meter DIAGNOSIS CODE E11.9 nystatin 100,000 unit/gram powder 1 applic topical BID Qty: 60 4RF gabapentin 600 mg tablet 600 mg PO QHS Qty: 90 4RF glipizide 5 mg tablet extended release 24hr 5 mg PO DAILY Qty: 90 12RF pantoprazole [Protonix] 40 mg tablet,delayed release (DR/EC) 40 mg PO DAILY Qty: 90 5RF Patient Comments: increased to BID for one month - started taking BID on 01/12/23 losartan 100 mg tablet 100 mg PO DAILY Qty: 90 12RF levothyroxine 100 mcg tablet 100 mcg PO DAILY Qty: 90 12RF Creon 24,000-76,000 -120,000 unit capsule,delayed release(DR/EC) 3 cap PO .p0rcigj daily MDD 18 Qty: 540 6RF Patient Comments: Pt reports taking 1 Creon capsule 11/08/23 Rx Instructions: administer with meals and/or snacks ergocalciferol (vitamin D2) 1,250 mcg (50,000 unit) capsule 50,000 unit PO .twice weekly Qty: 28 5RF potassium chloride 10 mEq capsule, extended release 10 meq PO BID Qty: 180 4RF rosuvastatin [Crestor] 20 mg tablet 20 mg PO DAILY Qty: 90 4RF sucralfate [Carafate] 1 gram tablet 1 g PO QHS Qty: 90 5RF albuterol sulfate 90 mcg/actuation HFA aerosol inhaler 2 puff inhalation 6XD PRN (Reason: shortness of breath or wheezing) Qty: 8.5 0RF budesonide-formoterol [Symbicort] 80-4.5 mcg/actuation HFA aerosol inhaler 2 puff inhalation BID Qty: 10.2 5RF (DME) lancets 33 gauge misc See Rx Instructions .ROUTE DAILY Qty: 200 5RF Rx Instructions: 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 One touch delica (DME) OneTouch Ultra Test Strip See Rx Instructions .Route Qty: 200 12RF Rx Instructions: As directed diclofenac sodium [Voltaren Arthritis Pain] 1 % gel 4 g topical QID Qty: 100 0RF Rx Instructions: apply to single knee, ankle, foot; for foot includes sole/toes/top of foot sennosides [senna] 8.6 mg Tablet 8.6 mg PO BID PRN Discontinued polyethylene glycol 3350 17 gram/dose powder 238 g PO ONCE Qty: 238 0RF Rx Instructions: take per colonoscopy instructions bisacodyl [Dulcolax (bisacodyl)] 5 mg tablet,delayed release (DR/EC) 5 mg PO ONCE Qty: 4 0RF Rx Instructions: take per colonoscopy instructions Discharge Instructions Additional Instructions: [facility] Colonoscopy Post- Op Instructions Instructions for Everyone who is given Anesthesia: For your safety, please do the following for the next twenty-four (24) hours: *Do Not operate a motor vehicle (car, truck, motorcycle, etc.) *Do Not drink alcoholic beverages or use any recreational drugs for the first 24 hours or while taking pain medications. The medications in your body may have a reaction that can be dangerous. *Do Not make any important decisions or sign any important papers. Findings: -Cystocele and rectocele -No signs of any cancer recurrence Follow up: Repeat EGD in 1 years time -Pelvic floor PT 1. No lifting over 20 pounds or strenuous activity for the first 24 hours after your procedure. After 24 hours there are no restrictions on your activity but you may feel fatigued for a few days. 2. After you arrive home you may have a light meal and return to your normal diet as you can tolerate it without feeling sick to your stomach. 3. You may have a bloated, gaseous feeling in your belly (abdomen) after a colonoscopy. Passing gas and belching will help. Walking or lying down on your left side with your knees flexed may relieve the discomfort. Call the office at [phone] (Office) or [phone] (Hospital) right away if you notice any of the following: a.Vomiting of blood or ?coffee ground stools?. b.Rectal bleeding 1Tbsp, blood clots or continuous bleeding. c.Severe belly (abdominal) pain. d.A hard distended belly (abdomen) and an inability to pass gas. 4. Please don?t expect to have a normal BM (bowel movement) for 2-3 days after your procedure. 5. If there are questions regarding the findings of your procedure, please contact your doctor 6. If you are unable to contact your doctor with a problem, contact the hospital at [phone]. 7. Continue all your regular medications unless directed otherwise. I understand the above instructions and have no questions. Signature of Patient or Adult Escort Name of Responsible Adult Escort Signature of Nurse Date/Time Stand Alone Forms: Anesthesia Discharge Abdirizak., Sergo Rod ([facility]) Activity:: see above Diet:: see above Discharge Orders Discharge Orders: Discharge Order (Routine); Ordered 11/09/23 Ordered By: Renetta Freeman DS: Diagnosis Discharge Diagnosis (1) Depressive disorder: Status: Chronic (2) Essential hypertension: Status: Chronic (3) Pulmonary hypertension: Status: Chronic (4) Bradycardia: Status: Acute (5) PVD (peripheral vascular disease): Status: Chronic (6) Hyperlipidemia: Status: Chronic (7) Diabetes mellitus with nephropathy: Status: Chronic (8) Diabetes mellitus with autonomic neuropathy: Status: Acute (9) Hypothyroidism: Status: Chronic (10) BMI 40.0-44.9, adult: Status: Acute (11) Vitamin D deficiency: Status: Chronic (12) 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: Status: Acute (13) Chronic GERD: Status: Acute (14) Gastroesophageal reflux disease: Status: Chronic (15) Diverticulosis of colon without diverticulitis: Status: Chronic (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 The patient has been able to pass gas.? They are not having abdominal pain.? They have been able to tolerate liquids and a snack.? They do not have any nausea or vomiting.? They are not having any chest pain or shortness of breath.??? They are not having any rectal bleeding. Their vital signs have been stable-see nursing notes. We discussed findings during their colonoscopy, and any biopsies that were done/polyps that were removed. The patient will be sent a letter with any biopsy results, and when to repeat the colonoscopy.-see discharge instructions. Patient was given explicit instructions to follow-up regarding colonoscopy-refer to discharge instructions.? We reviewed resumption of medications. Patient verbalized understanding and discharged in stable and satisfactory condition- See nursing notes. (17) Organic sleep apnea, unspecified: Status: Chronic (18) Cystocele and rectocele with incomplete uterovaginal prolapse: Status: Acute
[2023-11-09 08:08] VITALS: BP 152/76; PULSE 58; RESP 16; TEMP 36.6; O2SAT 100
--- NOTE | 2023-11-09 08:51 | W.ANESPRE ---
General Info Date of Service Date Performed: 11/09/23 Height: 5 ft 1 in Weight: 101.6 kg Body Mass Index (BMI): 42.3 Surgical Procedure: Operation Date: 11/09/23 09:35 Proposed Procedure Side Surgeon p Colonoscopy/Gastroscopy/ Mini Pelvic Exam Renetta Freeman, DO Meds Allergies and Home Medications Allergies Allergy/AdvReac Type Severity Reaction Status Date / Time lisinopril AdvReac Intermediate COUGH Verified 11/09/23 07:53 Home Medication Medication Instructions Recorded sennosides 8.6 mg tablet (senna) 8.6 mg PO BID PRN 11/04/20 blood-glucose meter #1 ea 01/13/21 nystatin 100,000 unit/gram topical 1 applic topical BID #60 grams 10/02/21 powder multivitamin with minerals-folic 1 tab PO DAILY 11/27/21 acid 120 mcg chewable tablet (Centrum Adult 50 Plus Fresh-Fruity) fluticasone propionate 50 1 spray intranasal BID #16 grams 04/29/22 mcg/actuation nasal spray,suspension (Flonase Allergy Relief) inhalational spacing device #1 ea 04/29/22 (Aerochamber MV spacer) gabapentin 600 mg tablet 600 mg PO QHS #90 tabs 09/18/22 glipizide 5 mg tablet, extended 5 mg PO DAILY #90 tabs 10/05/22 release 24 hr pantoprazole 40 mg tablet,delayed 40 mg PO DAILY bleeding duodenal 10/05/22 release (Protonix) ulcer #90 tabs levothyroxine 100 mcg tablet 100 mcg PO DAILY #90 tab-caps 12/15/22 losartan 100 mg tablet 100 mg PO DAILY #90 tab-caps 12/15/22 ergocalciferol (vitamin D2) 1,250 50,000 unit PO .twice weekly #28 01/04/23 mcg (50,000 unit) capsule caps [id number]-nlskzkid-oqxxbwx 3 cap PO .x2ftbta daily #540 caps 01/04/23 24,000-76,000-120,000 unit capsule,delayed rel (Creon) potassium chloride 10 mEq 10 meq PO BID #180 caps 01/04/23 capsule,extended release rosuvastatin 20 mg tablet (Crestor) 20 mg PO DAILY #90 tab-caps 01/04/23 aspirin 81 mg tablet,delayed 81 mg PO DAILY 02/04/23 release sucralfate 1 gram tablet (Carafate) 1 g PO QHS #90 tabs 03/25/23 albuterol sulfate 90 mcg/actuation 2 puff inhalation 6XD PRN 05/05/23 aerosol inhaler shortness of breath or wheezing #8.5 grams budesonide-formoterol HFA 80 2 puff inhalation BID #10.2 grams 05/05/23 mcg-4.5 mcg/actuation aerosol inhaler (Symbicort) diclofenac sodium 1 % topical gel 4 g topical QID #100 grams 05/29/23 (Voltaren Arthritis Pain) blood sugar diagnostic (OneTouch #200 ea 06/14/23 Ultra Test strips) lancets 33 gauge #200 ea 06/14/23 Current Visit Medications: Current Medications Generic Name Dose Route Start Last Admin Trade Name Freq PRN Reason Stop Dose Admin Hyoscyamine Sulfate 0.125 mg 11/09/23 09:32 Hyoscyamine 0.125 Mg Sl/Oral/Chew SL 12/09/23 09:31 DIRECTED PRN Ringer's Solution 1,000 mls @ 80 mls/hr 11/09/23 06:00 IV 12/08/23 23:59 INFUSION [facility] IV Miscellaneous Supplies 1 each 11/09/23 06:00 Iv Access IV 12/08/23 23:59 DIRECTED [facility] Ondansetron HCl 4 mg 11/09/23 09:32 Ondansetron 4 Mg/2 Ml Vial IVP 12/09/23 09:31 Q4H PRN PRN Nausea / Vomiting Sodium Chloride 0 ml 11/09/23 06:00 Normal Saline Flush 10 Ml Syr IV 12/08/23 23:59 PRN PRN Sodium Chloride 0 ml 11/09/23 06:00 Normal Saline 10 Ml Vial IJ 12/08/23 23:59 DIRECTED PRN Sterile Water 0 ml 11/09/23 06:00 Water,Injection,Sterile 10 Ml Vial IJ 12/08/23 23:59 DIRECTED PRN PFSH Active Problems Active Problems: Problem Status Onset Code Rotator cuff tear, right M75.101 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 Rupture of right proximal biceps tendon ~05/2023 S46.211A PVD (peripheral vascular disease) I73.9 Diabetes mellitus with autonomic neuropathy E11.43 Frequent falls R29.6 Poor balance R26.89 Plantar fasciitis M72.2 Hearing decreased H91.90 Buttock wound S31.809A Bradycardia R00.1 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 K22.70 BMI 40.0-44.9, adult Z68.41 Right wrist tendonitis M77.8 Trochanteric bursitis of left hip M70.62 COVID-19 U07.1 Chronic constipation K59.09 Adenomatous polyps D36.9 Chronic GERD K21.9 Renal failure N19 Hypokalemia 05/09/15 E87.6 Insomnia G47.00 Knee pain 03/12/15 M25.569 Lumbar radiculopathy 02/06/13 M54.16 Vitamin D deficiency 03/22/12 E55.9 Pulmonary hypertension 11/08/17 I27.20 Organic sleep apnea, 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 Increased body mass index i R63.8 Hypothyroidism 10/11/12 E03.9 Hyperlipidemia 10/11/12 E78.5 Gout 03/14/10 M10.9 Gastroesophageal reflux disease 10/11/12 K21.9 Family history of colon cancer 01/29/15 Z80.0 Essential hypertension 05/04/13 I10 Edema R60.9 Diverticulosis of colon without diverticulitis 05/21/09 K57.30 Diabetes mellitus with nephropathy 07/23/14 E11.21 Depressive disorder F32.9 Chronic right shoulder pain 11/02/17 M25.511, G89.29 Bronchiectasis J47.9 Medical History Medical History Thrombocytopathia 2020 E coli bacteremia [id number]-cuvuyne-uuegjwedezux at [id number] with bacte[facility] Iron deficiency anemia Duodenal adenocarcinoma T3,pN0,M0, Stage II Adenomatous polyp of duodenum Anemia due to blood loss, acute Duodenal ulcer GI (gastrointestinal bleed) Incarcerated incisional hernia Abdominal pain (07/12/12) Chest pain Pt. stated it was stress related, states she had it worked up which was WNL per pt/ Gastritis History of pelvic ultrasound Hyperkalemia (10/20/12) Lipoma (07/01/05) Abnormal mammography (07/01/06) Skin tag (08/03/17) Sprain of costal cartilage (10/22/16) Strain of flexor muscle of left hip (09/23/16) Left hip pain (12/15/16) Knee pain (03/12/15) Arthritis of right knee (06/07/15) Vitamin D deficiency Hypertension Bronchiectasis GERD (gastroesophageal reflux disease) Organic sleep apnea Osteoarthritis Hypothyroidism Depression Chronic insomnia Gout Diabetes Morbid obesity with BMI of 50.0-59.9, adult Diverticulosis large intestine w/o perforation or abscess w/o bleeding Medical History Comments:: chronic cough Surgical History Surgical History History of back surgery Hx of breast reduction, elective History of Whipple procedure History of esophagogastroduodenoscopy (EGD) (~11/05/20) History of colonoscopy (~11/05/20) Surgical procedure planned Whipple procedure 01/01/20 History of bilateral ligation of fallopian tubes Status post cholecystectomy Status post total knee replacement (02/25/16) Ligation of fallopian tube PELVIC U/S NEG Endometrial Biopsy neg Colonoscopy - IV Sedation Cholecystectomy Arthroplasty of knee (02/25/16) LEFT TOTAL KNEE Tobacco Smoking/Tobacco Use Status: Never Passive smoking exposure: No Second hand exposure: Yes Alcohol Alcohol Intake: former Substance Use Substance use: Never Substance use type: does not use Vital Signs and Lab Results Vital Signs Most Recent Vital Signs in EMR: Most Recent Vital Signs Temp Pulse Resp BP Pulse Ox 36.6 C 58 L 16 152/76 H 100 11/09/23 08:08 11/09/23 08:08 11/09/23 08:08 11/09/23 08:08 11/09/23 08:08 Lab Results Blood Type / Crossmatch: No Data to Display Complete Blood Count: No Data to Display Complete Metabolic Panel: No Data to Display Liver Function Panel: No Data to Display Coagulation Panel: No Data to Display Cardiac Panel: No Data to Display Arterial Blood Gas: No Data to Display Venous Blood Gas: No Data to Display Pancreas Panel: No Data to Display Thyroid Panel: No Data to Display Infectious Disease: No Data to Display Blood Cultures: No Data to Display Toxicology Panel: No Data to Display Imaging and Studies Imaging and Studies Study information below may be from another EMR and interpreted by another provider. Please see original notes in EMR for more complete details. EKG Summary: EKG PATIENT NAME: Alejandra Wolfe #: [id number] ORDERING PROVIDER: Kayden Manzo M.D. PRIMARY CARE PROVIDER:DEEPTHI ARCEO MD, DC DATE/TIME OF SERVICE: 05/14/211404 : 2PERFORMING LOCATION: [facility] APPROVED REPORT Exam: Resting ECG Reason for Exam: Chest discomfort Patient Location: HR:75 bpm ECG Measurements Heart Rate 75 AXIS AK 175 P -26 QRSd 104 QRS -6 QT 379 T1 QTc 424 Conclusion Sinus rhythm...normal P axis, V-rate 60- 99 Normal Electrocardiogram <Electronically signed by FARA MORELAND MD in OV> E-Sign Date: 05/15/21 E-Sign Time: 09 Stress Test Summary: Stress ECG Conclusion 1. Resting electrocardiogram was within normal limits 2. Patient underwent testing using pharmacologic stress with regadenoson. Peak heart rate achieved was 67% of predicted for age 3. The electrocardiographic portion of the test was nondiagnostic 4. See MPI report Stress Test Summary [id number] [id number]/92None 1 min post Lexiscan [id number]/54None 3 min post Lexiscan [id number]/50None 6 min post Lexiscan [id number]/60None MPI Conclusion Myocardial perfusion is normal. There is no ischemia or evidence of prior infarction EF is 59%, normal wall motion 02/09/23 Echocardiogram Summary: 02/09/23 Conclusion Normal left ventricular wall thickness and chamber size. Ejection fraction is 60%. Wall motion is normal Normal right ventricular size and systolic function Both atria are normal in size There is no structural or hemodynamically significant valvular disease Estimated right ventricular systolic pressure is 22 mmHg Mildly dilated ascending aorta 3.6 cm Anesthesia Assessment and Plan Anesthesia History Personal History: No History of Anesthesia Complications Family History: No Family History of Anesthesia Complications Exercise Tolerance Exercise Tolerance: Unknown Pertinent Negatives Pertinent Negatives: No Major Cardiovascular Symptoms or Complaints and No Major Pulmonary Symptoms or Complaints (chronic cough) Cardiac & Pulmonary Exam Cardiac Exam: Normal S1/S2 Heart Sounds Pulmonary Exam: Clear Bilateral Breath Sounds Implantable Cardiac Device Does patient have a Pacemaker or an ICD?: No Airway Exam Known Difficult Airway: No Mallampati Class: 2 Mouth Opening: Normal (> 3cm) Thyromental Distance: Greater than 3 cm Neck Range of Motion: Full ROM Neck Circumference: Thick Teeth Condition: Removable Dentures/Plates Upper and Edentulous ASA Classification ASA Score: ASA 3 Emergency Case?: No NPO Status NPO Status: NPO Clears >2 hours, Solids >8 hours Anesthesia Plan Resuscitation Status: Full Code Anesthesia Technique: General Anesthesia Airway Planned: Natural Airway Monitors Used: Standard Monitors
[2023-11-09 09:24] VITALS: BMI 42.3
[2023-11-09] MEDS: Lactated Ringers 1,000 ML 80 ML IV (09:26)
--- NOTE | 2023-11-09 10:00 | STOM_PTH ---
PATIENT: Alejandra Wolfe LOC: [facility] U#:[id number] AGE/SX: 73/F ROOM: RE11/09/[address]: Renetta Freeman : 1950 BED: DIS: 11/09/2023 SPEC #: [id number] RECD: 11/09/23 12:53 STATUS: ESTEPHANIA RE #: [id number] JAE: 11/09/23 10:[address]: Renetta Freeman DEPT: Surgical Specimen RECD BY: Tammy Goodrich ENTERED: 11/09/23 12:55 SP TYPE: STOMACH OTHR DR: Saqib Stapleton Tissues: 1 - BIOPSY BOWEL 2 - BIOPSY BOWEL 3 - STOMACH BIOPSY 4 - ESOPHAGUS BIOPSY 5 - ESOPHAGUS BIOPSY Procedures: GROSS AND MICRO LEVEL 4 Comments: [id number]
[2023-11-09 10:35] VITALS: BP 99/51; PULSE 66; RESP 16; TEMP 36.3; O2SAT 99
--- NOTE | 2023-11-09 10:38 | ENDO_ITS ---
Date of service: 11/09/23 Time of Service: 17:05 Endoscopy Report DATE OF PROCEDURE: 11/09/23 PRE-OP DIAGNOSIS: duodenal adeno-carcinoma /Walker's POST-OP DIAGNOSIS: other PROCEDURE: Postsurgical changes noted. Bile reflux gastritis. SURGEON: Renetta Freeman ANESTHESIA TYPE: General:No Airway ESTIMATED BLOOD LOSS: 1 PATHOLOGY: other COMPLICATIONS: None DISPOSITION: same day PROCEDURE DESCRIPTION: After informed consent was obtained the patient was take to the procedure room and placed in a supine position. Monitors were applied and a time out was done. The patients name, date of , procedure type, allergies to medications and metal in their body was reviewed. A bite block was placed and the patient was sedated. Once sedated and comfortable the gastroscope was advanced through the oropharynx which was grossly normal into the esophagus. The proximal and mid- esophagus were normal. Patient has had a Whipple procedure for adeno carcinoma of the duodenum. She has a Billroth I style anastomosis. The anastomosis is widely patent. There is no signs of tumor recurrence. There is no signs of ulceration/stricture/ active or old bleeding. The scope is passed down into the jejunum limb. The mucosa hood s a normal appearance and vascular pattern. A biopsy is taken. Biopsies are taken of the 12 and 6 o'clock position of the anastomosis itself. She does have bile reflux into the remainder of the body of the stomach. There is mild chronic gastropathy present. Biopsy was taken of the greater curve. There are no ulcers. The scope was retroflexed. The cardia and fundus were noted to be normal. There is no hiatal hernia noted. The scope was retracted back into the esophagus and biopsies were done of the GE junction to rule out Walker's. The Z line has some mild irregulariti probably due to chronic GERD and Walker's. Biopsies are done.es, . The GE junction was at 38 cm. The scope was removed and proceeded to the colonoscopy.
--- NOTE | 2023-11-09 10:40 | COLE_ITS ---
Date of service: 11/09/23 Time of Service: 16:59 Colonoscopy Report Date of procedure: 11/09/23 Pre-op diagnosis general: Screening for a history of adenocarcinoma of duodenum Post-op diagnosis procedure note: other (Cystocele/rectocele and normal colon) Surgeon: Renetta Freeman Anesthesia Type: General:No Airway Estimated blood loss (mL): 0 Pathology: none sent Complications: None Disposition: same day Prep: Miralax/Dulcolax Retraction Time: 8 Procedure Description: After informed consent was obtained the patient was taken to the procedure room and placed in a left decubitous position. Monitors were applied and a time out was done. The patients name, date of , procedure, allergies to medications and metal in their body was reviewed. Pelvic exam was done prior to the procedure which does reveal a small cystocele/enterocyele. The patient was then sedated. Once sedated and comfortable a rectal exam was done. External exam was normal. Internal exam revealed a poor sphincter tone and no palpable masses. The scope was then introduced and retrofelexed. No internal hemorrhoids were identified. The scope was then advanced to the cecum w/out difficulty. The TI and appendiceal orifice were identified. The scope was then slowly retracted over 8 minutes back into the rectum. There are no polyps are AVM's visulaized today. There are very few small scattered diverticula noted. There no signs of active bleeding or infection. There are no signs of tumor. The scope was removed and the patient was woken up and taken back to Same day surgery in stable condition. The patient tolerated the procedure well and there were no immediate complications. Follow up: The patient should follow up in 5 years unless they develop changes in bowel habits or other new gastrointestinal complaints. Princeton Bowel Prep Princeton Bowel Prep Right Colon: 2 Left Colon: 3 Transverse Colon: 3 Total Score: 8
[2023-11-09 11:01] VITALS: BP 136/59; PULSE 57; RESP 16; TEMP 36.1; O2SAT 100
--- NOTE | 2023-11-09 11:20 | W.ANESPOSTOP ---
Postoperative Evaluation Date, Time and Location Date Performed: 11/09/23 Time Performed: 11:20 Patient Location: Day Surgery Unit Vital Signs Most Recent Imported Vital Signs: Most Recent Vital Signs Temp Pulse Resp BP Pulse Ox 36.1 C L 57 L 16 136/59 L 100 11/09/23 11:01 11/09/23 11:01 11/09/23 11:01 11/09/23 11:01 11/09/23 11:01 Pain Score Most Recent Pain Score: Most Recent Pain Score Pain Level 0 11/09/23 11:01 Assessment Mental Status: Awake (Alert & Oriented to Patient Baseline) Airway and Respiratory Function: Patent airway with normal (patient baseline) respiratory exam Cardiovascular Function: Hemodynamically Stable Hydration Status: Adequately Hydrated Nausea & Vomiting: No Nausea or Vomiting Pain: Pt. Denies Any Pain Peripheral Nerve Block: Patient did not receive a nerve block
== END 2023-11-09 11:25 | disposition home or self-care (01) ==
LOC: SUR 07:23
PROVIDERS: PCP Physician Assistant; Visit Provider Surgery
PROC: (CPT 43239; principal; 2023-11-09 09:30)
DX: Z12.11 Encounter for screening for malignant neoplasm of colon (principal); K29.60 Other gastritis without bleeding; E11.43 Type 2 diabetes mellitus with diabetic autonomic (poly)neuropathy; Z98.0 Intestinal bypass and anastomosis status; Z86.010 Personal history of colon polyps; Z85.068 Personal history of other malignant neoplasm of small intestine; K31.89 Other diseases of stomach and duodenum; K22.89 Other specified disease of esophagus
CPT/HCPCS: 43239; G0105; 88305; J2001; J2250; J2704

== ENCOUNTER → 2024-01-11 08:54 | Outpatient (BNVA) | payer MEDICARE, MEDICAID, SELFPAY | PROVIDERS: PCP Physician Assistant; Visit Provider Student in an Organized Health Care Education/Training Program | DX: S46.211D Strain of muscle, fascia and tendon of other parts of biceps, right arm, subsequent encounter (principal); X58.XXXD Exposure to other specified factors, subsequent encounter; M75.101 Unspecified rotator cuff tear or rupture of right shoulder, not specified as traumatic | CPT/HCPCS: 99213 ==

== ENCOUNTER 2024-01-18 13:13 | Outpatient (REF) | payer MEDICARE, MEDICAID, SELFPAY ==
[2024-01-18 15:38] LABS: HCT 36.8 % (36.0-46.0); HGB 11.9 g/dL (11.2-15.7); MCH 30.6 pg (27.0-33.0); MCHC 32.3 % (32.0-36.0); MCV 95 fL (80-95); MPV 12.2 fL (8.0-11.0); Platelet Count 101 10^3/uL (130-400); RBC 3.89 10^6/uL (3.93-5.22); RDW 12.9 % (11.7-14.6); RDW-SD 44.1 fL; WBC 6.07 10^3/uL (4.4-10.8)
[2024-01-18 16:22] LABS: ALT 41 U/L (14-59); AST 25 U/L (15-37); Albumin 3.4 g/dL (3.4-5.0); Alkaline Phosphatase 84 U/L (46-116); Anion Gap 6.3 mmol/L (3-11); BUN 17 mg/dL (7-18); Bilirubin, Total 0.4 mg/dL (0.2-1.0); CO2 30.7 mmol/L (21.0-32.0); CREATININE 0.9 mg/dL (0.55-1.02); Calcium 9.1 mg/dL (8.5-10.1); Calculated LDL 82 mg/dL (<100); Chloride 104 mmol/L (98-107); Cholesterol 154 mg/dL (<200); Estimated GFR 68.35 (mL/min/1.73m2); Glucose 146 mg/dL (74-106); HDL Cholesterol 54 mg/dL (40-60); Potassium 4.4 mmol/L (3.5-5.1); Sodium 141 mmol/L (136-145); TSH 0.33 uIU/Ml (0.36-3.74); Total Protein 6.3 g/dL (6.4-8.2); Triglyceride 94 mg/dL (<150); Vitamin D 25 Total 44.7 ng/mL (30-100)
[2024-01-18 16:26] LABS: Hemoglobin A1C 6.5 % (<5.7)
== END 2024-01-18 13:14 | disposition home or self-care (01) ==
LOC: NCHCN 13:13
PROVIDERS: PCP Physician Assistant; Visit Provider Physician Assistant
DX: E11.9 Type 2 diabetes mellitus without complications (principal); I10 Essential (primary) hypertension; E78.5 Hyperlipidemia, unspecified; E03.9 Hypothyroidism, unspecified; E55.9 Vitamin D deficiency, unspecified
CPT/HCPCS: 80053; 80061; 82306; 85027; 83036; 84443

== ENCOUNTER → 2024-02-04 01:39 | Outpatient (CLI) | payer MEDICARE, MEDICAID, SELFPAY ==
--- NOTE | 2024-02-04 | DI.CT_ITS ---
Exam(s) CT CHEST/ABD/PEL W EXAM: CT CHEST/ABD/PEL W CLINICAL HISTORY: DUODENAL CA,C17.0,MONITORING. TECHNIQUE: Imaging Protocol: Axial computed tomography images with coronal and sagittal reformatted images were created and reviewed CONTRAST MATERIAL: Intravenous: Omnipaque 350 Contrast volume:100 ml Oral: Yes. Oral contrast was also administered for bowel opacification. COMPARISON: CT CT CHEST/ABD/PEL W from 02/11/2023 FINDINGS: CHEST: LUNGS: There are no metastatic nodules in the lung gabriel and there no infiltrates nor pleural effusi ons.. MEDIASTINUM: There is no hilar nor mediastinal adenopathy. No supraclavicular adenopathy. No axillar y adenopathy. CARDIAC: Heart size is normal. There is no pericardial effusion.Caliber of the thoracic aorta is wit hin normal limits. OSSEOUS: No significant osseous lesions.No fractures.. ABDOMEN: Again noted is evidence of previous distal gastrectomy, gastroenterostomy, duodenalectomy, cholecyste ctomy, biliary enterostomy, and partial pancreatic resection of the pancreatic head and neck. LIVER: There are no metastatic lesions in the liver. Pneumobilia is again noted, as expected in this patient who has had prior biliary enterostomy. Intrahepatic portal veins and intrahepatic systemic veins and intrahepatic IVC are patent. GALLBLADDER/BILIARY: Gallbladder is again noted be surgically absent. PANCREAS: Again noted is surgical absence of the pancreatic head and uncinate process and the remaind er of the pancreas appears unchanged. There is a 10 x 7 mm lymph node in the surgical bed region (p rior location of uncinate process of the pancreas) but this is unchanged from the prior study. Adjac ent to it is a smaller lymph node, also unchanged. There is no new lymphadenopathy nor new malignant -appearing tissue in the surgical bed. SPLEEN: Spleen is not enlarged. There are no intrasplenic lesions. Splenic and portal veins are silvestre nt. ADRENALS: There are no significant adrenal masses. KIDNEYS: No calculi nor hydronephrosis. No solid renal masses. No cysts evident. ABDOMINAL AORTA: Abdominal aorta is not enlarged. LYMPH NODES: There is no para-aortic adenopathy. ABDOMINAL WALL: No evidence of significant anterior abdominal wall nor inguinal hernia. GI: There is no evidence of bowel obstruction.There is a 10 cm length of sigmoid anterior to L4-5-S1 which is flattened-collapsed; doubtful for mass at this level. The colon above this level is not sig nificantly dilated. Suspect along peristaltic wave. PELVIS: LYMPH NODES: There is no intrapelvic nor inguinal adenopathy. GI: Retrocecal appendix. No evidence of appendicitis.No evidence of sigmoid diverticulitis. URINARY BLADDER: Uniformly thickened bladder wall most probably related to cystitis. REPRODUCTIVE: Uterus and adnexal regions appear unremarkable. No free fluid in the cul-de-sac nor el sewhere in the pelvis. OSSEOUS: No significant osseous lesions. No fractures. Again noted is degenerative anterolisthesis of L5 upon S1 and advanced disc space narr owing at L5-S1 level. IMPRESSION: 1. Continued stable appearance of the chest with no evidence of intrathoracic metastatic disease. 2. Postsurgical changes of distal gastrectomy, duodalectomy, cholecystectomy, biliary enterostomy, an d partial pancreatic resection. Small unchanged lymph node in the region of the previously present u ncinate process of the pancreas measuring 10 x 7 mm. No gross lymphadenopathy. No ascites. Gastroe nterostomy is patent. There is no evidence of bowel obstruction, free air, nor abscess. 3. Uniform bladder wall thickening again noted which is probably later to chronic cystitis. RADIATION DOSE DELIVERED: 2,574.66mGy.cm Total DLP DATA REPOSITORY: All CT scans at this facility are submitted to the National Radiology Data Registry (NRDR) Dose Index Registry (DIR) with the [employer] (ACR). RADIATION OPTIMIZATION: All CT scans at this facility use at least one of these dose optimization te chniques: automated exposure control; mA and/or kV adjustment per patient size (includes targeted exa ms where dose is matched to clinical indication); or iterative reconstruction.
[2024-02-04] MEDS: Barium Sulfate 2% W/V-Creamy Vanilla Smoothie 450 ML BTL PO ×2 (08:01→08:02)
[2024-02-04 08:43] LABS: Abs Immature Grans 0.05 10^3/uL (0.0-0.06); Absolute Basophil Count 0.02 10^3/uL (0.0-0.2); Absolute Eosinophil Count 0.08 10^3/uL (0.0-0.7); Absolute Lymphocyte Count 1.58 10^3/uL (1.2-3.4); Absolute Monocyte Count 0.53 10^3/uL (0.1-0.8); Absolute Neutrophil Count 3.65 10^3/uL (1.2-6.7); Basophils % 0.3 %; Eosinophils % 1.4 %; HCT 37.1 % (36.0-46.0); HGB 12.2 g/dL (11.2-15.7); Immature Grans % 0.8 %; Lymphocytes % 26.7 %; MCH 30.4 pg (27.0-33.0); MCHC 32.9 % (32.0-36.0); MCV 93 fL (80-95); MPV 10.8 fL (8.0-11.0); Neutrophils % 61.8 %; Platelet Count 116 10^3/uL (130-400); RBC 4.01 10^6/uL (3.93-5.22); RDW-SD 43.9 fL; WBC 5.91 10^3/uL (4.4-10.8)
[2024-02-04 08:59] LABS: ALT 30 U/L (14-59); AST 21 U/L (15-37); Albumin 3.1 g/dL (3.4-5.0); Alkaline Phosphatase 73 U/L (46-116); Anion Gap 6.7 mmol/L (3-11); BUN 13 mg/dL (7-18); Bilirubin, Total 0.44 mg/dL (0.2-1.0); CO2 29.3 mmol/L (21.0-32.0); CREATININE 0.8 mg/dL (0.55-1.02); Calcium 8.5 mg/dL (8.5-10.1); Chloride 109 mmol/L (98-107); Estimated GFR 78.72 (mL/min/1.73m2); Glucose 110 mg/dL (74-106); Potassium 4.2 mmol/L (3.5-5.1); Sodium 145 mmol/L (136-145); Total Protein 6.5 g/dL (6.4-8.2)
[2024-02-04] MEDS: Normal Saline - Diluent 50 ML VIAL IJ (09:49)
[2024-02-04] MEDS: Omnipaque 350 MG/ML 500 ML BTL-Imaging package 100 ML IJ (09:50)
[2024-02-04 18:45] LABS: CEA 1.6 ng/mL (See Note)
== END ==
PROVIDERS: PCP Physician Assistant; Visit Provider Nurse Practitioner Family
DX: C17.0 Malignant neoplasm of duodenum (principal)
CPT/HCPCS: 74177; 80053; 71260; 82378; 85025

== ENCOUNTER 2024-03-24 00:17 | Outpatient (CLI) | payer MEDICARE, MEDICAID, SELFPAY ==
--- NOTE | 2024-03-24 08:51 | DI.MAMMO_ITS ---
Exam(s) MAMMO SCREENING EXAM: MAMMO SCREENING CLINICAL HISTORY: SCREENING, Z12.31 TECHNIQUE: Mammograms were interpreted according to the usual protocol including computer analysis w [employer] CAD system, tomosynthesis and C-view imaging. COMPARISON: 2013 through 2022 FINDINGS: The breasts are composed of scattered fibroglandular densities, Breast Density category B. No suspicious masses or suspicious microcalcifications are seen. No skin thickening or abnormal axillary lymph nodes are seen. There has been no significant change from prior exams. IMPRESSION: BI-RADS Category 1, Negative mammogram Yearly screening mammography is recommended. Breast Density - Category B, scattered fibroglandular densities. A negative radiographic report should not delay biopsy if a dominant or clinically suspicious mass is present. Up to ten percent of cancers are not identified on mammography. A negative report may reinforce clinical impression. Adenosis and dense breasts may obscure an underlying neoplasm. False positive reports average 6 to 10%. Patient will receive a letter notifying them of these results.
== END 2024-03-24 00:37 ==
LOC: DI 00:17
PROVIDERS: PCP Physician Assistant; Visit Provider Physician Assistant
DX: Z12.31 Encounter for screening mammogram for malignant neoplasm of breast (principal)
CPT/HCPCS: 77063; 77067

== ENCOUNTER 2024-03-29 12:44 | Outpatient (CLI) | payer MEDICARE, MEDICAID, SELFPAY ==
--- NOTE | 2024-03-29 10:00 | DI.RAD_ITS ---
Exam(s) XR SHOULDER RT COMPLETE 2+V EXAM: XR SHOULDER RT COMPLETE 2+V CLINICAL HISTORY: RIGHT SHOULDER PAIN. TECHNIQUE: 2D digital imaging was performed. COMPARISON: CR,XR XR SHOULDER RT COMPLETE 2+V from 05/29/2023 FINDINGS: 3 views No evidence of fracture or dislocation or abnormal soft tissue calcifications. The subacromial space is not diminished. Mild degenerative changes are noted in the AC joint. No obvious degenerative changes in the glenohumeral joint. Bone density normal. No osseous lesions. Ipsilateral clavicle appears intact. IMPRESSION: No significant osseous findings in the right shoulder. No significant change compared to 05/29/2023. DATA REPOSITORY: RADIATION DOSE DELIVERED:
--- NOTE | 2024-03-29 10:15 | DI.RAD_ITS ---
Exam(s) XR ANKLE LT COMPLETE EXAM: XR ANKLE LT COMPLETE h CLINICAL HISTORY: LEFT ANKLE PAIN. TECHNIQUE: 2D digital imaging was performed. COMPARISON: No exams were available for comparison FINDINGS: 3 views There is a corticated osteophytic density seen off the lateral aspect talus which measures 3 x 2 mm. Does not have the appearance of a typical fracture fragment. There is also a triangular corticated osteophytic density subjacent to the medial malleolus which is probably an accessory ossicle or related to remote trauma. There is a dorsal talar beak noted. There is mild soft tissue swelling around the ankle. IMPRESSION: Findings as above. If clinically indicated follow-up CT or MRI can be performed. DATA REPOSITORY: RADIATION DOSE DELIVERED:
== END 2024-03-29 12:45 | disposition home or self-care (01) ==
LOC: DIORS 12:45
PROVIDERS: PCP Physician Assistant; Referring Provider Physician Assistant; Visit Provider Student in an Organized Health Care Education/Training Program
DX: M75.101 Unspecified rotator cuff tear or rupture of right shoulder, not specified as traumatic (principal); S46.211D Strain of muscle, fascia and tendon of other parts of biceps, right arm, subsequent encounter; S93.402D Sprain of unspecified ligament of left ankle, subsequent encounter; X58.XXXD Exposure to other specified factors, subsequent encounter
CPT/HCPCS: 99214; 73030; 73610

== ENCOUNTER 2024-06-14 01:13 | Outpatient (CLI) | payer MEDICARE, MEDICAID, SELFPAY ==
--- NOTE | 2024-06-14 13:45 | DI.US_ITS ---
Exam(s) MG MAMMO DIAGNOSTIC UNI US BREAST LT LIMITED EXAM: MG MAMMO DIAGNOSTIC UNI CLINICAL HISTORY: LUMP UPPER OUTER QUAD LT BREAST, N63.21, DIAGNOSTIC. COMPARISON: CT CT CHEST/ABD/PEL W from 02/04/2024 US US BREAST LT LIMITED from 06/14/2024 TECHNIQUE: Craniocaudal and mediolateral oblique Full Field Digital Mammography views of the left br east with Computer Aided Diagnosis followed by Tomosynthesis and left breast and axillary ultrasound . FINDINGS: Mammography/Tomosynthesis: Masses/Architectural Distortion: None seen. Microcalcifications: No suspicious pleomorphic-type are seen. Skin Thickening/Nipple Retraction: None. Left breast US: Echotexture: Normal appearance of the glandular tissue. Shadowing: No suspicious foci. Cyst: None. Solid lesions: None seen. Ductal dilation: None. In the axilla, there is a normal appearing lymph node in the 3 o'clock position which corresponds to the palpable abnormality measures 3.3 x 0.9 x 2.9 cm. There is normal fatty hilum. There is no hype remia. Other smaller lymph nodes are noted in the axilla. No suspicious lymph nodes. IMPRESSION: 1. No evidence of malignancy is noted. 2. Unless there is more urgent need, follow-up screening mammography is recommended, as per [employer] guidelines. BI-RADS Category 2 - Benign Findings Breast Density - Category A - Almost entirely fatty A negative radiographic report should not delay biopsy if a dominant or clinically suspicious mass is present. Up to ten percent of cancers are not identified on mammography. A negative report may reinforce clinical impression. Adenosis and dense breasts may obscure an underlying neoplasm. False positive reports average 6 to 10%. Patient will receive a letter notifying them of these results.
== END 2024-06-14 01:33 ==
LOC: DI 01:13
PROVIDERS: PCP Physician Assistant; Visit Provider Physician Assistant Medical
DX: N63.21 Unspecified lump in the left breast, upper outer quadrant (principal); Z12.31 Encounter for screening mammogram for malignant neoplasm of breast
CPT/HCPCS: 76642; 77061; 77065; G0279

== ENCOUNTER 2024-06-24 15:25 | Emergency (ER) | payer MEDICARE, MEDICAID, SELFPAY ==
[2024-06-24] VITALS (62 sets, daily range): BP systolic 129–181; BP diastolic 27–107; PULSE 60–82; RESP 12–25; TEMP 36.5; O2SAT 94–100
--- NOTE | 2024-06-24 15:15 | RT.EKG_ITS ---
APPROVED REPORT Exam: Resting ECG Reason for Exam: chest pain Patient Location: E HR:69 bpm ECG Measurements Heart Rate 69 AXIS WA 191 P -23 QRSd 113 QRS 12 QT 403 T 26 QTc 432 Conclusion Sinus rhythm 69 normal axis no stemi
--- NOTE | 2024-06-24 15:45 | DI.RAD_ITS ---
Exam(s) XR CHEST 2V PA LATERAL EXAM: XR CHEST 2V PA LATERAL CLINICAL HISTORY: chest pain. TECHNIQUE: 2D digital imaging was performed. COMPARISON: CR XR CHEST 2V PA LATERAL from 09/11/2022 FINDINGS: 2 views: Heart size is normal. The mediastinum is not widened. Lungs are clear. No infiltrates nor pleural effusions. IMPRESSION: No acute pulmonary findings. DATA REPOSITORY: RADIATION DOSE DELIVERED:
[2024-06-24] MEDS: Aspirin 81 MG CHEW 324 MG CH (16:07)
[2024-06-24 16:08] LABS: Abs Immature Grans 0.05 10^3/uL (0.0-0.06); Absolute Basophil Count 0.02 10^3/uL (0.0-0.2); Absolute Eosinophil Count 0.09 10^3/uL (0.0-0.7); Absolute Lymphocyte Count 2.51 10^3/uL (1.2-3.4); Absolute Monocyte Count 0.85 10^3/uL (0.1-0.8); Absolute Neutrophil Count 7.63 10^3/uL (1.2-6.7); Basophils % 0.2 %; Eosinophils % 0.8 %; HCT 40.8 % (36.0-46.0); HGB 13.2 g/dL (11.2-15.7); Immature Grans % 0.4 %; Lymphocytes % 22.5 %; MCH 29.7 pg (27.0-33.0); MCHC 32.4 % (32.0-36.0); MCV 92 fL (80-95); MPV 11.9 fL (8.0-11.0); Monocytes % 7.6 %; Neutrophils % 68.5 %; Platelet Count 101 10^3/uL (130-400); RBC 4.44 10^6/uL (3.93-5.22); RDW 12.9 % (11.7-14.6); RDW-SD 43.8 fL; WBC 11.14 10^3/uL (4.4-10.8)
[2024-06-24] MEDS: nitroGLYcerin 0.4 MG TAB SL (16:08)
[2024-06-24 16:28] LABS: ALT 24 U/L (14-59); AST 23 U/L (15-37); Albumin 3.7 g/dL (3.4-5.0); Alkaline Phosphatase 85 U/L (46-116); Anion Gap 8.5 mmol/L (3-11); BUN 26 mg/dL (7-18); Bilirubin, Total 0.55 mg/dL (0.2-1.0); CO2 27.5 mmol/L (21.0-32.0); CREATININE 0.9 mg/dL (0.55-1.02); Calcium 9.3 mg/dL (8.5-10.1); Chloride 106 mmol/L (98-107); Estimated GFR 68.35 (mL/min/1.73m2); Glucose 83 mg/dL (74-106); Lipase 10 U/L (<78); Magnesium 1.9 mg/dL (1.8-2.4); Sodium 142 mmol/L (136-145); Total Protein 7.5 g/dL (6.4-8.2)
[2024-06-24 16:33] LABS: Troponin I 52 ng/L (<or=51)
[2024-06-24 17:14] LABS: Troponin I 53 ng/L (<or=51)
[2024-06-24 19:03] LABS: Troponin I 6 ng/L (<or=51)
--- NOTE | 2024-06-24 19:08 | W.ED.GENAD ---
Discharge Plan Disposition Patient Disposition: Admit to [facility] Condition: Serious Discharge Details Clinical Impression: Chest pain Primary Care Provider: Saqib Stapleton ED Provider: Tammy Hwang Home Meds and New Rx's Prescriptions: No Action multivit with min-folic acid [Centrum Adult 50 Fresh-Fruity] 120 mcg tablet,chewable 1 tab PO DAILY aspirin 81 mg tablet,delayed release (DR/EC) 81 mg PO DAILY nystatin 100,000 unit/gram powder 1 applic topical BID Qty: 60 4RF gabapentin 600 mg tablet 600 mg PO QHS Qty: 90 4RF glipizide 5 mg tablet extended release 24hr 5 mg PO DAILY Qty: 90 12RF pantoprazole [Protonix] 40 mg tablet,delayed release (DR/EC) 40 mg PO DAILY Qty: 90 5RF Patient Comments: increased to BID for one month - started taking BID on 01/12/23 losartan 100 mg tablet 100 mg PO DAILY Qty: 90 12RF levothyroxine 100 mcg tablet 100 mcg PO DAILY Qty: 90 12RF Creon 24,000-76,000 -120,000 unit capsule,delayed release(DR/EC) 3 cap PO .g7loxzl daily MDD 18 Qty: 540 6RF Patient Comments: Pt reports taking 1 Creon capsule 11/08/23 Rx Instructions: administer with meals and/or snacks ergocalciferol (vitamin D2) 1,250 mcg (50,000 unit) capsule 50,000 unit PO .twice weekly Qty: 28 5RF potassium chloride 10 mEq capsule, extended release 10 meq PO BID Qty: 180 4RF rosuvastatin [Crestor] 20 mg tablet 20 mg PO DAILY Qty: 90 4RF sucralfate [Carafate] 1 gram tablet 1 g PO QHS Qty: 90 5RF sennosides [senna] 8.6 mg Tablet 8.6 mg PO BID PRN HPI General Date/Time Provider Initiated Documentation: 06/24/24 15:37. HPI Narrative: This 73-year-old female presents with report of chest pain intermittently for the past 3 days. She had an episode 2 days ago while at rest which resolved after 5 minutes. She had an episode yesterday while she was driving in the anterior chest rating through to her back this lasted approximately 5 minutes. She had an additional episode this evening while she was crocheting and had some diaphoresis associated with the episode which is why she presents. She denies any exertional chest pain or shortness of breath but does not regularly exert herself for patient. Denies any nausea or vomiting. Denies any associated shortness of breath. Related Data Home Medications ?Medication ?Instructions ?Recorded ?Confirmed sennosides 8.6 mg tablet (senna) 8.6 mg PO BID PRN 11/04/20 06/24/24 nystatin 100,000 unit/gram topical 1 applic topical BID #60 grams 10/02/21 06/24/24 powder multivitamin with minerals-folic 1 tab PO DAILY 11/27/21 06/24/24 acid 120 mcg chewable tablet (Centrum Adult 50 Plus Fresh-Fruity) gabapentin 600 mg tablet 600 mg PO QHS #90 tabs 09/18/22 06/24/24 glipizide 5 mg tablet, extended 5 mg PO DAILY #90 tabs 10/05/22 06/24/24 release 24 hr pantoprazole 40 mg tablet,delayed 40 mg PO DAILY bleeding duodenal 10/05/22 06/24/24 release (Protonix) ulcer #90 tabs levothyroxine 100 mcg tablet 100 mcg PO DAILY #90 tab-caps 12/15/22 06/24/24 losartan 100 mg tablet 100 mg PO DAILY #90 tab-caps 12/15/22 06/24/24 ergocalciferol (vitamin D2) 1,250 50,000 unit PO .twice weekly #28 01/04/23 06/24/24 mcg (50,000 unit) capsule caps ohhgzt-oziiwatg-crnwids 3 cap PO .x2ippdw daily #540 caps 01/04/23 06/24/24 24,000-76,000-120,000 unit capsule,delayed rel (Creon) potassium chloride 10 mEq 10 meq PO BID #180 caps 01/04/23 06/24/24 capsule,extended release rosuvastatin 20 mg tablet (Crestor) 20 mg PO DAILY #90 tab-caps 01/04/23 06/24/24 aspirin 81 mg tablet,delayed 81 mg PO DAILY 02/04/23 06/24/24 release sucralfate 1 gram tablet (Carafate) 1 g PO QHS #90 tabs 03/25/23 06/24/24 Previous Rx's ?Medication ?Instructions ?Recorded nystatin 100,000 unit/gram topical 1 applic topical BID #60 grams 10/02/21 powder gabapentin 600 mg tablet 600 mg PO QHS #90 tabs 09/18/22 glipizide 5 mg tablet, extended 5 mg PO DAILY #90 tabs 10/05/22 release 24 hr pantoprazole 40 mg tablet,delayed 40 mg PO DAILY bleeding duodenal 10/05/22 release (Protonix) ulcer #90 tabs levothyroxine 100 mcg tablet 100 mcg PO DAILY #90 tab-caps 12/15/22 losartan 100 mg tablet 100 mg PO DAILY #90 tab-caps 12/15/22 ergocalciferol (vitamin D2) 1,250 50,000 unit PO .twice weekly #28 01/04/23 mcg (50,000 unit) capsule caps apkkje-zzlqqdjh-qgewtqp 3 cap PO .p3dffdc daily #540 caps 01/04/23 24,000-76,000-120,000 unit capsule,delayed rel (Creon) potassium chloride 10 mEq 10 meq PO BID #180 caps 01/04/23 capsule,extended release rosuvastatin 20 mg tablet (Crestor) 20 mg PO DAILY #90 tab-caps 01/04/23 sucralfate 1 gram tablet (Carafate) 1 g PO QHS #90 tabs 03/25/23 Allergies Allergy/AdvReac Type Severity Reaction Status Date / Time lisinopril AdvReac Intermediate COUGH Verified 06/24/24 15:33 General Stated Complaint: Chest Pain NOLVIA: 3 Exam Narrative Exam Narrative: Alert and oriented 73-year-old female in no acute distress, lungs clear to auscultation, cardiac rate rhythm regular, no murmur, no abdominal tenderness alert and oriented x 4, 1+ edema to bilateral lower extremities, nontender Course Vital Signs Vital signs: Vital Signs Temperature 36.5 C 06/24/24 15:29 Pulse 71 06/24/24 15:29 Respiratory Rate 16 06/24/24 15:29 Blood Pressure 166/83 H 06/24/24 15:29 Pulse Oximetry 98 06/24/24 15:29 Temperature 36.5 C 06/24/24 15:29 Pulse 68 06/24/24 18:31 Pulse Rhythm Regular 06/24/24 17:08 Pulse 68 06/24/24 18:40 Respiratory Rate 18 06/24/24 18:40 Respiratory Effort Normal, Non-Labored 06/24/24 17:08 Respiratory Depth Normal 06/24/24 17:08 Blood Pressure 149/46 H 06/24/24 18:31 Blood Pressure Mean 77 06/24/24 18:31 Pulse Oximetry 98 06/24/24 18:40 Oxygen Delivery Method Room Air 06/24/24 17:08 Oxygen Flow Rate 0 06/24/24 17:08 Pain Level 0 06/24/24 17:08 Lab/Test Results Lab/Test Results: Laboratory Tests Range/Units 06/24/24 06/24/24 06/24/24 15:43 16:50 18:43 WBC (4.4-10.8) 10^3/uL 11.14 H RBC (3.93-5.22) 10^6/uL 4.44 Hgb (11.2-15.7) g/dL 13.2 Hct (36.0-46.0) % 40.8 MCV (80-95) fL 92 MCH (27.0-33.0) pg 29.7 MCHC (32.0-36.0) % 32.4 RDW (11.7-14.6) % 12.9 Plt Count (130-400) 10^3/uL 101 L MPV (8.0-11.0) fL 11.9 H Immature Gran % % 0.4 Neutrophils % % 68.5 Lymphocytes % % 22.5 Monocytes % % 7.6 Eosinophils % % 0.8 Basophils % % 0.2 Nucleated RBC % (0.0-0.3) % 0.0 Absolute Neutrophils (1.2-6.7) 10^3/uL 7.63 H Absolute Lymphocytes (1.2-3.4) 10^3/uL 2.51 Absolute Monocytes (0.1-0.8) 10^3/uL 0.85 H Absolute Eosinophils (0.0-0.7) 10^3/uL 0.09 Absolute Basophils (0.0-0.2) 10^3/uL 0.02 Sodium (136-145) mmol/L 142 Potassium (3.5-5.1) mmol/L 4.0 Chloride (98-107) mmol/L 106 Carbon Dioxide (21.0-32.0) mmol/L 27.5 Anion Gap (3-11) mmol/L 8.5 BUN (7-18) mg/dL 26 H Creatinine (0.55-1.02) mg/dL 0.9 Est GFR (CKD-EPI 2020) (mL/min/1.73m2) 68.35 Glucose (74-106) mg/dL 83 Calcium (8.5-10.1) mg/dL 9.3 Magnesium (1.8-2.4) mg/dL 1.9 Total Bilirubin (0.2-1.0) mg/dL 0.55 AST (15-37) U/L 23 ALT (14-59) U/L 24 Alkaline Phosphatase (46-116) U/L 85 Troponin I (<or=51) ng/L 52 H 53 H* 6 Total Protein (6.4-8.2) g/dL 7.5 Albumin (3.4-5.0) g/dL 3.7 Lipase (<78) U/L 10 Medical Decision Making 73-year-old female presenting in no acute distress but with concerning history for an unstable angina presentation. Pain at rest lasting 5 to 10 minutes. Pain today lasted much longer which is why patient presents and she had diaphoresis associated with the event, pressure only upon arrival with an EKG does but does not show acute ischemia or injury. Given nitroglycerin and 324 of aspirin and pain has resolved completely with a single nitroglycerin. Blood pressure remained stable at 140/70. Troponin 51, increased to 53, third troponin has decreased to 6 . I did review patient's nuc med stress test and echocardiogram performed in 2022 which did not show significant evidence of ischemia, however given recurrence of symptoms I do feel patient requires catheterization. Given patient's history of recently elevated troponin in the past year with symptoms at rest and an elevated mildly elevated troponin on arrival with a heart score of 6 I think patient would benefit from heart catheterization. I discussed the case with Sharlene Walker, manager fine dining at [facility] and she is excepted patient in transfer for tomorrow for cardiac catheterization. Dr. Marky Green is the accepting physician. I asked regarding heparinization and Sharlene recommends holding heparinization unless chest pain returns. She recommends continuing statin and cardiac catheterization tomorrow. She asked that we call with any change in symptoms or EKG findings. case discussed with and pt accepted by Dr Loving pending [facility] transfer. full code status Quality:SDCA Health Related Social Needs: No Data to Display PFSH All Active Problems (Updated 06/24/24 @ 20:13 by PAT Cook) Chest pain (Acute) Angina at rest (Acute) Left ankle sprain (Acute) Cystocele and rectocele with incomplete uterovaginal prolapse (Acute) Rotator cuff tear, right (Acute) Duodenal cancer (Acute) Adenocarcinoma. 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 (Acute) BMI 40.0-44.9, adult (Acute) Right wrist tendonitis (Acute) Trochanteric bursitis of left hip (Acute) COVID-19 (Acute) 12/22/21 Vaccinated, booster 07/09/21 Chronic constipation (Acute) Adenomatous polyps (Acute) repeat CE in 2023 Chronic GERD (Acute) Renal failure (Chronic) Hypokalemia (Acute 05/09/15) Insomnia (Acute) Knee pain (Acute 03/12/15) Lumbar radiculopathy (Acute 02/06/13) Vitamin D deficiency (Chronic 03/22/12) Pulmonary hypertension (Chronic 11/08/17) Organic sleep apnea, unspecified (Chronic) CPAP (NOT USING 11/17) Increased body mass index (Chronic) Hypothyroidism (Chronic 10/11/12) Hyperlipidemia (Chronic 10/11/12) Gout (Chronic 03/14/10) Gastroesophageal reflux disease (Chronic 10/11/12) Family history of colon cancer (Chronic 01/29/15) Essential hypertension (Chronic 05/04/13) Edema (Chronic) Diverticulosis of colon without diverticulitis (Chronic 05/21/09) 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 stated it was stress related, states she had it worked up which was WNL per pt/ Gastritis History of pelvic ultrasound Hyperkalemia (10/20/12) Lipoma (07/01/05) Abnormal mammography (07/01/06) Skin tag (08/03/17) Sprain of costal cartilage (10/22/16) Strain of flexor muscle of left hip (09/23/16) Left hip pain (12/15/16) Knee pain (03/12/15) Arthritis of right knee (06/07/15) Vitamin D deficiency Hypertension Bronchiectasis GERD (gastroesophageal reflux disease) Organic sleep apnea Osteoarthritis Hypothyroidism Depression Chronic insomnia Gout Diabetes Morbid obesity with BMI of 50.0-59.9, adult Diverticulosis large intestine w/o perforation or abscess w/o bleeding Surgical History (Updated 11/09/23 @ 14:32 by Carli Smith) History of back surgery Hx of breast reduction, elective History of Whipple procedure History of esophagogastroduodenoscopy (EGD) (~11/2023) History of colonoscopy (~11/2023) Surgical procedure planned Whipple procedure 01/01/20 History of bilateral ligation of fallopian tubes Status post cholecystectomy Status post total knee replacement (02/25/16) Ligation of fallopian tube PELVIC U/S NEG Endometrial Biopsy neg Cholecystectomy Arthroplasty of knee (02/25/16) LEFT TOTAL KNEE Family History Mother Liver cancer Father Heart disease Stomach cancer Maternal Grandfather Cirrhosis of liver Paternal Grandfather Narcolepsy Diabetes Maternal Grandmother Diabetes Heart disease Breast cancer Paternal Grandmother Breast cancer Sister Alcohol abuse Uterine cancer Sister Cancer Brother , 66 Liver cancer Lung cancer Son Essential hypertension Son Narcolepsy Diabetes Essential hypertension Hyperlipidemia Other Family history of colon cancer Social History Smoking/Tobacco Use Status: Never Second Hand Exposure: Yes Smoking risk assessment performed?: Yes Alcohol Intake: former Drug use: Never Substance use type: does not use Caregiver/Support person: No Household members: spouse Housing: house Communication Needs: None Do you need help understanding health information?: Rarely Pets and animals: No Sexually active: No Do you think of yourself as: straight/heterosexual Current gender identity: female What is your relationship status?: How often do you talk on the phone with friends or family?: three or more times per week How often do you get together with friends or relatives?: once per week How often do you attend pentecostal or hoahaoism services?: 1-3 times per year Do you belong to any clubs or organized social groups?: yes Panel score (0-1 are the most socially isolated patients): 3 What type of physical activity do you participate in: walking Duration: 15-30 minutes/day Frequency: 5-6 times per week Sejal/Taoist: Restoration Special sejal needs: No Seatbelt use: always Helmet use: No Drive intox or ride w/intox local company tanker driver: No Do you feel safe at home: Yes Do you feel safe in your relationship?: Yes
--- NOTE | 2024-06-24 20:09 | HPE_ITS ---
Date of service: 06/24/24 Time of Service: 20:09 Assessment and Plan Assessment and plan (1) Angina at rest: Status: Acute Assessment and plan: - As noted in HPI, patient has been having intermittent chest pain at rest that have been resolving on its own however, upon presenting the emergency department the evening 06/24/2024 she her chest pain was also associated with diaphoresis -Troponin was 52, 53 then 6 -EKG without acute findings -Case was discussed with [facility] supervisor cytogenetic laboratory Dr. Peterson who accepted patient for transfer for cardiac catheterization tomorrow 06/25/2024 -Patient was given sublingual nitro in the emergency department which improved the chest pain -It was recommended that if she has additional episode of chest pain that she should be started on heparin drip -Will continue aspirin and statin (2) Diabetes mellitus with autonomic neuropathy: Status: Acute Assessment and plan: - Hold home glipizide (3) Hypothyroidism: Status: Chronic Assessment and plan: - Continue home Synthroid (4) Hyperlipidemia: Status: Chronic Assessment and plan: - Continue statin as noted above (5) Essential hypertension: Status: Chronic Assessment and plan: - Hold home antihypertensives at this time History of Present Illness History of Present Illness Chief Complaint: chest pain Narrative: 73-year-old female with past medical history of hypertension, hypothyroidism, NIDDM, hyperlipidemia presents emergency department with complaints of intermittent chest pain over the last few days. Patient states that she had an episode of chest pain about 2 days ago chest pain that occurred at rest and resolved on its own after about 5 minutes. She had an additional episode yesterday while driving there was an anterior chest pain that radiated to her back again lasting for about 5 minutes and resolved on its own. However, this evening she had an episode while she was crocheting that was associated with diaphoresis which is what prompted her to present to the emergency department. Of note, patient has had somewhat similar episodes in presentation about a year ago but has not had further cardiac workup. She denies any headache, lightheadedness, dizziness, nausea or vomiting. In the emergency department the patient was as having normal vital signs, normal CBC and CMP as well as a EKG that did not show any ST elevations depressions or T wave inversions. However, she did have a troponin that showed very mild elevation initially at 52 with repeat of 53-1/3 troponin of being 6. However, given the nature of the patient's chest pain emergency room PA reached out to [facility] who agreed to accept the patient for transfer for cardiac catheterization tomorrow at 06/25/2024. They recommended continuing to give as needed sublingual nitro which was initially given in the emergency department and chest pain has not occurred. However, they also recommended that if the patient's chest pain does return at that point she should be started on a heparin drip. They did recommend continuing her aspirin and her statin. At which time emergency room PA paged hospitalist for admission for patient with angina at rest who has been accepted to [facility] for transfer for cardiac catheterization tomorrow 06/25/2024. Review of Systems All systems reviewed & are unremarkable except as noted in HPI and below PFSH All Active Problems (Updated 06/24/24 @ 20:13 by PAT Coko) Chest pain (Acute) Angina at rest (Acute) Left ankle sprain (Acute) Cystocele and rectocele with incomplete uterovaginal prolapse (Acute) Rotator cuff tear, right (Acute) Duodenal cancer (Acute) Adenocarcinoma. 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 (Acute) BMI 40.0-44.9, adult (Acute) Right wrist tendonitis (Acute) Trochanteric bursitis of left hip (Acute) COVID-19 (Acute) 12/22/21 Vaccinated, booster 07/09/21 Chronic constipation (Acute) Adenomatous polyps (Acute) repeat CE in 2023 Chronic GERD (Acute) Renal failure (Chronic) Hypokalemia (Acute 05/09/15) Insomnia (Acute) Knee pain (Acute 03/12/15) Lumbar radiculopathy (Acute 02/06/13) Vitamin D deficiency (Chronic 03/22/12) Pulmonary hypertension (Chronic 11/08/17) Organic sleep apnea, unspecified (Chronic) CPAP (NOT USING 11/17) Increased body mass index (Chronic) Hypothyroidism (Chronic 10/11/12) Hyperlipidemia (Chronic 10/11/12) Gout (Chronic 03/14/10) Gastroesophageal reflux disease (Chronic 10/11/12) Family history of colon cancer (Chronic 01/29/15) Essential hypertension (Chronic 05/04/13) Edema (Chronic) Diverticulosis of colon without diverticulitis (Chronic 05/21/09) 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) Depressive disorder (Chronic) Chronic right shoulder pain (Chronic 11/02/17) Bronchiectasis (Chronic) chronic cough Medical History (Updated 06/24/24 @ 20:13 by PAT Cook) Thrombocytopathia 2020 E coli bacteremia [id number] at [facility] Transaminitis [id number] assoc with bacteremia Iron deficiency anemia Duodenal adenocarcinoma T3,pN0,M0, Stage II Adenomatous polyp of duodenum Anemia due to blood loss, acute Duodenal ulcer GI (gastrointestinal bleed) Incarcerated incisional hernia Abdominal pain (07/12/12) Chest pain Pt. stated it was stress related, states she had it worked up which was WNL per pt/ Gastritis History of pelvic ultrasound Hyperkalemia (10/20/12) Lipoma (07/01/05) Abnormal mammography (07/01/06) Skin tag (08/03/17) Sprain of costal cartilage (10/22/16) Strain of flexor muscle of left hip (09/23/16) Left hip pain (12/15/16) Knee pain (03/12/15) Arthritis of right knee (06/07/15) Vitamin D deficiency Hypertension Bronchiectasis GERD (gastroesophageal reflux disease) Organic sleep apnea Osteoarthritis Hypothyroidism Depression Chronic insomnia Gout Diabetes Morbid obesity with BMI of 50.0-59.9, adult Diverticulosis large intestine w/o perforation or abscess w/o bleeding Surgical History (Updated 11/09/23 @ 14:32 by Carli Smith) History of back surgery Hx of breast reduction, elective History of Whipple procedure History of esophagogastroduodenoscopy (EGD) (~11/2023) History of colonoscopy (~11/2023) Surgical procedure planned Whipple procedure 01/01/20 History of bilateral ligation of fallopian tubes Status post cholecystectomy Status post total knee replacement (02/25/16) Ligation of fallopian tube PELVIC U/S NEG Endometrial Biopsy neg Cholecystectomy Arthroplasty of knee (02/25/16) LEFT TOTAL KNEE Family History Mother Liver cancer Father Heart disease Stomach cancer Maternal Grandfather Cirrhosis of liver Paternal Grandfather Narcolepsy Diabetes Maternal Grandmother Diabetes Heart disease Breast cancer Paternal Grandmother Breast cancer Sister Alcohol abuse Uterine cancer Sister Cancer Brother , 66 Liver cancer Lung cancer Son Essential hypertension Son Narcolepsy Diabetes Essential hypertension Hyperlipidemia Other Family history of colon cancer Social History Smoking/Tobacco Use Status: Never Second Hand Exposure: Yes Smoking risk assessment performed?: Yes Alcohol Intake: former Drug use: Never Substance use type: does not use Caregiver/Support person: No Household members: spouse Housing: house Communication Needs: None Do you need help understanding health information?: Rarely Pets and animals: No Sexually active: No Do you think of yourself as: straight/heterosexual Current gender identity: female What is your relationship status?: How often do you talk on the phone with friends or family?: three or more times per week How often do you get together with friends or relatives?: once per week How often do you attend mandaen or tenriism services?: 1-3 times per year Do you belong to any clubs or organized social groups?: yes Panel score (0-1 are the most socially isolated patients): 3 What type of physical activity do you participate in: walking Duration: 15-30 minutes/day Frequency: 5-6 times per week Sejal/Judaism: Islam Special sejal needs: No Seatbelt use: always Helmet use: No Drive intox or ride w/intox production truck driver: No Do you feel safe at home: Yes Do you feel safe in your relationship?: Yes Meds Allergies and Home Medications Allergies Allergy/AdvReac Type Severity Reaction Status Date / Time lisinopril AdvReac Intermediate COUGH Verified 06/24/24 15:33 Home Medications ?Medication ?Instructions ?Recorded ?Confirmed ?Type sennosides 8.6 mg tablet (senna) 8.6 mg PO BID PRN 11/04/20 06/24/24 History nystatin 100,000 unit/gram topical 1 applic topical BID #60 grams 10/02/21 06/24/24 Rx powder multivitamin with minerals-folic 1 tab PO DAILY 11/27/21 06/24/24 History acid 120 mcg chewable tablet (Centrum Adult 50 Plus Fresh-Fruity) gabapentin 600 mg tablet 600 mg PO QHS #90 tabs 09/18/22 06/24/24 Rx glipizide 5 mg tablet, extended 5 mg PO DAILY #90 tabs 10/05/22 06/24/24 Rx release 24 hr pantoprazole 40 mg tablet,delayed 40 mg PO DAILY bleeding duodenal 10/05/22 06/24/24 Rx release (Protonix) ulcer #90 tabs levothyroxine 100 mcg tablet 100 mcg PO DAILY #90 tab-caps 12/15/22 06/24/24 Rx losartan 100 mg tablet 100 mg PO DAILY #90 tab-caps 12/15/22 06/24/24 Rx ergocalciferol (vitamin D2) 1,250 50,000 unit PO .twice weekly #28 01/04/23 06/24/24 Rx mcg (50,000 unit) capsule caps [id number]-[id number]-nhfaxuh 3 cap PO .t5wihra daily #540 caps 01/04/23 06/24/24 Rx 24,000-76,000-120,000 unit capsule,delayed rel (Creon) potassium chloride 10 mEq 10 meq PO BID #180 caps 01/04/23 06/24/24 Rx capsule,extended release rosuvastatin 20 mg tablet (Crestor) 20 mg PO DAILY #90 tab-caps 01/04/23 06/24/24 Rx aspirin 81 mg tablet,delayed 81 mg PO DAILY 02/04/23 06/24/24 History release sucralfate 1 gram tablet (Carafate) 1 g PO QHS #90 tabs 03/25/23 06/24/24 Rx Results Labs 06/24/24 15:43 06/24/24 15:43 Labs: Laboratory Results - last 24 hr 06/24/24 06/24/24 06/24/24 15:43 16:50 18:43 WBC 11.14 H RBC 4.44 Hgb 13.2 Hct 40.8 MCV 92 MCH 29.7 MCHC 32.4 RDW 12.9 Plt Count 101 L MPV 11.9 H Immature Gran % 0.4 Neutrophils % 68.5 Lymphocytes % 22.5 Monocytes % 7.6 Eosinophils % 0.8 Basophils % 0.2 Nucleated RBC % 0.0 Absolute Neutrophils 7.63 H Absolute Lymphocytes 2.51 Absolute Monocytes 0.85 H Absolute Eosinophils 0.09 Absolute Basophils 0.02 Sodium 142 Potassium 4.0 Chloride 106 Carbon Dioxide 27.5 Anion Gap 8.5 BUN 26 H Creatinine 0.9 Est GFR (CKD-EPI 2020) 68.35 Glucose 83 Calcium 9.3 Magnesium 1.9 Total Bilirubin 0.55 AST 23 ALT 24 Alkaline Phosphatase 85 Troponin I 52 H 53 H* 6 Total Protein 7.5 Albumin 3.7 Lipase 10 Last Vital Signs Temp 97.7 F 06/24/24 15:29 Pulse 68 06/24/24 18:31 Resp 18 06/24/24 18:40 BP 149/46 H 06/24/24 18:31 Pulse Ox 98 06/24/24 18:40
== END 2024-06-24 21:16 | disposition short-term general hospital (02) ==
PROVIDERS: Emergency Provider Physician Assistant; PCP Physician Assistant
DX: R07.9 Chest pain, unspecified (principal); I10 Essential (primary) hypertension; E11.9 Type 2 diabetes mellitus without complications; Z79.82 Long term (current) use of aspirin; Z79.84 Long term (current) use of oral hypoglycemic drugs
CPT/HCPCS: 36415; 80053; 83690; 93005; 99285; 71046; 83735; 84484; 85025; 93010

== ENCOUNTER 2024-08-17 01:08 | Outpatient (CLI) | payer MEDICARE, MEDICAID, SELFPAY ==
[2024-08-17 09:27] LABS: Abs Immature Grans 0.03 10^3/uL (0.0-0.06); Absolute Basophil Count 0.03 10^3/uL (0.0-0.2); Absolute Eosinophil Count 0.08 10^3/uL (0.0-0.7); Absolute Lymphocyte Count 1.64 10^3/uL (1.2-3.4); Absolute Monocyte Count 0.49 10^3/uL (0.1-0.8); Absolute Neutrophil Count 3.93 10^3/uL (1.2-6.7); Basophils % 0.5 %; Eosinophils % 1.3 %; HCT 38.9 % (36.0-46.0); HGB 12.3 g/dL (11.2-15.7); Immature Grans % 0.5 %; Lymphocytes % 26.5 %; MCH 29.8 pg (27.0-33.0); MCHC 31.6 % (32.0-36.0); MCV 94 fL (80-95); MPV 11.4 fL (8.0-11.0); Monocytes % 7.9 %; Neutrophils % 63.3 %; RBC 4.13 10^6/uL (3.93-5.22); RDW 13.2 % (11.7-14.6); RDW-SD 45.1 fL
[2024-08-17 09:40] LABS: Platelet Count 98 10^3/uL (130-400)
[2024-08-17 09:41] LABS: ALT 27 U/L (14-59); AST 21 U/L (15-37); Albumin 3.3 g/dL (3.4-5.0); Alkaline Phosphatase 77 U/L (46-116); Anion Gap 5.6 mmol/L (3-11); BUN 25 mg/dL (7-18); CO2 30.4 mmol/L (21.0-32.0); CREATININE 1.1 mg/dL (0.55-1.02); Calcium 9.3 mg/dL (8.5-10.1); Chloride 106 mmol/L (98-107); Estimated GFR 53.39 (mL/min/1.73m2); Glucose 148 mg/dL (74-106); Potassium 4.7 mmol/L (3.5-5.1); Sodium 142 mmol/L (136-145); Total Protein 6.8 g/dL (6.4-8.2)
[2024-08-17 19:02] LABS: CEA 1.6 ng/mL (See Note)
== END 2024-08-17 01:09 | disposition home or self-care (01) ==
LOC: LBO 01:08
PROVIDERS: PCP Physician Assistant; Visit Provider Nurse Practitioner Family
DX: C17.0 Malignant neoplasm of duodenum (principal)
CPT/HCPCS: 36415; 80053; 82378; 85025

== ENCOUNTER 2024-08-30 15:41 | Outpatient (CLI) | payer MEDICARE, MEDICAID, SELFPAY ==
--- NOTE | 2024-08-30 09:15 | DI.RAD_ITS ---
Exam(s) XR ANKLE LT COMPLETE EXAM: XR ANKLE LT COMPLETE CLINICAL HISTORY: LEFT ANKLE PAIN TECHNIQUE: 2D digital imaging was performed of the left ankle. Three images were obtained. AP, lat eral and oblique views were obtained. COMPARISON: CR XR ANKLE LT COMPLETE from 03/29/2024 FINDINGS: BONES: No acute fracture is present. No bony destructive lesion is seen. There is a small plantar dottie caneal spur. There is a small enthesophyte at the posterior calcaneus. JOINTS:The ankle mortise is normally aligned. SOFT TISSUE: There well corticated osseous densities again seen in the soft tissues. IMPRESSION: No acute abnormality. DATA REPOSITORY: RADIATION DOSE DELIVERED:
== END 2024-08-30 15:42 | disposition home or self-care (01) ==
LOC: DIORS 15:41
PROVIDERS: PCP Physician Assistant; Referring Provider Physician Assistant; Visit Provider Student in an Organized Health Care Education/Training Program
DX: S93.402A Sprain of unspecified ligament of left ankle, initial encounter (principal); W19.XXXA Unspecified fall, initial encounter
CPT/HCPCS: 99213; 73610

== ENCOUNTER 2024-08-31 10:25 | Emergency (ER) | payer MEDICARE, MEDICAID, SELFPAY ==
[2024-08-31] VITALS (22 sets, daily range): BP systolic 91–142; BP diastolic 50–82; PULSE 55–75; RESP 8–23; TEMP 36.4; O2SAT 96–100
--- NOTE | 2024-08-31 10:30 | RT.EKG_ITS ---
APPROVED REPORT Exam: Resting ECG Reason for Exam: hypotension Patient Location: E HR:63 bpm ECG Measurements Heart Rate 63 AXIS VT 166 P -23 QRSd 91 QRS -13 QT 426 T -36 QTc 437 Conclusion Sinus rhythm. 63 normal axis no stemi
--- NOTE | 2024-08-31 10:30 | DI.CT_ITS ---
Exam(s) CT HEAD WO EXAM: CT HEAD WO CLINICAL HISTORY: TIA symptoms, near syncope. TECHNIQUE: Imaging Protocol: Axial computed tomography images with coronal and sagittal reformatted images were created and reviewed COMPARISON: CT SINUS CT WITHOUT CONTRAST from 04/18/2008 FINDINGS: Ventricles and Extra axial spaces: Normal in size and morphology for the patient's age. Hemorrhage: None. Cerebral parenchyma: There are areas of decreased attenuation in the white matter most consistent wit h chronic microvascular ischemic disease. No evidence of an acute territorial infarct. No mass effe ct. Midline shift: None. Brainstem/Cerebellum: Normal. Calvarium: Normal. Visualized Paranasal sinuses/Mastoids: Clear. Soft Tissues: Unremarkable. IMPRESSION: No acute intracranial process. RADIATION DOSE DELIVERED: 845.49mGy.cm Total DLP DATA REPOSITORY: All CT scans at this facility are submitted to the National Radiology Data Registry (NRDR) Dose Index Registry (DIR) with the [employer] ([employer]). RADIATION OPTIMIZATION: All CT scans at this facility use at least one of these dose optimization te chniques: automated exposure control; mA and/or kV adjustment per patient size (includes targeted exa ms where dose is matched to clinical indication); or iterative reconstruction.
--- NOTE | 2024-08-31 10:48 | ED.GENADUL_ITS ---
Discharge Plan Disposition Patient Disposition: Home Condition: Stable Discharge Details Clinical Impression: Acute UTI Primary Care Provider: Saqib Stapleton ED Provider: Mandy Paniagua Home Meds and New Rx's Prescriptions: New cephalexin 500 mg tablet 500 mg PO BID 7 Days Qty: 14 0RF Continued multivit with min-folic acid [Centrum Adult 50 Fresh-Fruity] 120 mcg tablet,chewable 1 tab PO DAILY aspirin 81 mg tablet,delayed release (DR/EC) 81 mg PO DAILY buspirone 5 mg tablet 5 mg PO BID nystatin 100,000 unit/gram powder 1 applic topical BID Qty: 60 4RF gabapentin 600 mg tablet 600 mg PO QHS Qty: 90 4RF glipizide 5 mg tablet extended release 24hr 5 mg PO DAILY Qty: 90 12RF pantoprazole [Protonix] 40 mg tablet,delayed release (DR/EC) 40 mg PO DAILY Qty: 90 5RF Patient Comments: increased to BID for one month - started taking BID on 01/12/23 losartan 100 mg tablet 100 mg PO DAILY Qty: 90 12RF Creon 24,000-76,000 -120,000 unit capsule,delayed release(DR/EC) 3 cap PO .m0vogsb daily MDD 18 Qty: 540 6RF Patient Comments: Pt reports taking 1 Creon capsule 11/08/23 Rx Instructions: administer with meals and/or snacks ergocalciferol (vitamin D2) 1,250 mcg (50,000 unit) capsule 50,000 unit PO .twice weekly Qty: 28 5RF potassium chloride 10 mEq capsule, extended release 10 meq PO BID Qty: 180 4RF rosuvastatin [Crestor] 20 mg tablet 20 mg PO DAILY Qty: 90 4RF sucralfate [Carafate] 1 gram tablet 1 g PO QHS Qty: 90 5RF levothyroxine 100 mcg tablet 50 mcg PO DAILY sennosides [senna] 8.6 mg Tablet 8.6 mg PO BID PRN Discharge Instructions Instructions: Urinary Tract Infection, Adult ED Additional Instructions: At this time it does appear you have a urinary tract infection. This could explain your symptoms. No evidence of acute stroke at this time. However if this reoccurs please follow-up with your primary care provider or return to the ER. Please take the antibiotic with yogurt or a probiotic as directed and increase oral fluids. You were given the first dose here and the prescription was sent to the pharmacy on file. Follow up with primary care provider in 3-5 days. Return to ED sooner if any worsening or concerns. Referrals: Saqib Stapleton [Primary Care Provider] - 3 days HPI General Mode of arrival: ambulatory . Date/Time Provider Initiated Documentation: 08/31/24 10:30 . Limitations to Documentation: no limitations . Information obtained by: patient, RN notes reviewed and old records reviewed . HPI Narrative: 74-year-old female presents to the ER with frontal headache, reports that she was at a weight loss conference and had a episode where she stopped responding. She states that she never lost consciousness or passed out and was aware of what was happening around her but was not responding to bystanders. She states that she was feeling dizzy and lightheaded and sat down. She denies any weakness tingling, no facial droop no focal neurodeficits noted. She speaking in full sentences. She does report that she has had some dark urine over the last couple of days. She has not taken her blood pressure medications this morning. Her initial blood pressure was slightly low upon triage 91/56. On laying down and is 148/51. She denies any nausea vomiting or diarrhea. Related Data Home Medications ?Medication ?Instructions ?Recorded ?Confirmed sennosides 8.6 mg tablet (senna) 8.6 mg PO BID PRN 11/04/20 08/31/24 nystatin 100,000 unit/gram topical 1 applic topical BID #60 grams 10/02/21 08/31/24 powder multivitamin with minerals-folic 1 tab PO DAILY 11/27/21 08/31/24 acid 120 mcg chewable tablet (Centrum Adult 50 Plus Fresh-Fruity) gabapentin 600 mg tablet 600 mg PO QHS #90 tabs 09/18/22 08/31/24 glipizide 5 mg tablet, extended 5 mg PO DAILY #90 tabs 10/05/22 08/31/24 release 24 hr pantoprazole 40 mg tablet,delayed 40 mg PO DAILY bleeding duodenal 10/05/22 08/31/24 release (Protonix) ulcer #90 tabs losartan 100 mg tablet 100 mg PO DAILY #90 tab-caps 12/15/22 08/31/24 ergocalciferol (vitamin D2) 1,250 50,000 unit PO .twice weekly #28 01/04/23 08/31/24 mcg (50,000 unit) capsule caps rcejsh-rmakbcgv-zrrnmuu 3 cap PO .f1munad daily #540 caps 01/04/23 08/31/24 24,000-76,000-120,000 unit capsule,delayed rel (Creon) potassium chloride 10 mEq 10 meq PO BID #180 caps 01/04/23 08/31/24 capsule,extended release rosuvastatin 20 mg tablet (Crestor) 20 mg PO DAILY #90 tab-caps 01/04/23 08/31/24 aspirin 81 mg tablet,delayed 81 mg PO DAILY 02/04/23 08/31/24 release sucralfate 1 gram tablet (Carafate) 1 g PO QHS #90 tabs 03/25/23 08/31/24 buspirone 5 mg tablet 5 mg PO BID 08/30/24 08/31/24 cephalexin 500 mg tablet 500 mg PO BID 7 days #14 tabs 08/31/24 levothyroxine 100 mcg tablet 50 mcg PO DAILY 08/31/24 08/31/24 Previous Rx's ?Medication ?Instructions ?Recorded nystatin 100,000 unit/gram topical 1 applic topical BID #60 grams 10/02/21 powder gabapentin 600 mg tablet 600 mg PO QHS #90 tabs 09/18/22 glipizide 5 mg tablet, extended 5 mg PO DAILY #90 tabs 10/05/22 release 24 hr pantoprazole 40 mg tablet,delayed 40 mg PO DAILY bleeding duodenal 10/05/22 release (Protonix) ulcer #90 tabs losartan 100 mg tablet 100 mg PO DAILY #90 tab-caps 12/15/22 ergocalciferol (vitamin D2) 1,250 50,000 unit PO .twice weekly #28 01/04/23 mcg (50,000 unit) capsule caps luxhiq-wsubdgst-vnxhqov 3 cap PO .y2rrosf daily #540 caps 01/04/23 24,000-76,000-120,000 unit capsule,delayed rel (Creon) potassium chloride 10 mEq 10 meq PO BID #180 caps 01/04/23 capsule,extended release rosuvastatin 20 mg tablet (Crestor) 20 mg PO DAILY #90 tab-caps 01/04/23 sucralfate 1 gram tablet (Carafate) 1 g PO QHS #90 tabs 03/25/23 cephalexin 500 mg tablet 500 mg PO BID 7 days #14 tabs 08/31/24 Allergies Allergy/AdvReac Type Severity Reaction Status Date / Time lisinopril AdvReac Intermediate COUGH Verified 08/31/24 10:37 General Stated Complaint: Dizzy/Sync NOLVIA: 3 Review of Systems All systems reviewed & are unremarkable except as noted in HPI and below Constitutional Constitutional: Reports headache(s) ENT Ears, Nose, Mouth, and Throat: Reports dizziness and Reports headache(s) Neurologic Neurologic: Reports dizziness, Reports headache(s) and Reports other (Moments of unresponsiveness) Exam Narrative Exam Narrative: Constitutional: Alert and oriented x3. Appears stated age. Obese body habitus. Head: Normocephalic, no trauma. Eyes: Pupils PERRL, Red reflex noted, EOM's intact. Eyelids symmetrical without lesions, discharge, or swelling. ENT: Bilateral TM's WNL, External ear normal to inspection, no mastoid TTP, swelling, or erythema, Nasal turbinates WNL, no nasal discharge. Normal dentition, Posterior pharynx WNL, no exudate. Chest: RRR, Normal S1, S2, distal pulses intact. Resp: Lungs clear to auscultation bilaterally, no wheezes, rales, or rhonchi. Abdomen: Soft, non-distended, Normoactive bowel sounds all 4 quads. Musculoskeletal: Normal gait, Moves all 4 extremities without difficulty. Skin: No suspicious rashes or lesions. Capillary refill less than 2 sec. Neurologic: Cranial nerves II-XII intact. Alert and oriented x 3. Motor: No deficits noted. Sensory: Intact bilaterally all 4 extremities. No facial droop, environmental health safety manager equal bilaterally, tongue midline, leg drop negative. Hematologic/Lymphatic: No ecchymosis, no lymphadenopathy. Course Vital Signs Vital signs: Vital Signs Temperature 36.4 C L 08/31/24 10:30 Pulse 68 08/31/24 10:30 Respiratory Rate 15 08/31/24 10:30 Blood Pressure 91/56 L 08/31/24 10:30 Pulse Oximetry 98 08/31/24 10:30 Temperature 36.4 C L 08/31/24 10:30 Pulse 68 08/31/24 10:30 Respiratory Rate 15 08/31/24 10:39 Respiratory Effort Normal 08/31/24 10:39 Respiratory Depth Normal 08/31/24 10:39 Respiratory Pattern Normal 08/31/24 10:39 Blood Pressure 91/56 L 08/31/24 10:30 Blood Pressure Position Sitting 08/31/24 10:30 Pulse Oximetry 98 08/31/24 10:30 Oxygen Delivery Method Room Air 08/31/24 10:30 Oxygen Flow Rate 0 08/31/24 10:30 Medical Decision Making 74-year-old female presents to the ER with frontal headache, reports that she was at a weight loss conference and had a episode where she stopped responding. She states that she never lost consciousness or passed out and was aware of what was happening around her but was not responding to bystanders. She states that she was feeling dizzy and lightheaded and sat down. She denies any weakness tingling, no facial droop no focal neurodeficits noted. She speaking in full sentences. She does report that she has had some dark urine over the last couple of days. She has not taken her blood pressure medications this morning. Her initial blood pressure was slightly low upon triage 91/56. On laying down and is 148/51. She denies any nausea vomiting or diarrhea. Workup shows microvascular changes on the head CT no acute intracranial process. White blood cell count 11.36, platelets are 109, which patient does have a history of thrombocytopenia, BUN 19 creatinine 1.2 GFR is 48 which is at patient's baseline. Glucose 160, 2 serial troponins within normal limits. Urinalysis shows trace blood positive nitrites small leukocytes. I do suspect a UTI as a cause for patient's symptoms. Will treat with cephalexin discharge home with home care and follow-up with PCP. Instructed to return if any worsening or additional episodes. Patient discharged in the care of her family. Remained hemodynamically stable throughout the remainder of her stay. Alert and oriented. This text was generated using [employer] dictation system, please disregard any oddities of phrase or misspellings. Medical Records Medical records reviewed: Yes I reviewed the patient's medical records. Imaging Data Radiologic Study: Imaging: CT Scan Radiologist's impression: COMPARISON: CT SINUS CT WITHOUT CONTRAST from 04/18/2008 FINDINGS: Ventricles and Extra axial spaces: Normal in size and morphology for the patient's age. Hemorrhage: None. Cerebral parenchyma: There are areas of decreased attenuation in the white matter most consistent with chronic microvascular ischemic disease. No evidence of an acute territorial infarct. No mass effect. Midline shift: None. Brainstem/Cerebellum: Normal. Calvarium: Normal. Visualized Paranasal sinuses/Mastoids: Clear. Soft Tissues: Unremarkable. IMPRESSION: No acute intracranial process. Lab Data Lab results reviewed: Yes I reviewed the patient's lab results. Labs: Laboratory Tests Range/Units 08/31/24 08/31/24 08/31/24 10:52 11:50 12:28 WBC (4.4-10.8) 10^3/uL 11.36 H RBC (3.93-5.22) 10^6/uL 4.45 Hgb (11.2-15.7) g/dL 13.4 Hct (36.0-46.0) % 41.7 MCV (80-95) fL 94 MCH (27.0-33.0) pg 30.1 MCHC (32.0-36.0) % 32.1 RDW (11.7-14.6) % 13.1 Plt Count (130-400) 10^3/uL 109 L MPV (8.0-11.0) fL 11.4 H Immature Gran % % 0.6 Neutrophils % % 78.9 Lymphocytes % % 13.1 Monocytes % % 6.5 Eosinophils % % 0.7 Basophils % % 0.2 Nucleated RBC % (0.0-0.3) % 0.0 Absolute Neutrophils (1.2-6.7) 10^3/uL 8.96 H Absolute Lymphocytes (1.2-3.4) 10^3/uL 1.49 Absolute Monocytes (0.1-0.8) 10^3/uL 0.74 Absolute Eosinophils (0.0-0.7) 10^3/uL 0.08 Absolute Basophils (0.0-0.2) 10^3/uL 0.02 PT (9.1-11.1) sec 10.0 INR (0.9-1.1) 1.0 APTT (20.6-30.2) sec 22.1 Sodium (136-145) mmol/L 143 Potassium (3.5-5.1) mmol/L 4.8 Chloride (98-107) mmol/L 107 Carbon Dioxide (21.0-32.0) mmol/L 31.7 Anion Gap (3-11) mmol/L 4.3 BUN (7-18) mg/dL 19 H Creatinine (0.55-1.02) mg/dL 1.2 H Est GFR (CKD-EPI 2020) (mL/min/1.73m2) 48.09 Glucose (74-106) mg/dL 160 H Calcium (8.5-10.1) mg/dL 8.9 Magnesium (1.8-2.4) mg/dL 1.8 Total Bilirubin (0.2-1.0) mg/dL 0.50 AST (15-37) U/L 21 ALT (14-59) U/L 34 Alkaline Phosphatase (46-116) U/L 78 Troponin I (<or=51) ng/L 33 31 Total Protein (6.4-8.2) g/dL 7.1 Albumin (3.4-5.0) g/dL 3.4 TSH (0.36-3.74) uIU/mL 0.56 Urine Color (Yellow) Yellow Urine Clarity (Clear) Cloudy Urine pH (5-8) 6.5 Ur Specific [place] (1.005-1.025) 1.020 Urine Protein (Neg-Trace) mg/dL 30 H Urine Ketones (Negative) mg/dL Negative Urine Blood (Negative) Trace-intact H Urine Nitrite (Negative) Positive H Urine Bilirubin (Negative) Negative Urine Urobilinogen (Up to 0.2) mg/dL 0.2 Ur Leukocyte Esterase (Negative) Small H Urine Glucose (Negative) mg/dL Negative Range/Units 08/31/24 13:38 WBC (4.4-10.8) 10^3/uL RBC (3.93-5.22) 10^6/uL Hgb (11.2-15.7) g/dL Hct (36.0-46.0) % MCV (80-95) fL MCH (27.0-33.0) pg MCHC (32.0-36.0) % RDW (11.7-14.6) % Plt Count (130-400) 10^3/uL MPV (8.0-11.0) fL Immature Gran % % Neutrophils % % Lymphocytes % % Monocytes % % Eosinophils % % Basophils % % Nucleated RBC % (0.0-0.3) % Absolute Neutrophils (1.2-6.7) 10^3/uL Absolute Lymphocytes (1.2-3.4) 10^3/uL Absolute Monocytes (0.1-0.8) 10^3/uL Absolute Eosinophils (0.0-0.7) 10^3/uL Absolute Basophils (0.0-0.2) 10^3/uL PT (9.1-11.1) sec INR (0.9-1.1) APTT (20.6-30.2) sec Sodium (136-145) mmol/L Potassium (3.5-5.1) mmol/L Chloride (98-107) mmol/L Carbon Dioxide (21.0-32.0) mmol/L Anion Gap (3-11) mmol/L BUN (7-18) mg/dL Creatinine (0.55-1.02) mg/dL Est GFR (CKD-EPI 2020) (mL/min/1.73m2) Glucose (74-106) mg/dL Calcium (8.5-10.1) mg/dL Magnesium (1.8-2.4) mg/dL Total Bilirubin (0.2-1.0) mg/dL AST (15-37) U/L ALT (14-59) U/L Alkaline Phosphatase (46-116) U/L Troponin I (<or=51) ng/L Cancelled Total Protein (6.4-8.2) g/dL Albumin (3.4-5.0) g/dL TSH (0.36-3.74) uIU/mL Urine Color (Yellow) Urine Clarity (Clear) Urine pH (5-8) Ur Specific [place] (1.005-1.025) Urine Protein (Neg-Trace) mg/dL Urine Ketones (Negative) mg/dL Urine Blood (Negative) Urine Nitrite (Negative) Urine Bilirubin (Negative) Urine Urobilinogen (Up to 0.2) mg/dL Ur Leukocyte Esterase (Negative) Urine Glucose (Negative) mg/dL Quality:SDOH Health Related Social Needs: No Data to Display PFSH All Active Problems (Updated 08/31/24 @ 13:24 by Mandy Paniagua NP) Acute UTI (Acute) Angina at rest (Acute) Left ankle sprain (Acute) Cystocele and rectocele with incomplete uterovaginal prolapse (Acute) Rotator cuff tear, right (Acute) Duodenal cancer (Acute) Adenocarcinoma. 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 (Acute) BMI 40.0-44.9, adult (Acute) Right wrist tendonitis (Acute) Trochanteric bursitis of left hip (Acute) COVID-19 (Acute) 12/22/21 Vaccinated, booster 07/09/21 Chronic constipation (Acute) Adenomatous polyps (Acute) repeat CE in 2023 Chronic GERD (Acute) Renal failure (Chronic) Hypokalemia (Acute 05/09/15) Insomnia (Acute) Knee pain (Acute 03/12/15) Lumbar radiculopathy (Acute 02/06/13) Vitamin D deficiency (Chronic 03/22/12) Pulmonary hypertension (Chronic 11/08/17) Organic sleep apnea, unspecified (Chronic) CPAP (NOT USING 11/17) Increased body mass index (Chronic) Hypothyroidism (Chronic 10/11/12) Hyperlipidemia (Chronic 10/11/12) Gout (Chronic 03/14/10) Gastroesophageal reflux disease (Chronic 10/11/12) Family history of colon cancer (Chronic 01/29/15) Essential hypertension (Chronic 05/04/13) Edema (Chronic) Diverticulosis of colon without diverticulitis (Chronic 05/21/09) 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 stated it was stress related, states she had it worked up which was WNL per pt/ Gastritis History of pelvic ultrasound Hyperkalemia (10/20/12) Lipoma (07/01/05) Abnormal mammography (07/01/06) Skin tag (08/03/17) Sprain of costal cartilage (10/22/16) Strain of flexor muscle of left hip (09/23/16) Left hip pain (12/15/16) Knee pain (03/12/15) Arthritis of right knee (06/07/15) Vitamin D deficiency Hypertension Bronchiectasis GERD (gastroesophageal reflux disease) Organic sleep apnea Osteoarthritis Hypothyroidism Depression Chronic insomnia Gout Diabetes Morbid obesity with BMI of 50.0-59.9, adult Diverticulosis large intestine w/o perforation or abscess w/o bleeding Surgical History History of back surgery Hx of breast reduction, elective History of Whipple procedure History of esophagogastroduodenoscopy (EGD) (~11/2023) History of colonoscopy (~11/2023) Surgical procedure planned Whipple procedure 01/01/20 History of bilateral ligation of fallopian tubes Status post cholecystectomy Status post total knee replacement (02/25/16) Ligation of fallopian tube PELVIC U/S NEG Endometrial Biopsy neg Cholecystectomy Arthroplasty of knee (02/25/16) LEFT TOTAL KNEE Family History Mother Liver cancer Father Heart disease Stomach cancer Maternal Grandfather Cirrhosis of liver Paternal Grandfather Narcolepsy Diabetes Maternal Grandmother Diabetes Heart disease Breast cancer Paternal Grandmother Breast cancer Sister Alcohol abuse Uterine cancer Sister Cancer Brother , 66 Liver cancer Lung cancer Son Essential hypertension Son Narcolepsy Diabetes Essential hypertension Hyperlipidemia Other Family history of colon cancer Social History Smoking/Tobacco Use Status: Never Second Hand Exposure: Yes Smoking risk assessment performed?: Yes Alcohol Intake: former Drug use: Never Substance use type: does not use Caregiver/Support person: No Household members: spouse Housing: house Communication Needs: None Do you need help understanding health information?: Rarely Pets and animals: No Sexually active: No Do you think of yourself as: straight/heterosexual Current gender identity: female What is your relationship status?: How often do you talk on the phone with friends or family?: three or more times per week How often do you get together with friends or relatives?: once per week How often do you attend yazidi or presybeterian services?: 1-3 times per year Do you belong to any clubs or organized social groups?: yes Panel score (0-1 are the most socially isolated patients): 3 What type of physical activity do you participate in: walking Duration: 15-30 minutes/day Frequency: 5-6 times per week Sejal/Gnosticism: Amish Special sejal needs: No Seatbelt use: always Helmet use: No Drive intox or ride w/intox grab driver: No Do you feel safe at home: Yes Do you feel safe in your relationship?: Yes
[2024-08-31 11:05] LABS: Abs Immature Grans 0.07 10^3/uL (0.0-0.06); Absolute Basophil Count 0.02 10^3/uL (0.0-0.2); Absolute Eosinophil Count 0.08 10^3/uL (0.0-0.7); Absolute Lymphocyte Count 1.49 10^3/uL (1.2-3.4); Absolute Monocyte Count 0.74 10^3/uL (0.1-0.8); Absolute Neutrophil Count 8.96 10^3/uL (1.2-6.7); Basophils % 0.2 %; Eosinophils % 0.7 %; HCT 41.7 % (36.0-46.0); HGB 13.4 g/dL (11.2-15.7); Immature Grans % 0.6 %; Lymphocytes % 13.1 %; MCH 30.1 pg (27.0-33.0); MCHC 32.1 % (32.0-36.0); MCV 94 fL (80-95); MPV 11.4 fL (8.0-11.0); Monocytes % 6.5 %; Neutrophils % 78.9 %; Platelet Count 109 10^3/uL (130-400); RBC 4.45 10^6/uL (3.93-5.22); RDW 13.1 % (11.7-14.6); RDW-SD 45.1 fL; WBC 11.36 10^3/uL (4.4-10.8)
[2024-08-31 11:18] LABS: PTT Activated 22.1 sec (20.6-30.2)
[2024-08-31 11:28] LABS: ALT 34 U/L (14-59); AST 21 U/L (15-37); Albumin 3.4 g/dL (3.4-5.0); Alkaline Phosphatase 78 U/L (46-116); Anion Gap 4.3 mmol/L (3-11); BUN 19 mg/dL (7-18); CO2 31.7 mmol/L (21.0-32.0); CREATININE 1.2 mg/dL (0.55-1.02); Calcium 8.9 mg/dL (8.5-10.1); Chloride 107 mmol/L (98-107); Estimated GFR 48.09 (mL/min/1.73m2); Glucose 160 mg/dL (74-106); Magnesium 1.8 mg/dL (1.8-2.4); Potassium 4.8 mmol/L (3.5-5.1); Sodium 143 mmol/L (136-145); TSH 0.56 uIU/mL (0.36-3.74); Total Protein 7.1 g/dL (6.4-8.2); Troponin I 33 ng/L (<or=51)
[2024-08-31] MEDS: Normal Saline 500 ML IV (11:38)
[2024-08-31 12:29] LABS: Troponin I 31 ng/L (<or=51)
[2024-08-31 13:04] LABS: Bilirubin Negative (Negative); Blood Trace-intact (Negative); Clarity Cloudy (Clear); Glucose Negative (Negative); Ketones Negative (Negative); Leukocyte Esterase Small (Negative); Nitrite Positive (Negative); Urobilinogen 0.2 mg/dL (Up to 0.2); pH 6.5 (5-8)
[2024-08-31 13:29] LABS: Bacteria Many HPF (Negative); C & S Indicated? No; Casts Negative LPF (Negative); Crystals Negative HPF (Negative); Epithelial Cells Moderate HPF (Negative); Mucus Trace (Negative)
[2024-08-31] MEDS: Cephalexin 500 MG CAP PO (13:36)
== END 2024-08-31 13:45 | disposition home or self-care (01) ==
PROVIDERS: Emergency Provider Registered Nurse Emergency; PCP Physician Assistant
DX: R55 Syncope and collapse (principal); N39.0 Urinary tract infection, site not specified; I10 Essential (primary) hypertension; E78.5 Hyperlipidemia, unspecified; E03.9 Hypothyroidism, unspecified; E11.43 Type 2 diabetes mellitus with diabetic autonomic (poly)neuropathy; Z79.82 Long term (current) use of aspirin; Z79.84 Long term (current) use of oral hypoglycemic drugs
CPT/HCPCS: 36415; 80053; 93005; 96360; 99285; 70450; 81003; 81015; 83735; 84443; 84484; 85025; 85610; 85730; 93010; 99284

== ENCOUNTER 2024-10-02 15:34 | Outpatient (CLI) | payer MEDICARE, MEDICAID, SELFPAY ==
--- NOTE | 2024-10-02 08:52 | DI.RAD_ITS ---
Exam(s) XR HIP LT COMPLETE AP PELVIS EXAM: XR HIP LT COMPLETE AP PELVIS CLINICAL HISTORY: L hip pain. TECHNIQUE: 2D digital imaging was performed. COMPARISON: CR XR HIP LT COMPLETE AP PELVIS from 10/12/2022 FINDINGS: Two views No evidence of pelvic nor hip fracture. No hip joint space narrowing. However, on the frog-lateral view of the left hip there is a small osteophyte at the junction the femoral head and neck. Bone density normal. No significant osseous lesions. Benign bone island is noted in the superior le ft acetabulum. IMPRESSION: Mild degenerative changes in the left hip. DATA REPOSITORY: RADIATION DOSE DELIVERED:
== END 2024-10-02 15:35 | disposition home or self-care (01) ==
LOC: DIORS 15:35
PROVIDERS: PCP Physician Assistant; Referring Provider Physician Assistant; Visit Provider Physician Assistant
DX: M16.12 Unilateral primary osteoarthritis, left hip; R29.6 Repeated falls
CPT/HCPCS: 99213; 73502

== ENCOUNTER 2024-10-05 02:13 | Outpatient (CLI) | payer MEDICARE, MEDICAID, SELFPAY ==
--- NOTE | 2024-10-05 08:30 | DI.MRI_ITS ---
Exam(s) MR LOWER JOINT LT WO EXAM: MR LOWER JOINT LT WO CLINICAL HISTORY: LEFT ANKLE SPRAIN,S93.402A TECHNIQUE: Multiplanar multisequence MRI was performed without intravenous contrast. COMPARISON: CR XR ANKLE LT COMPLETE from 08/30/2024 FINDINGS: BONES: No fracture or contusion pattern. There is edema in the proximal medial aspect of the cuboid and adjacent aspect of the calcaneus. Degenerative cyst in the distal cuboid. Areas of increased si gnal in the lateral malleolus are likely degenerative. No suspicious bone lesions identified. The ta lar dome is smooth. Small heel spurs. Triangular-shaped bony density beneath the tip of the medial malleolus. Joints: The ankle mortise is maintained. There is a small amount of fluid in the tibiotalar joint and talonavicular joint. Dorsal spurring at the talonavicular joint. LIGAMENTS: The tibiofibular and calcaneofibular ligaments are intact. The talofibular ligaments are i ntact. The deltoid ligament is intact. The syndesmosis is unremarkable. MUSCULOTENDINOUS STRUCTURES: Achilles tendon: Unremarkable. Plantar fascia: Unremarkable. Anterior Extensor tendons: Unremarkable. Posterior Tibialis: Unremarkable. Flexor Digitorum longus: Unremarkable. Flexor Hallucis longus: Unremarkable. Peroneus longus: Unremarkable. Peroneus brevis:Unremarkable. SOFT TISSUES: Mild soft tissue edema adjacent to the malleoli. IMPRESSION: No evidence of tendon tear. Edema noted in the medial aspect of the proximal cuboid and adjacent distal, medial calcaneus without evidence of discrete fracture. This could represent bone contusion. DATA REPOSITORY:
== END 2024-10-05 02:33 ==
PROVIDERS: PCP Physician Assistant; Visit Provider Student in an Organized Health Care Education/Training Program
DX: S93.402A Sprain of unspecified ligament of left ankle, initial encounter (principal); X58.XXXA Exposure to other specified factors, initial encounter
CPT/HCPCS: 73721

== ENCOUNTER → 2024-10-11 12:58 | Outpatient (BNVA) | payer MEDICARE, MEDICAID, SELFPAY | PROVIDERS: PCP Physician Assistant; Referring Provider Physician Assistant; Visit Provider Podiatrist | DX: E11.43 Type 2 diabetes mellitus with diabetic autonomic (poly)neuropathy (principal); M72.2 Plantar fascial fibromatosis; R26.89 Other abnormalities of gait and mobility; R29.6 Repeated falls; I73.89 Other specified peripheral vascular diseases | CPT/HCPCS: 99213 ==

== ENCOUNTER → 2024-10-17 10:41 | Outpatient (BNVA) | payer MEDICARE, MEDICAID, SELFPAY | PROVIDERS: PCP Physician Assistant; Referring Provider Physician Assistant; Visit Provider Student in an Organized Health Care Education/Training Program | DX: S93.402D Sprain of unspecified ligament of left ankle, subsequent encounter (principal); S46.211D Strain of muscle, fascia and tendon of other parts of biceps, right arm, subsequent encounter; X58.XXXD Exposure to other specified factors, subsequent encounter; M75.101 Unspecified rotator cuff tear or rupture of right shoulder, not specified as traumatic; M76.822 Posterior tibial tendinitis, left leg | CPT/HCPCS: 99214 ==

== ENCOUNTER 2024-11-06 02:11 | Outpatient (CLI) | payer MEDICARE, MEDICAID, SELFPAY ==
--- NOTE | 2024-11-06 07:15 | DI.MRI_ITS ---
Exam(s) MR UPPER JOINT RT WO EXAM: MR UPPER JOINT RT WO CLINICAL HISTORY: R SHOULDER PAIN,rt rotator cuff tear,m75.101. TECHNIQUE: Multiplanar multisequence MRI was performed. COMPARISON: Plain films 29 May 2023 and March 25, 2024 MRI 06 October 2023 FINDINGS: Exam is somewhat limited by motion. BONES: There is no fracture or contusion pattern. Small cysts in the superior humeral head. JOINTS:The acromioclavicular joint is shows mild spurring and some fluid. The glenohumeral joint shows a moderate effusion. TENDONS: Supraspinatus: Full-thickness tear of the anterior portion. Few fibers remain intact of the involvin g the posterior portion. Infraspinatus: Some high signal in the superior portion. No visible full-thickness tear. Subscapularis: Unremarkable. Teres Minor: Unremarkable. Biceps and Brandon: The long head of the biceps tendon is not visualized. This was noted to be torn a nd retracted on the prior examination. MUSCLES: Mild supraspinatus and infraspinatus muscle atrophy. GLENOID LABRUM: Unremarkable on this noncontrast examination. SOFT TISSUES: Unremarkable. BURSAE: Subacromial and subdeltoid bursae shows a small amount of fluid. There is small amount of f luid in the subcoracoid bursa shows extends along the subscapularis muscle.. IMPRESSION: Severe supraspinatus tendon tear. the biceps tendon is not visualized. Joint effusion. DATA REPOSITORY:
== END 2024-11-06 02:31 ==
PROVIDERS: PCP Physician Assistant; Visit Provider Student in an Organized Health Care Education/Training Program
DX: S46.012D Strain of muscle(s) and tendon(s) of the rotator cuff of left shoulder, subsequent encounter (principal); X58.XXXD Exposure to other specified factors, subsequent encounter
CPT/HCPCS: 73221

== ENCOUNTER → 2024-11-15 10:02 | Outpatient (BNVA) | payer MEDICARE, SELFPAY | PROVIDERS: PCP Physician Assistant; Referring Provider Physician Assistant; Visit Provider Student in an Organized Health Care Education/Training Program | DX: M75.101 Unspecified rotator cuff tear or rupture of right shoulder, not specified as traumatic (principal); S46.211A Strain of muscle, fascia and tendon of other parts of biceps, right arm, initial encounter; X50.0XXA Overexertion from strenuous movement or load, initial encounter | CPT/HCPCS: 99214 ==

== ENCOUNTER 2024-11-17 00:08 | Outpatient (CLI) | payer MEDICARE, SELFPAY ==
--- NOTE | 2024-11-17 07:42 | DI.CT_ITS ---
Exam(s) CT UPPER EXTREMITY RT WO EXAM: CT UPPER EXTREMITY RT WO CLINICAL HISTORY: SURGICAL PLANNING,rt rotator cuff tear,rupture rt prox biceps tendon, TECHNIQUE: Imaging Protocol: Axial computed tomography images with coronal and sagittal reformatted images were created and reviewed. CONTRAST MATERIAL: Intravenous: None COMPARISON: MR MR UPPER JOINT RT WO from 11/06/2024 FINDINGS: OSSEOUS: No evidence of fracture or dislocation the glenohumeral joint. There are some degenerative subarticu lar cysts in the humeral head as well as a small degenerative subarticular cysts in the superior aspe ct of the osseous glenoid. There is mild narrowing of the glenohumeral joint space. There are no abnormal calcifications in the subacromial space. There are moderate degenerative mittal es in the AC joint. SOFT TISSUES: No prominent joint effusion. No masses. No axillary adenopathy. IMPRESSION: Moderate degenerative changes in the glenohumeral joint. Moderate degenerative changes in the AC joint. RADIATION DOSE DELIVERED: 295.17mGy.cm Total DLP DATA REPOSITORY: All CT scans at this facility are submitted to the National Radiology Data Registry (NRDR) Dose Index Registry (DIR) with the [employer] ([employer]). RADIATION OPTIMIZATION: All CT scans at this facility use at least one of these dose optimization te chniques: automated exposure control; mA and/or kV adjustment per patient size (includes targeted exa ms where dose is matched to clinical indication); or iterative reconstruction.
== END 2024-11-17 00:28 ==
PROVIDERS: PCP Physician Assistant; Visit Provider Student in an Organized Health Care Education/Training Program
DX: S46.211D Strain of muscle, fascia and tendon of other parts of biceps, right arm, subsequent encounter; X58.XXXD Exposure to other specified factors, subsequent encounter
CPT/HCPCS: 73200

== ENCOUNTER → 2024-11-22 12:51 | Outpatient (BNVA) | payer MEDICARE, SELFPAY | PROVIDERS: PCP Physician Assistant; Referring Provider Physician Assistant; Visit Provider Student in an Organized Health Care Education/Training Program | DX: S46.211A Strain of muscle, fascia and tendon of other parts of biceps, right arm, initial encounter (principal); X58.XXXA Exposure to other specified factors, initial encounter; M75.101 Unspecified rotator cuff tear or rupture of right shoulder, not specified as traumatic | CPT/HCPCS: 99214 ==

== ENCOUNTER 2024-11-30 05:47 | Day surgery (SDC) | payer MEDICARE, SELFPAY ==
[2024-11-30] VITALS (21 sets, daily range): BP systolic 116–158; BP diastolic 51–74; PULSE 54–71; RESP 10–23; TEMP 36.2–36.7; O2SAT 94–99; BMI 41.3
--- NOTE | 2024-11-30 06:27 | W.ANESPRE ---
General Info Date of Service Date Performed: 11/30/24 Height: 5 ft 1.75 in Weight: 101.8 kg Body Mass Index (BMI): 41.3 Surgical Procedure: Operation Date: 11/30/24 07:40 Proposed Procedure Side Surgeon p Shoulder Reverse Total Arthroplasty, Possible Biceps Tenodesis Right Kang Hancock MD Meds Allergies and Home Medications Allergies Allergy/AdvReac Type Severity Reaction Status Date / Time lisinopril AdvReac Intermediate COUGH Verified 11/30/24 06:05 Home Medication ?Medication ?Instructions ?Recorded sennosides 8.6 mg tablet (senna) 8.6 mg PO BID PRN 11/04/20 nystatin 100,000 unit/gram topical 1 applic topical BID #60 grams 10/02/21 powder multivitamin with minerals-folic 1 tab PO DAILY 11/27/21 acid 120 mcg chewable tablet (Centrum Adult 50 Plus Fresh-Fruity) gabapentin 600 mg tablet 600 mg PO QHS #90 tabs 09/18/22 glipizide 5 mg tablet, extended 5 mg PO DAILY #90 tabs 10/05/22 release 24 hr pantoprazole 40 mg tablet,delayed 40 mg PO DAILY bleeding duodenal 10/05/22 release (Protonix) ulcer #90 tabs ergocalciferol (vitamin D2) 1,250 50,000 unit PO .twice weekly #28 01/04/23 mcg (50,000 unit) capsule caps qvoyti-jmuooozr-quxpofe 3 cap PO .p9ukolv daily #540 caps 01/04/23 24,000-76,000-120,000 unit capsule,delayed rel (Creon) potassium chloride 10 mEq 10 meq PO BID #180 caps 01/04/23 capsule,extended release rosuvastatin 20 mg tablet (Crestor) 20 mg PO DAILY #90 tab-caps 01/04/23 aspirin 81 mg tablet,delayed 81 mg PO DAILY 02/04/23 release sucralfate 1 gram tablet (Carafate) 1 g PO QHS #90 tabs 03/25/23 losartan 100 mg tablet 50 mg PO DAILY 10/02/24 ketoconazole 2 % topical cream 1 applic topical DAILY #120 grams 10/11/24 tramadol 50 mg tablet 50 mg PO QHS 11/15/24 buspirone 7.5 mg tablet 7.5 mg PO BID 11/22/24 diclofenac sodium 1 % topical gel 2 g topical QID 11/22/24 (Voltaren Arthritis Pain) fluticasone propionate 50 1 spray intranasal BID PRN 11/22/24 mcg/actuation nasal spray,suspension (Allergy Relief (fluticasone)) furosemide 20 mg tablet 20 mg PO DAILY 11/22/24 levothyroxine 100 mcg tablet 100 mcg PO DAILY 11/22/24 meclizine 25 mg tablet (Dramamine 25 mg PO TID PRN 11/22/24 (meclizine)) naproxen 250 mg tablet 250 mg PO DAILY PRN PRN moderate 11/30/24 pain and swelling #7 tabs tramadol 50 mg tablet 50 mg PO Q8H PRN severe pain #12 11/30/24 tabs Current Visit Medications: Current Medications Generic Name Dose Route Start Last Admin Trade Name Freq PRN Reason Stop Dose Admin Ringer's Solution 1,000 mls @ 30 mls/hr 11/30/24 06:00 IV 11/30/24 23:59 INFUSION RODRIGUE Cefazolin Sodium 3,000 mg/ 100 mls @ 200 mls/hr 11/30/24 06:00 Sodium Chloride IV 11/30/24 23:59 PREOP RODRIGUE Tranexamic Acid/Sodium Chloride 1,000 mg in 100 mls @ 600 mls/hr 11/30/24 06:00 IVPB 11/30/24 23:59 DIRECTED RODRIGUE IV Miscellaneous Supplies 1 each 11/30/24 06:00 Iv Access IV 11/30/24 23:59 DIRECTED RODRIGUE Sodium Chloride 0 ml 11/30/24 06:00 Normal Saline Flush 10 Ml Syr IV 11/30/24 23:59 PRN PRN Sodium Chloride 0 ml 11/30/24 06:00 Normal Saline 10 Ml Vial IJ 11/30/24 23:59 DIRECTED PRN Sterile Water 0 ml 11/30/24 06:00 Water,Injection,Sterile 10 Ml Vial IJ 11/30/24 23:59 DIRECTED PRN PFSH Active Problems Active Problems: Problem Status Onset Code Anxiety Chronic F41.9 Posterior tibial tendon dysfunction (PTTD) of left lower extremity Acute M76.822 Osteoarthritis of left hip Acute M16.12 Angina at rest Acute I20.89 Left ankle sprain Acute S93.402A Cystocele and rectocele with incomplete uterovaginal prolapse Acute N81.2 Rotator cuff tear, right Acute M75.101 Duodenal cancer Acute C17.0 Rupture of right proximal biceps tendon Acute ~05/2023 S46.211A PVD (peripheral vascular disease) Chronic I73.9 Diabetes mellitus with autonomic neuropathy Acute E11.43 Frequent falls Acute R29.6 Poor balance Acute R26.89 Plantar fasciitis Acute M72.2 Hearing decreased Acute H91.90 Buttock wound Acute S31.809A Bradycardia Acute R00.1 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 Acute K22.70 BMI 40.0-44.9, adult Acute Z68.41 Right wrist tendonitis Acute M77.8 Trochanteric bursitis of left hip Acute M70.62 COVID-19 Acute U07.1 Chronic constipation Acute K59.09 Adenomatous polyps Acute D36.9 Chronic GERD Acute K21.9 Renal failure Chronic N19 Hypokalemia Acute 05/09/15 E87.6 Insomnia Acute G47.00 Knee pain Acute 03/12/15 M25.569 Lumbar radiculopathy Acute 02/06/13 M54.16 Vitamin D deficiency Chronic 03/22/12 E55.9 Pulmonary hypertension Chronic 11/08/17 I27.20 Organic sleep apnea, 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 Increased body mass index Chronic R63.8 Hypothyroidism Chronic 10/11/12 E03.9 Hyperlipidemia Chronic 10/11/12 E78.5 Gout Chronic 03/14/10 M10.9 Gastroesophageal reflux disease Chronic 10/11/12 K21.9 Family history of colon cancer Chronic 01/29/15 Z80.0 Essential hypertension Chronic 05/04/13 I10 Edema Chronic R60.9 Diverticulosis of colon without diverticulitis Chronic 05/21/09 K57.30 Diabetes mellitus with nephropathy Chronic 07/23/14 E11.21 Depressive disorder Chronic F32.9 Chronic right shoulder pain Chronic 11/02/17 M25.511, G89.29 Bronchiectasis Chronic J47.9 Medical History Medical History Thrombocytopathia 2020 E coli bacteremia [id number]-eefolzj-geoqeqgelckj at [facility] Transaminitis [id number]- assoc with bacteremia Iron deficiency anemia Duodenal adenocarcinoma T3,pN0,M0, Stage II Adenomatous polyp of duodenum Anemia due to blood loss, acute Duodenal ulcer GI (gastrointestinal bleed) Incarcerated incisional hernia Abdominal pain (07/12/12) Chest pain Pt. stated it was stress related, states she had it worked up which was WNL per pt/ Gastritis History of pelvic ultrasound Hyperkalemia (10/20/12) Lipoma (07/01/05) Abnormal mammography (07/01/06) Skin tag (08/03/17) Sprain of costal cartilage (10/22/16) Strain of flexor muscle of left hip (09/23/16) Left hip pain (12/15/16) Knee pain (03/12/15) Arthritis of right knee (06/07/15) Vitamin D deficiency Hypertension Bronchiectasis GERD (gastroesophageal reflux disease) Organic sleep apnea Osteoarthritis Hypothyroidism Depression Chronic insomnia Gout Diabetes Morbid obesity with BMI of 50.0-59.9, adult Diverticulosis large intestine w/o perforation or abscess w/o bleeding Medical History Comments:: chronic cough, pt. states it is improving Surgical History Surgical History History of back surgery Per pt. states they had to free up my sciatic nerve Hx of breast reduction, elective History of Whipple procedure History of esophagogastroduodenoscopy (EGD) (~11/2023) History of colonoscopy (~11/2023) Surgical procedure planned Whipple procedure 01/01/20 History of bilateral ligation of fallopian tubes Status post cholecystectomy Status post total knee replacement (02/25/16) Ligation of fallopian tube PELVIC U/S NEG Endometrial Biopsy neg Cholecystectomy Arthroplasty of knee (02/25/16) LEFT TOTAL KNEE Tobacco Smoking/Tobacco Use Status: Never Passive smoking exposure: No Second hand exposure: Yes Alcohol Alcohol Intake: former Substance Use Substance use: Never Substance use type: does not use Vital Signs and Lab Results Vital Signs Most Recent Vital Signs in EMR: Most Recent Vital Signs Temp Pulse Resp BP Pulse Ox 36.5 C 68 20 153/63 H 99 11/30/24 06:13 11/30/24 06:13 11/30/24 06:13 11/30/24 06:13 11/30/24 06:13 Lab Results Blood Type / Crossmatch: No Data to Display Complete Blood Count: No Data to Display Complete Metabolic Panel: No Data to Display Liver Function Panel: No Data to Display Coagulation Panel: No Data to Display Cardiac Panel: No Data to Display Arterial Blood Gas: No Data to Display Venous Blood Gas: No Data to Display Pancreas Panel: No Data to Display Thyroid Panel: No Data to Display Infectious Disease: No Data to Display Blood Cultures: No Data to Display Toxicology Panel: No Data to Display Imaging and Studies Imaging and Studies Study information below may be from another EMR and interpreted by another provider. Please see original notes in EMR for more complete details. EKG Summary: EKG PATIENT NAME: Alejandra Wolfe #: [id number] ORDERING PROVIDER: Kayden Manzo M.D. PRIMARY CARE PROVIDER:DEEPTHI ARCEO MD, DC DATE/TIME OF SERVICE: 05/14/21 1405 : 1950ERFORMING LOCATION: [facility] APPROVED REPORT Exam: Resting ECG Reason for Exam: Chest discomfort Patient Location: O HR:75 bpm ECG Measurements Heart Rate 75 AXIS ME 175 P -26 QRSd 104 QRS -6 QT 379 T1 QTc 424 Conclusion Sinus rhythm...normal P axis, V-rate 60- 99 Normal Electrocardiogram <Electronically signed by FARA MORELAND MD in OV> E-Sign Date: 05/15/21 E-Sign Time: 0921 Stress Test Summary: Stress ECG Conclusion 1. Resting electrocardiogram was within normal limits 2. Patient underwent testing using pharmacologic stress with regadenoson. Peak heart rate achieved was 67% of predicted for age 3. The electrocardiographic portion of the test was nondiagnostic 4. See MPI report Stress Test Summary [id number] [id number]/92None 1 min post Lexiscan [id number]/54None 3 min post Lexiscan [id number]/50None 6 min post Lexiscan [id number]/60None MPI Conclusion Myocardial perfusion is normal. There is no ischemia or evidence of prior infarction EF is 59%, normal wall motion 02/09/23 Echocardiogram Summary: 02/09/23 Conclusion Normal left ventricular wall thickness and chamber size. Ejection fraction is 60%. Wall motion is normal Normal right ventricular size and systolic function Both atria are normal in size There is no structural or hemodynamically significant valvular disease Estimated right ventricular systolic pressure is 22 mmHg Mildly dilated ascending aorta 3.6 cm Anesthesia Assessment and Plan Anesthesia History Personal History: No History of Anesthesia Complications Family History: No Family History of Anesthesia Complications Exercise Tolerance Exercise Tolerance: Metabolic Equivalents>4 Pertinent Negatives Pertinent Negatives: No Symptoms of GERD Cardiac & Pulmonary Exam Cardiac Exam: Normal S1/S2 Heart Sounds Pulmonary Exam: Clear Bilateral Breath Sounds Implantable Cardiac Device Does patient have a Pacemaker or an ICD?: No Airway Exam Known Difficult Airway: No Mallampati Class: 2 Mouth Opening: Normal (> 3cm) Thyromental Distance: Greater than 3 cm Neck Range of Motion: Full ROM Neck Circumference: Thick Teeth Condition: Removable Dentures/Plates Upper and Removable Dentures/Plates Lower ASA Classification ASA Score: ASA 3 Emergency Case?: No NPO Status NPO Status: NPO Clears >2 hours, Solids >8 hours Anesthesia Plan Resuscitation Status: Full Code Anesthesia Technique: General Anesthesia Airway Planned: Endotracheal Tube Pain Management: Surgeon and patient request nerve block Monitors Used: Standard Monitors
--- NOTE | 2024-11-30 07:06 | ROE_ITS ---
Operative Note Operative Note PRE-OP DIAGNOSIS: Right: 1. Rotator cuff arthropathy 2. Proximal biceps rupture POST-OP DIAGNOSIS: same PROCEDURE: Right: 1. Reverse total shoulder arthroplasty, CPT # 42380 The conservation assistant was medically required as this procedure involves retraction, protection of neurovascular structures, and manipulation of multiple instruments and implants at the same time, which cannot be done without a skilled conservation assistant. SURGEON: Kang Hancock FORM DRAFTER: Lizette Jiménez ANESTHESIA TYPE: Local By Surgeon, General LMA/ETT and Primary Nerve Block Refer to Anesthesia Record ESTIMATED BLOOD LOSS: 150 COMPLICATIONS: None Patient was transported to: PACU Patient's condition: stable Implants: [employer] modular glenoid system baseplate 24 mm +2mm lat [employer] modular glenoid system central post 25 mm [employer] modular glenoid system peripheral locking screws 20 mm inferior, 36 mm superior, none posterior, 20 mm anterior [employer] modular glenoid system glenosphere 36 +4 mm lateralized [employer] humeral stem 135 degrees size 5 [employer] suture cup size 36 posterior offset [employer] humeral insert size 36 +3 mm Indications: Please see complete medical record for details. Findings: Proximal biceps rupture, high?grade tearing SS & IS majority of superior rotator cuff, partial moderate grade tearing subscapularis, and focal full-thickness humeral head cartilage loss. Procedure Description: In the operating room, general anesthesia was induced. The patient was positioned beachchair on the operating room table. All bony prominences were well-padded. Preoperative antibiotics were administered. The shoulder was prepped and draped in the usual sterile fashion for shoulder arthroplasty. The correct patient, procedure, and side of the procedure were all verified prior to incision. The deltopectoral approach was preinjected with 0.25% bupivacaine containing epinephrine and taken to the anterior shoulder. Care was taken to bluntly dissect the interval between the deltoid and pectoralis major muscles and to identify the cephalic vein within its fat stripe. The the vein was mobilized medially. Subdeltoid space and conjoined tendon were freed of adhesions. The long of the biceps tendon was identified previously ruptured and scarred throughout the bicipital groove with no excursion. The uppermost margin of the pectoralis major tendon was released from the proximal humerus. A subscapularis tenotomy was done while carefully working on bone into external rotation. The supraspinatus and infraspinatus were identified debrided of significant partial tearing to a stable margin more posteriorly superiorly. Appropriate coagulation was achieved especially interiorly. The anatomic neck was cut using an oscillating saw with the humeral head bone brought back table in case there was a need for future bone grafting. The proximal humerus was delivered from the wound with adduction and external rotation. The proximal humeral protection plate was used to provisionally confirm suture cup and glenosphere size. Reamers were started appropriately posterior to the bicipital groove taking care to maintain in line approach with the humeral canal. Sequential reaming was done from size 5 up to size 6, which seemed borderlien too large. Next, the broaches were sequentially used to open the proximal humerus starting with a size 4 and going up to size 5, which had a challenging time achieving the appropriate depth given significantly small proximal humerus. The reamers and broaches were used again sequentially and bone was removed medially and attempt for best fit with the size 5 fitting reasonably and being a little bit proud with a better fit in the quite small size 4. About 30 degrees degrees retroversion was maintained. There was impressively solid metaphyseal fit and rotational control of the proximal humerus with this size. The posterior offset guide was used to ream for the suture cup, which did remain proud and removed some superior bone that did not have any soft tissue or rotator cuff attachment. Attention was then turned to the glenoid and retractors were placed and a circumferential release performed using the long head of the biceps remnant to remove soft tissue about the glenoid rim. Care was taken inferiorly to work on bone only between 5 and 7:00 o'clock and bluntly elevate tissues inferiorly. The VIP guide was placed on the glenoid and used to confirm placement and trajectory of the central guidepin. The guidepin was inserted and advanced just through the far cortex ensuring adequate central fixation length. The glenoid was prepared according to superintendent board mill specifications for a standard baseplate and central post. The baseplate was impacted onto the glenoid surface. The loc josue guide was then used to drill and place appropriately lengthed inferior, superior, anterior, and posterior screws. The yhtd-tve-bnsonavey reamer was used to confirm adequate peripheral reaming. The glenosphere was applied with the wire border assembler and then impacted to engage the Ibrahim taper. It was then locked with appropriate countersinking of the setscrew. The glenosphere was inspected and found to have good fit, appropriate positioning, and no soft tissue or bony impingement. Attention was then turned back to the proximal humerus. The humeral trial cup was connected. Trialing was commenced with +3 mm liner. The shoulder was reduced and taken through range of motion, and demonstrated excellent stability and good tension on the deltoid and conjoined tension. The trial components were removed from the proximal humerus. The wound was copiously irrigated with normal saline. The the proximal humeral stem and suture cup were assembled and brought over the proximal humerus. A small amount of vancomycin powder was distributed in the proximal humerus. The humeral component and suture cup were impacted into place. The trial liner was added, and the shoulder was partially reduced, it felt the same as the previous trial reduction, so the final liner was impacted, and range of motion, stability, and tension confirmed. The shoulder was copiously irrigated with Betadine and normal saline. Vancomycin powder was distributed deeply about the shoulder and through subcutaneous tissues. The deltopectoral interval was approximated with 2-0 Monocryl burying the cephalic vein. Subcutaneous tissue was irrigated then closed using 2-0 Monocryl in a buried interrupted fashion. Skin was closed using 3-0 Monocryl in a buried subcuticular fashion. Skin glue was applied to the incision. A silver impregnated bandage was placed over the incision. The extremity was placed into a shoulder immobilizer. The patient awoke from anesthesia without complication and was taken to the recovery room in stable condition. Date of Procedure: 11/30/24
--- NOTE | 2024-11-30 07:07 | W.PM.DSUDISC ---
Date of service: 11/30/24 Discharge Plan Disposition Patient Disposition: Home Condition: Stable Discharge Details Attending Provider: Kang Hancock Primary Care Provider: Saqib Stapleton Home Meds and New Rx's Prescriptions: New naproxen 250 mg tablet 250 mg PO DAILY PRN PRN (Reason: moderate pain and swelling) Qty: 7 0RF Rx Instructions: take with a meal, hold aspirin while using naproxen tramadol 50 mg tablet 50 mg PO Q8H PRN (Reason: severe pain) Qty: 12 0RF Continued multivit with min-folic acid [Centrum Adult 50 Fresh-Fruity] 120 mcg tablet,chewable 1 tab PO DAILY aspirin 81 mg tablet,delayed release (DR/EC) 81 mg PO DAILY losartan 100 mg tablet 50 mg PO DAILY buspirone 7.5 mg tablet 7.5 mg PO BID fluticasone propionate [Allergy Relief (fluticasone)] 50 mcg/actuation spray,suspension 1 spray intranasal BID PRN Rx Instructions: administer into each nostril furosemide 20 mg tablet 20 mg PO DAILY levothyroxine 100 mcg tablet 100 mcg PO DAILY meclizine [Dramamine (meclizine)] 25 mg tablet 25 mg PO TID PRN diclofenac sodium [Voltaren Arthritis Pain] 1 % gel 2 g topical QID ketoconazole 2 % cream 1 applic topical DAILY Qty: 120 6RF Rx Instructions: Apply to toenails once daily tramadol 50 mg tablet 50 mg PO QHS nystatin 100,000 unit/gram powder 1 applic topical BID Qty: 60 4RF gabapentin 600 mg tablet 600 mg PO QHS Qty: 90 4RF glipizide 5 mg tablet extended release 24hr 5 mg PO DAILY Qty: 90 12RF pantoprazole [Protonix] 40 mg tablet,delayed release (DR/EC) 40 mg PO DAILY Qty: 90 5RF Patient Comments: increased to BID for one month - started taking BID on 01/12/23 Creon 24,000-76,000 -120,000 unit capsule,delayed release(DR/EC) 3 cap PO .p6ewyny daily MDD 18 Qty: 540 6RF Patient Comments: Pt reports taking 1 Creon capsule 11/08/23 Rx Instructions: administer with meals and/or snacks ergocalciferol (vitamin D2) 1,250 mcg (50,000 unit) capsule 50,000 unit PO .twice weekly Qty: 28 5RF potassium chloride 10 mEq capsule, extended release 10 meq PO BID Qty: 180 4RF rosuvastatin [Crestor] 20 mg tablet 20 mg PO DAILY Qty: 90 4RF sucralfate [Carafate] 1 gram tablet 1 g PO QHS Qty: 90 5RF sennosides [senna] 8.6 mg Tablet 8.6 mg PO BID PRN Discharge Instructions Additional Instructions: Surgery: Right reverse total shoulder arthroplasty 11/30/24 Activity: Do not lift anything heavier than a coffee. You should keep your arm at your side in a neutral position at all times except for gentle range of motion exercises, physical therapy, and essential activities. You should use the sling whenever you are out of the house. At home it is best to remove the sling and rest the arm on a pillow at your side or support the operative side with your other hand. A physical therapy prescription will be sent electronically to start in about 3 weeks. Standard protocol. Prescriptions: Naproxen 250 mg take 1 daily with a meal as needed for moderate pain (hold aspirin, continue pantoprazole, and use cautiously/ monitor for any GI issues) Tramadol 50 mg take 1 every 8 hours as needed for severe pain You may use ixvw-jqy-ibhbcaz Tylenol (acetaminophen) as needed for mild pain. These pain medications may be taken all at once or in different combinations as needed. Also, recommend Colace (docusate) as a stool softener as surgery and pain medicine cause constipation. You may try ymwa-ekg-fievuvx diphenhydramine (Benadryl) 25-50 mg nightly as a sleep aid Dressings: Leave dressing in place until follow-up. Keep clean and dry at all times. No showers please. Follow-up: 10-[address] Hancock You may take off the leg compression stockings this evening at home. You may also leave them on a few days longer if you have a history of leg swelling or edema. Please call the office during business hours with any questions or concerns. Let us know right away if you develop any redness, drainage, fevers, chest pain, or trouble breathing. Do not drink alcohol or drive for at least 24 hours after anesthesia. Stand Alone Forms: Anesthesia Discharge Inst., Anes.Nerve Block Instructions, Sergo Rod ([facility]) Referrals: Kang Hancock MD [ [facility] STAFF PHYSICIAN] - 12/12/24 1:45 pm Discharge Orders Discharge Orders: Discharge Order (Routine); Ordered 11/30/24 Ordered By: Lizette Jiménez DS: Diagnosis Discharge Diagnosis (1) Rotator cuff tear, right: Status: Acute (2) Rupture of right proximal biceps tendon: Status: Acute
[2024-11-30] MEDS: Lactated Ringers 1,000 ML 30 ML IV (07:16)
[2024-11-30] MEDS: ceFAZolin 3,000 MG in Normal Saline 100 ML 200 MG IV (07:55)
[2024-11-30] MEDS: TRANEXAMIC ACID/SOD. CHL. 1,000 MG/100 ML BAG 600 MG IVPB (08:05)
--- NOTE | 2024-11-30 08:26 | W.ANESNERVE ---
Nerve Block Single Injection Procedure Date and Time Date Performed: 11/30/24 Procedure Start: 07:27 Location Where Procedure Performed Procedure Location: Day Surgery Unit Reason Performed: Postoperative Analgesia Requesting Provider: Kang Hancock Timeout Performed Timeout Performed: Yes Monitoring Used ECG, Blood Pressure, SpO2 and See EMR for corresponding vital signs Sterility Sterility: Hand Hygiene, Surgical Cap, Surgical Mask, Sterile Gloves and Chlorhexidine Sedation Given During Procedure Sedation Given (Indicate Dose Given): Versed IV Dose:: 2mg Patient Mental Status Patient Mental Status: Sedate with meaningful communication Nerve Block 1st Nerve Block: Laterality: Right Block Type: Supraclavicular Ultrasound Image Saved?: Yes Needle / Catheter Used: 100mm SonoPlex II Local Anesthetic Bolus (Indicate Dose Given): Lidocaine used for local infiltration of skin, Injected in 3-5ml increments after negative blood aspiration, Bupivacaine 0.5% Dose:: 10ml and Exparel Dose:: 10ml Additives (Indicate Dose Given): None Ultrasound: Sterile probe cover and gel used Nerve Stimulator: Supplement to Ultrasound use and No twitch or parasthesia noted < 0.5 mA Paresthesia: None Procedure Tolerated: No Complications and Patient tolerated well Procedure Outcome: Successful Procedure Comment: Block initially challenging to obtain ideal view. Once Local injected, nerve bundle more pronounced. No discomfort from patient. Performed By: Chaitanya Fernandez
[2024-11-30] MEDS: Vancomycin 1,000 MG VIAL 1000 MG (09:30)
--- NOTE | 2024-11-30 11:30 | DI.RAD_ITS ---
Exam(s) XR SHOULDER RT COMPLETE 2+V EXAM: XR SHOULDER RT COMPLETE 2+V CLINICAL HISTORY: shoulder arthritis. TECHNIQUE: 2D digital imaging was performed. Three images were obtained. Grashey and Y views were o btained. COMPARISON: CR XR SHOULDER RT COMPLETE 2+V from 03/29/[address] UPPER EXTREMITY RT WO from 11/17/2024 FINDINGS: BONES: The patient is now status post right total reverse shoulder arthroplasty. No fracture or disl ocation. JOINTS: The orthopedic hardware is in good position. No evidence of hardware loosening. SOFT TISSUE: Postsurgical changes are seen in the soft tissues. IMPRESSION: The patient is now status post right total reverse shoulder arthroplasty. DATA REPOSITORY: RADIATION DOSE DELIVERED:
[2024-11-30] MEDS: Lactobacillus Acidophilus CAP 1 CAP PO (11:33)
[2024-11-30] MEDS: ceFAZolin 1 GM/50 ML BAG IVPB (11:52)
--- NOTE | 2024-11-30 13:24 | W.ANESPOSTOP ---
Postoperative Evaluation Date, Time and Location Date Performed: 11/30/24 Time Performed: 13:25 Patient Location: Day Surgery Unit Vital Signs Most Recent Imported Vital Signs: Most Recent Vital Signs Temp Pulse Resp BP Pulse Ox 36.5 C 65 18 153/74 H 96 11/30/24 12:24 11/30/24 12:24 11/30/24 12:24 11/30/24 12:24 11/30/24 12:24 Pain Score Most Recent Pain Score: Most Recent Pain Score Pain Level 0 11/30/24 12:24 Assessment Mental Status: Awake (Alert & Oriented to Patient Baseline) Airway and Respiratory Function: Patent airway with normal (patient baseline) respiratory exam Cardiovascular Function: Hemodynamically Stable Hydration Status: Adequately Hydrated Nausea & Vomiting: No Nausea or Vomiting Pain: Pt. Denies Any Pain Peripheral Nerve Block: Regional nerve block not resolved at time of post operative discharge
== END 2024-11-30 13:12 | disposition home or self-care (01) ==
PROVIDERS: PCP Physician Assistant; Visit Provider Student in an Organized Health Care Education/Training Program
PROC: (CPT 23472; principal; 2024-11-30 07:30)
DX: M75.101 Unspecified rotator cuff tear or rupture of right shoulder, not specified as traumatic (principal); S46.211A Strain of muscle, fascia and tendon of other parts of biceps, right arm, initial encounter; G89.18 Other acute postprocedural pain
CPT/HCPCS: 23472; C1713; 64415; 73030; J0131; J0665; J0666; J0690; J1100; J2250; J2371; J2405; J2704; J3370

== ENCOUNTER 2024-12-12 16:05 | Outpatient (CLI) | payer MEDICARE, SELFPAY ==
--- NOTE | 2024-12-12 14:05 | DI.RAD_ITS ---
Exam(s) XR SHOULDER RT COMPLETE 2+V EXAM: XR SHOULDER RT COMPLETE 2+V CLINICAL HISTORY: F/U RIGHT RTSA. TECHNIQUE: 2D digital imaging was performed. Two images were obtained. Grashey and Y views were obt ained. COMPARISON: No exams were available for comparison FINDINGS: BONES: There are stable post operative changes of a right reverse total shoulder arthroplasty present . No fracture or dislocation. JOINTS: The orthopedic hardware is in good position. No evidence of hardware loosening. SOFT TISSUE: Postsurgical changes are seen in the soft tissues. IMPRESSION: Stable right reversed total shoulder arthroplasty. DATA REPOSITORY: RADIATION DOSE DELIVERED:
== END 2024-12-12 16:06 | disposition home or self-care (01) ==
LOC: DIORS 16:05
PROVIDERS: PCP Physician Assistant; Visit Provider Student in an Organized Health Care Education/Training Program
DX: M75.101 Unspecified rotator cuff tear or rupture of right shoulder, not specified as traumatic (principal); Z47.1 Aftercare following joint replacement surgery; Z96.611 Presence of right artificial shoulder joint
CPT/HCPCS: 99024; 73030

== ENCOUNTER 2025-01-17 11:23 | Emergency (ER) | payer MEDICARE, SELFPAY ==
[2025-01-17 11:27] VITALS: BP 152/81; PULSE 65; RESP 24; TEMP 36.7; O2SAT 98
[2025-01-17 11:29] VITALS: BP 152/81; PULSE 65; RESP 24; TEMP 36.7; O2SAT 98
--- NOTE | 2025-01-17 11:49 | W.ED.GENAD ---
Discharge Plan Disposition Patient Disposition: Home Condition: Good Discharge Details Clinical Impression: URI (upper respiratory infection), Cough Primary Care Provider: Saqib Stapleton ED Provider: Yanelis Live Home Meds and New Rx's Prescriptions: New benzonatate 200 mg capsule 200 mg PO BID PRN (Reason: cough) Qty: 14 0RF Continued multivit with min-folic acid [Centrum Adult 50 Fresh-Fruity] 120 mcg tablet,chewable 1 tab PO DAILY aspirin 81 mg tablet,delayed release (DR/EC) 81 mg PO DAILY losartan 100 mg tablet 50 mg PO DAILY buspirone 7.5 mg tablet 7.5 mg PO BID furosemide 20 mg tablet 20 mg PO DAILY levothyroxine 100 mcg tablet 100 mcg PO DAILY meclizine [Dramamine (meclizine)] 25 mg tablet 25 mg PO TID PRN ketoconazole 2 % cream 1 applic topical DAILY Qty: 120 6RF Rx Instructions: Apply to toenails once daily nystatin 100,000 unit/gram powder 1 applic topical BID Qty: 60 4RF gabapentin 600 mg tablet 600 mg PO QHS Qty: 90 4RF glipizide 5 mg tablet extended release 24hr 5 mg PO DAILY Qty: 90 12RF pantoprazole [Protonix] 40 mg tablet,delayed release (DR/EC) 40 mg PO DAILY Qty: 90 5RF Patient Comments: increased to BID for one month - started taking BID on 01/12/23 Creon 24,000-76,000 -120,000 unit capsule,delayed release(DR/EC) 3 cap PO .t6gsvci daily MDD 18 Qty: 540 6RF Patient Comments: Pt reports taking 1 Creon capsule 11/08/23 Rx Instructions: administer with meals and/or snacks ergocalciferol (vitamin D2) 1,250 mcg (50,000 unit) capsule 50,000 unit PO .twice weekly Qty: 28 5RF potassium chloride 10 mEq capsule, extended release 10 meq PO BID Qty: 180 4RF rosuvastatin [Crestor] 20 mg tablet 20 mg PO DAILY Qty: 90 4RF sucralfate [Carafate] 1 gram tablet 1 g PO QHS Qty: 90 5RF sennosides [senna] 8.6 mg Tablet 8.6 mg PO BID PRN Discharge Instructions Instructions: Upper Respiratory Infection ED Additional Instructions: Your physical exam, chest x-ray and labs are reassuring at this point. I believe that your cough is likely associated with a viral illness. Please encourage hydration. You may use the Tessalon Perles as prescribed to help with cough. In particular, you may want to use these prior to sleep as it will help you get more rest with your CPAP in place. Please follow-up with your primary care in the next 1 to 2 weeks for reevaluation. If you develop any shortness of breath, chest pain, difficulty breathing or other new/worsening symptoms please seek care urgently once again. Referrals: Saqib Stapleton [Primary Care Provider, Medicine] Discharge Data Discharge Date/Time-TO BE ENTERED AT DEPARTURE: 01/17/25 12:54 HPI General Date/Time Provider Initiated Documentation: 01/17/25 11:37. Limitations to Documentation: no limitations. Information obtained by: patient and RN notes reviewed. History of Present Illness 74 year old F presents to the emergency department with the chief complaint of cough, described as moderate, Quality is described as other (denies any pain), Patient started experiencing this day(s) (7) and it has been constant. No relieving factors improve symptom(s), No exacerbating factors reported . Patient notes cough and other (reports runny nose and sore throat); denies chest pain, diaphoresis, fever/chills, loss of appetite, malaise, nausea/vomiting, rash and shortness of breath. Patient did receive the following treatments prior to arrival, none Related Data Home Medications ?Medication ?Instructions ?Recorded ?Confirmed sennosides 8.6 mg tablet (senna) 8.6 mg PO BID PRN 11/04/20 01/17/25 nystatin 100,000 unit/gram topical 1 applic topical BID #60 grams 10/02/21 01/17/25 powder multivitamin with minerals-folic 1 tab PO DAILY 11/27/21 01/17/25 acid 120 mcg chewable tablet (Centrum Adult 50 Plus Fresh-Fruity) gabapentin 600 mg tablet 600 mg PO QHS #90 tabs 09/18/22 01/17/25 glipizide 5 mg tablet, extended 5 mg PO DAILY #90 tabs 10/05/22 01/17/25 release 24 hr pantoprazole 40 mg tablet,delayed 40 mg PO DAILY bleeding duodenal 10/05/22 01/17/25 release (Protonix) ulcer #90 tabs ergocalciferol (vitamin D2) 1,250 50,000 unit PO .twice weekly #28 01/04/23 01/17/25 mcg (50,000 unit) capsule caps psxkxw-omuhbsul-sjdbflw 3 cap PO .d3bctqr daily #540 caps 01/04/23 01/17/25 24,000-76,000-120,000 unit capsule,delayed rel (Creon) potassium chloride 10 mEq 10 meq PO BID #180 caps 01/04/23 01/17/25 capsule,extended release rosuvastatin 20 mg tablet (Crestor) 20 mg PO DAILY #90 tab-caps 01/04/23 01/17/25 aspirin 81 mg tablet,delayed 81 mg PO DAILY 02/04/23 01/17/25 release sucralfate 1 gram tablet (Carafate) 1 g PO QHS #90 tabs 03/25/23 01/17/25 losartan 100 mg tablet 50 mg PO DAILY 10/02/24 01/17/25 ketoconazole 2 % topical cream 1 applic topical DAILY #120 grams 10/11/24 01/17/25 buspirone 7.5 mg tablet 7.5 mg PO BID 11/22/24 01/17/25 furosemide 20 mg tablet 20 mg PO DAILY 11/22/24 01/17/25 levothyroxine 100 mcg tablet 100 mcg PO DAILY 11/22/24 01/17/25 meclizine 25 mg tablet (Dramamine 25 mg PO TID PRN 11/22/24 01/17/25 (meclizine)) benzonatate 200 mg capsule 200 mg PO BID PRN cough #14 caps 01/17/25 Previous Rx's ?Medication ?Instructions ?Recorded nystatin 100,000 unit/gram topical 1 applic topical BID #60 grams 10/02/21 powder gabapentin 600 mg tablet 600 mg PO QHS #90 tabs 09/18/22 glipizide 5 mg tablet, extended 5 mg PO DAILY #90 tabs 10/05/22 release 24 hr pantoprazole 40 mg tablet,delayed 40 mg PO DAILY bleeding duodenal 10/05/22 release (Protonix) ulcer #90 tabs ergocalciferol (vitamin D2) 1,250 50,000 unit PO .twice weekly #28 01/04/23 mcg (50,000 unit) capsule caps ndckaw-bzgrqrdu-gpjwler 3 cap PO .z4gzavn daily #540 caps 01/04/23 24,000-76,000-120,000 unit capsule,delayed rel (Creon) potassium chloride 10 mEq 10 meq PO BID #180 caps 01/04/23 capsule,extended release rosuvastatin 20 mg tablet (Crestor) 20 mg PO DAILY #90 tab-caps 01/04/23 sucralfate 1 gram tablet (Carafate) 1 g PO QHS #90 tabs 03/25/23 ketoconazole 2 % topical cream 1 applic topical DAILY #120 grams 10/11/24 benzonatate 200 mg capsule 200 mg PO BID PRN cough #14 caps 01/17/25 Allergies Allergy/AdvReac Type Severity Reaction Status Date / Time lisinopril AdvReac Intermediate COUGH Verified 01/17/25 11:31 General Stated Complaint: RespSymp NOLVIA: 3 Review of Systems Constitutional Constitutional: Reports as per HPI and Denies headache(s) Eyes Eyes: Reports as per HPI, Denies eye discharge and Denies irritation ENT Ears, Nose, Mouth, and Throat: Reports as per HPI and Denies headache(s) Cardiovascular Cardiovascular: Reports as per HPI, Denies chest pain and Denies dyspnea Respiratory Respiratory: Reports as per HPI and Denies dyspnea Gastrointestinal Gastrointestinal: Reports as per HPI, Denies abdominal pain, Denies change in bowel habits, Denies nausea and Denies vomiting Integumentary/Breasts Skin/Breast: Reports as per HPI and Denies rash Neurologic Neurologic: Reports as per HPI and Denies headache(s) Exam Const General: cooperative, healthy appearing, comfortable, no acute distress, well developed and well groomed Nutritional Appearance: well nourished and overweight Orientation: alert and awake [facility] Head: normal to inspection, normocephalic and atraumatic Ears: hearing grossly normal bilaterally General nose exam: external nose normal and nares normal Face and sinus: normal facial exam, sinuses nontender and face symmetric Mouth: oral mucosae normal, lip normal, tongue normal, oropharynx normal and moist mucous membranes Throat: posterior oropharynx normal, tonsils normal and uvula midline Eyes General: appearance normal, both eyes and all related structures Neck Neck: normal visual inspection, full ROM and no lymphadenopathy Resp Effort & Inspection: normal respiratory effort, able to speak in complete sentences and no respiratory distress Auscultation: clear to auscultation bilaterally, no rales, no rhonchi and no wheezes Cardio Rate: regular rate Rhythm: regular rhythm Heart Sounds: S1 normal and S2 normal Skin General skin exam: no rashes or lesions noted Neuro General: patient alert and patient awake Cognition: normal cognition Speech: speech normal Gait: normal gait Course Vital Signs Vital signs: Vital Signs Temperature 36.7 C 01/17/25 11:27 Pulse 65 01/17/25 11:27 Respiratory Rate 24 01/17/25 11:27 Blood Pressure 152/81 H 01/17/25 11:27 Pulse Oximetry 98 01/17/25 11:27 Temperature 36.7 C 01/17/25 11:29 Temperature Source Oral 01/17/25 11:29 Pulse 65 01/17/25 11:29 Respiratory Rate 24 01/17/25 11:29 Blood Pressure 152/81 H 01/17/25 11:29 Blood Pressure Position Sitting 01/17/25 11:29 Pulse Oximetry 98 01/17/25 11:29 Oxygen Delivery Method Room Air 01/17/25 11:29 Oxygen Flow Rate 0 01/17/25 11:29 Medical Decision Making Suresh is a plesant 74 year old female, with PMH signficant for HTN, GERD, depression, DM, CATHY, presenting with c/c of one week of dry cough. She reports that she occassionaly has clear sputum but typically dry. Worse in grecia AM. States that she has also had sore throat and runny nose. Denies SOB, CP. No pleuritic pain. No GI upset. States that she has child visit home often who is typically sick but no definitive exposures. No hx of pulmonary issues. Cough is not worsening but has stayed the same. Uses CPAP and has difficulty sleeping d/t cough disrupting flow of the CPAP. On exam, suresh apepars non-toxic. Normal HEENT exam, lungs are clear. She does have noticeable cardiac murmur but she reports she has had this her entire life. At this point, her hx and exam are most consistent with viral URI based on symptoms, reassuring exam and exposures. However, also considered pna and will obtain CXR. No [id number] of bronchitis or reactive airway. Not consistent with ACS, PE, dissection. No recent travel. CXR reviewed by myself and radiologist, no acute abnormalities noted. Negative viral panel. Discussed with patient. Advised likely viral illness. No indication of bacterial cause at this time. She remains hemodynamically stable. Encouraged supportive care. Will give Tessalon Perles. She has had issues with sleep, associated with coughing. Return precautions discussed. Advised f/u with PCP. All of her questions and concerns were addressed, she is in agreement with this plan. 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 (Acute) BMI 40.0-44.9, adult (Acute) Right wrist tendonitis (Acute) Trochanteric bursitis of left hip (Acute) COVID-19 (Acute) 12/22/21 Vaccinated, booster 07/09/21 Chronic constipation (Acute) Adenomatous polyps (Acute) repeat CE in 2023 Chronic GERD (Acute) Renal failure (Chronic) Hypokalemia (Acute 05/09/15) Insomnia (Acute) Knee pain (Acute 03/12/15) Lumbar radiculopathy (Acute 02/06/13) Vitamin D deficiency (Chronic 03/22/12) Pulmonary hypertension (Chronic 11/08/17) Organic sleep apnea, unspecified (Chronic) CPAP (NOT USING 11/17) Increased body mass index (Chronic) Hypothyroidism (Chronic 10/11/12) Hyperlipidemia (Chronic 10/11/12) Gout (Chronic 03/14/10) Gastroesophageal reflux disease (Chronic 10/11/12) Family history of colon cancer (Chronic 01/29/15) Essential hypertension (Chronic 05/04/13) Edema (Chronic) Diverticulosis of colon without diverticulitis (Chronic 05/21/09) 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 Transaminitis [id number] assoc with bacteremia Iron deficiency anemia Duodenal adenocarcinoma T3,pN0,M0, Stage II Adenomatous polyp of duodenum Anemia due to blood loss, acute Duodenal ulcer GI (gastrointestinal bleed) Incarcerated incisional hernia Abdominal pain (07/12/12) Chest pain Pt. stated it was stress related, states she had it worked up which was WNL per pt/ Gastritis History of pelvic ultrasound Hyperkalemia (10/20/12) Lipoma (07/01/05) Abnormal mammography (07/01/06) Skin tag (08/03/17) Sprain of costal cartilage (10/22/16) Strain of flexor muscle of left hip (09/23/16) Left hip pain (12/15/16) Knee pain (03/12/15) Arthritis of right knee (06/07/15) Vitamin D deficiency Hypertension Bronchiectasis GERD (gastroesophageal reflux disease) Organic sleep apnea Osteoarthritis Hypothyroidism Depression Chronic insomnia Gout Diabetes Morbid obesity with BMI of 50.0-59.9, adult Diverticulosis large intestine w/o perforation or abscess w/o bleeding Surgical History (Updated 11/30/24 @ 13:54 by PAT Riggs) History of back surgery Per pt. states they had to free up my sciatic nerve Hx of breast reduction, elective History of Whipple procedure History of esophagogastroduodenoscopy (EGD) (~11/2023) History of colonoscopy (~11/2023) Surgical procedure planned Whipple procedure 01/01/20 History of bilateral ligation of fallopian tubes Status post cholecystectomy Status post total knee replacement (02/25/16) Ligation of fallopian tube PELVIC U/S NEG Endometrial Biopsy neg Cholecystectomy Arthroplasty of knee (02/25/16) LEFT TOTAL KNEE Family History Mother Liver cancer Father Heart disease Stomach cancer Maternal Grandfather Cirrhosis of liver Paternal Grandfather Narcolepsy Diabetes Maternal Grandmother Diabetes Heart disease Breast cancer Paternal Grandmother Breast cancer Sister Alcohol abuse Uterine cancer Sister Cancer Brother , 66 Liver cancer Lung cancer Son Essential hypertension Son Narcolepsy Diabetes Essential hypertension Hyperlipidemia Other Family history of colon cancer Social History Smoking/Tobacco Use Status: Never Second Hand Exposure: Yes Smoking risk assessment performed?: Yes Alcohol Intake: former Drug use: Never Substance use type: does not use Caregiver/Support person: No Household members: spouse Housing: house Communication Needs: None Do you need help understanding health information?: Rarely Pets and animals: No Sexually active: No Do you think of yourself as: straight/heterosexual Current gender identity: female What is your relationship status?: How often do you talk on the phone with friends or family?: three or more times per week How often do you get together with friends or relatives?: once per week How often do you attend spiritism or muslim services?: 1-3 times per year Do you belong to any clubs or organized social groups?: yes Panel score (0-1 are the most socially isolated patients): 3 What type of physical activity do you participate in: walking Duration: 15-30 minutes/day Frequency: 5-6 times per week Sejal/Congregational: Holiness Special sejal needs: No Seatbelt use: always Helmet use: No Drive intox or ride w/intox national dedicated truck driver: No Do you feel safe at home: Yes Do you feel safe in your relationship?: Yes Additional [facility] history: [facility]
--- NOTE | 2025-01-17 12:04 | DI.RAD_ITS ---
Exam(s) XR CHEST 2V PA LATERAL EXAM: XR CHEST 2V PA LATERAL CLINICAL HISTORY: cough TECHNIQUE: 2D digital imaging was performed of the chest. Two images were obtained. PA and lateral views were obtained. COMPARISON: CR XR CHEST 2V PA LATERAL from 06/24/2024 FINDINGS: MEDIASTINUM: Normal. HEART: Normal. PULMONARY VASCULATURE: Normal. LUNGS: Clear. PLEURAL SPACE: No pleural effusion or pneumothorax. BONE:Within normal limits for the patient's age. The patient now has a right total reverse shoulder replacement. OTHER FINDINGS:Normal. IMPRESSION: No acute pulmonary findings. DATA REPOSITORY: RADIATION DOSE DELIVERED:
[2025-01-17 12:53] VITALS: PULSE 65; RESP 16; O2SAT 100
== END 2025-01-17 12:54 | disposition home or self-care (01) ==
PROVIDERS: Emergency Provider Physician Assistant; PCP Physician Assistant
DX: J06.9 Acute upper respiratory infection, unspecified (principal); R05.9 Cough, unspecified; I10 Essential (primary) hypertension; E03.9 Hypothyroidism, unspecified; E11.9 Type 2 diabetes mellitus without complications; Z79.82 Long term (current) use of aspirin; Z79.84 Long term (current) use of oral hypoglycemic drugs
CPT/HCPCS: 87426; 99283; 71046

== ENCOUNTER → 2025-01-23 13:19 | Outpatient (BNVA) | payer MEDICARE, SELFPAY | PROVIDERS: PCP Physician Assistant; Visit Provider Student in an Organized Health Care Education/Training Program | DX: Z47.89 Encounter for other orthopedic aftercare (principal); M75.101 Unspecified rotator cuff tear or rupture of right shoulder, not specified as traumatic | CPT/HCPCS: 99024 ==

== ENCOUNTER 2025-01-25 00:40 | Outpatient (CLI) | payer MEDICARE, SELFPAY ==
--- NOTE | 2025-01-25 | DI.CT_ITS ---
Exam(s) CT CHEST/ABD/PEL W EXAM: CT CHEST/ABD/PEL W CLINICAL HISTORY: Adenocarcinoma of duodenum s/p Whipple, C17.0. TECHNIQUE: Imaging Protocol: Axial computed tomography images with coronal and sagittal reformatted images were created and reviewed. Computer aided detection (CAD) was utilized. CONTRAST MATERIAL: Intravenous: Omnipaque 350 Contrast volume:100 ml Oral: yes / no COMPARISON: CT CT CHEST/ABD/PEL W from 02/04/2024 FINDINGS: CHEST: Pulmonary parenchyma: No consolidation. No dominant measurable mass. Tracheobronchial tree: No bronchiectasis. No mucous plugging.No bronchial wall thickening. Pleura: No effusion or pneumothorax. Mediastinum: Within normal limits. Pulmonary arteries: No visible emboli. Cardiovascular: No pericardial effusion. Thoracic aorta non-dilated. Bones: Unremarkable right shoulder prosthesis. No lytic or blastic lesions.No compression fractures. Soft tissues: Unremarkable. ABDOMEN and PELVIS: Liver: Normal density. No suspicious mass. Gallbladder and biliary tract: Cholecystectomy. Biliary enterostomy. Pneumobilia. Pancreas: Resection of the pancreatic head. The body and tail are somewhat atrophic unchanged in appearance. Spleen: Normal. Kidneys: Normal size, contour and axis. No radiodense stones. No obstructive uropathy. No suspicious masses seen. Adrenal glands: No masses seen. Aorta: Abdominal portion non-dilated. Atherosclerotic calcification. Lymph nodes: Stable 10 millimeter lymph node in the region of the surgical bed, uncinate process region. Soft tissues: Unremarkable. Bladder: Unremarkable nearly empty. Not well evaluated. Diffuse wall thickening. Findings could indicate cystitis. Similar to prior. Bowel: Whipple procedure. No obstruction or bowel wall thickening. Appendix normal. Moderate to increased stool. Peritoneal cavity: No ascites. No focal collection. No mesenteric inflammatory response. No free air. Bones: Unremarkable bilateral L5 spondylolysis and mild L5-S1 spondylolisthesis as well as degenerative disc changes peer stable. Reproductive organs: Unremarkable for age. IMPRESSION: No evidence of metastatic disease in the chest, abdomen or pelvis. Status post Whipple procedure. Stable postsurgical appearance. Bladder wall thickening is again noted. RADIATION DOSE DELIVERED: 1,226.97mGy.cm Total DLP DATA REPOSITORY: All CT scans at this facility are submitted to the National Radiology Data Registry (NRDR) Dose Index Registry (DIR) with the [employer] (A[employer]). RADIATION OPTIMIZATION: All CT scans at this facility use at least one of these dose optimization techniques: automated exposure control; mA and/or kV adjustment per patient size (includes targeted exams where dose is matched to clinical indication); or iterative reconstruction.
[2025-01-25] MEDS: Barium Sulfate 2% W/V-Berry Smoothie 450 ML BTL PO (08:07)
[2025-01-25] MEDS: Barium Sulfate 2% W/V-Creamy Vanilla Smoothie 450 ML BTL PO (08:08)
[2025-01-25 08:10] LABS: Abs Immature Grans 0.03 10^3/uL (0.0-0.06); Absolute Basophil Count 0.02 10^3/uL (0.0-0.2); Absolute Eosinophil Count 0.08 10^3/uL (0.0-0.7); Absolute Lymphocyte Count 1.69 10^3/uL (1.2-3.4); Absolute Monocyte Count 0.48 10^3/uL (0.1-0.8); Absolute Neutrophil Count 3.51 10^3/uL (1.2-6.7); Basophils % 0.3 %; Eosinophils % 1.4 %; HGB 11.5 g/dL (11.2-15.7); Immature Grans % 0.5 %; Lymphocytes % 29.1 %; MCH 30.5 pg (27.0-33.0); MCHC 32.9 % (32.0-36.0); MCV 93 fL (80-95); MPV 11.6 fL (8.0-11.0); Monocytes % 8.3 %; Neutrophils % 60.4 %; RBC 3.77 10^6/uL (3.93-5.22); RDW 12.7 % (11.7-14.6); RDW-SD 43.4 fL; WBC 5.81 10^3/uL (4.4-10.8)
[2025-01-25 08:24] LABS: ALT 34 U/L (14-59); AST 27 U/L (15-37); Albumin 3.3 g/dL (3.4-5.0); Alkaline Phosphatase 78 U/L (46-116); Anion Gap 6.2 mmol/L (3-11); BUN 20 mg/dL (7-18); Bilirubin, Total 0.4 mg/dL (0.2-1.0); CO2 27.8 mmol/L (21.0-32.0); Chloride 108 mmol/L (98-107); Estimated GFR 59.86 (mL/min/1.73m2); Glucose 144 mg/dL (74-106); Potassium 4.7 mmol/L (3.5-5.1); Sodium 142 mmol/L (136-145); Total Protein 6.8 g/dL (6.4-8.2)
[2025-01-25 08:42] LABS: Platelet Count 97 10^3/uL (130-400); RBC Morphology Normal
[2025-01-25] MEDS: Normal Saline - Diluent 50 ML VIAL IJ (09:58)
[2025-01-25] MEDS: Omnipaque 350 MG/ML 500 ML BTL-Imaging package IJ (10:01)
[2025-01-25 18:20] LABS: CEA 1.3 ng/mL (See Note)
== END 2025-01-25 01:00 ==
LOC: DI 00:40
PROVIDERS: Nurse Practitioner Family; PCP Physician Assistant; Visit Provider Internal Medicine Cardiovascular Disease
DX: C17.0 Malignant neoplasm of duodenum (principal)
CPT/HCPCS: 74177; 80053; 71260; 82378; 85025

== ENCOUNTER 2025-02-08 11:34 | Outpatient (REF) | payer MEDICARE, SELFPAY ==
[2025-02-08 15:13] LABS: HCT 39.4 % (36.0-46.0); HGB 12.5 g/dL (11.2-15.7); MCH 29.8 pg (27.0-33.0); MCHC 31.7 % (32.0-36.0); MCV 94 fL (80-95); MPV 12.3 fL (8.0-11.0); Platelet Count 103 10^3/uL (130-400); RBC 4.20 10^6/uL (3.93-5.22); RDW 13.1 % (11.7-14.6); RDW-SD 44.5 fL; WBC 6.24 10^3/uL (4.4-10.8)
[2025-02-08 16:06] LABS: ALT 35 U/L (14-59); AST 24 U/L (15-37); Albumin 3.8 g/dL (3.4-5.0); Alkaline Phosphatase 86 U/L (46-116); Anion Gap 8.3 mmol/L (3-11); BUN 25 mg/dL (7-18); Bilirubin, Total 0.5 mg/dL (0.2-1.0); CO2 28.7 mmol/L (21.0-32.0); Calcium 9.4 mg/dL (8.5-10.1); Calculated LDL 84 mg/dL (<100); Chloride 105 mmol/L (98-107); Cholesterol 169 mg/dL (<200); Estimated GFR 59.86 (mL/min/1.73m2); Glucose 183 mg/dL (74-106); HDL Cholesterol 52 mg/dL (>or=50); Potassium 4.3 mmol/L (3.5-5.1); Sodium 142 mmol/L (136-145); TSH 0.69 uIU/mL (0.36-3.74); Total Protein 7.0 g/dL (6.4-8.2); Triglyceride 165 mg/dL (<150)
[2025-02-08 16:12] LABS: Hemoglobin A1C 6.6 % (<5.7)
[2025-02-08 16:43] LABS: COMMENT (LAB VIEW ONLY) 115.24 mg/dL; Microalb ug/mg Crea 40.8 ug/mg Cr
== END 2025-02-08 11:35 | disposition home or self-care (01) ==
LOC: NCHCN 11:34
PROVIDERS: PCP Physician Assistant; Visit Provider Physician Assistant
DX: E11.9 Type 2 diabetes mellitus without complications (principal); K22.70 Barrett's esophagus without dysplasia; E03.9 Hypothyroidism, unspecified
CPT/HCPCS: 80053; 80061; 85027; 82043; 82570; 83036; 84443

== ENCOUNTER 2025-02-08 16:51 | Outpatient (CLI) | payer MEDICARE, SELFPAY ==
[2025-02-08 15:05] LABS: Abs Immature Grans 0.05 10^3/uL (0.0-0.06); HCT 37.8 % (36.0-46.0); HGB 12.0 g/dL (11.2-15.7); Immature Grans % 0.6 %; MCH 29.7 pg (27.0-33.0); MCHC 31.7 % (32.0-36.0); MCV 94 fL (80-95); MPV 11.1 fL (8.0-11.0); Platelet Count 108 10^3/uL (130-400); RBC 4.04 10^6/uL (3.93-5.22); RDW 13.0 % (11.7-14.6); RDW-SD 44.3 fL; WBC 8.61 10^3/uL (4.4-10.8)
[2025-02-08 15:54] LABS: Iron 37 ug/dL (50-170); Total Iron Binding Capacity 349 ug/dL (250-450); Transferrin Sat 11 % (15-50)
[2025-02-08 16:18] LABS: Ferritin 46 ng/mL (8-252); Vitamin B12 581 pg/mL (193-986)
[2025-02-08 16:22] LABS: Folate > 20.0 ng/mL (8.6-20.0)
== END 2025-02-08 16:52 | disposition home or self-care (01) ==
LOC: LBO 16:52
PROVIDERS: PCP Physician Assistant; Visit Provider Internal Medicine Hematology & Oncology
DX: C17.0 Malignant neoplasm of duodenum (principal); D64.9 Anemia, unspecified
CPT/HCPCS: 36415; 82607; 82728; 82746; 83540; 83550; 85025; 85045

== ENCOUNTER → 2025-02-21 13:14 | Outpatient (BNVA) | payer MEDICARE, SELFPAY | PROVIDERS: PCP Physician Assistant; Referring Provider Physician Assistant; Visit Provider Podiatrist | DX: B35.1 Tinea unguium (principal); E11.43 Type 2 diabetes mellitus with diabetic autonomic (poly)neuropathy; I73.89 Other specified peripheral vascular diseases | CPT/HCPCS: 99213 ==

== ENCOUNTER 2025-03-27 14:53 | Outpatient (CLI) | payer MEDICARE, SELFPAY ==
--- NOTE | 2025-03-27 13:30 | DI.RAD_ITS ---
Exam(s) XR SHOULDER RT COMPLETE 2+V EXAM: XR SHOULDER RT COMPLETE 2+V CLINICAL HISTORY: F/U RIGHT RTSA. TECHNIQUE: 2D digital imaging was performed. Two images were obtained. Grashey and Y views were obtained. COMPARISON: CR XR SHOULDER RT COMPLETE 2+V from 12/12/2024 FINDINGS: BONES: There are stable post operative changes of a right reverse total shoulder arthroplasty present. No fracture or dislocation. JOINTS: The orthopedic hardware is in good position. No evidence of hardware loosening. Mild degenerative changes are seen at the acromioclavicular joint. SOFT TISSUE: Normal. IMPRESSION: Stable right reverse total shoulder arthroplasty. DATA REPOSITORY: RADIATION DOSE DELIVERED:
== END 2025-03-27 14:54 | disposition home or self-care (01) ==
LOC: DIORS 14:53
PROVIDERS: PCP Physician Assistant; Referring Provider Physician Assistant; Visit Provider Student in an Organized Health Care Education/Training Program
DX: Z47.89 Encounter for other orthopedic aftercare (principal)
CPT/HCPCS: 99212; 73030

== ENCOUNTER → 2025-04-04 11:18 | Outpatient (BNVA) | payer MEDICARE, SELFPAY | PROVIDERS: PCP Physician Assistant; Referring Provider Internal Medicine Hematology & Oncology; Visit Provider Surgery | DX: K22.70 Barrett's esophagus without dysplasia (principal); Z80.0 Family history of malignant neoplasm of digestive organs | CPT/HCPCS: 99213 ==

== ENCOUNTER 2025-04-12 10:41 | Emergency (ER) | payer MEDICARE, SELFPAY ==
[2025-04-12 10:44] VITALS: BP 163/49; PULSE 66; RESP 18; TEMP 36.1; O2SAT 98
[2025-04-12 10:49] VITALS: BP 163/49; PULSE 66; RESP 18; TEMP 36.1; O2SAT 98
--- NOTE | 2025-04-12 11:13 | W.ED.GENAD ---
Discharge Plan Disposition Patient Disposition: Home Condition: Stable Discharge Details Clinical Impression: Urinary frequency, Subjective fever Primary Care Provider: Saqib Stapleton ED Provider: Emy Aguayo Home Meds and New Rx's Prescriptions: No Action multivit with min-folic acid [Centrum Adult 50 Fresh-Fruity] 120 mcg tablet,chewable 1 tab PO DAILY aspirin 81 mg tablet,delayed release (DR/EC) 81 mg PO DAILY losartan 100 mg tablet 50 mg PO DAILY buspirone 7.5 mg tablet 7.5 mg PO BID furosemide 20 mg tablet 20 mg PO DAILY levothyroxine 100 mcg tablet 100 mcg PO DAILY meclizine [Dramamine (meclizine)] 25 mg tablet 25 mg PO TID PRN ketoconazole 2 % cream 1 applic topical DAILY Qty: 120 6RF Rx Instructions: Apply to toenails once daily nystatin 100,000 unit/gram powder 1 applic topical BID Qty: 60 4RF gabapentin 600 mg tablet 600 mg PO QHS Qty: 90 4RF glipizide 5 mg tablet extended release 24hr 5 mg PO DAILY Qty: 90 12RF pantoprazole [Protonix] 40 mg tablet,delayed release (DR/EC) 40 mg PO DAILY Qty: 90 5RF Patient Comments: increased to BID for one month - started taking BID on 01/12/23 Creon 24,000-76,000 -120,000 unit capsule,delayed release(DR/EC) 3 cap PO .s0fdwww daily MDD 18 Qty: 540 6RF Patient Comments: Pt reports taking 1 Creon capsule 11/08/23 Rx Instructions: administer with meals and/or snacks ergocalciferol (vitamin D2) 1,250 mcg (50,000 unit) capsule 50,000 unit PO .twice weekly Qty: 28 5RF potassium chloride 10 mEq capsule, extended release 10 meq PO BID Qty: 180 4RF rosuvastatin [Crestor] 20 mg tablet 20 mg PO DAILY Qty: 90 4RF sennosides [senna] 8.6 mg Tablet 8.6 mg PO BID PRN Discharge Instructions Instructions: Fever, Adult (DC) Additional Instructions: You were seen in the emergency department today for evaluation of a fever at home, as well as urinary frequency. In our department you do full physical examination performed, had laboratory studies that were reassuring, and specifically did not show any elevation in your white blood cell counts, kidney injury, or electrolyte abnormalities. Your platelet count is low, but stable compared to your normal. You had negative testing for COVID, influenza, and RSV today, though certainly you could have an early upper respiratory viral infection given your recent exposure to a sick family member. Your urinalysis had a trace amount of blood in it, but did not have any sign of infection. At this time we are not going to initiate antibiotics given the lack of evidence of bacterial infection, though certainly things can change and I want you to continue to monitor your symptoms. Please call your primary care provider to schedule an evaluation in the next few days, they may want to recheck your urine at that time to ensure that nothing is developing or changing. Please continue to use Tylenol and ibuprofen as needed for management of fever or pain. You can always return to the emergency department, especially if you develop shortness of breath, chest, abdomen, or back pain, or any other symptoms that cause you concern. Thank you for allowing us to be part of your care. HPI General Mode of arrival: ambulatory. Date/Time Provider Initiated Documentation: 04/12/25 10:46. Limitations to Documentation: no limitations. Information obtained by: patient, family and old records reviewed. HPI Narrative: This is a 74-year-old female patient with a past medical history significant for diabetes, osteoarthritis, GERD/Walker's esophagus, CATHY, hypertension, presenting for evaluation of urinary frequency and subjective fevers. The patient reports that she began to feel unwell yesterday, felt like she was going to the bathroom more frequently and when she went she did not have a large volume. She does not feel like she is experiencing dysuria, but these symptoms feel similar to the last time she had a UTI back in October 2024. Last night she reports that she had subjective fevers, felt very warm with cold hands, and had generalized bodyaches. She recently was in contact with family members who are experiencing viral URIs. She states that she herself has not had any runny or stuffy nose, cough, or shortness of breath, though she did have a mild sore throat. The patient reports that she took Tylenol this morning, states that she is not experiencing any nausea or vomiting and has been able to maintain her oral intake. Denies flank or abdominal pain, chest pain, skin changes. Related Data Home Medications ?Medication ?Instructions ?Recorded ?Confirmed sennosides 8.6 mg tablet (senna) 8.6 mg PO BID PRN 11/04/20 04/12/25 nystatin 100,000 unit/gram topical 1 applic topical BID #60 grams 10/02/21 04/12/25 powder multivitamin with minerals-folic 1 tab PO DAILY 11/27/21 04/12/25 acid 120 mcg chewable tablet (Centrum Adult 50 Plus Fresh-Fruity) gabapentin 600 mg tablet 600 mg PO QHS #90 tabs 09/18/22 04/12/25 glipizide 5 mg tablet, extended 5 mg PO DAILY #90 tabs 10/05/22 04/12/25 release 24 hr pantoprazole 40 mg tablet,delayed 40 mg PO DAILY bleeding duodenal 10/05/22 04/12/25 release (Protonix) ulcer #90 tabs ergocalciferol (vitamin D2) 1,250 50,000 unit PO .twice weekly #28 01/04/23 04/12/25 mcg (50,000 unit) capsule caps [id number]-[id number] 3 cap PO .m2hipig daily #540 caps 01/04/23 04/12/25 24,000-76,000-120,000 unit capsule,delayed rel (Creon) potassium chloride 10 mEq 10 meq PO BID #180 caps 01/04/23 04/12/25 capsule,extended release rosuvastatin 20 mg tablet (Crestor) 20 mg PO DAILY #90 tab-caps 01/04/23 04/12/25 aspirin 81 mg tablet,delayed 81 mg PO DAILY 02/04/23 04/12/25 release losartan 100 mg tablet 50 mg PO DAILY 10/02/24 04/12/25 ketoconazole 2 % topical cream 1 applic topical DAILY #120 grams 10/11/24 04/12/25 buspirone 7.5 mg tablet 7.5 mg PO BID 11/22/24 04/12/25 furosemide 20 mg tablet 20 mg PO DAILY 11/22/24 04/12/25 levothyroxine 100 mcg tablet 100 mcg PO DAILY 11/22/24 04/12/25 meclizine 25 mg tablet (Dramamine 25 mg PO TID PRN 11/22/24 04/12/25 (meclizine)) Previous Rx's ?Medication ?Instructions ?Recorded nystatin 100,000 unit/gram topical 1 applic topical BID #60 grams 10/02/21 powder gabapentin 600 mg tablet 600 mg PO QHS #90 tabs 09/18/22 glipizide 5 mg tablet, extended 5 mg PO DAILY #90 tabs 10/05/22 release 24 hr pantoprazole 40 mg tablet,delayed 40 mg PO DAILY bleeding duodenal 10/05/22 release (Protonix) ulcer #90 tabs ergocalciferol (vitamin D2) 1,250 50,000 unit PO .twice weekly #28 01/04/23 mcg (50,000 unit) capsule caps [id number]-slyukvhg-hqsqmyi 3 cap PO .f9qzlbn daily #540 caps 01/04/23 24,000-76,000-120,000 unit capsule,delayed rel (Creon) potassium chloride 10 mEq 10 meq PO BID #180 caps 01/04/23 capsule,extended release rosuvastatin 20 mg tablet (Crestor) 20 mg PO DAILY #90 tab-caps 01/04/23 ketoconazole 2 % topical cream 1 applic topical DAILY #120 grams 10/11/24 Allergies Allergy/AdvReac Type Severity Reaction Status Date / Time lisinopril AdvReac Intermediate COUGH Verified 04/12/25 10:49 General Stated Complaint: Fever NOLVIA: 4 Exam Narrative Exam Narrative: Gen: Awake and alert, in no apparent distress HEENT: Non-icteric sclera, PERRL. Posterior pharynx without erythema, exudate, or swelling. 1 or 2 very small erythematous spots appreciated on the posterior pharynx without exudates Neck: Supple, full range of motion without meningismus Lungs: No apparent respiratory distress, normal respiratory effort. Lung sounds clear and equal bilaterally without wheezes, rhonchi, rales CV: Appears well perfused, heart with regular rate and rhythm, strong distal pulses Abdomen: Non-distended, soft, nontender to palpation without rigidity, rebound, or guarding. No CVA tenderness MSK: Moves 4 extremities without apparent limitation in ROM Skin: Visualized skin without rashes, cyanosis. Neuro: Normal Gait, no obvious focal deficits or facial asymmetry. Speaks in full, clear sentences. Psych: Appropriate for situation. Course Vital Signs Vital signs: Vital Signs Temperature 36.1 C L 04/12/25 10:44 Pulse 66 04/12/25 10:44 Respiratory Rate 18 04/12/25 10:44 Blood Pressure 163/49 H 04/12/25 10:44 Pulse Oximetry 98 04/12/25 10:44 Temperature 36.1 C L 04/12/25 10:49 Temperature Source Tympanic 04/12/25 10:49 Pulse 66 04/12/25 10:49 Respiratory Rate 18 04/12/25 10:49 Blood Pressure 163/49 H 04/12/25 10:49 Pulse Oximetry 98 04/12/25 10:49 Pain Level 0 04/12/25 11:02 Medical Decision Making This is a 74-year-old female patient presenting for evaluation of subjective fever and urinary frequency. Differential includes but is not limited to urinary tract infection, pyelonephritis, certainly considered viral URI, viral pharyngitis. The patient's risk of strep pharyngitis is quite low given her age and lack of exudates, no respiratory symptoms to significantly increase my concern for pneumonia or bronchitis. The patient has no tachycardia or active fever to suggest sepsis or bacteremia, no recent reported tick bites to suggest osmosis or other tickborne illness. She is maintaining her oral intake and my concern for metabolic or electrolyte derangement, kidney injury and dehydration is quite low. We will obtain a urinalysis, labs to include CBC, CMP, magnesium. At this time I do not see any indication to proceed with advanced imaging. She does not require any medications at this time for management of fever or pain. - Initial urinalysis was unfortunately contaminated though did show hematuria, we will obtain a clean repeat. I independently interpreted the laboratory studies, which show no significant leukocytosis, anemia, or new thrombocytopenia, she has a history of chronic thrombocytopenia and is stable today at 103.. The chemistry panel is without evidence of electrolyte abnormality, kidney dysfunction, or liver injury. Lactate is low, and repeat urinalysis shows trace blood, which has been present on several other studies, with no other infectious findings such as pyuria, leukocyte esterase, nitrites, etc. Her COVID and influenza testing was negative. I shared all of these findings with the patient, I did discuss the trace hematuria which she will follow with her primary care provider for repeat urinalysis. It is possible that she is experiencing an early upper respiratory viral infection given her recent exposure to same. I also recommended that she be reevaluated to ensure that she has not developed any symptoms of urinary tract infection that would warrant antibiosis. At this time I will hold on antibiosis given the lack of evidence of acute bacterial infection. At this time, the patient has had a full medical evaluation and is safe for discharge to home. They are hemodynamically stable, ambulatory, and tolerating PO. They are understanding of the follow-up plan and return precautions. They left our facility without incident. Emy Aguayo MD [facility] All Active Problems (Updated 04/12/25 @ 12:49 by Emy Aguayo MD) Subjective fever (Acute) Urinary frequency (Acute) Onychomycosis (Acute) Anxiety (Chronic) Posterior tibial tendon dysfunction (PTTD) of left lower extremity (Acute) Osteoarthritis of left hip (Acute) Angina at rest (Acute) Left ankle sprain (Acute) Cystocele and rectocele with incomplete uterovaginal prolapse (Acute) Rotator cuff tear, right (Acute) s/p Right reverse total shoulder arthroplasty 11/30/24 Duodenal cancer (Acute) Adenocarcinoma. 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 (Acute) BMI 40.0-44.9, adult (Acute) Right wrist tendonitis (Acute) Trochanteric bursitis of left hip (Acute) COVID-19 (Acute) 12/22/21 Vaccinated, booster 07/09/21 Chronic constipation (Acute) Adenomatous polyps (Acute) repeat CE in 2023 Chronic GERD (Acute) Renal failure (Chronic) Hypokalemia (Acute 05/09/15) Insomnia (Acute) Knee pain (Acute 03/12/15) Lumbar radiculopathy (Acute 02/06/13) Vitamin D deficiency (Chronic 03/22/12) Pulmonary hypertension (Chronic 11/08/17) Organic sleep apnea, unspecified (Chronic) CPAP (NOT USING 11/17) Increased body mass index (Chronic) Hypothyroidism (Chronic 10/11/12) Hyperlipidemia (Chronic 10/11/12) Gout (Chronic 03/14/10) Gastroesophageal reflux disease (Chronic 10/11/12) Family history of colon cancer (Chronic 01/29/15) Essential hypertension (Chronic 05/04/13) Edema (Chronic) Diverticulosis of colon without diverticulitis (Chronic 05/21/09) 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 stated it was stress related, states she had it worked up which was WNL per pt/ Gastritis History of pelvic ultrasound Hyperkalemia (10/20/12) Lipoma (07/01/05) Abnormal mammography (07/01/06) Skin tag (08/03/17) Sprain of costal cartilage (10/22/16) Strain of flexor muscle of left hip (09/23/16) Left hip pain (12/15/16) Knee pain (03/12/15) Arthritis of right knee (06/07/15) Vitamin D deficiency Hypertension Bronchiectasis GERD (gastroesophageal reflux disease) Organic sleep apnea Osteoarthritis Hypothyroidism Depression Chronic insomnia Gout Diabetes Morbid obesity with BMI of 50.0-59.9, adult Diverticulosis large intestine w/o perforation or abscess w/o bleeding Surgical History History of back surgery Per pt. states they had to free up my sciatic nerve Hx of breast reduction, elective History of Whipple procedure History of esophagogastroduodenoscopy (EGD) (~11/2023) History of colonoscopy (~11/2023) Surgical procedure planned Whipple procedure 01/01/20 History of bilateral ligation of fallopian tubes Status post cholecystectomy Status post total knee replacement (02/25/16) Ligation of fallopian tube PELVIC U/S NEG Endometrial Biopsy neg Cholecystectomy Arthroplasty of knee (02/25/16) LEFT TOTAL KNEE Family History Mother Liver cancer Father Heart disease Stomach cancer Maternal Grandfather Cirrhosis of liver Paternal Grandfather Narcolepsy Diabetes Maternal Grandmother Diabetes Heart disease Breast cancer Paternal Grandmother Breast cancer Sister Alcohol abuse Uterine cancer Sister Cancer Brother , 66 Liver cancer Lung cancer Son Essential hypertension Son Narcolepsy Diabetes Essential hypertension Hyperlipidemia Other Family history of colon cancer Social History Smoking/Tobacco Use Status: Never Second Hand Exposure: Yes Smoking risk assessment performed?: Yes Alcohol Intake: former Drug use: Never Substance use type: does not use Caregiver/Support person: No Household members: spouse Housing: house Communication Needs: None Do you need help understanding health information?: Rarely Pets and animals: No Sexually active: No Do you think of yourself as: straight/heterosexual Current gender identity: female What is your relationship status?: How often do you talk on the phone with friends or family?: three or more times per week How often do you get together with friends or relatives?: once per week How often do you attend judaism or lutheran services?: 1-3 times per year Do you belong to any clubs or organized social groups?: yes Panel score (0-1 are the most socially isolated patients): 3 What type of physical activity do you participate in: walking Duration: 15-30 minutes/day Frequency: 5-6 times per week Sejal/Orthodox: Holiness Special sejal needs: No Seatbelt use: always Helmet use: No Drive intox or ride w/intox national dedicated truck driver: No Do you feel safe at home: Yes Do you feel safe in your relationship?: Yes Additional Social history: [employer]
[2025-04-12 11:20] LABS: Glucose Negative (Negative)
[2025-04-12 11:26] LABS: WBC 0-2 HPF (0-5)
[2025-04-12 11:27] LABS: C & S Indicated? No
[2025-04-12 11:37] LABS: Abs Immature Grans 0.04 10^3/uL (0.0-0.06); HCT 36.2 % (36.0-46.0); HGB 11.6 g/dL (11.2-15.7); Immature Grans % 0.6 %; MCH 29.1 pg (27.0-33.0); MCHC 32.0 % (32.0-36.0); MCV 91 fL (80-95); MPV 11.0 fL (8.0-11.0); Platelet Count 103 10^3/uL (130-400); RBC 3.99 10^6/uL (3.93-5.22); RDW 13.3 % (11.7-14.6); RDW-SD 44.4 fL; WBC 6.30 10^3/uL (4.4-10.8)
[2025-04-12 11:48] LABS: ALT 25 U/L (14-59); AST 21 U/L (15-37); Albumin 3.3 g/dL (3.4-5.0); Alkaline Phosphatase 77 U/L (46-116); Anion Gap 7.0 mmol/L (3-11); BUN 17 mg/dL (7-18); Bilirubin, Total 0.7 mg/dL (0.2-1.0); CO2 27.0 mmol/L (21.0-32.0); Calcium 9.0 mg/dL (8.5-10.1); Chloride 104 mmol/L (98-107); Estimated GFR 53.39 (mL/min/1.73m2); Glucose 179 mg/dL (74-106); Magnesium 1.8 mg/dL (1.8-2.4); Potassium 4.0 mmol/L (3.5-5.1); Sodium 138 mmol/L (136-145); Total Protein 6.7 g/dL (6.4-8.2)
[2025-04-12 12:21] LABS: COVID-19 PCR Negative (Negative); RSV PCR Negative (Negative)
[2025-04-12 12:25] LABS: Glucose Negative (Negative)
[2025-04-12 12:32] LABS: RBC 0-2 HPF (0-2); WBC Negative HPF (0-5)
[2025-04-12 12:33] LABS: C & S Indicated? No
[2025-04-12 13:10] VITALS: BP 113/49; PULSE 60; RESP 15; O2SAT 98
== END 2025-04-12 13:19 | disposition home or self-care (01) ==
PROVIDERS: Emergency Provider Emergency Medicine; PCP Physician Assistant
DX: R35.0 Frequency of micturition (principal); R53.83 Other fatigue; R50.9 Fever, unspecified
CPT/HCPCS: 99283 ×2; 80053; 87637; 81003; 81015; 83605; 83735; 85025